=== PATIENT | female | born 1940 | race Caucasian/White ===

== ENCOUNTER 2016-10-25 18:16 | Emergency (ER) | payer MEDICARE ==
[2016-10-25 18:23] VITALS: BP 173/74
--- NOTE | 2016-10-25 18:38 | UC ---
HPI Wound/Suture Re-check - HPI Summary HPI Summary: The patient comes in today for: 1. Bleeding from the right ear: Onset: Punch biopsy done yesterday. Palliative/provocative: Nothing made it better or worse. Quality: Ache at the biopsy site. Region: Right ear Severity: 09/03 Time: Constant. Associated symptoms: Event: The patient had a punch biopsy done yesterday for a skin lesion of the right ear. She did well after the procedure. She woke up today with no problems. She took the bandaid off tonight (about 5:30 PM) and that is when it started bleeding. She tried to stop the bleeding. She had bandaids put back on the area and pressed some guaze pads to the area. This did not help stop the bleeding. * - History Of Current Complaint Chief Complaint: RAMBOkin Stated Complaint: wound check Time Seen by Provider: 10/25/16 18:21 Hx Obtained From: Patient, Family/Mixer Whipped Topping - Allergies/Home Medications Allergies/Adverse Reactions: Allergies Allergy/AdvReac Type Severity Reaction Status Date / Time Codeine Allergy Intestinal Verified 10/25/16 18:24 pain Penicillins Allergy Intestinal Verified 10/25/16 18:24 pain decongestants Allergy Cardiac Uncoded 10/25/16 18:24 arythmia most antibiotics Allergy Intestinal Uncoded 10/25/16 18:24 pain PMH/Surg Hx/FS Hx/Imm Hx Previously Healthy: No - Parkinson's disease. no bleeding problems. Endocrine History: Diabetes - She is diet-controlled pre-diabetic., Thyroid Disease, Hypothyroidism, Dyslipidemia Cardiovascular History: Hypertension GI/ History: Gastroesophageal Reflux - Surgical History Surgical History: Yes Surgery Procedure, Year, and Place: [place] 2008[place],[facility],prolapsed vagina 2009-[place],hyster 1988,cataracts both 2003,08 [facility] - Family History Known Family History: Positive: Cardiac Disease, Diabetes, Other - Stroke - Social History Occupation: Retired Lives: With Family Alcohol Use: None Substance Use Type: None Smoking Status (MU): Never Smoked Tobacco Review of Systems Constitutional: Negative Skin: Negative Eyes: Negative ENT: Negative Respiratory: Negative Cardiovascular: Negative Gastrointestinal: Negative Genitourinary: Negative All Other Systems Reviewed And Are Negative: Yes Physical Exam Triage Information Reviewed: Yes Appearance: Well-Appearing, No Pain Distress, Well-Nourished Vital Signs: Initial Vital Signs Temp 98.9 F 10/25/16 18:20 Pulse 83 10/25/16 18:20 Resp 16 10/25/16 18:20 BP 173/74 10/25/16 18:20 Pulse Ox 99 10/25/16 18:20 Vital Signs Reviewed: Yes Eyes: Positive: Conjunctiva Clear. Negative: Discharge ENT: Positive: Hearing grossly normal. Negative: Pharyngeal erythema, Nasal congestion, Nasal drainage, TM bulging, TM dull, TM red, Tonsillar swelling, Tonsillar exudate Dental: Negative: Gross Decay/Caries @, Dental Fracture @ Neck: Positive: Supple, Nontender, No Lymphadenopathy. Negative: Nuchal Rigidity Respiratory: Positive: Chest non-tender, Lungs clear, No respiratory distress, No accessory muscle use. Negative: Crackles, Wheezing Cardiovascular: Positive: RRR, No Murmur Abdomen Description: Positive: Nontender, No Organomegaly, Soft. Negative: Distended, Guarding Musculoskeletal: Positive: Strength Intact, ROM Intact, No Edema Neurological: Positive: Alert, Muscle Tone Normal Psychological: Positive: Normal Response To Family, Age Appropriate Behavior, Consolable Skin: Positive: Other - Right ear: There is one suture in the right ear. There is no redness, or swelling or bleeding from that site. However, there is a pinhole-sized in the skin below this of the pinna that oozes drops of blood.. Negative: rashes, breakdown Course/Dx - Course Course Of Treatment: The patient had her old, blood saturated dressing/bandages removed and more direct pressure applied to the bleeding area for about 20 minutes. There was no more bleeding. A more close, interrupted exam took place and there appeared to be a small skin tear at the area. Skin adhesive applied to that area. Hemostasis was applied. - Differential Dx - Laceration/Wound Provider Diagnoses: Bleeding of the right ear from wound area. Discharge - Discharge Plan Condition: Stable Disposition: HOME Patient Education Materials: Skin Adhesive Care (ED) Referrals: Jimi Ocampo MD [Primary Care Provider] - 1 Week (Please see your primary care provider or the surgeon as you have been told previously for follow up on your surgical wound. If there is any more bleeding, please be seen again. So not physically manipulate the right ear. No dressings are needed at this time. )
== END 2016-10-25 19:20 | disposition home or self-care (01) ==
LOC: UCEAST 18:16
DX: H95.42 Postprocedural hemorrhage of ear and mastoid process following other procedure (principal); I10 Essential (primary) hypertension; R73.03 Prediabetes; K21.9 Gastro-esophageal reflux disease without esophagitis; Z88.1 Allergy status to other antibiotic agents; Z88.5 Allergy status to narcotic agent; Z88.0 Allergy status to penicillin
CPT/HCPCS: 12011; 99211; G0463

== ENCOUNTER 2017-04-19 15:40 | Emergency (ER) | payer MEDICARE ==
[2017-04-19 16:03] VITALS: BP 157/63
--- NOTE | 2017-05-07 15:32 | UC ---
UC General HPI - HPI Summary HPI Summary: has hx of hypertension gets her medications [facility] mail order---her quinapril did not come in the mail today she is seeking a few doses until medication comes in - History of Current Complaint Chief Complaint: UCMedRefill Stated Complaint: MED REFILL Time Seen by Provider: 04/19/17 16:00 Hx Obtained From: Patient Onset/Duration: Sudden Onset Timing: Constant Current Severity: None Pain Intensity: 0 - Allergy/Home Medications Allergies/Adverse Reactions: Allergies Allergy/AdvReac Type Severity Reaction Status Date / Time Codeine Allergy Intestinal Verified 04/19/17 15:55 pain Penicillins Allergy Intestinal Verified 04/19/17 15:55 pain decongestants Allergy Cardiac Uncoded 10/25/16 18:24 arythmia most antibiotics Allergy Intestinal Uncoded 10/25/16 18:24 pain PMH/Surg Hx/FS Hx/Imm Hx Previously Healthy: No Endocrine History: Hypothyroidism, Dyslipidemia Cardiovascular History: Hypertension GI/ History: Gastroesophageal Reflux Neurological History: Other Other Neurological History: Parkinsons - Surgical History Surgical History: Yes Surgery Procedure, Year, and Place: [facility]b [facility],4 children,prolapsed vagina 2009-[place],hyster 1988,cataracts both 2003,08 [facility] [place] - Family History Known Family History: Positive: Cardiac Disease, Diabetes, Other - Stroke - Social History Occupation: Retired Lives: With Family Alcohol Use: None Substance Use Type: None Smoking Status (MU): Never Smoked Tobacco Review of Systems Constitutional: Negative Skin: Negative Eyes: Negative ENT: Negative Respiratory: Negative Cardiovascular: Negative Gastrointestinal: Negative Genitourinary: Negative Motor: Negative Neurovascular: Negative Musculoskeletal: Negative Neurological: Negative Psychological: Negative Is Patient Immunocompromised?: No All Other Systems Reviewed And Are Negative: Yes Physical Exam Triage Information Reviewed: Yes Appearance: Well-Appearing, No Pain Distress, Well-Nourished Vital Signs: Initial Vital Signs Temp 98.2 F 04/19/17 15:51 Pulse 84 04/19/17 15:51 Resp 16 04/19/17 15:51 BP 157/63 04/19/17 15:51 Pulse Ox 99 04/19/17 15:51 Vital Signs Reviewed: Yes Eye Exam: Normal Eyes: Positive: Conjunctiva Clear ENT Exam: Normal ENT: Positive: Normal ENT inspection, Hearing grossly normal Dental Exam: Normal Neck exam: Normal Neck: Positive: Supple, Nontender Respiratory Exam: Normal Respiratory: Positive: Chest non-tender, Lungs clear, Normal breath sounds, No respiratory distress, No accessory muscle use Cardiovascular Exam: Normal Cardiovascular: Positive: RRR, No Murmur, Pulses Normal, Brisk Capillary Refill Abdominal Exam: Normal Musculoskeletal Exam: Normal Musculoskeletal: Positive: Strength Intact, ROM Intact, No Edema Neurological Exam: Normal Neurological: Positive: Alert, Muscle Tone Normal Psychological Exam: Normal Psychological: Positive: Normal Response To Family Skin Exam: Normal Course/Dx - Course Course Of Treatment: dispense quinapril for bridge dose until RX comes in mail, follow bp with pcp - Differential Dx - Multi-Symptom Provider Diagnoses: Med refill, Hypertension in poor control Discharge - Discharge Plan Condition: Stable Disposition: HOME Prescriptions: Atorvastatin* [Lipitor 20 MG*] 20 mg PO 1700 #15 tab Quinapril HCl 40 mg PO DAILY #15 tab Patient Education Materials: Hypertension (ED) Referrals: Berkley Diaz MD [Primary Care Provider] - 2 Weeks
== END 2017-04-19 16:03 | disposition home or self-care (01) ==
LOC: UCEAST 15:40
DX: I10 Essential (primary) hypertension (principal); Z76.0 Encounter for issue of repeat prescription; E03.9 Hypothyroidism, unspecified; E78.5 Hyperlipidemia, unspecified; K21.9 Gastro-esophageal reflux disease without esophagitis; G20 Parkinson's disease; Z88.1 Allergy status to other antibiotic agents; Z88.5 Allergy status to narcotic agent; Z88.0 Allergy status to penicillin
CPT/HCPCS: 99212; G0463

== ENCOUNTER 2018-09-20 16:23 | Emergency (ER) | payer MEDICARE ==
--- OUTSIDE RECORDS SUMMARY | 2018-09-20 16:30 | XMS REPORT | Continuity of Care Document ---
:1940 External Reference #:[id number] Author Name Carin casillas Care Team Providers Name Role Phone Berkley Diaz MD Primary Care Physician Unavailable Payers Date Identification Numbers Payment Provider Subscriber Effective: 2006 Policy Number: [id number] Medicare Marisol Cleveland PayID: [id number] [address] [place] [address] Policy Number: [id number] [facility] Marisol Cleveland PayID: [id number] [address] [place] [address] Effective: 2012 Policy Number: [id number] [facility] Marisol Cleveland Life Expires: 2014 [address] [place] [address] Advance Directives Description No Information Available Problems Date Description Provider Status Onset: 09/21/2014 Memory impairment Wendi Foster M.D. Active Onset: 09/21/2014 Parkinson's disease Wendi Foster M.D. Active Onset: 08/11/2015 Restless legs Wendi Foster M.D. Active Family History Date Family Member(s) Observation Comments Father Colon Cancer Age 60 Father due to Colon Cancer () - Age 60 Father Epilepsy Mother Heart Disease CHF at age 84 Mother Diabetes Mother Stroke Siblings 3 Social History Type Date Description Comments Sex Unknown Occupation Retired Clergy at [employer] ETOH Use Denies alcohol use Tobacco Use Start: Unknown Patient has never smoked Recreational Drug Use Denies Drug Use Smoking Status Reviewed: 08/29/18 Patient has never smoked Exercise Type/Frequency Exercises regularly 2x a week class and balance class once a week Allergies, Adverse Reactions, Alerts Date Description Reaction Status Severity Comments 07/28/2013 Penicillins GI UPSET Active 05/06/2014 Sulfa Antibiotics Nausea and Vomiting Active Medications Medication Date Status Form Strength Qnty SIG Indications Ordering Provider Sertraline HCL Active Tablets 25mg 60tab take 1 by F41.9 Shannan 9 s mouth each , day x 2 M.D. weeks, then 2 by mouth each day after breakfast Carbidopa-Levod Active Tablets 25-100mg 30tab take 1 G20 Shannan opa ER 8 ER s tablet at [place], bedtime M.D. Carbidopa-Levod Active Tablets 25-100mg 150ta 1 tab by Shannan opa 8 bs mouth 4 der, x/day as M.D. directed Quinapril HCL Active Tablets 40mg 90tab 1 tab po Unknown 0 s qd Atorvastatin Active Tablets 20mg 30tab take 1 Unknown Calcium 0 s tablet at bedtime Pantoprazole Active Solution 40mg 90uni 1 tab po Unknown Sodium 0 Rec ts qd Levothyroxine Active Tablets 50mcg 90tab 1 tab po Unknown Sodium 0 s qd Vitamin C Active Chewtabs 250mg 60uni 1 tab po Unknown 0 ts daily Colace Active Capsules 100mg 40cap 3 tabs po Unknown 0 s qhs Probiotic Active Capsules 1 tab by Unknown 0 mouth every day Calcium Citrate Active Tablets 250mg 2 tabs po Unknown 0 qd Hydroxyurea Active Capsules 500mg 1 tab by Unknown 0 mouth every day Senekot Active 1 tab po Unknown Laxative 0 at 8pm Phazyme Maximum Active Capsules 250mg 1 tab po Unknown Strength 0 qhs Melatonin Active Capsules 3mg 1 by mouth Unknown 0 at bedtime Ropinirole HCL Hx Tablets 0.25mg 120ta 1-4 tabs G20 Wendi M. 6 - bs by mouth Maria Luisaman, Unknown every at M.D. bedtime as directed prn Metoprolol Hx Tablets 25mg 90tab 1 by mouth Angie Succinate ER 5 - ER 24HR s every day [place], M.DKennedy 5 Selegiline HCL Hx Capsules 5mg 180ca 1 cap by 332.0 Wendi Fields 4 - ps mouth [facility], every in M.D. 5 the morning and noon Azilect Hx Tablets 1mg 90tab 1 by mouth Wendi Fields 4 - s every day [facility], M.D. 4 Amantadine HCL Hx Capsules 100mg 180ca 1 by mouth 332.0 Wendi Fields 4 - ps twice a Stack, day M.D. 4 Azilect Hx Tablets 0.5mg 180ta 2 tabs po Wendi Fields 4 - bs qam [facility], M.D. 4 Citracal/Vitami Hx Tablets 250-200mg 2 po qam Unknown n D 0 - -Unit 8 Sinemet Hx Tablets 25-100mg 360ta 1 by mouth Wendi Fields 0 - bs 3 times a Stacksima, Unknown day as M.D. directed Carbidopa-Levod Hx Tablets 25-100mg 450ta 1 by mouth Wendi Fields opa ER 0 - ER bs 5 times a [facility], day as M.D. 8 directed. Protonix Hx Tablets 40mg 1 by mouth Unknown 0 - DR every day 8 Loratadine Hx Capsules 10mg 1 tab po Unknown 0 - qhs 9 Medications Administered in Office Medication Date Status Form Strength Qnty SIG Indications Ordering Provider Technetium TC Administered Injection Behzad Obrien 99M 015 Abdon Vazuqez M.D., FACC, Per Unit Dose FASNC Up To 40 Millicuries Technetium TC Administered Injection Angie 99M 015 Abdon Sanches M.D. Per Unit Dose Up To 40 Millicuries Immunizations Description No Information Available Vital Signs Date Vital Result Comment 08/29/2018 2:01pm Height 65 inches 5'5" Weight 118.00 lb Heart Rate 70 /min BP Systolic 118 mmHg BP Diastolic 72 mmHg BMI (Body Mass Index) 19.6 kg/m2 02/28/2018 9:05am Height 65 inches 5'5" Weight 124.38 lb Heart Rate 72 /min BP Systolic Sitting 130 mmHg BP Diastolic Sitting 68 mmHg Respiratory Rate 16 /min BMI (Body Mass Index) 20.7 kg/m2 11/14/2017 8:33am Height 65 inches 5'5" Weight 129.50 lb Heart Rate 80 /min BP Systolic 142 mmHg BP Diastolic 76 mmHg Respiratory Rate 16 /min BMI (Body Mass Index) 21.5 kg/m2 06/13/2017 11:20am Height 65 inches 5'5" Weight 134.00 lb Heart Rate 72 /min BP Systolic 140 mmHg BP Diastolic 72 mmHg Respiratory Rate 16 /min BMI (Body Mass Index) 22.3 kg/m2 03/07/2017 11:28am Height 65 inches 5'5" Weight 130.00 lb Heart Rate 76 /min BP Systolic Sitting 122 mmHg BP Diastolic Sitting 62 mmHg Respiratory Rate 16 /min BMI (Body Mass Index) 21.6 kg/m2 12/20/2016 2:35pm Height 65 inches 5'5" Weight 130.00 lb Heart Rate 80 /min BP Systolic 112 mmHg BP Diastolic 80 mmHg Respiratory Rate 16 /min Pain Level 0 BMI (Body Mass Index) 21.6 kg/m2 11/20/2016 8:41am Height 65 inches 5'5" Weight 134.00 lb Heart Rate 72 /min BP Systolic Sitting 140 mmHg BP Diastolic Sitting 80 mmHg Respiratory Rate 14 /min BMI (Body Mass Index) 22.3 kg/m2 11/01/2016 1:47pm Heart Rate 78 /min BP Systolic Sitting 138 mmHg BP Diastolic Sitting 72 mmHg Respiratory Rate 16 /min Body Temperature 97.8 F 10/24/2016 9:28am Heart Rate 74 /min BP Systolic 138 mmHg BP Diastolic 78 mmHg Respiratory Rate 16 /min 10/17/2016 9:44am Heart Rate 66 /min BP Systolic 116 mmHg BP Diastolic 78 mmHg Respiratory Rate 16 /min Body Temperature 97.4 F 01/05/2016 11:46am Height 65.5 inches 5'5.50" Weight 137.00 lb Heart Rate 81 /min BP Systolic Sitting 144 mmHg BP Diastolic Sitting 82 mmHg Respiratory Rate 18 /min O2 % BldC Oximetry 98 % BMI (Body Mass Index) 22.4 kg/m2 08/11/2015 2:16pm Height 65.5 inches 5'5.50" Weight 137.12 lb Heart Rate 80 /min BP Systolic Sitting 138 mmHg BP Diastolic Sitting 76 mmHg Respiratory Rate 17 /min BMI (Body Mass Index) 22.5 kg/m2 04/12/2015 10:12am Height 65.5 inches 5'5.50" Weight 140.00 lb With shoes Heart Rate 76 /min BP Systolic Sitting 140 mmHg BP Diastolic Sitting 78 mmHg Respiratory Rate 16 /min BMI (Body Mass Index) 22.9 kg/m2 12/07/2014 9:28am Height 65.5 inches 5'5.50" Heart Rate 64 /min BP Systolic Sitting 134 mmHg BP Diastolic Sitting 70 mmHg Respiratory Rate 16 /min 09/21/2014 11:18am Height 65.5 inches 5'5.50" Heart Rate 68 /min BP Systolic Sitting 122 mmHg BP Diastolic Sitting 64 mmHg Respiratory Rate 16 /min 05/06/2014 1:39pm Height 65.5 inches 5'5.50" Weight 144.50 lb Heart Rate 68 /min BP Systolic Sitting 130 mmHg BP Diastolic Sitting 70 mmHg Respiratory Rate 16 /min BMI (Body Mass Index) 23.7 kg/m2 12/31/2013 10:03am Height 65.5 inches 5'5.50" Weight 144.00 lb Heart Rate 66 /min BP Systolic Sitting 130 mmHg BP Diastolic Sitting 70 mmHg Respiratory Rate 16 /min BMI (Body Mass Index) 23.6 kg/m2 10/06/2013 11:35am Height 65.5 inches 5'5.50" Weight 141.00 lb Heart Rate 68 /min BP Systolic Sitting 142 mmHg BP Diastolic Sitting 80 mmHg Respiratory Rate 16 /min BMI (Body Mass Index) 23.1 kg/m2 07/28/2013 11:05am Heart Rate 76 /min BP Systolic Sitting 138 mmHg BP Diastolic Sitting 72 mmHg Respiratory Rate 16 /min Results Test Date Facility Test Result H/L Range Note Laboratory test 10/24/2016 [facility] Surgical SEE RESULT 1 , [address] [place] [address] [phone] 1 [id number] 2 SEE RESULT BELOW Name: MARISOL MCNALLY : [address]: Gay Zhao MD Acct: [id number] Unit: [id number] AGE: 76 Location: [facility] Re10/24/16 SEX: F Status: REG REF SPEC: [id number] EN: 10/24/16-[address] [facility] [address]: Gay Zhao MD REQ: [id number] RECD: 10/24/16-1156 STATUS: SOUT _ ORDERED: LEVEL 3, LEVEL 4 COMMENTS: [id number] FINAL DIAGNOSIS 1. Skin, right arm, excision: -- Epidermal inclusion cyst. 2. Skin, right ear lesion, biopsy: -- Actinic keratosis with excoriation. CLINICAL HISTORY No history given GROSS DESCRIPTION 1. The specimen is received in formalin labeled, Right Arm Cyst, and consists of a 1.5 x 0.9 cm alejandre-white wrinkled unoriented skin ellipse excised to a depth of 0.5 cm. There is a 0.5 x 0.5 x 0.4 cm cyst containing waxy alejandre-white material within the subcutaneous tissue. The specimen is inked, serially sectioned and textile machinery sales representative sections are submitted in one cassette. 2. The specimen is received in formalin labeled, Right Ear Lesion, and consists of a 0.5 by up to 0.3 x 0.2 cm mottled alejandre-pink irregular skin and soft tissue fragment, which is bisected and submitted entirely in one cassette. Signed (signature on file) Tiago Bae MD [id number] END OF REPORT * ML=Testing performed at Main Lab DEPARTMENT OF PATHOLOGY, [address] [place] [address] Tiago Bae M.D. Director [facility] # [id number] Procedures Date Code Description Status 07/15/2018 80498 ECHO Transthoracic, Real-Time 2D With Doppler And Color Completed Flow 07/15/2018 53347 ECHO Transthoracic, Real-Time 2D With Doppler And Color Completed Flow 10/24/2016 40031 Biopsy External Ear Completed 10/24/2016 49143 Excision,Benign,Face,Ears,Eyelids,Nose,Lips 0.6 To 1.0 Completed CM 07/02/2014 99568 Stress Test Completed 07/02/2014 80485 Myocardial Perfusion Imaging Tomographic (Spect) Completed Multiple Studies 07/02/2014 71577 Myocardial Perfusion Imaging Tomographic (Spect) Completed Multiple Studies 04/04/2012 [id number] Mammogram Completed Encounters Type Date Location Provider Dx Diagnosis Office Visit 02/28/2018 [facility] Maurice Parkinson's 9:00a [facility] [place] [facility] disease Office Visit 11/14/2017 [facility] Maurice Parkinson's 8:30a [facility] [place] [facility] Office Visit 06/13/2017 [facility] Johnson Parkinson' s 11:15a [facility] disease G25.81 Restless legs syndrome Office Visit 03/07/2017 11:30a [facility]ema Serra [facility] G25.81 Restless legs syndrome Office Visit 12/20/2016 2:30p Neema Serra [facility] Foster M.D. disease R42 Dizziness and giddiness Office Visit 11/20/2016 8:45a [facility] Wendi Fields G20 [facility] Foster M.D. disease G25.81 Restless legs syndrome R42 Dizziness and giddiness Office Visit 10/17/2016 9:30a [facility] Gay Griffin L72.3 Sebaceous cyst [facility] Zhao MD R23.9 Unspecified skin changes Office Visit 01/05/2016 11:45a [facility] Wendi Fields G20 [facility] Foster M.D. disease G25.81 Restless legs syndrome Office Visit 08/11/2015 2:15p [facility] Wendi Fields G20 [facility] Foster M.D. disease G25.81 Restless legs syndrome Office Visit 04/12/2015 10:15a [facility] Wendi Fields G20 [facility] Foster M.D. disease Office Visit 12/07/2014 9:30a Neema Fields 332.0 Paralysis [facility]ans [facility] Foster M.D. Office Visit 09/21/2014 11:15a Neema Fields 332.0 [facility] M.D. Office Visit 05/06/2014 1:30p Neema Fields 332.0 [facility] Foster M.D. Office Visit 12/31/2013 10:00a Neema Fields 332.0 [facility] Foster M.D. Office Visit 10/06/2013 11:00a Neema Fields 332.0 [facility] Foster M.D. Office Visit 07/28/2013 11:00a Neema Fields 332.0 [facility]alysis [facility] Foster M.D. Plan of Treatment Future Appointment(s):10/15/2018 11:30 am - Shannan Vargas M.D. at [facility] [id number]/29/2018 - Shannan Vargas M.D.G20 Parkinson's diseaseFollow up:front maker lockstitch: please ask for notes from Dr. Watson, as well as getting most recent CBC.Recommendations:continue to be as active as you can, and drink water.G25.81 Restless legs [id number] Anxiety disorder, unspecifiedNew Medication:Sertraline HCL 25 mg - take 1 by mouth each day x 2 weeks, then 2 by mouth each day after breakfastFollow up:6- 8 weeks (may add on )
[2018-09-20 16:40] VITALS: BP 135/53
--- NOTE | 2018-09-20 16:56 | UC ---
Syncope/New Syncope HPI - HPI Summary HPI Summary: This patient is a 78-year-old female with past medical history of disease presents to the urgent care with chief complaint of having a syncopal episode. She reports that she was preparing a meal for lunch and suddenly the patient became dizzy feeling that she was called to pass out and likely the patients daughter called her preventing her from falling in the floor. The patient has a positive loss of consciousness for approximately 2-5 seconds. Patient denies any chest pain shortness of breath or palpitations, she denies any nausea vomiting diarrhea constipation. She reports that approximately 2 weeks ago she started taking Zoloft and her dose was increased last week and she reports not feeling great. She stopped taking the Zoloft 3 days ago and she was started this morning. She has no other complaints. - History Of Current Complaint Chief Complaint: UCDizziness Stated Complaint: DIZZINESS Time Seen by Provider: 09/20/18 16:44 Hx Obtained From: Patient, Family/Distribution System Operator Onset/Duration: Sudden Onset Activity At Onset: Other - cooking Timing: Seconds Frequency: Episodes x___ - 1 Context: Witnessed Associated Head Trauma: No Pain Intensity: 5 Aggravating Factor(s): Nothing Alleviating Factor(s): Nothing Associated Signs And Symptoms: Positive: Negative - Allergies/Home Medications Allergies/Adverse Reactions: Allergies Allergy/AdvReac Type Severity Reaction Status Date / Time codeine Allergy Intermediate intestianl Verified 09/20/18 16:41 pain Penicillins Allergy Intermediate intestianl Verified 09/20/18 16:41 pain decongestants Allergy Cardiac Uncoded 10/25/16 18:24 arythmia most antibiotics Allergy Intestinal Uncoded 10/25/16 18:24 pain Home Medications: Home Medications Sertraline* [Zoloft*] 50 mg PO BEDTIME 09/20/18 [History Confirmed 09/20/18] Simethicone [Gas-X Extra Strength] 250 mg PO DAILY 09/20/18 [History Confirmed 09/20/18] PMH/Surg Hx/FS Hx/Imm Hx Previously Healthy: Yes Neurological History: Other - Parkinsons disease - Surgical History Surgical History: Yes Surgery Procedure, Year, and Place: gb 2008-[place],breast 1993-[place],4 children,prolapsed vagina 2009-[place],hyster 1988,cataracts both 2003, [facility] [place] - Family History Known Family History: Positive: Cardiac Disease, Diabetes, Other - Stroke - Social History Alcohol Use: None Substance Use Type: None Smoking Status (MU): Never Smoked Tobacco Review of Systems All Other Systems Reviewed And Are Negative: Yes Constitutional: Positive: Negative Skin: Positive: Negative Eyes: Positive: Negative ENT: Positive: Negative Respiratory: Positive: Negative Cardiovascular: Positive: Negative Gastrointestinal: Positive: Negative Genitourinary: Positive: Negative Motor: Positive: Negative Musculoskeletal: Positive: Negative Neurological: Positive: Other - dizziness Psychological: Positive: Negative Is Patient Immunocompromised?: No Physical Exam - Summary Physical Exam Summary: VITAL SIGNS: Reviewed. GENERAL: Patient is a thin female who is lying comfortable in the stretcher. Patient is not in any acute respiratory distress. HEAD AND FACE: No signs of trauma. No ecchymosis, hematomas or skull depressions. No sinus tenderness. EYES: PERRLA, EOMI x 2, No injected conjunctiva, no nystagmus. EARS: Hearing grossly intact. Ear canals and tympanic membranes are within normal limits. MOUTH: Oropharynx within normal limits. NECK: Supple, trachea is midline, no adenopathy, no JVD, no carotid bruit, no c- spine tenderness, neck with full ROM. CHEST: Symmetric, no tenderness at palpation LUNGS: Clear to auscultation bilaterally. No wheezing or crackles. CVS: Regular rate and rhythm, S1 and S2 present, no murmurs or gallops appreciated. ABDOMEN: Soft, non-tender. No signs of distention. No rebound no guarding, and no masses palpated. Bowel sounds are normal. EXTREMITIES: FROM in all major joints, no edema, no cyanosis or clubbing. NEURO: Alert and oriented x 3. No acute neurological deficits. Speech is normal and follows commands. SKIN: Dry and warm Triage Information Reviewed: Yes Vital Signs: Initial Vital Signs Temp 99.1 F 09/20/18 16:28 Pulse 69 09/20/18 16:28 Resp 18 09/20/18 16:28 BP 135/53 09/20/18 16:28 Pulse Ox 97 09/20/18 16:28 Syncope Course/Dx - Course Course Of Treatment: In the urgent care course we did an EKG which is sinus rhythm without any ST elevations. Because of the syncopal episode I recommended for the patient to go to the emergency room department for further workup and management. During the physical exam the patient does have any neurological focal deficits however she needs further workup and management. The patient agrees however she declined ambulance transport. The patient will be with her daughter to the emergency department. Patient is hemodynamically stable alert and oriented 3. - Differential Dx/Diagnosis Provider Diagnosis: Syncope Discharge - Sign-Out/Discharge Documenting (check all that apply): Patient Departure All imaging exams completed and their final reports reviewed: No Studies - Discharge Plan Condition: Stable Disposition: HOME-RECOMMEND TO ED Patient Education Materials: Syncope (ED) Referrals: Berkley Diaz MD [Primary Care Provider] - Additional Instructions: Patient was recommended to go to the emergency department for further workup and management. The patient declined ambulance transport. - Billing Disposition and Condition Condition: STABLE Disposition: Home-Recommend to ED
== END 2018-09-20 16:59 | disposition home health service (06) ==
LOC: UCEAST 16:23
DX: R55 Syncope and collapse (principal); G20 Parkinson's disease; Z88.1 Allergy status to other antibiotic agents; Z88.5 Allergy status to narcotic agent; Z88.0 Allergy status to penicillin; Z88.8 Allergy status to other drugs, medicaments and biological substances
CPT/HCPCS: 93005; 99212; G0463

== ENCOUNTER 2018-09-20 17:32 | Emergency (ER) | payer MEDICARE ==
[2018-09-20] MEDS ORDERED: NS 0.9% 1000 ML** 1,000 ML IV ONE (20:33)
--- NOTE | 2018-09-20 20:40 | ED ---
Syncope/Near Syncope - HPI Summary HPI Summary: Patient is a 78 y/o female who presents to the ER accompanied by and daughter with episode of syncope witnessed by daughter. She was making her lunch during onset when she felt like she was going to faint. Daughter held on to her as she experienced transient LOC for a few seconds, and her daughter lowered her to the ground. She denies head trauma. After waking up, patient felt "foggy" and not quite herself. She has been fatigued since the episode but otherwise normal. The patient usually walks by herself and is pretty active , only using a cane when feeling unsteady. She denies SOB, chest pain, and fever. She has been having abdominal pain and diarrhea 4-5 times per day for the last few days and has had decreased appetite. Patient has been having a lot of flatulence. She has not taken antibiotics recently, but started a higher Zoloft (for anxiety) dose 5 days ago. 3 days ago, while using the bathroom at night, she felt her legs "lock up", so she has since stopped taking Zoloft. Patient has a PMHx of HTN, Parkinsons, breast cancer, basal carcinoma on the head, acquired vWD, and GERD. She has FHx of DM, cardiac disease, and NV. She does not drink alcohol, use drugs, and has never smoked. - History Of Current Complaint Chief Complaint: EDSyncope Time Seen by Provider: 09/20/18 20:25 Hx Obtained From: Patient, Family/Figurine Maker Onset/Duration: Gradual Onset Timing: Seconds Context: Witnessed, Loss Of Consciousness Activity At Onset: Other - Making lunch Associated Head Trauma: No Aggravating Factor(s): Nothing Alleviating Factor(s): Nothing Associated Signs And Symptoms: Diarrhea, Other - Fatigue, Flatulence, anxiety, decreased appetite, no head trauma - Allergies/Home Medications Allergies/Adverse Reactions: Allergies Allergy/AdvReac Type Severity Reaction Status Date / Time codeine Allergy Intermediate intestianl Verified 09/20/18 17:34 pain Penicillins Allergy Intermediate intestianl Verified 09/20/18 17:34 pain decongestants Allergy Cardiac Uncoded 09/20/18 17:34 arythmia most antibiotics Allergy Intestinal Uncoded 09/20/18 17:34 pain Home Medications: Home Medications HydroxyUREA CAP* [Hydrea CAP*] 500 mg PO DAILY WITH MEAL 09/20/18 [History Confirmed 09/20/18] Sertraline* [Zoloft*] 25 mg PO DAILY 09/20/18 [History Confirmed 09/20/18] PMH/Surg Hx/FS Hx/Imm Hx Endocrine/Hematology History: Reports: Hx Thyroid Disease Denies: Hx Diabetes Cardiovascular History: Reports: Hx Hypertension Denies: Hx Pacemaker/ICD Respiratory History: Denies: Hx Asthma, Hx Chronic Obstructive Pulmonary Disease (COPD) GI History: Denies: Hx Ulcer History: Reports: Other Problems/Disorders - hyster for fibroids and bleeding Neurological History: Reports: Other Neuro Impairments/Disorders - dizziness, pains in neck and back-physical therapy Denies: Hx Seizures, Hx Transient Ischemic Attacks (TIA) Psychiatric History: Denies: Hx Panic Disorder - Cancer History Cancer Type, Location and Year: HX breast CA left side Hx Chemotherapy: Yes - 1993 (4) treatments and tamoxifen Hx Radiation Therapy: No - Surgical History Surgery Procedure, Year, and Place: gb 2008-[place],breast 1993-[place],4 children,prolapsed vagina 2009-[place],hyster 1987,cataracts both 2003,08 [facility] [place] Hx Anesthesia Reactions: No Infectious Disease History: No Infectious Disease History: Denies: Hx Hepatitis, Traveled Outside the [place] in Last 30 Days - Family History Known Family History: Positive: Cardiac Disease, Diabetes, Other - Stroke - Social History Alcohol Use: None Substance Use Type: Reports: None Smoking Status (MU): Never Smoked Tobacco Review of Systems Positive: Fatigue. Negative: Fever Negative: Chest Pain Negative: Shortness Of Breath Positive: Abdominal Pain, Diarrhea, Other - Flatulence, decreased appetite Musculoskeletal: Other - No head trauma Neurological: Other - Tired Positive: Syncope Positive: Anxious All Other Systems Reviewed And Are Negative: Yes Physical Exam - Summary Physical Exam Summary: Appearance: Well appearing, no pain distress Skin: warm, dry, reflects adequate perfusion Head/face: normal Eyes: EOMI, PARAMJIT ENT: dry mucus membranes Neck: supple, non-tender Respiratory: CTA, breath sounds present Cardiovascular: RRR, pulses symmetrical, mild bipedal edema Abdomen: non-tender, soft Musculoskeletal: normal, strength/ROM intact Neuro: mild tremor, A&Ox3 GCS: 15 Triage Information Reviewed: Yes Vital Signs On Initial Exam: Initial Vitals Temp Pulse Resp BP Pulse Ox 98.5 F 71 16 155/70 96 09/20/18 17:34 09/20/18 17:34 09/20/18 17:34 09/20/18 17:34 09/20/18 17:34 Vital Signs Reviewed: Yes Diagnostics - Vital Signs Vital Signs Temp Pulse Resp BP Pulse Ox 09/20/18 20:29 99.4 F 98 09/20/18 20:28 76 16 149/63 99 09/20/18 20:25 75 99 09/20/18 20:08 99.2 F 72 18 138/57 98 09/20/18 17:34 98.5 F 71 16 155/70 96 - Laboratory Result Diagrams: 09/20/18 20:49 09/20/18 20:41 Lab Statement: Any lab studies that have been ordered have been reviewed, and results considered in the medical decision making process. - Radiology CXR Radiology Interpretation Completed By: ED Physician Summary of Radiographic Findings: No acute processes. Pending official radiology report. - CT Head CT Interpretation Completed By: Radiologist Summary of CT Findings: 1. There is stable age-related diffuse cerebral volume loss and chronic. microvascular ischemic disease. 2. No acute intracranial pathology. Dr. Graham has reviewed these radiology results. - EKG 2056 Cardiac Rate: NL - 69 BPM EKG Rhythm: Sinus Rhythm Summary of EKG Findings: Sinus rhythm with nonspecific ST changes in inferior leads Re-Evaluation - Re-Evaluation First Eval Re-Evaluation Time: 22:44 Comment: Discussed results with patient and plan for discharge. Patient agrees with and understands plan. Course/Dx Course Of Treatment: Patient is a 78 y/o female who presents to the ER with syncope accompanied by and daughter. During ED course, patient received fluids. EKG reveals NSR at [address] changes in inferior leads. CT brain reveals there is stable age-related diffuse cerebral volume loss and chronic microvascular ischemic disease, and no acute intracranial pathology. CXR reveals no acute processes. Bloodwork and UA obtained. This patient will be discharged with diagnosis of UTI and near-syncope. Patient understands and agrees with this plan. - Diagnoses Differential Diagnosis/HQI/PQRI: Positive: Other - UTI/sepsis/near syncope Provider Diagnoses: UTI (urinary tract infection) Discharge - Sign-Out/Discharge Documenting (check all that apply): Patient Departure - Discharge Patient Received Moderate/Deep Sedation with Procedure: No - Discharge Plan Condition: Stable Disposition: HOME Prescriptions: Ciprofloxacin TAB* [Cipro 500 MG TAB*] 500 mg PO BID #10 tab Patient Education Materials: Urinary Tract Infection in Women (ED) Referrals: Berkley Diaz MD [Primary Care Provider] - 3 Days Additional Instructions: Follow up with PCP in 3 days. Return to ED if worsening or changing symptoms. - Billing Disposition and Condition Condition: STABLE Disposition: Home - Attestation Statements Document Initiated by Scribe: Yes Documenting Scribe: Peter Griffin Provider For Whom Dianeibe is Documenting (Include Credential): Garo Graham MD Scribe Attestation: Peter Reyes, scribed for Garo Graham MD on 09/21/18 at 0203. Scribe Documentation Reviewed: Yes Provider Attestation: The documentation as recorded by the scribePeter accurately reflects the service I personally performed and the decisions made by me, Garo Graham MD Status of Scribe Document: Viewed
[2018-09-20 21:06] LABS: Activated Partial Thrombo Time 29.3 seconds (26.0-36.3); INR 1.13 (0.82-1.09)
[2018-09-20 21:14] LABS: Albumin 3.9 g/dL (3.2-5.2); Albumin/Globulin Ratio 1.9 (1-3); BUN/Creatinine Ratio 31.9 (8-20); Calcium 8.9 mg/dL (8.6-10.3); EGFR African American 99.8 (>60); EGFR Non-African American 82.5 (>60); Globulin 2.1 g/dL (2-4); Magnesium 1.8 mg/dL (1.9-2.7); Potassium 3.5 mmol/L (3.5-5.0); Total Bilirubin 0.6 mg/dL (0.2-1.0)
[2018-09-20 21:17] LABS: Troponin I 0.01 ng/mL (<0.04)
[2018-09-20 21:19] LABS: Myoglobin 69.3 ng/mL (14.3-65.8)
[2018-09-20 21:58] LABS: ABS Basophils 0 10^3/ul (0-0.2); ABS Eosinophils 0 10^3/ul (0-0.6); ABS Lymphocytes 0.7 10^3/ul (1.0-4.8); ABS Monocytes 0.6 10^3/ul (0-0.8); ABS Neutrophils 3.1 10^3/ul (1.5-7.7); ABS Nucleated RBC 0 10^3/ul; Eosinophil % 0.1 %; Hematocrit 39 % (33-41); Hemoglobin 13.2 g/dL (12.0-16.0); Lymphocyte % 16.7 %; Mean Corpuscular HGB Conc 34 g/dL (31-36); Mean Corpuscular Hemoglobin 34 pg (27-31); Mean Corpuscular Volume 101 fL (80-97); Mean Platelet Volume 7.7 fL (7.4-10.4); Nucleated Red Blood Cells % 0; Platelet Count 281 10^3/uL (150-450); Red Blood Count 3.87 10^6 /uL (3.70-4.87); Red Cell Distribution Width 24 % (10.5-15); White Blood Count 4.4 10^3/uL (3.5-10.8)
[2018-09-20 22:05] LABS: Urine Appearance Clear; Urine Bacteria 1+ (Absent); Urine Bilirubin Negative (Negative); Urine Blood 1+ (Negative); Urine Color Yellow; Urine Glucose Negative (Negative); Urine Ketones Negative (Negative); Urine Nitrite Negative (Negative); Urine Protein Negative (Negative); Urine Red Blood Cell Trace(0-2/hpf) (Absent); Urine Specific Gravity 1.012 (1.010-1.030); Urine Squamous Epithelial Cell Present (Absent); Urine Urobilinogen Negative (Negative); Urine White Blood Cell 1+(6-10/hpf) (Absent)
[2018-09-20] MEDS ORDERED: Ciprofloxacin TAB* 500 MG PO ONE (22:43)
[2018-09-20] MEDS ORDERED: Magnesium Oxide TAB* 400 MG PO ONE (22:53)
[2018-09-20 23:24] VITALS: BP 158/68
== END 2018-09-20 23:22 | disposition home or self-care (01) ==
LOC: ED 17:32
DX: N39.0 Urinary tract infection, site not specified (principal); I10 Essential (primary) hypertension; G20 Parkinson's disease; K21.9 Gastro-esophageal reflux disease without esophagitis; D68.0 Von Willebrand disease; E07.9 Disorder of thyroid, unspecified; R94.31 Abnormal electrocardiogram [ECG] [EKG]; Z88.5 Allergy status to narcotic agent; Z88.0 Allergy status to penicillin; Z88.8 Allergy status to other drugs, medicaments and biological substances; Z88.3 Allergy status to other anti-infective agents; Z85.3 Personal history of malignant neoplasm of breast; Z85.828 Personal history of other malignant neoplasm of skin; Z92.21 Personal history of antineoplastic chemotherapy
CPT/HCPCS: 36415; 70450; 71045; 80053; 81003; 81015; 82550; 83605; 83735; 83874; 84484; 85025; 85610; 85730; 87077; 87086; 87186; 93005; 96360; 96361; 99285; A9270-GY

== ENCOUNTER 2018-09-21 15:24 | Emergency (ER) | payer MEDICARE ==
--- NOTE | 2018-09-21 16:06 | ED ---
Dizziness - HPI Summary HPI Summary: This patient is a 78 year old F presenting to [facility] accompanied by her son in law with a chief complaint of dizziness since a few minutes ago. She was sitting with her in the ED when her symptoms started and she checked herself in. The patient rates the pain 2/10 in severity. Patient reports fever, dizziness, diarrhea, anxiety, and feeling faint. Patient denies nausea, CP, SOB recent fall, or weakness. The patient was here yesterday and was diagnosed with a UTI. She took her antibiotic last night and once this morning. She has not been taking her medication regularly as directed, in regards to her antidepressants. PMHX Vertigo, Diabetes, HTN, GERD, thyroid problems, Parkinson s, Depression. RX Sertraline 50mg. Vitals in the room: HR 61 bpm, BP 110/47. - History Of Current Complaint Chief Complaint: EDDizziness Stated Complaint: NEAR SYNCOPE Time Seen by Provider: 09/21/18 15:59 Hx Obtained From: Patient Timing: Intermittent Episode Lasting Character: Lightheaded, Dizzy Associated Signs And Symptoms: Positive: Diarrhea, Fever - Allergies/Home Medications Allergies/Adverse Reactions: Allergies Allergy/AdvReac Type Severity Reaction Status Date / Time codeine Allergy Intermediate intestianl Verified 09/21/18 15:26 pain Penicillins Allergy Intermediate intestianl Verified 09/21/18 15:26 pain decongestants Allergy Cardiac Uncoded 09/21/18 15:26 arythmia most antibiotics Allergy Intestinal Uncoded 09/21/18 15:26 pain PMH/Surg Hx/FS Hx/Imm Hx Endocrine/Hematology History: Reports: Hx Diabetes, Hx Thyroid Disease Cardiovascular History: Reports: Hx Hypertension Denies: Hx Pacemaker/ICD Respiratory History: Denies: Hx Asthma, Hx Chronic Obstructive Pulmonary Disease (COPD) GI History: Denies: Hx Ulcer History: Reports: Other Problems/Disorders - hyster for fibroids and bleeding Neurological History: Reports: Other Neuro Impairments/Disorders - dizziness, pains in neck and back-physical therapy, parkinsons Denies: Hx Seizures, Hx Transient Ischemic Attacks (TIA) Psychiatric History: Reports: Hx Anxiety, Hx Depression Denies: Hx Panic Disorder - Cancer History Cancer Type, Location and Year: HX breast CA left side Hx Chemotherapy: Yes - 1993 (4) treatments and tamoxifen Hx Radiation Therapy: No - Surgical History Surgery Procedure, Year, and Place: gb 2008-[place],breast 1993-[place],4 children,prolapsed vagina 2010-[place],hyster 1988,cataracts both 2004,08 [facility] Hx Anesthesia Reactions: No Infectious Disease History: No Infectious Disease History: Denies: Hx Hepatitis, Traveled Outside the [place] in Last 30 Days - Family History Known Family History: Positive: Cardiac Disease, Diabetes, Other - Stroke - Social History Alcohol Use: None Substance Use Type: Reports: None Smoking Status (MU): Never Smoked Tobacco Review of Systems Positive: Fever Negative: Chest Pain Negative: Shortness Of Breath Positive: Diarrhea. Negative: Nausea Neurological: Other - dizzy Negative: Weakness Positive: Anxious All Other Systems Reviewed And Are Negative: Yes Physical Exam - Summary Physical Exam Summary: Appearance: well appearing, no pain distress Skin: warm, dry, reflects adequate perfusion Head/face: normal Eyes: EOMI, PARAMJIT ENT: mucous membranes moist Neck: supple, non-tender Respiratory: CTA, breath sounds present Cardiovascular: Systolic murmur, bradycardic but regular. Abdomen: non-tender, soft Bowel Sounds: present Musculoskeletal: 1+ LE edema Neuro: normal, sensory motor intact, A&Ox3. Resting tremor in LUE. Triage Information Reviewed: Yes Vital Signs On Initial Exam: Initial Vitals Temp Pulse Resp BP Pulse Ox 96.6 F 62 15 106/51 98 09/21/18 15:27 09/21/18 15:27 09/21/18 15:27 09/21/18 15:27 09/21/18 15:27 Vital Signs Reviewed: Yes Diagnostics - Vital Signs Vital Signs Temp Pulse Resp BP Pulse Ox 09/21/18 15:27 96.6 F 62 15 106/51 98 - Laboratory Result Diagrams: 09/21/18 16:35 09/21/18 16:35 Lab Statement: Any lab studies that have been ordered have been reviewed, and results considered in the medical decision making process. - EKG 15:47 Cardiac Rate: Bradycardia - 56 bpm EKG Rhythm: Sinus Bradycardia ST Segment: Non-Specific Summary of EKG Findings: Normal axis, low voltage Dizzy Course/Dx - Course Course Of Treatment: Nurse's notes reviewed. The patient was in the room with her who had bloodied his face after a fall. She felt lightheaded and somewhat weak. She was seen here yesterday for similar. She has Parkinson's and also a significant aortic stenosis murmur. These may be contributory. She also had recent changes in her Zoloft dosing which has made her feel poorly. She was hydrated here with improvement. Her heart rate bounced back into the mid 60s to 70s after apparent vagal episode causing this. It is suggested that she have outpatient echocardiogram with her primary care physician. - Diagnoses Differential Diagnosis/HQI/PQRI: Hyperventilation, Hypovolemia, Metabolic Abnormality, Vasovagal Reaction Provider Diagnoses: Parkinsonism, Aortic stenosis, Near syncope Discharge - Sign-Out/Discharge Documenting (check all that apply): Patient Departure - discharge Patient Received Moderate/Deep Sedation with Procedure: No - Discharge Plan Condition: Improved Disposition: HOME Patient Education Materials: Aortic Stenosis (ED), Near Syncope (ED) Referrals: Berkley Diaz MD [Primary Care Provider] - Additional Instructions: Call your doctor in the morning to schedule follow-up and outpatient echocardiogram. Stay well-hydrated. Return if worse, new symptoms or other concerns. - Billing Disposition and Condition Condition: IMPROVED Disposition: Home - Attestation Statements Document Initiated by Sveta: Yes Documenting Scribe: Brodie Hill Provider For Whom Sveta is Documenting (Include Credential): Fito Perkins MD Scribe Attestation: IBrodie, scribed for Fito Perkins MD on 09/21/18 at 1845. Scribe Documentation Reviewed: Yes Provider Attestation: The documentation as recorded by the Brodie miller accurately reflects the service I personally performed and the decisions made by me, Fito Perkins MD Status of Scribe Document: Viewed
[2018-09-21] MEDS ORDERED: NS 0.9% 1000 ML** 1,000 ML IV ONE (16:13)
[2018-09-21 16:49] LABS: ABS Basophils 0 10^3/ul (0-0.2); ABS Eosinophils 0 10^3/ul (0-0.6); ABS Lymphocytes 0.7 10^3/ul (1.0-4.8); ABS Monocytes 0.9 10^3/ul (0-0.8); ABS Nucleated RBC 0 10^3/ul; Eosinophil % 0.4 %; Hematocrit 36 % (33-41); Hemoglobin 12.4 g/dL (12.0-16.0); Lymphocyte % 14.9 %; Mean Corpuscular HGB Conc 34 g/dL (31-36); Mean Corpuscular Hemoglobin 34 pg (27-31); Mean Corpuscular Volume 100 fL (80-97); Mean Platelet Volume 7.9 fL (7.4-10.4); Nucleated Red Blood Cells % 0; Platelet Count 291 10^3/uL (150-450); Red Blood Count 3.61 10^6 /uL (3.70-4.87); Red Cell Distribution Width 25 % (10.5-15); White Blood Count 4.6 10^3/uL (3.5-10.8)
[2018-09-21 16:57] LABS: BUN/Creatinine Ratio 22.1 (8-20); Calcium 9.1 mg/dL (8.6-10.3); EGFR Non-African American 72.7 (>60); Potassium 4.2 mmol/L (3.5-5.0)
[2018-09-21 18:57] VITALS: BP 118/55
== END 2018-09-21 18:56 | disposition home or self-care (01) ==
LOC: ED 15:24
DX: G20 Parkinson's disease (principal); I35.0 Nonrheumatic aortic (valve) stenosis; R55 Syncope and collapse; R94.31 Abnormal electrocardiogram [ECG] [EKG]; I10 Essential (primary) hypertension; E11.9 Type 2 diabetes mellitus without complications; E07.9 Disorder of thyroid, unspecified; F41.9 Anxiety disorder, unspecified; F32.9 Major depressive disorder, single episode, unspecified; Z85.3 Personal history of malignant neoplasm of breast; Z88.5 Allergy status to narcotic agent; Z88.0 Allergy status to penicillin; Z88.3 Allergy status to other anti-infective agents; Z88.8 Allergy status to other drugs, medicaments and biological substances
CPT/HCPCS: 36415; 80048; 85025; 93005; 96360; 96361; 99283

== ENCOUNTER 2019-01-09 19:34 | Emergency (ER) | payer MEDICARE ==
--- OUTSIDE RECORDS SUMMARY | 2019-01-09 19:41 | XMS REPORT | Continuity of Care Document ---
:1940 External Reference #:[id number] Author Name Shannan Vargas M.D. (transmitted by agent of provider Carin Azevedo) Address [address] [place] [address], [place] [address] Care Team Providers Name Role Phone Berkley Diaz MD - Internal Care Team Information Raise Driller [phone] Medicine Problems Active Problems Provider Date Memory impairment Wendi Foster M.D. Onset: 09/21/2014 Parkinson's disease Wendi Foster M.D. Onset: 09/21/2014 Restless legs Wendi Foster M.D. Onset: 08/11/2015 Social History Type Date Description Comments Sex Unknown ETOH Use Denies alcohol use Tobacco Use Start: Unknown Patient has never smoked Recreational Drug Use Denies Drug Use Smoking Status Reviewed: 01/02/19 Patient has never smoked Exercise Type/Frequency Exercises regularly 2x a week class and balance class once a week Allergies, Adverse Reactions, Alerts Active Allergies Reaction Severity Comments Date Penicillins GI UPSET 07/28/2013 Sulfa Antibiotics Nausea and Vomiting 05/06/2014 Medications Active Medications SIG Qnty Indications Ordering Date Provider Sertraline HCL 1 by mouth every 90tabs F41.9 Shannan Vargas, 09/17/2018 50mg day M.D. Tablets Carbidopa-Levodopa ER take 1 tablet at 90tabs G20 Shannan Vargas, 2017 bedtime M.D. 25-100mg Tablets ER Carbidopa-Levodopa 1 tab by mouth 5 540tabs Shannan Vargas, 06/21/2017 x/day as M.D. 25-100mg Tablets directed Citracal Calcium+D twice a day Unknown Slow Release 872-83-713ro-mg-Unit Tablets ER 24HR Karin Biotic once daily Unknown Aspirin 81 1 by mouth every Unknown 81mg Tablets day DR Melatonin 1 by mouth at Unknown 3mg Capsules bedtime Phazyme Maximum 1 tab by mouth Unknown Strength every evening 250mg Capsules Senekot Laxative 1 tab by mouth Unknown at 8pm Hydroxyurea 1 tab by mouth Unknown 500mg every day Capsules Probiotic 1 tab by mouth Unknown Capsules every day Colace 3 tabs by mouth 40caps Unknown 100mg Capsules every evening Vitamin C 1 tab by mouth 60units Unknown 250mg Chewtabs daily Levothyroxine Sodium 1 tab by mouth 90tabs Unknown every day 50mcg Tablets Pantoprazole Sodium 1 tab po qd 90units Unknown 40mg Solution Rec Atorvastatin Calcium take 1 tablet at 30tabs Unknown 20mg bedtime Tablets Quinapril HCL 1 tab by mouth 90tabs Unknown 40mg every day Tablets History Medications Sertraline HCL take 1 by mouth 60tabs F41.9 Shannan Vargas, 08/29/2018 - 25mg each day x 2 M.D. 09/17/2018 Tablets weeks, then 2 by mouth each day after breakfast Medications Administered in Office Medication SIG Qnty Indications Ordering Provider Date Technetium TC 99M Behzad Vazquez M.D., 07/02/2014 Tetrofosmin, Per Unit Dose FACC, FASNC Up To 40 Millicuries Injection Technetium TC 99M Angie Sanches M.D. 07/02/2014 Tetrofosmin, Per Unit Dose Up To 40 Millicuries Injection Immunizations Description No Information Available Vital Signs Date Vital Result Comment 01/02/2019 3:23pm Height 65 inches 5'5" Weight 110.00 lb Heart Rate 76 /min BP Systolic 132 mmHg BP Diastolic 66 mmHg BMI (Body Mass Index) 18.3 kg/m2 10/15/2018 12:01pm Height 65 inches 5'5" Weight 109.25 lb Heart Rate 74 /min BP Systolic Sitting 134 mmHg BP Diastolic Sitting 70 mmHg O2 % BldC Oximetry 97 % BMI (Body Mass Index) 18.2 kg/m2 Results Description No Information Available Procedures Date Code Description Status 07/15/2018 08614 ECHO Transthoracic, Real-Time 2D With Doppler And Color Completed Flow 07/15/2018 63729 ECHO Transthoracic, Real-Time 2D With Doppler And Color Completed Flow 04/04/2012 [id number] Mammogram Completed Medical Devices Description No Information Available Encounters Type Date Location Provider Dx Diagnosis Office Visit 10/15/2018 [facility] Parkinson's 11:30a MKennedyDKennedy disease G25.81 Restless legs syndrome F41.9 Anxiety disorder, unspecified Office Visit 08/29/2018 2:00p [facility] Parkinson's [facility] Andrea disease G25.81 Restless legs syndrome F41.9 Anxiety disorder, unspecified Assessments Date Code Description Provider 01/02/2019 G20 Parkinson's disease Shannan Vargas M.D. 01/02/2019 G25.81 Restless legs syndrome Shannan Vargas M.D. 01/02/2019 F41.9 Anxiety disorder, unspecified Shannan Vargas M.D. 10/15/2018 G20 Parkinson's disease Shannan Vargas M.D. 10/15/2018 G25.81 Restless legs syndrome Shannan Vargas M.D. 10/15/2018 F41.9 Anxiety disorder, unspecified Shannan Vargas M.D. 08/29/2018 G20 Parkinson's disease Shannan Vargas M.D. 08/29/2018 G25.81 Restless legs syndrome Shannan Vargas M.D. 08/29/2018 F41.9 Anxiety disorder, unspecified Shannan Vargas M.D. 07/15/2018 R01.1 Cardiac murmur, unspecified Rob Wolf M.D. 07/15/2018 R01.1 Cardiac murmur, unspecified Traveling ECHO 1 Plan of Treatment Future Appointment(s):04/17/2019 10:30 am - Shannan Vargas M.D. at [facility]01/02/2019 - Shannan Vargas M.D.G20 Parkinson's diseaseFollow up:3 months (30 min)Recommendations:continue physical mdpsylbW47.81 Restless legs ahyhzxavG61.9 Anxiety disorder, unspecifiedRecommendations:for now we will continue on current dose Functional Status Description No Information Available Mental Status Description No Information Available Referrals Description No Information Available
[2019-01-09 20:22] VITALS: BP 163/62
--- NOTE | 2019-01-09 20:38 | UC ---
Hip/Pelvis Pain - HPI Summary HPI Summary: lost her balence and fell landing on left hip a few hours ago--hematoma and bruising noted-no shortening or rotation, is able to ambulate - History Of Current Complaint Chief Complaint: UCLowerExtremity Stated Complaint: FELL, HURT HIP Time Seen by Provider: 01/09/19 20:31 Hx Obtained From: Patient ?: No Mechanism Of Injury: fall from loss of balence Onset/Duration: Sudden Onset, Lasting Hours Timing: Constant Pain Intensity: 5 Pain Scale Used: 0-10 Numeric Location: Discrete At: - left hip Aggravating Factor(s): Nothing Alleviating Factor(s): Nothing Associated Signs And Symptoms: Positive: Bruising - left hip - Allergies/Home Medications Allergies/Adverse Reactions: Allergies Allergy/AdvReac Type Severity Reaction Status Date / Time codeine Allergy Intermediate intestianl Verified 01/09/19 20:35 pain Penicillins Allergy Intermediate intestianl Verified 01/09/19 20:35 pain decongestants Allergy Cardiac Uncoded 01/09/19 20:35 arythmia most antibiotics Allergy Intestinal Uncoded 01/09/19 20:35 pain Home Medications: Home Medications Aspirin 81 mg PO DAILY 01/09/19 [History Confirmed 01/09/19] Calcium Citrate/Vitamin D3 [Citracal + D3 Maximum] 1 tab PO DAILY 01/09/19 [ History Confirmed 01/09/19] Melatonin [Meladox] 3 mg PO QPM 01/09/19 [History Confirmed 01/09/19] PMH/Surg Hx/FS Hx/Imm Hx Previously Healthy: No Endocrine History: Dyslipidemia Cardiovascular History: Hypertension Psychological History: Depression, Other Other Psychological History: parkinsons - Surgical History Surgical History: Yes Surgery Procedure, Year, and Place: [facility], mastectomy left breast cancer 1993[place],4 children,prolapsed vagina 2009[place] 1988, cataracts both 2004,08 [facility] [place] - Family History Known Family History: Positive: Cardiac Disease, Diabetes, Other - Stroke - Social History Occupation: Retired Lives: With Family Alcohol Use: None Substance Use Type: None Smoking Status (MU): Never Smoked Tobacco Review of Systems All Other Systems Reviewed And Are Negative: Yes Constitutional: Positive: Negative Skin: Positive: Bruising - left hip Eyes: Positive: Negative ENT: Positive: Negative Respiratory: Positive: Negative Cardiovascular: Positive: Negative Gastrointestinal: Positive: Negative Genitourinary: Positive: Negative Motor: Positive: Negative Neurovascular: Positive: Negative Musculoskeletal: Positive: Negative Neurological: Positive: Negative Psychological: Positive: Negative Is Patient Immunocompromised?: No Physical Exam Triage Information Reviewed: Yes Appearance: Well-Appearing, Well-Nourished Vital Signs: Initial Vital Signs Temp 98.8 F 01/09/19 20:19 Pulse 73 01/09/19 20:19 Resp 18 01/09/19 20:19 BP 163/62 01/09/19 20:19 Pulse Ox 100 01/09/19 20:19 Vital Signs Reviewed: Yes Eye Exam: Normal Eyes: Positive: Conjunctiva Clear ENT Exam: Normal ENT: Positive: Normal ENT inspection, Hearing grossly normal, Pharynx normal. Negative: Nasal congestion, Muffled voice, Hoarse voice, Dental tenderness, Sinus tenderness Dental Exam: Normal Neck exam: Normal Neck: Positive: Supple, Nontender Respiratory Exam: Normal Respiratory: Positive: Chest non-tender, Lungs clear, Normal breath sounds, No respiratory distress Cardiovascular Exam: Normal Cardiovascular: Positive: RRR, Pulses Normal, Brisk Capillary Refill Abdominal Exam: Normal Abdomen Description: Positive: Nontender, No Organomegaly, Soft Bowel Sounds: Positive: Present Musculoskeletal Exam: Normal Musculoskeletal: Positive: Strength Intact, ROM Intact, Other: - hemtoma left hip Neurological Exam: Normal Neurological: Positive: Alert, Muscle Tone Normal Psychological Exam: Normal Skin Exam: Normal Diagnostics - Radiology No standard instances Radiology Interpretation Completed By: Radiologist Summary of Radiographic Findings: no fx Hip Injury Course/Dx - Course Course Of Treatment: ice, rest, Tylenol for pain follow with pcp this week - Differential Dx/Diagnosis Provider Diagnosis: Hip hematoma, left, Hypertension Discharge - Sign-Out/Discharge Documenting (check all that apply): Patient Departure All imaging exams completed and their final reports reviewed: Yes - Discharge Plan Condition: Stable Disposition: HOME Patient Education Materials: Acetaminophen (By mouth), Hypertension (ED), Hip Pain (ED), Hematoma (ED) Referrals: Berkley Diaz MD [Primary Care Provider] - 5 Days - Billing Disposition and Condition Condition: STABLE Disposition: Home
--- NOTE | 2019-01-12 15:40 | UC ---
- Progress Note Progress Note: Urine culture results reviewed. Grew out 25-50,000 cfu/ml of Klebsiella oxytoca and normal benja. Patient was evaluated for hip pain s/p fall and it is unclear from the notes as to why a urine was obtained. Nursing to call patient. If she is not having any UTI symptoms then would not recommend treatment with and antibiotic based on small bacteria count. If she is having symptoms will need to send in prescription for antibiotic and have her follow up with PCP. Course/Dx - Diagnoses Provider Diagnoses: Hip hematoma, left, Hypertension Discharge - Sign-Out/Discharge Documenting (check all that apply): Post-Discharge Follow Up All imaging exams completed and their final reports reviewed: Yes - Discharge Plan Condition: Stable Disposition: HOME Patient Education Materials: Acetaminophen (By mouth), Hypertension (ED), Hip Pain (ED), Hematoma (ED) Referrals: Berkley Diaz MD [Primary Care Provider] - 5 Days - Billing Disposition and Condition Condition: STABLE Disposition: Home
== END 2019-01-09 21:19 | disposition home or self-care (01) ==
LOC: UCEAST 19:34
DX: S70.02XA Contusion of left hip, initial encounter (principal); W18.30XA Fall on same level, unspecified, initial encounter; Y92.9 Unspecified place or not applicable; E78.5 Hyperlipidemia, unspecified; I10 Essential (primary) hypertension; F32.9 Major depressive disorder, single episode, unspecified; G20 Parkinson's disease; Z79.82 Long term (current) use of aspirin; Z88.5 Allergy status to narcotic agent; Z88.0 Allergy status to penicillin
CPT/HCPCS: 81003; 87077; 87086; 87186; 99211; G0463

== ENCOUNTER 2019-01-30 17:04 | Emergency (ER) | payer MEDICARE ==
[2019-01-30 17:18] VITALS: BP 144/63
--- NOTE | 2019-01-30 17:19 | UC ---
Head Injury HPI - HPI Summary HPI Summary: 78 yo female presents accompanied by daughter with head injury. Pt tells me that approximately 1 hour ago - her fell in the basement and pt bent down on her knees and fell forward hitting her forehead against the concrete floor. No LOC. She was able to get to her feet with the help of her . She applied ice to the area of her head that hit the floor and came directly to with her daughter. Currently pt denies any symptoms other than pain at the area of impact. Denies headache, dizziness, vision changes, SOB, chest pain, vomiting, or nausea. - History Of Current Complaint Chief Complaint: UCHeadInjury Stated Complaint: HEAD INJURY Time Seen by Provider: 01/30/19 17:19 Hx Obtained From: Patient, Family/Plant Floor Automation Manager Hx Last Menstrual Period: post menopause Onset/Duration: Sudden Onset Severity Currently: Moderate Severity Initially: Mild Pain Intensity: 2 - Allergies/Home Medications Allergies/Adverse Reactions: Allergies Allergy/AdvReac Type Severity Reaction Status Date / Time codeine Allergy Intermediate intestianl Verified 01/09/19 20:35 pain Penicillins Allergy Intermediate intestianl Verified 01/09/19 20:35 pain Sulfa (Sulfonamide Allergy See Comment Verified 01/30/19 17:20 Antibiotics) decongestants Allergy Cardiac Uncoded 01/09/19 20:35 arythmia most antibiotics Allergy Intestinal Uncoded 01/09/19 20:35 pain PMH/Surg Hx/FS Hx/Imm Hx - Additional Past Medical History Additional PMH: BRCA Endocrine History: Hypothyroidism Cardiovascular History: Cardiac Disease GI/ History: Gastroesophageal Reflux Neurological History: Dementia Psychological History: Anxiety, Depression - Surgical History Surgical History: Yes Surgery Procedure, Year, and Place: [place] [facility] [facility] children,prolapsed vagina 2009-[place] 1988, catar[place] both 2003,08 [facility] [place] - Family History Known Family History: Positive: Cardiac Disease, Diabetes, Other - Stroke - Social History Occupation: Retired Lives: With Family Alcohol Use: None Substance Use Type: None Smoking Status (MU): Never Smoked Tobacco Review of Systems All Other Systems Reviewed And Are Negative: No Constitutional: Positive: Negative Skin: Positive: Other - Hematoma forehead Eyes: Positive: Negative ENT: Positive: Negative Respiratory: Positive: Negative Cardiovascular: Positive: Negative Gastrointestinal: Positive: Negative Genitourinary: Positive: Negative Motor: Positive: Negative Neurovascular: Positive: Negative Musculoskeletal: Positive: Negative Neurological: Positive: Negative Psychological: Positive: Negative Physical Exam - Summary Physical Exam Summary: GENERAL: NAD. Thin appearing SKIN: Very superficial abrasion to right forehead with mild hematoma. HEENT: Head: See skin Eyes: PERRLA. EOM intact. Ears: Hearing grossly normal. No hemotympanum NECK: Supple. Nontender. FROM CHEST: CTAB. No r/r/w. No accessory muscle use. Breathing comfortably and in no distress. CV: Pulses intact. Brisk cap refill. ABDOMEN: Soft. NTTP. Bowel sounds present MSK: FROM in B/L UEs and LEs with symmetric strength. NEURO: A&Ox3. 3 word recall, remote, recent memory, ability to follow 2-step directions, and attention intact. CN: II: Peripheral land intact. Vision normal. III, IV, : EOMI. MODERATE HORIZONTAL nystagmus. PERRLA. V: Sensations intact and symmetric. Opens mouth and clenches teeth. VII: No facial asymmetry. Forehead wrinkles. Grins, shuts eyes, frowns, puffs cheeks. VIII: Hearing intact to finger rub. IX, X: Swallows and coughs. Uvula midline. XI: Shrugs shoulders. Turns head against resistance. XII: No tongue deviation Iadvck-hd-fciv are intact. Gait with normal base. Romberg: maintains balance, no pronator drift. Normal speech. No facial drooping. PSYCH: Age appropriate behavior. Triage Information Reviewed: Yes Vital Signs: Initial Vital Signs Temp 99.9 F 01/30/19 17:09 Pulse 80 01/30/19 17:09 Resp 16 01/30/19 17:09 BP 144/63 01/30/19 17:09 Pulse Ox 98 01/30/19 17:09 Vital Signs Reviewed: Yes Head Injury Course/Dx - Course Course Of Treatment: Pt's mentation seems quite intact. She does have an obvious horizontal nystagmus , but this could be medication related or her baseline. Given her age, comorbidities, and ASA usage - I believe she requires a head CT for intracranial process, thus have recommended pt be further evaluated in the ED. Pt and daughter were agreeable to this. They declined ambulance transfer. - Differential Dx/Diagnosis Provider Diagnosis: Head injury Discharge ED - Sign-Out/Discharge Documenting (check all that apply): Patient Departure All imaging exams completed and their final reports reviewed: No Studies - Discharge Plan Condition: Stable Disposition: HOME-RECOMMEND TO ED Referrals: Berkley Diaz MD [Primary Care Provider] - Additional Instructions: Please go to the ER for further evaluation of your head injury. If your symptoms worsen on the drive - please machine assembler for puller over and call 911 immediately - Billing Disposition and Condition Condition: STABLE Disposition: Home-Recommend to ED
== END 2019-01-30 18:04 | disposition home health service (06) ==
LOC: UCEAST 17:04
DX: S09.90XA Unspecified injury of head, initial encounter (principal); W18.30XA Fall on same level, unspecified, initial encounter; Y92.018 Other place in single-family (private) house as the place of occurrence of the external cause; E03.9 Hypothyroidism, unspecified; K21.9 Gastro-esophageal reflux disease without esophagitis; F41.9 Anxiety disorder, unspecified; F32.9 Major depressive disorder, single episode, unspecified
CPT/HCPCS: 99212; G0463

== ENCOUNTER 2019-01-30 18:13 | Emergency (ER) | payer MEDICARE ==
--- NOTE | 2019-01-30 18:28 | ED ---
Head Injury - HPI Summary HPI Summary: This patient is a 78 year old female accompanied by her daughter presenting to [facility] from [facility] with a chief complaint of head injury. She was going to help her in the basement as he was a hard time getting up from the floor. She was bending over to help him take off his knee pads and went forward and fell onto cement at 2 hours ago, hitting her head. Her 's treatment was completed at [facility]. She denies LOC and reports light-headedness. She also reports some back and bilateral hand pain and bruising. Pt takes 81 mg ASA. Denies LOC. Medications reviewed. Allergies reported. Her daughter states convenient care wanted a brain CT because she had some vibrations in her right eye. She states she also experienced a fall 4 weeks ago where she states she experienced right-sided chest wall pain and left-sided pelvic pain. - History Of Current Complaint Chief Complaint: EDFall Stated Complaint: FELL AND HIT HEAD PER PT Time Seen by Provider: 01/30/19 18:22 Hx Obtained From: Patient Hx Last Menstrual Period: post menopause Mechanism Of Injury: Fall From A Standing Position Onset/Duration: Started Hours Ago Pain Intensity: 0 Pain Scale Used: 0-10 Numeric - Allergies/Home Medications Allergies/Adverse Reactions: Allergies Allergy/AdvReac Type Severity Reaction Status Date / Time codeine Allergy Intermediate intestianl Verified 01/30/19 18:20 pain Penicillins Allergy Intermediate intestianl Verified 01/30/19 18:20 pain Sulfa (Sulfonamide Allergy See Comment Verified 01/30/19 18:20 Antibiotics) decongestants Allergy Cardiac Uncoded 01/09/19 20:35 arythmia most antibiotics Allergy Intestinal Uncoded 01/09/19 20:35 pain Home Medications: Home Medications Ascorbic Acid TAB* [Vitamin C TAB*] 250 mg PO DAILY 01/30/19 [History Confirmed 01/30/19] Aspirin EC TAB* [Ecotrin EC Low Dose 81 MG*] 81 mg PO DAILY 01/30/19 [History Confirmed 01/30/19] Lactobacillus Acidophilus [Probiotic] 1 cap PO DAILY 01/30/19 [History Confirmed 01/30/19] Quinapril (NF) [Accupril (NF)] 40 mg PO DAILY 01/30/19 [History Confirmed ] Sennosides/Docusate Sodium [Stool Softener/Laxative 50-8.6 mg] 1 tab PO DAILY [History Confirmed 01/30/19] PMH/Surg Hx/FS Hx/Imm Hx Endocrine/Hematology History: Reports: Hx Diabetes - states diet controlled, Hx Thyroid Disease - hypothyroid Cardiovascular History: Reports: Hx Hypertension Denies: Hx Pacemaker/ICD Respiratory History: Denies: Hx Asthma, Hx Chronic Obstructive Pulmonary Disease (COPD) GI History: Denies: Hx Ulcer History: Reports: Other Problems/Disorders - hyster for fibroids and bleeding Denies: Hx Dialysis, Hx Renal Disease Neurological History: Reports: Other Neuro Impairments/Disorders - dizziness, pains in neck and back-physical therapy, parkinsons Denies: Hx Seizures, Hx Transient Ischemic Attacks (TIA) Psychiatric History: Reports: Hx Anxiety, Hx Depression Denies: Hx Panic Disorder - Cancer History Cancer Type, Location and Year: HX breast CA left side,basal cell Hx Chemotherapy: Yes - 1993 (4) treatments and tamoxifen Hx Radiation Therapy: No - Surgical History Surgery Procedure, Year, and Place: gb 2008-[place], mastectomy left breast cancer 1993-[place],4 children,prolapsed vagina 2009-[place],hyster 1988, cataracts both 2004,08 [facility] Hx Anesthesia Reactions: No Infectious Disease History: No Infectious Disease History: Denies: Hx Hepatitis, Traveled Outside the [place] in Last 30 Days - Family History Known Family History: Positive: Cardiac Disease, Diabetes, Other - Stroke - Social History Alcohol Use: None Substance Use Type: Reports: None Smoking Status (MU): Never Smoked Tobacco Review of Systems Positive: Other - Back pain, bilateral hand pain Neurological: Other - Light-headedness Positive: Headache. Negative: Syncope All Other Systems Reviewed And Are Negative: Yes Physical Exam - Summary Physical Exam Summary: Constitutional: Well-developed, Well-nourished, Alert, Cooperative Skin: Warm, Dry. Abrasions to the left middle finger, right dorsal hand, right forehead. No bony tenderness in any of these areas. HENT: Normocephalic; No Racoons eyes; No frederick's sign; No abrasion; No contusion; No hemotympanum; No maxilla facial tenderness or instability; Dentition are smooth; No dental trauma; No trismus Eyes: EOM normal, PERRL Neck: Trachea is midline. No stridor; No JVD; No step off; No posterior cervical spine tenderness Cardio: Rhythm regular, rate normal Heart sounds normal; Intact distal pulses; The pedal pulses are 2+ and symmetric. Radial pulses are 2+ and symmetric. Pulmonary/Chest wall: Effort normal; Breath sounds normal; Equal chest rise; No flail segment; No rib tenderness; No sternal tenderness Abd: Soft, Appearance normal. No distension; No tenderness; No palpable pulsatile mass; No Cullens sign; No Gomez-Turners sign Musculoskeletal: Full ROM and no tenderness at hips, ankles, shoulders, elbows and knees; No joint swelling; No vertebral body tenderness; No paraspinal tenderness; No step off or deformity of the spine; Pelvis is stable to lateral compression and rock Neuro: Alert, Oriented x3, Strength 5/5 all extremities. : No blood at urethral meatus Psych: Mood and affect Normal GCS: 15 Triage Information Reviewed: Yes Vital Signs On Initial Exam: Initial Vitals Temp Pulse Resp BP Pulse Ox 98.3 F 80 16 179/75 98 01/30/19 18:15 01/30/19 18:15 01/30/19 18:15 01/30/19 18:15 01/30/19 18:15 Vital Signs Reviewed: Yes Diagnostics - Vital Signs Vital Signs Temp Pulse Resp BP Pulse Ox 01/30/19 18:15 98.3 F 80 16 179/75 98 - Laboratory Lab Statement: Any lab studies that have been ordered have been reviewed, and results considered in the medical decision making process. - Radiology CXR Radiology Interpretation Completed By: ED Physician Summary of Radiographic Findings: Pneumothorax on the right with no mediastinal shift. Pending official radiologist report. - CT Brain CT Interpretation Completed By: Radiologist Summary of CT Findings: 1. No intracranial bleed, suspicious mass, or mass effect. Ventricles appear unremarkbale. 2. There is low attenuation change in the white mattter most consistent with chronic age related small vessel ischemic change. No acute territorial infarction seen. These can be intially occult on head CT. 3. Soft tissue swelling anterior scalp on the right. No skull fracture. ED Provider has reviewed this report. Cervical Spine CT CT Interpretation Completed By: Radiologist Summary of CT Findings: 1. No cervical fracture or subluxation. 2. There is a right apical pneumothorax. ED Provider has reviewed this report. Re-Evaluation - Re-Evaluation First Eval Re-Evaluation Time: 20:23 Comment: Spoke to Dr. Dhillon who stated will get a repeated chest XR at midnight then she will be discharged. Head Injury Course/Dx Course Of Treatment: Patient is here after a low mechanism mechanical fall where she hit her head. Patient had a CT scan of her head and cervical spine which showed no acute fracture or intracranial amounted. Patient did have a apical thorax on the right chest. On her CT scan. Patient subsequent chest x- ray showed a moderate sized right pneumothorax with no evidence of tension. Patient has no chest pain, no shortness of breath, and is satting 98% on room air. Patient does state she has some right-sided chest pain following her fall roughly 3 weeks ago. His heart until this is a new pneumothorax or one is present for a couple weeks. Surgery was consultative and they recommended repeat x-ray in 4 hours which would occur at midnight. If there is no change in the pneumothorax, patient will be discharged home. Patient was signed out to Dr. Hagan prior to final disposition. - Diagnoses Provider Diagnoses: Pneumothorax, right Discharge ED - Sign-Out/Discharge Documenting (check all that apply): Sign-Out Patient Signing out patient TO: Brad Suarez - At shift change 2200 pending CXR at 0000. If unchanged from first CXR patient will be discharged. - Discharge Plan Condition: Stable Referrals: Berkley Diaz MD [Primary Care Provider] - - Billing Disposition and Condition Condition: STABLE - Attestation Statements Document Initiated by Sveta: Yes Documenting Scribe: Mark Arita Provider For Whom Sveta is Documenting (Include Credential): Adriel Jay MD Scribe Attestation: Mark Reyes, scribed for Adriel Jay MD on 01/30/19 at 2109. Scribe Documentation Reviewed: Yes Provider Attestation: The documentation as recorded by the Mark miller accurately reflects the service I personally performed and the decisions made by me, Adriel Jay MD Status of Scribe Document: Viewed
[2019-01-30] MEDS ORDERED: Tetan/Diph/Pertus SYR(Tdap)* 0.5 ML SYR(BOOSTRIX) use SYR IM ONE (18:33)
[2019-01-30 20:00] LABS: Urine Appearance Clear; Urine Bacteria Absent (Absent); Urine Bilirubin Negative (Negative); Urine Blood Negative (Negative); Urine Color Yellow; Urine Glucose Negative (Negative); Urine Ketones Trace (Negative); Urine Nitrite Negative (Negative); Urine Protein Negative (Negative); Urine Red Blood Cell Absent (Absent); Urine Specific Gravity 1.011 (1.010-1.030); Urine Squamous Epithelial Cell Present (Absent); Urine Urobilinogen Negative (Negative); Urine White Blood Cell Trace(0-5/hpf) (Absent)
--- NOTE | 2019-01-30 22:19 | ED ---
Progress - Progress Note Progress Note: The pt is a sign out from Dr. Jay at the 219901/30/2019 shift change pending CXR @ 0000 and disposition. epeat CXR reveals: unchanged PNX on the right apex. Final Dx are Pneumothorax and head injury. Pt will be discharged home with PCP follow up. Pt is agreeable with this plan. Re-Evaluation - Re-Evaluation First Eval Re-Evaluation Time: 20:23 Comment: Spoke to Dr. Dhillon who stated will get a repeated chest XR at midnight then she will be discharged. Course/Dx - Course Course Of Treatment: Patient is here after a low mechanism mechanical fall where she hit her head. Patient had a CT scan of her head and cervical spine which showed no acute fracture or intracranial amounted. Patient did have a apical thorax on the right chest. On her CT scan. Patient subsequent chest x- ray showed a moderate sized right pneumothorax with no evidence of tension. Patient has no chest pain, no shortness of breath, and is satting 98% on room air. Patient does state she has some right-sided chest pain following her fall roughly 3 weeks ago. His heart until this is a new pneumothorax or one is present for a couple weeks. Surgery was consultative and they recommended repeat x-ray in 4 hours which would occur at midnight. If there is no change in the pneumothorax, patient will be discharged home. Patient was signed out to Dr. Suarez prior to final disposition. The pt is a sign out from Dr. Jay at the 219901/30/2019 shift change pending CXR @ 0000 and disposition. Repeat CXR reveals: unchanged PNX on the right apex. Final Dx are Pneumothorax and head injury. Pt will be discharged home with PCP follow up. Pt is agreeable with this plan. - Diagnoses Provider Diagnoses: Pneumothorax, right, Head injury Discharge ED - Sign-Out/Discharge Documenting (check all that apply): Patient Departure - discharge, Receiving Sign-Out - The pt is a sign out from Dr. Jay at the 219901/30/2019 shift change pending CXR @ 0000 and disposition. Receiving patient FROM: Adriel Jay Patient Received Moderate/Deep Sedation with Procedure: No - Discharge Plan Condition: Stable Disposition: HOME Patient Education Materials: Traumatic Pneumothorax (ED), Fall Prevention for Older Adults (ED), Head Injury (ED) Referrals: Kal Dhillon MD [Medical Doctor] - Additional Instructions: Contact the surgeon's office on Saturday to setup an appointment to go over your lung injury and see if any definitive treatment will be required. The rest of your xrays were ok. - Billing Disposition and Condition Condition: STABLE Disposition: Home - Attestation Statements Document Initiated by Sveta: Yes Documenting Scribe: Vincent Smith Provider For Whom Dianeibradha is Documenting (Include Credential): Brad Suarez MD Scribe Attestation: IVincent, scribed for Brad Suarez MD on 01/31/19 at 0534. Scribe Documentation Reviewed: Yes Provider Attestation: The documentation as recorded by the Vincent miller accurately reflects the service I personally performed and the decisions made by me, Brad Suarez MD Status of Scribe Document: Viewed
[2019-01-31 01:19] VITALS: BP 166/68
== END 2019-01-31 01:33 | disposition home or self-care (01) ==
LOC: ED 18:13
DX: S09.90XA Unspecified injury of head, initial encounter (principal); J93.9 Pneumothorax, unspecified; S22.41XA Multiple fractures of ribs, right side, initial encounter for closed fracture; Z23 Encounter for immunization; W18.39XA Other fall on same level, initial encounter; Y92.008 Other place in unspecified non-institutional (private) residence as the place of occurrence of the external cause; J90 Pleural effusion, not elsewhere classified; E11.9 Type 2 diabetes mellitus without complications; E03.9 Hypothyroidism, unspecified; I10 Essential (primary) hypertension; F41.9 Anxiety disorder, unspecified; F32.9 Major depressive disorder, single episode, unspecified; Z79.82 Long term (current) use of aspirin; Z79.899 Other long term (current) drug therapy; Z88.1 Allergy status to other antibiotic agents; Z88.5 Allergy status to narcotic agent; Z88.0 Allergy status to penicillin; Z88.2 Allergy status to sulfonamides; Z88.8 Allergy status to other drugs, medicaments and biological substances; K21.9 Gastro-esophageal reflux disease without esophagitis
CPT/HCPCS: 70450; 71045; 71046; 72125; 81003; 81015; 87086; 90471; 90715; 99212; 99283; G0463

== ENCOUNTER 2019-07-27 07:17 | Inpatient (IN) | payer MEDICARE ==
--- NOTE | 2019-07-27 07:52 | ED ---
Altered Mental Status - HPI Summary HPI Summary: Patient is a 79 y/o F presenting to the ED via EMS for a chief complaint of altered mental status. Patient is present with her and daughter. Patient 's daughter states that the patient appeared to be confused, as the patient told her daughter she did not know where she was going after patient was walking to the bathroom. Patient reports being aware that she was confused. Her daughter denies the patient had any changes in speech, including slurred speech. At that time, patient also notes having dizziness. For the last weekend , patient states having constipation, decreased fluid intake, and RLQ abdominal pain. Last bowel movement was 2 days ago. Currently, patient still has abdominal pain. She denies fever or urinary burning. Per her daughter, patient has had a cough and postnasal drip, which is not new. After being given fluids by EMS, patient improved. PMHx is significant for Willebrand's disease, HTN, DM , anxiety, depression, and pneumothorax after a fall in December 2018. She takes medication for her Parkinson's, which she last took at 06:00 and is due for another dose at 09:00. PSHx is significant for hysterectomy, cholecystectomy, and mastectomy for a history of breast cancer in 1994. Patient denies any other cancer history. She denies having a port placed during treatment for breast cancer. Her daughter is unsure if the patient also had an appendectomy at the time of her hysterectomy. Patient uses a cane during the day and a walker at night. Allergies reviewed. Patients medication reviewed this visit. - History Of Current Complaint Chief Complaint: EDAltMentalStatus Stated Complaint: SYNCOPE PER EMS Time Seen by Provider: 07/27/19 07:38 Hx Obtained From: Patient, Family/[employer] - Daughter Hx Last Menstrual Period: post menopause Onset/Duration: Suddenly Timing: Constant Severity Initially: Moderate Severity Currently: Moderate Character: Confusion Associated Signs And Symptoms: Positive: Dizziness. Negative: Fever - Allergies/Home Medications Allergies/Adverse Reactions: Allergies Allergy/AdvReac Type Severity Reaction Status Date / Time codeine Allergy Intermediate intestianl Verified 07/27/19 07:31 pain Penicillins Allergy Intermediate intestianl Verified 07/27/19 07:31 pain Sulfa (Sulfonamide Allergy See Comment Verified 07/27/19 07:31 Antibiotics) decongestants Allergy Cardiac Uncoded 01/09/19 20:35 arythmia most antibiotics Allergy Intestinal Uncoded 01/09/19 20:35 pain Home Medications: Home Medications Atorvastatin* [Lipitor*] 20 mg PO DAILY 01/06/16 [History Confirmed 07/27/19] Carbidopa/Levodop 25/100 MG(*) [Sinemet 25/100 TAB(*)] 1 tab PO 0600,0900,1200 01/06/16 [History Confirmed 07/29/19] Levothyroxine TAB* [Synthroid TAB*] 50 mcg PO DAILY 01/06/16 [History Confirmed 07/27/19] Pantoprazole TAB * [Protonix TAB (NF)] 40 mg PO DAILY 01/06/16 [History Confirmed 07/27/19] HydroxyUREA CAP* [Hydrea CAP*] 500 mg PO DAILY WITH MEAL 09/20/18 [History Confirmed 07/27/19] Sertraline* [Zoloft*] 50 mg PO DAILY 09/20/18 [History Confirmed 07/27/19] Simethicone [Gas-X Extra Strength] 250 mg PO DAILY 09/20/18 [History Confirmed 07/27/19] Calcium Citrate/Vitamin D3 [Citracal + D3 Maximum] 1 tab PO DAILY 01/09/19 [ History Confirmed 07/27/19] Melatonin [Meladox] 3 mg PO QPM 01/09/19 [History Confirmed 07/27/19] Ascorbic Acid TAB* [Vitamin C TAB*] 250 mg PO DAILY 01/30/19 [History Confirmed 07/27/19] Aspirin EC TAB* [Ecotrin EC Low Dose 81 MG*] 81 mg PO DAILY 01/30/19 [History Confirmed 07/27/19] Lactobacillus Acidophilus [Probiotic] 1 cap PO DAILY 01/30/19 [History Confirmed 07/27/19] Quinapril (NF) [Accupril (NF)] 40 mg PO DAILY 01/30/19 [History Confirmed ] Sennosides/Docusate Sodium [Stool Softener/Laxative 50-8.6 mg] 1 tab PO DAILY [History Confirmed 07/27/19] Carbidopa/Levodop ER 25/100 MG [Carbidopa-Levo ER 25-100 Tab] 1 tab PO BEDTIME 07/29/19 [History Confirmed 07/29/19] Carbidopa/Levodopa [Carbidopa-Levodopa 25-100 Tab] 1 tab PO 1500,1800 07/29/19 [ History Confirmed 07/29/19] PMH/Surg Hx/FS Hx/Imm Hx Previously Healthy: Yes Endocrine/Hematology History: Reports: Hx Diabetes - states diet controlled, Hx Thyroid Disease - hypothyroid, Other Endocrine/Hematological Disorders - Willebrand's disease Cardiovascular History: Reports: Hx Hypertension Denies: Hx Pacemaker/ICD Respiratory History: Reports: Other Respiratory Problems/Disorders - hx right pnuemothorax Denies: Hx Asthma, Hx Chronic Obstructive Pulmonary Disease (COPD) GI History: Denies: Hx Ulcer History: Reports: Other Problems/Disorders - hyster for fibroids and bleeding Denies: Hx Dialysis, Hx Renal Disease Sensory History: Reports: Hx Contacts or Glasses Opthamlomology History: Reports: Hx Contacts or Glasses Neurological History: Reports: Other Neuro Impairments/Disorders - dizziness, pains in neck and back-physical therapy, parkinsons Denies: Hx Seizures, Hx Transient Ischemic Attacks (TIA) Psychiatric History: Reports: Hx Anxiety, Hx Depression Denies: Hx Panic Disorder - Cancer History Cancer Type, Location and Year: HX breast CA left side,basal cell Hx Chemotherapy: Yes - 1993 (4) treatments and tamoxifen Hx Radiation Therapy: No - Surgical History Surgery Procedure, Year, and Place: gb 2008-[place], mastectomy left breast cancer 1993-[place],4 children,prolapsed vagina 2009-[place],hyster 1988, cataracts both 2004,08 [facility] Hx Anesthesia Reactions: No Infectious Disease History: No Infectious Disease History: Denies: Hx Hepatitis, Traveled Outside the [place] in Last 30 Days - Family History Known Family History: Positive: Cardiac Disease, Diabetes, Other - Stroke - Social History Occupation: Retired Lives: With Family Alcohol Use: None Hx Substance Use: No Substance Use Type: Reports: None Hx Tobacco Use: No Smoking Status (MU): Never Smoked Tobacco Review of Systems Positive: Other - Positive decreased fluid intake. Negative: Fever Positive: Other - Positive postnasal drip Positive: Cough Positive: Abdominal Pain - RLQ, Other - Positive constipation Negative: burning - Urinary Neurological/Mental Status: Other - Positive confusion and dizziness Negative: Slurred Speech All Other Systems Reviewed And Are Negative: Yes Physical Exam - Summary Physical Exam Summary: Vital Signs Reviewed: Yes A+Ox2, pt aware was "confused this morning" Eyes: Conjunctiva Clear, PARAMJIT. EOM intact and full ENT: Hearing grossly normal TM x 2 clear, mmpasty, lips dry, uvula midline, no exudate, no erythema Neck: Positive: Supple Respiratory: Positive: increased RR, no respiratory distress, No accessory muscle use + CTA throughout no w/r Cardiovascular: RRR nl s1, s2 no m/r CBT <2 sec abd soft + BS + TTP lower quad R>L, mild distension, soft no guarding Musculoskeletal Exam: MCDANIELS x 4 without difficulty Strength Intact, ROM Intact Neurological: Positive: Alert, + sensation throughout Psychological: Positive: Normal Response To pound keeper Skin: Positive: no rash, no ecchymosis Triage Information Reviewed: Yes Vital Signs On Initial Exam: Initial Vitals Temp Pulse Resp BP Pulse Ox 98.1 F 78 30 102/55 94 07/27/19 07:26 07/27/19 07:26 07/27/19 07:26 07/27/19 07:26 07/27/19 07:26 Vital Signs Reviewed: Yes Procedures - Sedation Patient Received Moderate/Deep Sedation with Procedure: No Diagnostics - Vital Signs Vital Signs Temp Pulse Resp BP Pulse Ox 07/27/19 07:39 96 07/27/19 07:26 98.1 F 81 30 102/55 88 - Laboratory Result Diagrams: 08/05/19 05:19 08/05/19 05:19 Lab Statement: Any lab studies that have been ordered have been reviewed, and results considered in the medical decision making process. - Radiology Chest X-ray Radiology Interpretation Completed By: Radiologist Summary of Radiographic Findings: Chest X-ray IMPRESSION: No radiographic evidence for acute cardiopulmonary abnormality on this portable chest x-ray. Reviewed by Dr. Ferraro. - CT Abdomen/Pelvis CT CT Interpretation Completed By: Radiologist Summary of CT Findings: Abdomen/Pelvis CT IMPRESSION: #. Distal small bowel obstruction versus ileus. No specific lesion is visualized. Consider potential adhesion related obstruction. #. The appendix is not definitively visualized. There is no focal inflammatory change in the region of the RIGHT lower quadrant. #. Mild colonic diverticulosis at the sigmoid. #. Moderate bilateral renal atrophy new compared with the December 19, 2018 exam. Negative for obstructive uropathy. Reviewed by Dr. Ferraro. - EKG 07:42 Cardiac Rate: NL - 78 BPM EKG Rhythm: Sinus Rhythm ST Segment: Normal Ectopy: None Summary of EKG Findings: EKG at 07:42 shows normal sinus rhythm with 78 BPM, T wave flattening in V5 and V6, short [place], no STEMI. Reviewed and interpreted by Dr. Ferraro. Re-Evaluation - Re-Evaluation First Eval Re-Evaluation Time: 07:55 Change: Unchanged Comment: At 07:55, patient already received a liter of fluid so will give 100/ hour. no fever, no concern for sepsis at this time -awaiting labs Second Eval Re-Evaluation Time: 08:42 Change: Unchanged Comment: At 08:42, I will give the patient her home Parkinsons medication. Nurse is aware. Patient will also be given pain medication. Third Eval Re-Evaluation Time: 09:03 Comment: RN reported elevated lactic acid. no urine resulted. low suspicion for infection - no fever, diarrhea, resp complaints, vomitig. Pt is dehydrated. will give additional fluid now. RN asked for straight cath. Will give broad spectrum abx - start sepsis protocol. RN aware. updated family regarding labs, trop. Pt states abx cause abd "upset" Unsure of PCN specifically - no abx cause facial swelling, difficulty swallowing, rash - will start cepefime, flagyl. pt with increased RR - denies SOB, RA sats 96, HR 88 - daughter states she gets "anxious" and increase - will monitor - RN aware. No IV contrast second to labs. Pt unable to drink much more contrast - CT aware Fifth Eval Comment: reviewed CT with family - will admit. will discuss with surgery and hospitalist. Spoke with Dr. Chao - request d/w hospitalist. d/w Dr. Delacruz - surgery - will see pt in consult Altered Mental Statu Course/Dx - Course Course Of Treatment: Pt present by EMS after being confused at home this am and per report hypotensive. pt improved with IVF. Pt reports abd pain, feeling constipated decreased appetitis. vitals reviewed. pt with some confusion, increased RR and lower abd pain. will check labs, urine, cxr, abd cT. analgesia. IVF. close reassessement - Diagnoses Provider Diagnoses: Acute renal failure, Abdominal pain, SBO (small bowel obstruction) - Provider Notifications Discussed Care Of Patient With: Anselmo Gonzalez - At 10:58, Dr. Gonzalez reviewed the patients case and agrees to admit the patient to [facility]. Time Discussed With Above Provider: 10:58 Instructed by Provider To: Admit As Inpatient - Critical Care Time Critical Care Time: 30-74 min - 30 minutes CCT Discharge ED - Sign-Out/Discharge Documenting (check all that apply): Patient Departure - Admit - Discharge Plan Condition: Stable Disposition: ADMITTED TO [facility] - Billing Disposition and Condition Condition: STABLE Disposition: Admitted to [facility] - Attestation Statements Document Initiated by Scribe: Yes Documenting Scribe: Shannan Malone Provider For Whom Scribe is Documenting (Include Credential): Loree Ferraro MD Scribe Attestation: Shannan Reyes, scribed for Loree Ferraro MD on 08/05/19 at 2008. Scribe Documentation Reviewed: Yes Provider Attestation: The documentation as recorded by the Shannan miller accurately reflects the service I personally performed and the decisions made by me, Loree Ferraro MD Status of Scribe Document: Viewed
[2019-07-27] MEDS ORDERED: Ondansetron INJ* 2 MG/ML VIAL IV ONE (07:56)
[2019-07-27] MEDS ORDERED: NS 0.9% 1000 ML** 1,000 ML IV SCH (08:00)
[2019-07-27 08:32] LABS: ABS Lymphocytes 0.5 10^3/ul (1.0-4.8); ABS Monocytes 1.2 10^3/ul (0-0.8); ABS Neutrophils 8.3 10^3/ul (1.5-7.7); Hematocrit 47 % (35-47); Mean Corpuscular HGB Conc 34 g/dL (31-36); Mean Corpuscular Hemoglobin 42 pg (27-31); Mean Corpuscular Volume 123 fL (80-97); Platelet Count 587 10^3/uL (150-450); Red Blood Count 3.83 10^6 /uL (3.70-4.87); Red Cell Distribution Width 14 % (10-15)
[2019-07-27 08:37] LABS: Activated Partial Thrombo Time 31.2 seconds (26.0-38.0); INR 1.01 (0.82-1.09)
[2019-07-27] MEDS ORDERED: Morphine 4 MG/ML VIAL (1 ml) 4 MG/ML VIAL IV ONE (08:42)
[2019-07-27 08:52] LABS: ALT 4 U/L (7-52); AST 25 U/L (13-39); Albumin 4.2 g/dL (3.2-5.2); Albumin/Globulin Ratio 1.9 (1-3); Alkaline Phosphatase 42 U/L (34-104); Anion Gap 13 mmol/L (2-11); BUN/Creatinine Ratio 25.4 (8-20); Blood Urea Nitrogen 50 mg/dL (6-24); CO2 Carbon Dioxide 25 mmol/L (22-32); Calcium 10.2 mg/dL (8.6-10.3); Chloride 102 mmol/L (101-111); EGFR African American 29.7 (>60); EGFR Non-African American 24.5 (>60); Globulin 2.2 g/dL (2-4); Glucose 146 mg/dL (70-100); Potassium 4.4 mmol/L (3.5-5.0); Sodium 140 mmol/L (135-145); Total Protein 6.4 g/dL (6.4-8.9)
[2019-07-27 08:55] LABS: Troponin I 0.13 ng/mL (<0.03)
[2019-07-27] MEDS ORDERED: NS 0.9% 1000 ML** 1,000 ML IV ONE (09:08)
[2019-07-27] MEDS ORDERED: metroNIDAZOLE IV 500 MG/100ML* 500 MG/100 ML BAG IVPB ONE (09:14)
[2019-07-27] MEDS ORDERED: Cefepime(*) 2 GM in NS 0.9% 50 ML* 50 ML IVPB ONE (09:14)
[2019-07-27] MEDS ORDERED: NS 0.9% 50 ML* 0 ML ONE (09:46)
[2019-07-27 09:54] LABS: Urine Appearance Cloudy; Urine Bilirubin Negative (Negative); Urine Blood 2+ (Negative); Urine Color Amber; Urine Glucose Negative (Negative); Urine Ketones Trace (Negative); Urine Nitrite Negative (Negative); Urine Protein 1+(30 mg/dL) (Negative); Urine Specific Gravity 1.019 (1.010-1.030); Urine Urobilinogen Negative (Negative)
[2019-07-27 10:00] LABS: Urine Bacteria 2+ (Absent); Urine Red Blood Cell 3+(>10/hpf) (Absent); Urine Renal Epithelial Cells Present (Absent); Urine Squamous Epithelial Cell Present (Absent); Urine White Blood Cell 3+(>20/hpf) (Absent)
[2019-07-27] MEDS ORDERED: Cefepime 2 GM in Dextrose(*) 2 GM/50 ML BAG IV ONE (10:00)
[2019-07-27] MEDS ORDERED: Morphine INJ* 4 MG/ML 1 ML SYRINGE (NEW SYRINGE VERSION) IV PRN (11:22)
[2019-07-27] MEDS ORDERED: Ondansetron INJ* 2 MG/ML VIAL IV PRN (11:23)
[2019-07-27] MEDS ORDERED: Lactated Ringers 1000 ML Bag* 1,000 ML IV ONE (11:24)
[2019-07-27 12:15] LABS: Troponin I 0.09 ng/mL (<0.03)
[2019-07-27] MEDS: Heparin VIAL(*) 5000 UNITS/ML VIAL (FIVE THOUSAND) SUBCUT SCH ×2 (15:12→21:53)
--- NOTE | 2019-07-27 16:18 | PN ---
Progress Note - Progress Note Date of Service: 07/27/19 Note: Please see full consult note by SHONDA Willis. Marisol Mcnally is a 79 year-old woman with a history of hypertension, diabetes, and Parkinson's disease who was brought to the ED by EMS for altered mental status. She reportedly had abdominal pain, constipation, nausea over the weekend. She became confused this morning, which prompted calling EMS. Her mental status improved after receiving IV fluids. She has received morphine 2 mg in the ED, and the pain is now relatively controlled. The patient's surgical history is significant for hysterectomy and cholecystectomy. CT scan in the ED showed possible small bowel obstruction versus ileus. A transition point is thought to be in the right lower quadrant. On admission, the patient is also found to have VIVIANA, lactic acidosis, possible UTI, and mildly elevated troponin. WBC was normal. She was admitted to the ICU due to mild hypotension. On exam, vital signs are within normal limits: Heart rate 74, respiratory rate 34, blood pressure 109/35, O2 saturation 95% on room air. The patient is in no acute distress. She is drowsy, which her daughter thinks is due to the morphine. The patient is able to answer questions appropriately. Her abdomen is distended and tympanitic. There is generalized tenderness to palpation, worse in the right upper quadrant. No guarding. I reviewed the CT abdomen/pelvis. There is no IV contrast due to elevated creatinine. The proximal small bowel is dilated, and there is free fluid. No free air. Impression: 79-year-old with likely small bowel obstruction from adhesions. I discussed with the patient, her , and her daughter that conservative management is appropriate for now. It is reasonable to focus on optimizing her medical condition and addressing the kidney injury and dehydration first. I explained that bowel obstructions often resolve on their own when the patient is NPO. I think an NG tube is not necessary at this time, and the CT scan did not show a distended stomach. If she becomes more nauseous or vomits, NG tube may be beneficial. There is a chance that she decompensates and requires emergent surgery. There is also the possibility that the obstruction does not improve, and she requires surgery on a more elective basis. Will follow.
[2019-07-27 16:19] LABS: Troponin I 0.11 ng/mL (<0.03)
--- NOTE | 2019-07-27 18:18 | CONS ---
CC: Dr. Diaz; Dr. Yaritza Antony; Dr. Bauman, [facility] * SURGICAL CONSULT NOTE: DATE OF CONSULT: 07/27/19 LOCATION: The patient was seen initially in the ED. ATTENDING SURGEON: Dr. Elizabeth Delacruz. CHIEF COMPLAINT: Abdominal pain. HISTORY OF PRESENT ILLNESS: This is a 79-year-old female with Parkinson's disease, status post prior abdominal surgeries, and chronic constipation, who presented this morning to the ED. She began having discomfort across the upper abdomen on Saturday evening. This was worsening over the subsequent 24 to 48 hours and associated with fever and chills, vomiting x4 yesterday and increased confusion this morning prompting visit to the ED. Her daughter states that she had 2 small stools yesterday, 1 jelly-like in consistency, the other small formed, but no blood in either case. She had not had any hematemesis. She actually states that she is relatively pain-free at the moment after only1 dose of morphine 2 mg IV. She still has some nausea, but has not vomited this morning. She has not had any prior similar symptoms. Previous abdominal surgeries include what sounds like laparoscopic cholecystectomy, subtotal hysterectomy for benign disease (fibroids), and a surgery for vaginal prolapse done in [place] in 2009. PAST MEDICAL HISTORY: Parkinson's disease, hypertension, hyperlipidemia, hypothyroidism, von Willebrand's disease with significant thrombocytopenia for which she is currently on hydroxyurea, anxiety, and depression. PAST SURGICAL HISTORY: Previous surgeries include as noted above, probably laparoscopic cholecystectomy, hysterectomy, and repair of vaginal prolapse. She is also status post bilateral cataract extraction and status post left mastectomy in 1994 for breast cancer, treated with postoperative chemotherapy, without evidence of recurrent disease. CURRENT MEDICATIONS: Include: 1. Pantoprazole 40 mg once daily. 2. Levothyroxine 50 mcg once daily. 3. Atorvastatin 20 mg once daily. 4. Carbidopa/levodopa 25/100 one tablet every 3 hours for a total of 5 doses per day plus a long-acting dose not specified at bedtime. 5. Simethicone 250 mg p.r.n. 6. Sertraline 50 mg once daily. 7. Hydroxyurea 500 mg once daily. 8. Aspirin 81 mg once daily. 9. Quinapril 40 mg once daily. She also takes the following supplements: 1. Stool softener. 2. Calcium with vitamin D. 3. Melatonin p.r.n. 4. Senna. 5. Probiotic. 6. Vitamin C. DRUG ALLERGIES: Include CODEINE, PENICILLIN, SULFA, and other antibiotics not specified (all cause GI side effects). FAMILY HISTORY: Without known history of anesthesia problems, bleeding or clotting disorders. Her von Willebrand's disease is apparently a noninherited type. SOCIAL HISTORY: She lives at home with her . Her daughter lives nearby and also in attendance in the ED. She denies use of tobacco or alcohol. REVIEW OF SYSTEMS: General: As per the HPI. No other recent acute illnesses. She did have a fall in December 2018 for which I believe she was admitted, but without any fractures. She did have a hematoma of the left hip and also a pneumothorax, which was treated conservatively and did not require chest tube. HEENT: No additions. Cardiovascular: No history of MO, chest pain, or palpitations. Respiratory: No acute problems reported. Deep breathing does exacerbate her belly pain somewhat. GI: As above per HPI. She states that she has undergone multiple colonoscopies in the past and was told at the time of her most recent study that she did not need repeat (that appears to be 2016 from her record). She also had an EGD at that time, which was unremarkable other than biopsy of the distal duodenum and polypectomy. Neuro: She had been followed by Dr. Vargas through Neurology, but will be switching to Dr. Bauman. Endocrine: No diabetes. She is on thyroid replacement. PHYSICAL EXAM: Height 5 feet 4 inches, weight 108 pounds, temperature 99.7, most recent blood pressure 126/60, pulse 80, respirations 33 to 37, O2 sat 96% on room air. General: Thin, but otherwise well-appearing female, in no acute distress. She appears comfortable. She responds appropriately to questions. Skin: Warm and dry. No suspicious rashes or lesions. HEENT: Pupils are small presumably secondary to cataract surgery. EOMs intact. No conjunctival pallor or scleral icterus. Oropharynx: Teeth in fair repair. Some missing teeth. No intraoral lesions of concern. Mucous membranes slightly dry. Neck: No lymphadenopathy, thyromegaly, or masses. Heart: Regular rate and rhythm. No murmur appreciated. Lungs: Clear to auscultation. No rales or wheezes. Breasts: Not examined. She is status post left mastectomy. Abdomen: Multiple surgical scars. She appears mildly distended and is tympanitic. Bowel sounds are absent. She has some slight firmness with diffuse nonlocalized tenderness throughout the abdomen. No guarding or rigidity. No masses. No palpable hernias including the groins. Genitalia and Rectal: Not done. Extremities: She has trace edema of both lower extremities, which is consistent with her baseline (she usually uses compression stockings). Neurological: Grossly intact. DIAGNOSTIC STUDIES/LAB DATA: Of note, white blood cell count 10,000; hemoglobin 16; hematocrit 47; MCV 123, which is consistent with recent past, though actually rising; platelet count 587, also consistent with recent past. Chemistries notable for BUN of 50, creatinine of 1.97 presumably related in part to her dehydration. Lactic acid is elevated at 4.3 but on repeat is down to 0.5 and then 2.0. Troponin was mildly elevated at 0.13 with repeat of 0.09. Liver function tests are normal as is lipase. CT of the abdomen and pelvis without contrast was reviewed personally with Dr. Delacruz. Notable is moderate amount of free fluid and dilated small bowel loops with apparent transition point in the right lower quadrant, though no specific obstructing lesion. No focal inflammatory change. There was mild diverticulosis of the sigmoid colon, but without inflammatory change. There is moderate non- loculated ascites. The appendix was not specifically visualized. There is some moderate bilateral renal atrophy new compared with November 2018. The IVC was decompressed consistent with low vascular volume state. IMPRESSION: Small bowel obstruction. PLAN: The patient was also seen and examined with Dr. Delacruz. She will be admitted to ICU for fluid and electrolyte management. As the stomach was not significantly distended and she is not actively vomiting, we will hold on NG tube placement. The patient and family understand that this may resolve on its own without surgical intervention, but that remains a possibility. We will continue to follow her closely. Dr. Delacruz was my attending who had seen the patient this morning and Dr. Penny will be covering on-call tonight. SHONDA BLACKBURN [id number]/[facility] #: [id number] [facility] HOSPITALErnie
[2019-07-27] MEDS ORDERED: NS 0.9% 500 ML* 500 ML IV ONE (18:51)
--- NOTE | 2019-07-27 18:59 | PN ---
Progress Note - Progress Note Date of Service: 07/27/19 Note: Patient with increasing nausea and firmer abdomen this evening. Also had dry heaves with mouth swab as well as decreased urine output. NG tube ordered ( opted for cor-mychal for comfort, patient also pulling on tube), 500cc bolus and castellon catheter for accurate I&O. Approximately 350cc brown liquid from stomach contents noted after cor-mychal insertion. CXR pending for confirmation.
--- NOTE | 2019-07-27 19:15 | HP ---
CRITICAL CARE ADMISSION NOTE: DATE OF ADMISSION: 07/27/19 HISTORY OF PRESENT ILLNESS: The patient is a 79-year-old female presenting to the emergency department with chief complaint of altered mental status. She was noted to be dehydrated, was started on some fluid, and her mental status improved. She apparently has had some abdominal pain in the right lower quadrant. Last bowel movement having been 2 days prior to her presentation. She underwent scanning, which did reveal question of a small bowel obstruction. There was no clear transition point, unclear from the imaging whether this is mechanical or ileus. ICU consultation is requested for her further workup and management in the setting of small bowel obstruction and lactic acidosis. The patient denies any chest pain or shortness of breath. Denies nausea or vomiting. Reports she does not have medical history of small bowel obstruction. She has had abdominal surgery before. She is actively being evaluated by General Surgery at the time we saw her in the ED. PAST MEDICAL HISTORY: Significant for Von Willebrand disorder, hypertension, diabetes, anxiety, depression, and Parkinson disease. PAST SURGICAL HISTORY: She apparently has a surgical history which includes a pneumothorax after a fall in 2019. Also a surgical history of hysterectomy, cholecystectomy, and mastectomy in 1994 for breast cancer. She denies any other malignancy history. MEDICATIONS: Her home medications include: 1. Lipitor 20 mg daily. 2. Carbidopa/levodopa 25/100, one p.o. daily. 3. Levothyroxine 50 mcg p.o. daily. 4. Protonix 40 mg daily. 5. Hydrea cap 500 mg daily. 6. Zoloft 50 mg daily. 7. Simethicone 250 mg p.o. daily. 8. Calcium citrate/vitamin D3 one tab daily. 9. Melatonin 3 mg p.o. q.p.m. 10. Ascorbic acid 250 mg p.o. daily. 11. Enteric-coated aspirin 81 mg daily. 12. Lactobacillus 1 cap p.o. daily. 13. Quinapril 40 mg p.o. daily. 14. Senna/docusate 50/8.6 mg one tab p.o. daily. ALLERGIES: She is allergic to PENICILLIN, causing intestinal pain. She has allergies to CODEINE, causing intestinal pain. FAMILY HISTORY: Positive for coronary artery disease, diabetes, and stroke. SOCIAL HISTORY: She is . Lives with her . She has a daughter who is involved and supportive. She is retired. She is a nondrinker. She is a never smoker. REVIEW OF SYSTEMS: As detailed in the HPI. Additionally, denies focal motor weakness, visual change, headache or neck stiffness. Denies hemoptysis or hematemesis. Reports compliance with medical regimen. Denies history of TIA. Additional surgical history is provided including prolapsed vagina in 2009, treated in [place]. Hysterectomy in 1987, both cataracts in 2003 and 2007 at [facility] [place]. Denies recent travel outside the [place]. PHYSICAL EXAMINATION GENERAL: She is a well-developed, very slight build white female, in no acute distress. VITAL SIGNS: She presents with temperature of 98.1 degrees, heart rate of 78, respiratory rate at 30, blood pressure 102/55, saturation of 94% on room air. HEENT: Normocephalic, atraumatic. Pupils equal and reactive to light. NECK: Supple, nontender without JVD. LUNGS: Clear bilaterally. HEART: S1, S2. Regular. ABDOMEN: Soft, vaguely tender in the right lower quadrant. No peritoneal signs. Positive bowel sounds. EXTREMITIES: Lower extremities without edema. NEUROLOGIC: She is alert and oriented and grossly nonfocal. DIAGNOSTIC STUDIES/LAB DATA: Laboratory evaluations revealing a white blood cell count of 10, hemoglobin of 16, platelet count of 587. Serum sodium 140, potassium 4.4, chloride 102, bicarb 25, BUN and creatinine 50/1.97 with an initial lactic acid at 4.3. Troponin at 0.09. Chest x-ray with some basilar atelectasis. EKG: Sinus rhythm, normal axis, and a rate of 78, grossly nonischemic. ASSESSMENT AND PLAN: A 79-year-old female who presents with small bowel obstruction, functional versus mechanical, being actively evaluated by Surgery. She is admitted to the ICU with this process coupled with lactic acidosis. She certainly is dehydrated both by exam and the labs. We are providing crystalloid resuscitation. I am hopeful that simply reversing her dehydration may go a long way towards improving her functional ileus and she may avoid the OR altogether but time will tell. We will continue to provide empiric antibiotics, which have been instituted in the emergency department. We will provide subcutaneous heparin for DVT prophylaxis as well as the balance of her medications as appropriate, specifically she needs to continue her carbidopa/ levodopa as well as her Synthroid. General Surgery has requested strict n.p.o. which we will maintain. We will follow her troponin. She is entitled to a little bit of demand ischemia. I suspect it is the same process that is giving her the lactic acidosis and I am hopeful that with a little hydration that will resolve as well. She has some acute kidney injury, and I expect also to see that improve with fluid. These have all been discussed in detail with the patient as well as with her family, who voiced understanding and appreciation of her care. TIME SPENT: The aggregate time providing critical care at the bedside in the ED as well as here in the ICU as well as personally interpreting multiple laboratory evaluations, imaging studies, reviewing the medical records, and discussing the case with other providers including the ED attending as well with the patient's family and General Surgery has thus far exceeded 40 minutes. [id number]/[facility] #: [id number] SUHAS
[2019-07-27] MEDS ORDERED: Morphine INJ* 2 MG/ML 1 ML SYRINGE (TWO MG - NEW SYRINGE VERSION) IV PRN (21:59)
[2019-07-28] MEDS ORDERED: NS 0.9% 250 ML* 250 ML IV ONE (00:17)
[2019-07-28] MEDS: NS 0.9% 1000 ML** 1,000 ML IV SCH ×4 (01:19→18:07)
[2019-07-28] MEDS: Heparin VIAL(*) 5000 UNITS/ML VIAL (FIVE THOUSAND) SUBCUT SCH ×3 (05:54→22:30)
[2019-07-28 06:06] LABS: Hematocrit 38 % (35-47); Mean Corpuscular HGB Conc 34 g/dL (31-36); Mean Corpuscular Hemoglobin 42 pg (27-31); Mean Corpuscular Volume 123 fL (80-97); Mean Platelet Volume 8.4 fL (7.4-10.4); Platelet Count 354 10^3/uL (150-450); Red Blood Count 3.07 10^6 /uL (3.70-4.87); Red Cell Distribution Width 14 % (10-15); White Blood Count 10.5 10^3/uL (3.5-10.8)
[2019-07-28 06:20] LABS: Albumin 3.4 g/dL (3.2-5.2); Albumin/Globulin Ratio 1.8 (1-3); BUN/Creatinine Ratio 26.4 (8-20); Calcium 8.7 mg/dL (8.6-10.3); EGFR African American 20.4 (>60); EGFR Non-African American 16.8 (>60); Globulin 1.9 g/dL (2-4); Potassium 4.8 mmol/L (3.5-5.0); Total Bilirubin 0.6 mg/dL (0.2-1.0); Total Protein 5.3 g/dL (6.4-8.9)
[2019-07-28 06:55] LABS: ABS Lymphocytes 0.4 10^3/ul (1.0-4.8); ABS Monocytes 1.4 10^3/ul (0-0.8); ABS Neutrophils 8.7 10^3/ul (1.5-7.7); Lymphocyte % 4.3 %
[2019-07-28 09:26] LABS: Troponin I 0.09 ng/mL (<0.03)
[2019-07-28] MEDS ORDERED: cefTRIAXone(*) 1 GM in NS 0.9% 50 ML* 50 ML IVPB SCH (10:00)
--- NOTE | 2019-07-28 10:00 | PN ---
Progress Note - Progress Note Date of Service: 07/28/19 Note: Patient not answering questions and has been lethargic this morning. Her daughter reports that she does become somnolent when she misses a dose of carbidopa/levodopa. The patient denied nausea, but did not answer any other questions. She has been afebrile. Cor-pack placed yesterday Vital Signs - 12 hr Temp Pulse Resp BP Pulse Ox 07/28/19 07:32 99.1 F 99 18 118/53 95 07/28/19 04:05 98.5 F 91 17 109/49 96 07/28/19 00:08 128/55 07/27/19 23:39 20 07/27/19 22:55 99.6 F 88 20 91/43 97 07/27/19 22:24 34 07/27/19 22:00 95 34 172/74 97 Intake & Output 07/27/19 07/28/19 07/28/19 22:59 06:59 14:59 Intake Total 1510 250 858 Output Total 300 100 Balance 1210 150 858 Weight 111 lb 9.6 oz Intake: IV Fluids 1510 250 858 LR 1000 NS (0.9%) 510 250 858 Oral 0 0 Output: NG Tube Drainage Amount 300 50 Urine 0 Vieira 50 General: NAD Abdomen: Distended and firm but unchanged from yesterday. Tympanitic. Unable to assess tenderness, she does not grimace with palpation and she does not endorse pain when asked. Extremities: Warm, mild pedal edema distal BLE Neuro: Lethargic, briefly opens eyes to voice. Laboratory Results - last 24 hr 07/27/19 07/27/19 07/27/19 09:36 11:05 11:20 WBC RBC Hgb Hct MCV MCH MCHC RDW Plt Count MPV Neut % (Auto) Lymph % (Auto) Evans % (Auto) Eos % (Auto) Baso % (Auto) Absolute Neuts (auto) Absolute Lymphs (auto) Absolute Monos (auto) Absolute Eos (auto) Absolute Basos (auto) Absolute Nucleated RBC Nucleated RBC % Sodium Potassium Chloride Carbon Dioxide Anion Gap BUN Creatinine Est GFR ( Amer) Est GFR (Non-Af Amer) BUN/Creatinine Ratio Glucose Lactic Acid 0.5 2.0 Calcium Total Bilirubin AST ALT Alkaline Phosphatase Troponin I Total Protein Albumin Globulin Albumin/Globulin Ratio Urine Color Sarina Urine Appearance Cloudy Urine pH 5.0 Ur Specific [place] 1.019 Urine Protein 1+(30 mg/dl) A Urine Ketones Trace A Urine Blood 2+ A Urine Nitrate Negative Urine Bilirubin Negative Urine Urobilinogen Negative Ur Leukocyte Esterase 1+ A Urine WBC (Auto) 3+(>20/hpf) A Urine RBC (Auto) 3+(>10/hpf) A Ur Squamous Epith Cells Present A Ur Renal Epithelial Cell Present A Urine Bacteria 2+ A Hyaline Casts Present A Urine Glucose Negative Urine Ascorbic Acid * A 07/27/19 07/27/19 07/28/19 11:20 15:25 05:52 WBC 10.5 RBC 3.07 L Hgb 13.0 Hct 38 MCV 123 H MCH 42 H MCHC 34 RDW 14 Plt Count 354 MPV 8.4 Neut % (Auto) 82.5 Lymph % (Auto) 4.3 Evans % (Auto) 13.1 Eos % (Auto) 0.0 Baso % (Auto) 0.1 Absolute Neuts (auto) 8.7 H Absolute Lymphs (auto) 0.4 L Absolute Monos (auto) 1.4 H Absolute Eos (auto) 0.0 Absolute Basos (auto) 0.0 Absolute Nucleated RBC 0.0 Nucleated RBC % 0.0 Sodium Potassium Chloride Carbon Dioxide Anion Gap BUN Creatinine Est GFR ( Amer) Est GFR (Non-Af Amer) BUN/Creatinine Ratio Glucose Lactic Acid Calcium Total Bilirubin AST ALT Alkaline Phosphatase Troponin I 0.09 H* 0.11 H* Total Protein Albumin Globulin Albumin/Globulin Ratio Urine Color Urine Appearance Urine pH Ur Specific [place] Urine Protein Urine Ketones Urine Blood Urine Nitrate Urine Bilirubin Urine Urobilinogen Ur Leukocyte Esterase Urine WBC (Auto) Urine RBC (Auto) Ur Squamous Epith Cells Ur Renal Epithelial Cell Urine Bacteria Hyaline Casts Urine Glucose Urine Ascorbic Acid 07/28/19 05:52 WBC RBC Hgb Hct MCV MCH MCHC RDW Plt Count MPV Neut % (Auto) Lymph % (Auto) Evans % (Auto) Eos % (Auto) Baso % (Auto) Absolute Neuts (auto) Absolute Lymphs (auto) Absolute Monos (auto) Absolute Eos (auto) Absolute Basos (auto) Absolute Nucleated RBC Nucleated RBC % Sodium 139 Potassium 4.8 Chloride 108 Carbon Dioxide 20 L Anion Gap 11 BUN 72 H Creatinine 2.73 H Est GFR ( Amer) 20.4 Est GFR (Non-Af Amer) 16.8 BUN/Creatinine Ratio 26.4 H Glucose 97 Lactic Acid Calcium 8.7 Total Bilirubin 0.60 AST 39 ALT 5 L Alkaline Phosphatase 27 L Troponin I 0.09 H* Total Protein 5.3 L Albumin 3.4 Globulin 1.9 L Albumin/Globulin Ratio 1.8 Urine Color Urine Appearance Urine pH Ur Specific [place] Urine Protein Urine Ketones Urine Blood Urine Nitrate Urine Bilirubin Urine Urobilinogen Ur Leukocyte Esterase Urine WBC (Auto) Urine RBC (Auto) Ur Squamous Epith Cells Ur Renal Epithelial Cell Urine Bacteria Hyaline Casts Urine Glucose Urine Ascorbic Acid A&P 78F with SBO. Exam seems relatively stable, although difficult to assess due to mental status. Will hold off on surgery for now but I discussed with her and daughter that there is still a chance that she needs to go to the OR. VIVIANA appears worse with oliguria. -Cor-pack tube is not ideal for decompressing stomach. Will switch to NG tube and remove cor-pack. NG to low continuous suction. -NPO. Can try po meds but absorption is questionable. Consider converting necessary medications to IV or sublingual -Will follow.
[2019-07-28] MEDS ORDERED: metroNIDAZOLE IV 500 MG/100ML* 500 MG/100 ML BAG IVPB SCH (11:00)
[2019-07-28 14:27] LABS: C Reactive Protein 277.99 mg/L (<8.01)
--- NOTE | 2019-07-28 14:55 | ECHO ---
*[facility]* [place] [address] Fax #: [phone] Transthoracic Echocardiogram Patient: Marisol Mcnally : 1940 Study Date: 07/28/2019 Age: 79 Gender: F HR: 104 bpm Height: 64 in /162.6 cm BSA: 1.52 m^2 Weight: 110.8 lb /50.3 kg BMI: 19.1 kg/m^2 *Dinkey Press Operator: * Shannan Nation [facility] *Referring Physician: * She Mcdaniel *Reading Physician: * Roberto Baron MD Indications: Bacteremia. History: Risk factors: Hypertension. Diabetes mellitus. Dyslipidemia. Conclusions Summary: - Left ventricle: Systolic function is normal. The estimated ejection fraction is 60-65%. Wall motion is normal; there are no regional wall motion abnormalities. - Right ventricle: Systolic function is normal. - Mitral valve: The Mitral valve annulus appears calcified. The leaflets are mildly calcified. Focal calcification, with involvement of the head of the anterolateral and head of the posteromedial papillary muscle. There is trace regurgitation. - Aortic valve: There is no evidence of stenosis. - Tricuspid valve: There is trace to mild regurgitation. - Pulmonary arteries: Systolic pressure is mildly increased. - Study data: No prior study is available for comparison. Study data: Transthoracic echocardiogram. Procedure: Transthoracic echocardiography was performed. Image quality was adequate. The study was technically limited due to restricted patient mobility and body habitus. Complete 2D, spectral Doppler, and color flow Doppler. Location: Bedside. Patient status: Inpatient. Patient room number: 349. No prior study is available for comparison. Rhythm: Tachycardia. Findings Left ventricle: The cavity size is mildly reduced. Wall thickness is mildly to moderately increased. Systolic function is normal. The estimated ejection fraction is 60-65%. Wall motion is normal; there are no regional wall motion abnormalities. Doppler parameters are consistent with abnormal left ventricular relaxation (grade 1 diastolic dysfunction). Right ventricle: The cavity size is normal. Systolic function is normal. Left atrium: The atrium is normal in size. Right atrium: The atrium is normal in size. Mitral valve: The Mitral valve annulus appears calcified. The leaflets are mildly calcified. Focal calcification, with involvement of the head of the anterolateral and head of the posteromedial papillary muscle. There is no evidence of stenosis. There is trace regurgitation. Aortic valve: The annulus is mildly calcified. The leaflets are mildly thickened. There is no evidence of stenosis. There is mild regurgitation. Tricuspid valve: The leaflets are mildly thickened. There is no evidence of stenosis. There is trace to mild regurgitation. Pulmonic valve: Not well visualized. There is no significant regurgitation. Pericardium: A trace pericardial effusion is identified. There is a left pleural effusion. Pulmonary arteries: Systolic pressure is mildly increased. Systemic veins: Inferior vena cava: Not well visualized. Measurements Left ventricle Value Ref Aortic valve Value Ref JOE, LAX (L) 3.6 cm 3.8 - 5.2 Amanuel diam, ED 1.9 cm ------- ESD, LAX (L) 1.9 cm 2.2 - 3.5 Peak v, S 1.53 m/sec ------- FS, LAX (H) 47 % 27 - 45 VTI, S 23.6 cm ------- PW, ED, LAX (H) 1.3 cm 0.6 - 0.9 Mean grad, S 5.0 mm Hg ------- E', lat amanuel, TDI (L) 8.8 cm/sec >=10.0 Peak grad, S 9.0 mm Hg ------- E/e', lat amanuel, 8 TDI Mitral valve Value Ref E', med amanuel, TDI (L) 5.4 cm/sec >=7.0 Peak E 0.69 m/sec ------- E/e', med amanuel, 13 Peak A 0.88 m/sec --- ---- TDI Decel time 111 ms ------- E', avg, TDI 7.1 cm/sec Peak E/A ratio 0.8 --- ---- E/e', avg, TDI 10 <=14 Tricuspid valve Value Ref LVOT Value Ref TR peak v (H) 3 m/sec <=2.8 Peak javid, S 1.52 m/sec Peak RV-RA grad, S 36 mm Hg ------- Peak grad, S 9 mm Hg Mean grad, S 5 mm Hg Aortic root Value Ref Root diam 2.8 cm <3.8 Ventricular septum Value Ref Root max diam/bsa, 1.8 cm/m^2 1.4 - IVS, ED (H) 1.1 cm 0.6 - 0.9 ED 2.2 Right ventricle Value Ref Aortic arch Value Ref JOE, LAX 2.2 cm Arch diam 2.5 cm ------- JOE minor ax, A4C 3.0 cm 1.9 - 3.5 Arch diam/bsa 1.6 cm/m^2 ------- mid Pressure, S 39 mm Hg Decending aorta Value Ref Eduard peak javid 0.58 m/sec ------- Left atrium Value Ref AP dim, ES (L) 2.50 cm 2.70 - Pulmonary artery Value Ref 3.80 Pressure, S 39.0 mm Hg ------- ML dim, A4C 3.4 cm SI dim, A4C 4.6 cm Vol/bsa, ES, A/L 22 ml/m^2 16 - 34 Right atrium Value Ref SI dim, ES 4.1 cm 3.4 - 5.3 ML dim, ES, A4C 2.8 cm 2.6 - 4.4 Estimated RAP 3 mm Hg Legend: (L) and (H) vik values outside specified reference range. Prepared and electronically signed by Roberto Baron MD 07/28/2019 14:55
[2019-07-28] MEDS ORDERED: Vancomycin(*) 1,000 MG in NS 0.9% 250 ML* 250 ML IVPB ONE (15:04)
[2019-07-28] MEDS ORDERED: NS 0.9% 1000 ML** 1,000 ML IV ONE (15:07)
[2019-07-28] MEDS: Meropenem 500MG PREMIX(*) 500 MG/50 ML BAG IV SCH (15:54)
[2019-07-28] MEDS ORDERED: Vancomycin per Pharmacy* NOTE FOLLOW UP SCH (16:00)
--- NOTE | 2019-07-28 16:28 | PN ---
Subjective Date of Service: 07/28/19 Interval History: Patient was drowsy this morning, eyes closed, no spontaneous movement. Talked to patient's and daughter at bedside at length, explained to them she is very sick, with sepsis, kidney injury, bowel obstruction. Molst form was filled up by her , DNR, no intubation, no feeding tube, limited medical management. Objective Active Medications: Carbidopa/Levodopa (Sinemet 25/100 Tab(*)) 1 tab PO DAILY [facility] Heparin Sodium (Porcine) (Heparin Vial(*)) 5,000 units SUBCUT Q8HR [facility] Last Admin: 07/28/19 15:22 Dose: 5,000 units Sodium Chloride (Ns 0.9% 1000 Ml) 1,000 mls @ 150 mls/hr IV PER RATE [facility] Last Admin: 07/28/19 11:54 Dose: 150 mls/hr Meropenem (Merrem 500mg Premix(*)) 500 mg in 50 mls @ 100 mls/hr IV Q12H [facility]; Protocol Last Admin: 07/28/19 15:54 Dose: 100 mls/hr Vancomycin HCl 1,000 mg/ (Sodium Chloride) 250 mls @ 166.667 mls/hr IVPB ONCE ONE; Protocol Stop: 07/28/19 16:33 Sodium Chloride (Ns 0.9% 1000 Ml) 1,000 mls @ 500 mls/hr IV ONCE ONE Stop: 07/28/19 17:06 Last Admin: 07/28/19 15:22 Dose: 500 mls/hr Morphine Sulfate (Morphine Inj (Syringe))*) 2 mg IV Q4H PRN PRN Reason: PAIN Last Admin: 07/27/19 22:24 Dose: 2 mg Ondansetron HCl (Zofran Inj*) 4 mg IV Q4H PRN PRN Reason: NAUSEA/VOMITING Last Admin: 07/27/19 17:55 Dose: 4 mg Pharmacy Consult (Vancomycin Per Pharmacy*) 1 note FOLLOW UP .VANC PER PHARMACY [facility]; Protocol Pharmacy Consult (Vancomycin Random Level*) 1 note FOLLOW UP 0600 ONE Stop: 07/29/19 06:01 Vital Signs - 8 hr 07/28/19 07/28/19 07/28/19 11:15 14:50 15:34 Temperature 99.2 F 99.3 F 99.3 F Pulse Rate 102 101 94 Respiratory 19 16 18 Rate Blood Pressure 95/51 99/41 121/43 (mmHg) O2 Sat by Pulse 93 101 100 Oximetry Oxygen Devices in Use Now: None Exam: Gen: elderly female, E3V1M1, NG tube, castellon in situ, 10ml concentrated urine in urine bag. HEENT: normacephalic and atraumatic Lungs: clear on auscultation anteriorly Heart: S1/S2 heard with no murmur Abdomen: Soft, distended, hard feeling, non tender Extremities: No cyanosis, distal pulses 2+, warm extremities Neuro: E3V1M1, no spontaneous movement. Result Diagrams: 07/29/19 05:54 07/29/19 05:54 Assess/Plan/Problems-Billing Assessment: Marisol Mcnally is a 79 y/o female with history of diabetes, hypertension, Von Willenbrand disorder, parkinson disease, presented with altered mental status, right lower quadrant pain, found to have fever, lactic acidosis and VIVIANA. - Patient Problems (1) Altered mental status Current Visit: Yes Status: Acute Code(s): R41.82 - ALTERED MENTAL STATUS, UNSPECIFIED SNOMED Code(s): 473678393 Comment: - likely due to septic encephalopathy - improving overnight, able to open eyes spontanously this afternoon - will monitor closely. (2) Sepsis associated hypotension Current Visit: Yes Status: Acute Code(s): A41.9 - SEPSIS, UNSPECIFIED ORGANISM; I95.9 - HYPOTENSION, UNSPECIFIED SNOMED Code(s): 23016867 Comment: - came in with hypotension, lactic acidosis, fever, meets SIRS criteria - likely source of infection is urine, a/w urine cs - started on iv cefepime and flagyl overnight, will escalate to meropenem and vancomycin in view of severe sepsis - responded to fluid rescuitatiton overnight, however bp dips again this afternoon, will rechallenge with crystalloid rescucitation (3) Small bowel obstruction Current Visit: Yes Status: Acute Code(s): K56.609 - UNSP INTESTNL OBST, UNSP TO PARTIAL VERSUS COMPLETE OBST SNOMED Code(s): 749585716 Comment: - SBO vs ileus - NGT in situ with suctioning - appreciate GS input, may need operative management in the future if she gets better (4) Acute kidney injury Current Visit: Yes Status: Acute Code(s): N17.9 - ACUTE KIDNEY FAILURE, UNSPECIFIED SNOMED Code(s): 13123081 Comment: - VIVIANA with possible some CKD component (atropic kidneys in scan) - likely causes: prerenal, ATN caused by sepsis, AIN caused by ppi use - no post renal obstruction seen so far - continue ivf - strict i/o, if continues to be oliguiric, need nephrology consult (5) Parkinson disease Current Visit: Yes Status: Acute Code(s): G20 - PARKINSON'S DISEASE SNOMED Code(s): 40481783 Comment: - continue levodopa/carbidopa sublingual (6) Urinary tract infection Current Visit: Yes Status: Acute Comment: - initial result back klebsiella pneumoniae, awaiting sensitivity - CTAP didn't show any retention or complicated UTI (7) DNR (do not resuscitate) Current Visit: Yes Status: Acute Comment: MOLST form filled out Status and Disposition: inpatient Medicine Attestation Documenting Resident: She Mcdaniel Supervising Physician: Ankur Patterson Attending/Supervising Physician Comment: Patient w/ severe sepsis, transferred from ICU overnight. Urine growing klebsiella, possible ESBL. Antibiotics escalated to meropenem, vanco. Fluid resuscitation increased. Attestation: This service has been performed in part by a resident under the direction of a teaching physician.I, Ankur Patterson, performed the service, or was physically present during the critical, or estrella portions of the service, furnished by the resident. I participated in the management of the patient.
[2019-07-28] MEDS: Pantoprazole IV* 40 MG IV SCH (18:07)
[2019-07-29] MEDS: NS 0.9% 1000 ML** 1,000 ML IV SCH ×2 (00:50→08:32)
[2019-07-29] MEDS: Meropenem 500MG PREMIX(*) 500 MG/50 ML BAG IV SCH ×2 (04:04→16:15)
[2019-07-29] MEDS ORDERED: Vancomycin Random Level* NOTE FOLLOW UP ONE (06:00)
[2019-07-29] MEDS ORDERED: Levothyroxine TAB* 50 MCG TAB PO SCH (06:00)
[2019-07-29 06:36] LABS: Hematocrit 33 % (35-47); Hemoglobin 11.3 g/dL (12.0-16.0); Mean Corpuscular HGB Conc 34 g/dL (31-36); Mean Corpuscular Hemoglobin 42 pg (27-31); Mean Corpuscular Volume 124 fL (80-97); Mean Platelet Volume 8.3 fL (7.4-10.4); Platelet Count 357 10^3/uL (150-450); Red Blood Count 2.68 10^6 /uL (3.70-4.87); Red Cell Distribution Width 14 % (10-15); White Blood Count 9.9 10^3/uL (3.5-10.8)
[2019-07-29 06:43] LABS: Vancomycin Random 8.5 mcg/mL
[2019-07-29 06:44] LABS: Albumin 2.9 g/dL (3.2-5.2); Albumin/Globulin Ratio 1.3 (1-3); BUN/Creatinine Ratio 35.9 (8-20); Calcium 8.6 mg/dL (8.6-10.3); EGFR Non-African American 19.8 (>60); Globulin 2.2 g/dL (2-4); Potassium 4.3 mmol/L (3.5-5.0); Total Bilirubin 0.4 mg/dL (0.2-1.0); Total Protein 5.1 g/dL (6.4-8.9)
[2019-07-29 07:35] LABS: ABS Lymphocytes 0.3 10^3/ul (1.0-4.8); ABS Monocytes 1.2 10^3/ul (0-0.8); ABS Neutrophils 8.4 10^3/ul (1.5-7.7); Lymphocyte % 2.7 %
[2019-07-29] MEDS: Heparin VIAL(*) 5000 UNITS/ML VIAL (FIVE THOUSAND) SUBCUT SCH ×3 (07:39→22:55)
[2019-07-29] MEDS ORDERED: Levothyroxine INJ* 100 MCG/5 ML VIAL IV SCH (08:00)
[2019-07-29] MEDS: Levothyroxine INJ* 100 MCG/5 ML VIAL IV SCH (08:46)
[2019-07-29] MEDS: CMCS: Carbidopa/Levodopa ODT (NF) 25/100 ODT PO SCH ×2 (08:47→12:54)
--- NOTE | 2019-07-29 08:47 | PN ---
Progress Note - Progress Note Date of Service: 07/29/19 Note: Unable to perform ROS due to patient's mental status. Patient did not receive carbidopa/levodopa yesterday. Increase in urine output overnight but still low. No other acute events overnight. Afebrile. Normotensive and HR 80s-90s. NG tube 1100cc since placement. Vital Signs - 12 hr Temp Pulse Resp BP Pulse Ox 07/29/19 03:25 98.6 F 97 20 109/43 93 07/28/19 23:57 99.4 F 88 28 119/43 93 Intake & Output 07/28/19 07/29/19 07/29/19 22:59 06:59 14:59 Intake Total 2119 995 1045 Output Total 200 755 Balance 0730 453 0770 Weight 117 lb 8 oz Intake: IV Fluids 1719 995 990 NS (0.9%) 1719 995 990 IVPB 400 55 ABX - FLAGYL 100 ABX - VANCOMYCIN 250 Meropenem 50 55 Oral 0 Output: NG Tube Drainage Amount 600 Vieira 200 155 General: Lying in bed comfortably, no acute distress. HEENT: Pupils equal. No scleral icterus. NG tube in L nare draining bilious fluid. CV: Mild tachycardia, regular rhythm. Resp: Clear to anterior auscultation. No accessory muscle use. Abdomen: Distended and firm but slightly improved since yesterday. Generalized tenderness (patient grimaces with palpation). Absent bowel sounds. Extremities: Edema at ankles b/l. Warm. Neuro: Opens eyes to voice but is nonverbal and does not answer questions. Laboratory Results - last 24 hr 07/28/19 07/29/19 07/29/19 05:52 05:54 05:54 WBC 9.9 RBC 2.68 L Hgb 11.3 L Hct 33 L MCV 124 H MCH 42 H MCHC 34 RDW 14 Plt Count 357 MPV 8.3 Neut % (Auto) 85.0 Lymph % (Auto) 2.7 [place] % (Auto) 12.3 Eos % (Auto) 0.0 Baso % (Auto) 0.0 Absolute Neuts (auto) 8.4 H Absolute Lymphs (auto) 0.3 L Absolute Monos (auto) 1.2 H Absolute Eos (auto) 0.0 Absolute Basos (auto) 0.0 Absolute Nucleated RBC 0.0 Nucleated RBC % 0.0 Sodium 139 143 Potassium 4.8 4.3 Chloride 108 114 H Carbon Dioxide 20 L 18 L Anion Gap 11 11 BUN 72 H 85 H Creatinine 2.73 H 2.37 H Est GFR ( Amer) 20.4 24.0 Est GFR (Non-Af Amer) 16.8 19.8 BUN/Creatinine Ratio 26.4 H 35.9 H Glucose 97 83 Calcium 8.7 8.6 Total Bilirubin 0.60 0.40 AST 39 42 H ALT 5 L 16 Alkaline Phosphatase 27 L 28 L Troponin I 0.09 H* C-Reactive Protein 277.99 H Total Protein 5.3 L 5.1 L Albumin 3.4 2.9 L Globulin 1.9 L 2.2 Albumin/Globulin Ratio 1.8 1.3 Random Vancomycin 8.5 A&P 79F with SBO in setting of VIVIANA and UTI. Continue conservative management of SBO. -Continue NPO, NG to LWS. -Mental status still altered, unclear etiology: metabolic encephalopathy (UTI), vs medication (morphine) vs uremia vs Parkinson's disease -Will follow.
[2019-07-29] MEDS ORDERED: Vancomycin(*) 1,000 MG in NS 0.9% 250 ML* 250 ML IV ONE (09:00)
[2019-07-29] MEDS ORDERED: Carbidopa/Levodop 25/100 MG TAB(*) PO SCH (09:00)
--- NOTE | 2019-07-29 11:40 | PN ---
Subjective Date of Service: 07/29/19 Interval History: Patient was more alert today, able to open eyes spontaneously and said "goodbye " "Okie" to me. She had a medium void according to nurse record. Urine output yesterday 1.55L. Overnight another episode of hypotension with T up to 99.5 Objective Active Medications: Carbidopa/Levodopa (Carbidopa/Levodopa 25/100 Odt (Nf)) 1 tab PO 0600,0900, 1200 [facility] Last Admin: 07/29/19 08:47 Dose: 1 tab Carbidopa/Levodopa (Carbidopa/Levodopa 25/100 Odt (Nf)) 1 tab PO 1500,1800, 2100 [facility] Heparin Sodium (Porcine) (Heparin Vial(*)) 5,000 units SUBCUT Q8HR [facility] Last Admin: 07/29/19 07:39 Dose: 5,000 units Sodium Chloride (Ns 0.9% 1000 Ml) 1,000 mls @ 150 mls/hr IV PER RATE [facility] Last Admin: 07/29/19 08:32 Dose: 150 mls/hr Meropenem (Merrem 500mg Premix(*)) 500 mg in 50 mls @ 100 mls/hr IV Q12H [facility]; Protocol Last Admin: 07/29/19 04:04 Dose: 100 mls/hr Levothyroxine Sodium (Synthroid Inj*) 25 mcg IV 0600 [facility] Last Admin: 07/29/19 08:46 Dose: 25 mcg Morphine Sulfate (Morphine Inj (Syringe))*) 2 mg IV Q4H PRN PRN Reason: PAIN Last Admin: 07/27/19 22:24 Dose: 2 mg Ondansetron HCl (Zofran Inj*) 4 mg IV Q4H PRN PRN Reason: NAUSEA/VOMITING Last Admin: 07/27/19 17:55 Dose: 4 mg Pantoprazole Sodium (Protonix Iv*) 40 mg IV Q24H [facility] Last Admin: 07/28/19 18:07 Dose: 40 mg Pharmacy Consult (Vancomycin Per Pharmacy*) 1 note FOLLOW UP .VANC PER PHARMACY [facility]; Protocol Pharmacy Consult (Vancomycin Random Level*) 1 note FOLLOW UP 0600 ONE Stop: 07/30/19 06:01 Vital Signs - 8 hr 07/29/19 10:36 Temperature 99 F Pulse Rate 91 Respiratory 26 Rate Blood Pressure 143/46 (mmHg) O2 Sat by Pulse 98 Oximetry Oxygen Devices in Use Now: None Exam: Gen: elderly female, opens eyes widely, able to follow conversation but no verbal output. NG tube with dark brownish content suctioned out, castellon in situ. HEENT: normacephalic and atraumatic Lungs: clear on auscultation anteriorly Heart: S1/S2 heard with no murmur Abdomen: Soft, distended, hard feeling, non tender Extremities: No cyanosis, distal pulses 2+, warm extremities Neuro: E4V1M4 Result Diagrams: 07/29/19 05:54 07/29/19 05:54 Assess/Plan/Problems-Billing Assessment: Marisol Mcnally is a 79 y/o female with history of diabetes, hypertension, Von Willenbrand disorder, parkinson disease, presented with altered mental status, right lower quadrant pain, found to have sepsis , VIVIANA and possible SBO. - Patient Problems (1) Altered mental status Current Visit: Yes Status: Acute Code(s): R41.82 - ALTERED MENTAL STATUS, UNSPECIFIED SNOMED Code(s): 567507548 Comment: - likely due to septic encephalopathy - improving, continue to monitor (2) Sepsis associated hypotension Current Visit: Yes Status: Acute Code(s): A41.9 - SEPSIS, UNSPECIFIED ORGANISM; I95.9 - HYPOTENSION, UNSPECIFIED SNOMED Code(s): 19664121 Comment: - came in with hypotension, lactic acidosis, fever, meets SIRS criteria - likely source of infection is urine, urine cs klebsiella - responded to fluid rescuitatiton - started on iv cefepime and flagyl, escalated to meropenem and vancomycin yesterday (07/27-) - trace urine culture sensitivity (3) Small bowel obstruction Current Visit: Yes Status: Acute Code(s): K56.609 - UNSP INTESTNL OBST, UNSP TO PARTIAL VERSUS COMPLETE OBST SNOMED Code(s): 373284266 Comment: - SBO vs ileus, likely ileus - NGT in situ with suctioning - appreciate GS input,will continue medical management for now (4) Acute kidney injury Current Visit: Yes Status: Acute Code(s): N17.9 - ACUTE KIDNEY FAILURE, UNSPECIFIED SNOMED Code(s): 75165908 Comment: - VIVIANA with possible some CKD component (atropic kidneys in scan) - likely causes: prerenal, ATN caused by sepsis, AIN - no post renal obstruction seen so far - continue ivf, improving so far (5) Parkinson disease Current Visit: Yes Status: Acute Code(s): G20 - PARKINSON'S DISEASE SNOMED Code(s): 01887362 Comment: - continue levodopa/carbidopa sublingual (6) Urinary tract infection Current Visit: Yes Status: Acute Comment: - initial result back klebsiella pneumoniae, awaiting sensitivity - CTAP didn't show any retention or complicated UTI (7) DNR (do not resuscitate) Current Visit: Yes Status: Acute Comment: MOLST form filled out Status and Disposition: inpatient Medicine. will arlin need MAYTE on dishcrge. Attestation Documenting Resident: She Mcdaniel Supervising Physician: Ankur Patterson Attending/Supervising Physician Comment: Patient w/ klebsiella UTI and sepsis, had shock yesterday, oliguria today. Doing better today, creatinine improving. Sensitivities show ceftriaxone should be adequate, can switch back from Meropenem/vanco. Attestation: This service has been performed in part by a resident under the direction of a teaching physician.I, Ankur Patterson, performed the service, or was physically present during the critical, or estrella portions of the service, furnished by the resident. I participated in the management of the patient.
[2019-07-29] MEDS ORDERED: HYDROmorphone INJ* 0.5 MG/0.5 ML SYRINGE IV PRN (13:21)
[2019-07-29] MEDS ORDERED: HYDROmorphone INJ* 0.5 MG/0.5 ML SYRINGE IV SCH (14:00)
[2019-07-29] MEDS ORDERED: CMCS: Carbidopa/Levodopa ODT (NF) 25/100 ODT PO SCH (15:00)
[2019-07-29] MEDS: Pantoprazole IV* 40 MG IV SCH (17:16)
[2019-07-29] MEDS: cefTRIAXone(*) 1 GM in NS 0.9% 50 ML* 50 ML IVPB SCH (17:16)
[2019-07-29] MEDS ORDERED: D5NS 0.9% 1000 ML BAG* 1,000 ML IV SCH (23:00)
[2019-07-30] MEDS ORDERED: Levothyroxine INJ* 100 MCG/5 ML VIAL IV SCH (06:00)
[2019-07-30] MEDS ORDERED: Vancomycin Random Level* NOTE FOLLOW UP ONE (06:00)
[2019-07-30] MEDS: Levothyroxine INJ* 100 MCG/5 ML VIAL IV SCH (06:15)
[2019-07-30] MEDS: Heparin VIAL(*) 5000 UNITS/ML VIAL (FIVE THOUSAND) SUBCUT SCH ×3 (06:17→22:05)
[2019-07-30 06:30] LABS: Hematocrit 32 % (35-47); Hemoglobin 10.9 g/dL (12.0-16.0); Mean Corpuscular HGB Conc 34 g/dL (31-36); Mean Corpuscular Hemoglobin 42 pg (27-31); Mean Corpuscular Volume 122 fL (80-97); Platelet Count 335 10^3/uL (150-450); Red Blood Count 2.59 10^6 /uL (3.70-4.87); Red Cell Distribution Width 14 % (10-15); White Blood Count 10.8 10^3/uL (3.5-10.8)
[2019-07-30 06:47] LABS: Albumin 2.7 g/dL (3.2-5.2); Albumin/Globulin Ratio 1.2 (1-3); Calcium 8.9 mg/dL (8.6-10.3); EGFR African American 43.3 (>60); EGFR Non-African American 35.8 (>60); Globulin 2.3 g/dL (2-4); Potassium 4.1 mmol/L (3.5-5.0); Total Bilirubin 0.4 mg/dL (0.2-1.0)
[2019-07-30 07:02] LABS: Vancomycin Random 10.8 mcg/mL
[2019-07-30] MEDS ORDERED: D5W 500 ML BAG* 500 ML IV SCH (08:00)
[2019-07-30 08:23] LABS: ABS Lymphocytes 0.2 10^3/ul (1.0-4.8); ABS Monocytes 1.3 10^3/ul (0-0.8); ABS Neutrophils 9.3 10^3/ul (1.5-7.7); Lymphocyte % 1.9 %
[2019-07-30 10:15] LABS: C Reactive Protein 376.32 mg/L (<8.01)
--- NOTE | 2019-07-30 10:37 | PN ---
Subjective Date of Service: 07/30/19 Interval History: Patient was more alert today, when asked whether she would like to sit in chair , she said "that will be great"., She had a low grade fever T 100 overnight, an CXR was done therefore showing possible retracardiac infiltrate. Patient was saturating well otherwise, blood pressure also more stable overnight. Objective Active Medications: Carbidopa/Levodopa (Sinemet 25/100 Tab(*)) 1 tab .SEE ORDER 1500,1800,2100 [facility] Carbidopa/Levodopa (Sinemet 25/100 Tab(*)) 1 tab .SEE ORDER 0600,0900,1200 [facility] Heparin Sodium (Porcine) (Heparin Vial(*)) 5,000 units SUBCUT Q8HR [facility] Last Admin: 07/30/19 06:17 Dose: 5,000 units Hydromorphone HCl (Dilaudid Inj*) 0.5 mg IV Q4H PRN PRN Reason: PAIN - SEVERE Ceftriaxone Sodium 1 gm/ (Sodium Chloride) 50 mls @ 100 mls/hr IVPB Q24H [facility] Last Admin: 07/29/19 17:16 Dose: 100 mls/hr Dextrose (D5w 500 Ml Bag*) 500 mls @ 125 mls/hr IV PER RATE [facility] Stop: 07/30/19 11:59 Levothyroxine Sodium (Synthroid Inj*) 25 mcg IV 0600 [facility] Last Admin: 07/30/19 06:15 Dose: 25 mcg Ondansetron HCl (Zofran Inj*) 4 mg IV Q4H PRN PRN Reason: NAUSEA/VOMITING Last Admin: 07/27/19 17:55 Dose: 4 mg Pantoprazole Sodium (Protonix Iv*) 40 mg IV Q24H [facility] Last Admin: 07/29/19 17:16 Dose: 40 mg Vital Signs - 8 hr 07/30/19 07/30/19 03:58 08:45 Temperature 98 F 99.0 F Pulse Rate 102 96 Respiratory 21 26 Rate Blood Pressure 137/61 129/54 (mmHg) O2 Sat by Pulse 98 96 Oximetry Oxygen Devices in Use Now: None Exam: Gen: elderly female, opens eyes widely, NG tube with dark brownish content suctioned out, castellon in situ. HEENT: normacephalic and atraumatic Lungs: clear on auscultation anteriorly Heart: S1/S2 heard with no murmur Abdomen: Soft, distended, hard feeling, non tender Extremities: No cyanosis, distal pulses 2+, warm extremities Neuro: able to obey command and answer questions in short phrases. Cranial nerve intact. Strength full in all 4 limbs,. Result Diagrams: 07/30/19 06:11 07/30/19 15:50 Assess/Plan/Problems-Billing Assessment: Marisol Mcnally is a 79 y/o female with history of diabetes, hypertension, Von Willenbrand disorder, Parkinson disease, presented with altered mental status, right lower quadrant pain, found to have sepsis , VIVIANA and SBO. - Patient Problems (1) Altered mental status Current Visit: Yes Status: Acute Code(s): R41.82 - ALTERED MENTAL STATUS, UNSPECIFIED SNOMED Code(s): 568303845 Comment: - likely due to septic encephalopathy - improving, continue to monitor - Hypercholeremic non-AG acidosis with hyperNa today, will give D5 500ml and restart 1/2NS later on (2) Sepsis associated hypotension Current Visit: Yes Status: Acute Code(s): A41.9 - SEPSIS, UNSPECIFIED ORGANISM; I95.9 - HYPOTENSION, UNSPECIFIED SNOMED Code(s): 84307275 Comment: - came in with hypotension, lactic acidosis, fever, meets SIRS criteria - likely source of infection is urine, urine cs klebsiella pansensitive - responded to fluid rescuitatiton - iv abx starting 07/27, ceftriaxone currently, improving clinically in terms of infection (3) Small bowel obstruction Current Visit: Yes Status: Acute Code(s): K56.609 - UNSP INTESTNL OBST, UNSP TO PARTIAL VERSUS COMPLETE OBST SNOMED Code(s): 895140871 Comment: - SBO vs ileus, likely ileus - NGT in situ with suctioning - appreciate GS input,CTAP with oral contrast today, will continue medical management for now (4) Acute kidney injury Current Visit: Yes Status: Acute Code(s): N17.9 - ACUTE KIDNEY FAILURE, UNSPECIFIED SNOMED Code(s): 80719613 Comment: - VIVIANA with possible some CKD component (atropic kidneys in scan) - likely causes: prerenal, ATN caused by sepsis, AIN - no post renal obstruction seen so far - creatinine improving - off castellon catheter, continue strict I/O, watch polyuria post VIVIANA (5) Parkinson disease Current Visit: Yes Status: Acute Code(s): G20 - PARKINSON'S DISEASE SNOMED Code(s): 35461451 Comment: - continue levodopa/carbidopa sublingual (6) Urinary tract infection Current Visit: Yes Status: Acute Comment: - klebsiella pneumoniae pansensitive - CTAP didn't show any retention or complicated UTI (7) DNR (do not resuscitate) Current Visit: Yes Status: Acute Comment: MOLST form filled out palliative consult today Status and Disposition: inpatient Medicine. will need MAYTE on dishcarge. Encourage patient to sit out bed and participate PT today Attestation Documenting Resident: She Mcdaniel Supervising Physician: Ankur Patterson Attending/Supervising Physician Comment: Sepsis, due to UTI improving. Continue ceftriaxone. SBO persists, surgery discussing intervention. Will need MAYTE or hospice. Attestation: This service has been performed in part by a resident under the direction of a teaching physician.I, Ankur Patterson, performed the service, or was physically present during the critical, or estrella portions of the service, furnished by the resident. I participated in the management of the patient.
--- NOTE | 2019-07-30 10:39 | PN ---
Progress Note - Progress Note Date of Service: 07/30/19 Note: Denies abdominal pain. Patient is still somnolent, but daughter at bedside feels she is more awake today and interactive. Afebrile. Vital Signs - 12 hr Temp Pulse Resp BP Pulse Ox 07/30/19 08:45 99.0 F 96 26 129/54 96 07/30/19 03:58 98 F 102 21 137/61 98 07/29/19 23:31 98.2 F 108 21 149/61 97 Intake & Output 07/29/19 07/30/19 07/30/19 22:59 06:59 14:59 Intake Total 55 0 845 Output Total 250 550 Balance -195 -550 845 Intake: IVPB 55 845 D5NS 845 Meropenem 55 Oral 0 Output: NG Tube Drainage Amount 0 200 V[place] 250 350 Other: # Bowel Movements 0 General: NAD. CV: Mild tachycardia. Regular rate. Chest: Clear to auscultation b/l. No accessory muscle use. Abdomen: Soft, distended but unchanged. Generalized tenderness to palpation. No guarding. Extremities: Warm, pedal edema b/l Neuro: Answers yes/no questions. Opens eyes briefly to voice. Laboratory Results - last 24 hr 07/30/19 07/30/19 06:11 06:11 WBC 10.8 RBC 2.59 L Hgb 10.9 L Hct 32 L MCV 122 H MCH 42 H MCHC 34 RDW 14 Plt Count 335 MPV 8.0 Neut % (Auto) 86.1 Lymph % (Auto) 1.9 [place] % (Auto) 11.8 Eos % (Auto) 0.0 Baso % (Auto) 0.2 Absolute Neuts (auto) 9.3 H Absolute Lymphs (auto) 0.2 L Absolute Monos (auto) 1.3 H Absolute Eos (auto) 0.0 Absolute Basos (auto) 0.0 Absolute Nucleated RBC 0.0 Nucleated RBC % 0.0 Sodium 149 H Potassium 4.1 Chloride 120 H Carbon Dioxide 20 L Anion Gap 9 BUN 81 H Creatinine 1.42 H Est GFR ( Amer) 43.3 Est GFR (Non-Af Amer) 35.8 BUN/Creatinine Ratio 57.0 H Glucose 169 H Calcium 8.9 Total Bilirubin 0.40 AST 28 ALT 18 Alkaline Phosphatase 39 C-Reactive Protein 376.32 H Total Protein 5.0 L Albumin 2.7 L Globulin 2.3 Albumin/Globulin Ratio 1.2 Random Vancomycin 10.8 A&P 79F with SBO. -CT abd/pelv today with oral contrast only. -NPO. NG tube to low continuous suction
[2019-07-30] MEDS ORDERED: D5W 1000 ML BAG* 500 ML IV SCH (11:00)
[2019-07-30] MEDS ORDERED: D5W 500 ML BAG* 500 ML IV ONE (11:00)
[2019-07-30] MEDS: CMC:Carbidopa/Levodopa ODT (NF) 25/100 ODT PO SCH ×4 (11:17→22:04)
--- NOTE | 2019-07-30 12:36 | CONSULT ---
Palliative / Hospice Consult Ordering Provider: Ankur Patterson - PCP-Joe Referal Reason: Goals of care/no bowel meds/hydromorphne - Subjective Code Status: DNR Advance Directives Location: With Family [facility] Part A Completed: Yes - on chart [facility] Part E Completed:: Yes - on chart - History or Present Illness History or Present Illness: 79yo female with Parkinson who presented to ER with abdominal pain and AMS. PMH is significant for Parkinson's disease, chronic constipation, HTN, hyperlipidemia, hypothyroid, Von Willebrand disease and anxiety/depression. 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 Studies CXR neg, EKG-NSR, abd/pel CT-distal small bowel obs vs ileus, diverticulosis, ECHO-EF 60-65%, CXR #2 Cor-mychal tube in place, CXR 3# LLL consolidation, H/H 11.3/33, BUN/Cr 85/2.37, egfr 19.8, alb 2.9, INR 1.01 and UC K.Pneumoniae. Pt was admitted to ICU initially for small bowel obstruction, dehydration and VIVIANA. Pt was then transferred to floor and also found to have sepsis. Pt has had 5 ER visits for near syncope in August, December and Jan. All history is from family and medical record, pt was too tired to participate. Lab Values: Abnormal Lab Results 07/30/19 07/30/19 06:11 06:11 WBC 10.8 RBC 2.59 L Hgb 10.9 L Hct 32 L MCV 122 H MCH 42 H MCHC 34 RDW 14 Plt Count 335 MPV 8.0 Neut % (Auto) 86.1 Lymph % (Auto) 1.9 [place] % (Auto) 11.8 Eos % (Auto) 0.0 Baso % (Auto) 0.2 Absolute Neuts (auto) 9.3 H Absolute Lymphs (auto) 0.2 L Absolute Monos (auto) 1.3 H Absolute Eos (auto) 0.0 Absolute Basos (auto) 0.0 Absolute Nucleated RBC 0.0 Nucleated RBC % 0.0 Sodium 149 H Potassium 4.1 Chloride 120 H Carbon Dioxide 20 L Anion Gap 9 BUN 81 H Creatinine 1.42 H Est GFR ( Amer) 43.3 Est GFR (Non-Af Amer) 35.8 BUN/Creatinine Ratio 57.0 H Glucose 169 H Calcium 8.9 Total Bilirubin 0.40 AST 28 ALT 18 Alkaline Phosphatase 39 C-Reactive Protein 376.32 H Total Protein 5.0 L Albumin 2.7 L Globulin 2.3 Albumin/Globulin Ratio 1.2 Random Vancomycin 10.8 Laboratory Last Values WBC 10.8 10^3/uL (3.5-10.8) 07/30/19 06:11 RBC 2.59 10^6 /uL (3.70-4.87) L 07/30/19 06:11 Hgb 10.9 g/dL (12.0-16.0) L 07/30/19 06:11 Hct 32 % (35-47) L 07/30/19 06:11 MCV 122 fL (80-97) H 07/30/19 06:11 MCH 42 pg (27-31) H 07/30/19 06:11 MCHC 34 g/dL (31-36) 07/30/19 06:11 RDW 14 % (10-15) 07/30/19 06:11 Plt Count 335 10^3/uL (150-450) 07/30/19 06:11 MPV 8.0 fL (7.4-10.4) 07/30/19 06:11 Neut % (Auto) 86.1 % 07/30/19 06:11 Lymph % (Auto) 1.9 % 07/30/19 06:11 [place] % (Auto) 11.8 % 07/30/19 06:11 Eos % (Auto) 0.0 % 07/30/19 06:11 Baso % (Auto) 0.2 % 07/30/19 06:11 Absolute Neuts (auto) 9.3 10^3/ul (1.5-7.7) H 07/30/19 06:11 Absolute Lymphs (auto) 0.2 10^3/ul (1.0-4.8) L 07/30/19 06:11 Absolute Monos (auto) 1.3 10^3/ul (0-0.8) H 07/30/19 06:11 Absolute Eos (auto) 0.0 10^3/ul (0-0.6) 07/30/19 06:11 Absolute Basos (auto) 0.0 10^3/ul (0-0.2) 07/30/19 06:11 Absolute Nucleated RBC 0.0 10^3/ul 07/30/19 06:11 Nucleated RBC % 0.0 07/30/19 06:11 INR (Anticoag Therapy) 1.01 (0.82-1.09) 07/27/19 08:08 APTT 31.2 seconds (26.0-38.0) 07/27/19 08:08 Sodium 149 mmol/L (135-145) H 07/30/19 06:11 Potassium 4.1 mmol/L (3.5-5.0) 07/30/19 06:11 Chloride 120 mmol/L (101-111) H 07/30/19 06:11 Carbon Dioxide 20 mmol/L (22-32) L 07/30/19 06:11 Anion Gap 9 mmol/L (2-11) 07/30/19 06:11 BUN 81 mg/dL (6-24) H 07/30/19 06:11 Creatinine 1.42 mg/dL (0.51-0.95) H 07/30/19 06:11 Est GFR ( Amer) 43.3 (>60) 07/30/19 06:11 Est GFR (Non-Af Amer) 35.8 (>60) 07/30/19 06:11 BUN/Creatinine Ratio 57.0 (8-20) H 07/30/19 06:11 Glucose 169 mg/dL (70-100) H 07/30/19 06:11 Lactic Acid 2.0 mmol/L (0.5-2.0) 07/27/19 11:20 Calcium 8.9 mg/dL (8.6-10.3) 07/30/19 06:11 Total Bilirubin 0.40 mg/dL (0.2-1.0) 07/30/19 06:11 AST 28 U/L (13-39) 07/30/19 06:11 ALT 18 U/L (7-52) 07/30/19 06:11 Alkaline Phosphatase 39 U/L (34-104) 07/30/19 06:11 Troponin I 0.09 ng/mL (<0.03) H* 07/28/19 05:52 C-Reactive Protein 376.32 mg/L (<8.01) H 07/30/19 06:11 Total Protein 5.0 g/dL (6.4-8.9) L 07/30/19 06:11 Albumin 2.7 g/dL (3.2-5.2) L 07/30/19 06:11 Globulin 2.3 g/dL (2-4) 07/30/19 06:11 Albumin/Globulin Ratio 1.2 (1-3) 07/30/19 06:11 Lipase < 10 U/L (11.0-82.0) L 07/27/19 08:08 Urine Color Sarina 07/27/19 09:36 Urine Appearance Cloudy 07/27/19 09:36 Urine pH 5.0 (5-9) 07/27/19 09:36 Ur Specific Organ 1.019 (1.010-1.030) 07/27/19 09:36 Urine Protein 1+(30 mg/dl) (Negative) A 07/27/19 09:36 Urine Ketones Trace (Negative) A 07/27/19 09:36 Urine Blood 2+ (Negative) A 07/27/19 09:36 Urine Nitrate Negative (Negative) 07/27/19 09:36 Urine Bilirubin Negative (Negative) 07/27/19 09:36 Urine Urobilinogen Negative (Negative) 07/27/19 09:36 Ur Leukocyte Esterase 1+ (Negative) A 07/27/19 09:36 Urine WBC (Auto) 3+(>20/hpf) (Absent) A 07/27/19 09:36 Urine RBC (Auto) 3+(>10/hpf) (Absent) A 07/27/19 09:36 Ur Squamous Epith Cells Present (Absent) A 07/27/19 09:36 Ur Renal Epithelial Cell Present (Absent) A 07/27/19 09:36 Urine Bacteria 2+ (Absent) A 07/27/19 09:36 Hyaline Casts Present (Absent) A 07/27/19 09:36 Urine Glucose Negative (Negative) 07/27/19 09:36 Urine Ascorbic Acid * (Negative) A 07/27/19 09:36 Random Vancomycin 10.8 mcg/mL 07/30/19 06:11 - Objective Active Medications: Carbidopa/Levodopa (Carbidopa/Levodopa 25/100 Odt (Nf)) 1 tab PO 1500,1800, 2100 [facility] Carbidopa/Levodopa (Carbidopa/Levodopa 25/100 Odt (Nf)) 1 tab PO 0600,0900, 1200 [facility] Last Admin: 07/30/19 11:17 Dose: 1 tab Heparin Sodium (Porcine) (Heparin Vial(*)) 5,000 units SUBCUT Q8HR [facility] Last Admin: 07/30/19 06:17 Dose: 5,000 units Hydromorphone HCl (Dilaudid Inj*) 0.5 mg IV Q4H PRN PRN Reason: PAIN - SEVERE Ceftriaxone Sodium 1 gm/ (Sodium Chloride) 50 mls @ 100 mls/hr IVPB Q24H [facility] Last Admin: 07/29/19 17:16 Dose: 100 mls/hr Dextrose (D5w 1000 Ml Bag*) 500 mls @ 125 mls/hr IV 1100 [facility] Last Admin: 07/30/19 11:12 Dose: 125 mls/hr Levothyroxine Sodium (Synthroid Inj*) 25 mcg IV 0600 [facility] Last Admin: 07/30/19 06:15 Dose: 25 mcg Ondansetron HCl (Zofran Inj*) 4 mg IV Q4H PRN PRN Reason: NAUSEA/VOMITING Last Admin: 07/27/19 17:55 Dose: 4 mg Pantoprazole Sodium (Protonix Iv*) 40 mg IV Q24H [facility] Last Admin: 07/29/19 17:16 Dose: 40 mg Vital Signs: Vital Signs: Temp Pulse Resp BP Pulse Ox 97.9 F 92 25 145/59 100 07/30/19 11:40 07/30/19 11:40 07/30/19 11:40 07/30/19 11:40 07/30/19 11:40 Patient Weight: Weight 53.297 kg Intake and Output: Intake & Output 07/28/19 07/29/19 07/30/19 07/31/19 06:59 06:59 06:59 06:59 Intake Total 3360 4027 1770 845 Output Total 400 1555 1400 Balance 2960 2472 370 845 Weight 50.621 kg 53.297 kg Intake: IV Fluids 3253 3572 1660 LR 1000 NS (0.9%) 760 3572 1660 IVPB 107 455 110 845 ABX - CEFTRIAXONE 55 ABX - FLAGYL 107 100 ABX - VANCOMYCIN 250 D5NS 845 Meropenem 50 110 Oral 0 0 0 Output: NG Tube Drainage Amount 350 1150 400 Urine 0 V[place] 50 405 1000 Other: Estimated Void Medium # Bowel Movements 0 ADLs: Meal Record Start: 07/27/19 11: 41 Freq: 09,13,18 Status: Complete Protocol: Created 07/27/19 11:41 System (Rec: 07/27/19 11:41 System ICU-C12) Document 07/27/19 13:00 [id number] (Rec: 07/27/19 14:28 [id number] ICU-C10) Document 07/27/19 18:00 [id number] (Rec: 07/27/19 19:55 [id number] ICU-C10) ADLs: Meal Record Start: 07/27/19 23: 34 Freq: Status: Active Protocol: Created 07/27/19 23:34 [id number] (Rec: 07/27/19 23:34 [id number] SSU-M13) Intake and Output Start: 07/27/19 07: 34 Freq: Status: Active Protocol: Created 07/27/19 07:34 System (Rec: 07/27/19 07:34 System [id number]) Intake and Output Start: 07/27/19 11: 41 Freq: Q1HR Status: Complete Protocol: Created 07/27/19 11:41 System (Rec: 07/27/19 11:41 System ICU-C12) Document 07/27/19 13:00 [id number] (Rec: 07/27/19 13:41 [id number] ICU-C10) Document 07/27/19 14:00 [id number] (Rec: 07/27/19 14:29 [id number] ICU-C10) Document 07/27/19 15:00 [id number] (Rec: 07/27/19 15:19 [id number] ICU-C10) Document 07/27/19 17:00 [id number] (Rec: 07/27/19 17:45 [id number] ICU-C10) Document 07/27/19 18:00 [id number] (Rec: 07/27/19 18:59 [id number] ICU-C10) Document 07/27/19 22:00 [id number] (Rec: 07/27/19 22:07 [id number] ICU-C16) Intake and Output Start: 07/27/19 23: 34 Freq: DAILY@0600,1400,2200 Status: Active Protocol: Created 07/27/19 23:34 [id number] (Rec: 07/27/19 23:34 [id number] SSU-M13) Document 07/28/19 05:30 [id number] (Rec: 07/28/19 05:30 [id number] TELE-M14) Document 07/28/19 14:00 [id number] (Rec: 07/28/19 14:42 [id number] SSU-C01) Document 07/28/19 22:32 [id number] (Rec: 07/28/19 22:32 [id number] SSU-M22) Document 07/29/19 05:40 [id number] (Rec: 07/29/19 05:40 [id number] SSU-M18) Document 07/29/19 14:24 [id number] (Rec: 07/29/19 14:25 [id number] SSU-M17) Document 07/29/19 18:03 [id number] (Rec: 07/29/19 18:04 [id number] SSU-C03) Document 07/29/19 21:54 [id number] (Rec: 07/29/19 21:55 [id number] TELE-M14) Document 07/30/19 06:44 [id number] (Rec: 07/30/19 06:44 [id number] SSU-C09) Head: Normal Ears/Nose/Mouth/Throat: NL Teeth, Lips, Gums Neck: NL Appearance and Movements; NL JVP Cardiovascular: NL Sounds; No Murmurs; No JVD Respiratory: Symmetrical Chest Expansion and Respiratory Effort Neurological: Alert and Oriented x 3 - Assessment Assessment: 79yo female with SBO, sepsis and VIVIANA - Plan Consult Plan (MU): Palliative Plan: Long discussion with pt's , 4 daughters and son in law about goals of care. We discussed different scenarios based on how pt progresses. Pt will need [facility]TE which family agrees, list of [facility] facilities given including info about [facility]. As of now waiting to see how pt does with SBO. If surgery is indicated family will discuss with pt but most likely will proceed unless risks outweigh benefits. If they elect not to do surgery and pt is unable to eat/drink and no parenteral nutrition pt may in 3-10days. Also discussed terminal makeup operator placement in SNF vs home with aides and information about hospice was also given. Family asked appropriate questions and were appreciative of opportunity to discuss options. Family feels pt is improving slowly. Support given and available if more issues arise. Pt is not hospice eligible unless she needs surgery and declines it. KPS 70%, PPS 70% - Time On Unit Date of Evaluation: 07/30/19 Hospice Consult Time in: 11:40 Hospice Consult Time Out: 12:40 Hospice Consult Time Total: 60 > 50% of Time Spend In Counseling or Coordinating Care: Yes
[2019-07-30 16:17] LABS: BUN/Creatinine Ratio 64.8 (8-20); EGFR African American 59.4 (>60); EGFR Non-African American 49.1 (>60)
[2019-07-30] MEDS: cefTRIAXone(*) 1 GM in NS 0.9% 50 ML* 50 ML IVPB SCH (17:20)
[2019-07-30] MEDS: Pantoprazole IV* 40 MG IV SCH (17:20)
[2019-07-30] MEDS ORDERED: Furosemide IV* 10 MG/ML VIAL (40 MG) IV ONE (17:48)
[2019-07-31] MEDS: Heparin VIAL(*) 5000 UNITS/ML VIAL (FIVE THOUSAND) SUBCUT SCH ×3 (06:19→22:20)
[2019-07-31] MEDS: CMC:Carbidopa/Levodopa ODT (NF) 25/100 ODT PO SCH ×6 (06:21→23:03)
[2019-07-31] MEDS: Levothyroxine INJ* 100 MCG/5 ML VIAL IV SCH (06:35)
[2019-07-31 07:09] LABS: ABS Lymphocytes 0.3 10^3/ul (1.0-4.8); ABS Monocytes 1.4 10^3/ul (0-0.8); ABS Neutrophils 12.7 10^3/ul (1.5-7.7); Hematocrit 34 % (35-47); Hemoglobin 11.4 g/dL (12.0-16.0); Lymphocyte % 2.2 %; Mean Corpuscular HGB Conc 34 g/dL (31-36); Mean Corpuscular Hemoglobin 41 pg (27-31); Mean Corpuscular Volume 122 fL (80-97); Mean Platelet Volume 8.1 fL (7.4-10.4); Platelet Count 303 10^3/uL (150-450); Red Blood Count 2.79 10^6 /uL (3.70-4.87); Red Cell Distribution Width 14 % (10-15); White Blood Count 14.4 10^3/uL (3.5-10.8)
[2019-07-31 07:18] LABS: Albumin 2.7 g/dL (3.2-5.2); Albumin/Globulin Ratio 1.2 (1-3); BUN/Creatinine Ratio 72.8 (8-20); EGFR African American 62.7 (>60); EGFR Non-African American 51.8 (>60); Globulin 2.3 g/dL (2-4); Potassium 4.1 mmol/L (3.5-5.0); Total Bilirubin 0.5 mg/dL (0.2-1.0)
[2019-07-31] MEDS ORDERED: Piperacillin/Tazobac ADVAN(*) 3.375 GM in NS 0.9% 100 ML* 100 ML IVPB ONE (08:42)
[2019-07-31] MEDS ORDERED: D5W 1000 ML BAG* 1,000 ML IV SCH ×2 (09:00→14:59)
[2019-07-31] MEDS ORDERED: Vancomycin per Pharmacy* NOTE FOLLOW UP SCH (09:00)
[2019-07-31] MEDS ORDERED: Zosyn per Pharmacy* NOTE FOLLOW UP SCH (09:00)
[2019-07-31] MEDS ORDERED: Vancomycin(*) 1,000 MG in NS 0.9% 250 ML* 250 ML IVPB ONE (09:30)
[2019-07-31] MEDS: Meropenem 1 GM PREMIX(*) 1 GM/50 ML BAG IV SCH (13:25)
[2019-07-31 14:49] LABS: Albumin 2.7 g/dL (3.2-5.2); Albumin/Globulin Ratio 1.1 (1-3); BUN/Creatinine Ratio 78.7 (8-20); Calcium 8.9 mg/dL (8.6-10.3); EGFR African American 69.7 (>60); EGFR Non-African American 57.6 (>60); Globulin 2.4 g/dL (2-4); Magnesium 2.2 mg/dL (1.9-2.7); Potassium 4.1 mmol/L (3.5-5.0); Total Bilirubin 0.5 mg/dL (0.2-1.0); Total Protein 5.1 g/dL (6.4-8.9)
[2019-07-31 14:50] LABS: BUN/Creatinine Ratio 77.9 (8-20); Calcium 9.3 mg/dL (8.6-10.3); EGFR African American 68.8 (>60); EGFR Non-African American 56.9 (>60); Potassium 4.1 mmol/L (3.5-5.0)
--- NOTE | 2019-07-31 15:00 | PN ---
Progress Note - Progress Note Date of Service: 07/31/19 Note: Patient denies abdominal pain when she isn't moving or pushing on her abdomen. She denies nausea. Has been getting out of bed. Vital Signs - 12 hr Temp Pulse Resp BP Pulse Ox 07/31/19 12:10 98.6 F 90 28 139/52 99 07/31/19 08:32 99.9 F 96 32 134/45 100 07/31/19 07:20 16 07/31/19 03:56 98.6 F 86 17 137/56 99 Intake & Output 07/30/19 07/31/19 07/31/19 22:59 06:59 14:59 Intake Total 1300 0 271 Output Total 2450 855 350 Balance -1150 -855 -79 Intake: IV Fluids 500 D5 500 IVPB 271 ABX - VANCOMYCIN 271 Oral 0 0 NG Tube Irrigate Amount 800 Output: NG Tube Drainage Amount 1700 555 [place] 750 300 350 General: NAD, sitting in chair. NG tube draining bile. Abdomen: Firm. Distended, unchanged from yesterday. Generalized tenderness to palpation. No guarding. Neuro: Awake and alert. Answers questions appropriately. Laboratory Results - last 24 hr 07/30/19 07/31/19 07/31/19 15:50 06:52 06:52 WBC 14.4 H RBC 2.79 L Hgb 11.4 L Hct 34 L MCV 122 H MCH 41 H MCHC 34 RDW 14 Plt Count 303 MPV 8.1 Neut % (Auto) 88.0 Lymph % (Auto) 2.2 [place] % (Auto) 9.6 Eos % (Auto) 0.0 Baso % (Auto) 0.2 Absolute Neuts (auto) 12.7 H Absolute Lymphs (auto) 0.3 L Absolute Monos (auto) 1.4 H Absolute Eos (auto) 0.0 Absolute Basos (auto) 0.0 Absolute Nucleated RBC 0.0 Nucleated RBC % 0.0 Sodium 148 H 151 H Potassium 4.0 4.1 Chloride 120 H 120 H Carbon Dioxide 23 26 Anion Gap 5 5 BUN 70 H 75 H Creatinine 1.08 H 1.03 H Est GFR ( Amer) 59.4 62.7 Est GFR (Non-Af Amer) 49.1 51.8 BUN/Creatinine Ratio 64.8 H 72.8 H Glucose 193 H 126 H Calcium 9.0 9.0 Phosphorus Magnesium Total Bilirubin 0.50 AST 19 ALT 8 Alkaline Phosphatase 50 Total Protein 5.0 L Albumin 2.7 L Globulin 2.3 Albumin/Globulin Ratio 1.2 Triglycerides Cholesterol 07/31/19 07/31/19 14:19 14:20 WBC RBC Hgb Hct MCV MCH MCHC RDW Plt Count MPV Neut % (Auto) Lymph % (Auto) [place] % (Auto) Eos % (Auto) Baso % (Auto) Absolute Neuts (auto) Absolute Lymphs (auto) Absolute Monos (auto) Absolute Eos (auto) Absolute Basos (auto) Absolute Nucleated RBC Nucleated RBC % Sodium Potassium 4.1 4.1 Chloride Carbon Dioxide 26 25 Anion Gap BUN 74 H 74 H Creatinine 0.94 0.95 Est GFR ( Amer) 69.7 68.8 Est GFR (Non-Af Amer) 57.6 56.9 BUN/Creatinine Ratio 78.7 H 77.9 H Glucose 141 H 143 H Calcium 8.9 9.3 Phosphorus 3.0 Magnesium 2.2 Total Bilirubin 0.50 AST 19 ALT 6 L Alkaline Phosphatase 55 Total Protein 5.1 L Albumin 2.7 L Globulin 2.4 Albumin/Globulin Ratio 1.1 Triglycerides 113 Cholesterol 80 A&P [address]F with SBO. CT scan yesterday shows persistent obstruction, more or less unchanged from previous CT. Patient would be high risk for complications after surgery given co-morbidities and deconditioning. I discussed surgery vs continuing conservative management with family (children and ). I explained to the family that if she were to undergo surgery, she may recover uneventfully but she could also require continued intubation and ICU care and ultimately not recover. The family and patient would like to hold off on surgery but they understand that surgery may be unavoidable. We will continue with conservative management through the weekend. If on Saturday there is no change in her clinical picture, she likely will need to go to the OR. -NPO. NG to low continuous suction. -Start PPN (or TPN if access available). -Advance activity as tolerated.
--- NOTE | 2019-07-31 17:22 | PN ---
Subjective Date of Service: 07/31/19 Interval History: Patient was more alert today, able to answer simple questions, though not much limb movements. She had low grade fever 100 this morning, and significant tachypnea requiring O2 2L Still hasn't passed gas yet I/O 2.1/3.7L overnight Objective Active Medications: Carbidopa/Levodopa (Carbidopa/Levodopa 25/100 Odt (Nf)) 1 tab PO 1500,1800, 2100 [facility] Last Admin: 07/31/19 14:51 Dose: 1 tab Carbidopa/Levodopa (Carbidopa/Levodopa 25/100 Odt (Nf)) 1 tab PO 0600,0900, 1200 [facility] Last Admin: 07/31/19 12:48 Dose: 1 tab Carbidopa/Levodopa (Carbidopa-Levo Er 25-100 Tab) 1 tab PO BEDTIME [facility] Heparin Sodium (Porcine) (Heparin Vial(*)) 5,000 units SUBCUT Q8HR [facility] Last Admin: 07/31/19 14:51 Dose: 5,000 units Hydromorphone HCl (Dilaudid Inj*) 0.5 mg IV Q4H PRN PRN Reason: PAIN - SEVERE Vancomycin HCl 1,000 mg/ (Sodium Chloride) 250 mls @ 166.667 mls/hr IV Q24H [facility] Meropenem (Merrem 1 Gm Premix(*)) 1 gm in 50 mls @ 100 mls/hr IV Q12H [facility]; Protocol Last Admin: 07/31/19 13:25 Dose: 100 mls/hr Dextrose (D5w 1000 Ml Bag*) 1,000 mls @ 200 mls/hr IV PER RATE [facility] Stop: 07/31/19 18:57 Last Admin: 07/31/19 15:12 Dose: 200 mls/hr Levothyroxine Sodium (Synthroid Inj*) 25 mcg IV 0600 [facility] Last Admin: 07/31/19 06:35 Dose: 25 mcg Ondansetron HCl (Zofran Inj*) 4 mg IV Q4H PRN PRN Reason: NAUSEA/VOMITING Last Admin: 07/27/19 17:55 Dose: 4 mg Pantoprazole Sodium (Protonix Iv*) 40 mg IV Q24H [facility] Last Admin: 07/30/19 17:20 Dose: 40 mg Pharmacy Consult (Vancomycin Per Pharmacy*) 1 note FOLLOW UP .VANC PER PHARMACY CHRISTY; Protocol Pharmacy Profile Note (Vancomycin Trough Check) 1 note FOLLOW UP 929 ONE Stop: 08/03/19 09:31 Vital Signs - 8 hr 07/31/19 07/31/19 12:10 16:20 Temperature 98.6 F 97.7 F Pulse Rate 90 88 Respiratory 28 18 Rate Blood Pressure 139/52 142/61 (mmHg) O2 Sat by Pulse 99 97 Oximetry Oxygen Devices in Use Now: Nasal Cannula Exam: Gen: elderly female, opens eyes widely, NG tube with dark brownish content suctioned out, shallow breathing HEENT: normacephalic and atraumatic Lungs: unable to hear lung sound well due to shallow breathing Heart: S1/S2 heard with no murmur Abdomen: Soft, distended, hard feeling, non tender, BS not appreciable Extremities: No cyanosis, distal pulses 2+, warm extremities, mild pedal edema bilaterally Neuro: able to obey command and answer questions in short phrases. Cranial nerve intact. Strength 4 over all 4 limbs. Resting tremor noted. Result Diagrams: 08/01/19 06:21 08/01/19 06:21 Assess/Plan/Problems-Billing Assessment: Marisol Mcnally is a 79 y/o female with history of diabetes, hypertension, Von Willenbrand disorder, Parkinson disease, presented with altered mental status, right lower quadrant pain, found to have sepsis likely due to Kelebsiella UTI, VIVIANA and complete SBO. Now low grade fever, hypoxia, tachypnea, likely acquiring new pneumonia. - Patient Problems (1) Altered mental status Current Visit: Yes Status: Acute Code(s): R41.82 - ALTERED MENTAL STATUS, UNSPECIFIED SNOMED Code(s): 800433649 Comment: - likely due to septic encephalopathy - improved in general - HyperNa, hypercholoremia,due to excessive IVF use for sepsis, and free water deficit due to dehydration and fasting state, increase D5 rate to 200ml/h for 5 hours, then normal rates - will recheck electrolytes tonight. if na downtredning, can decresase rate. (2) Sepsis associated hypotension Current Visit: Yes Status: Acute Code(s): A41.9 - SEPSIS, UNSPECIFIED ORGANISM; I95.9 - HYPOTENSION, UNSPECIFIED SNOMED Code(s): 89170247 Comment: - came in with hypotension, lactic acidosis, fever, meets SIRS criteria - likely source of infection is urine, urine cs klebsiella pansensitive - responded to fluid rescuitatiton, bp stablized now - iv abx starting 07/27, fever recurs, TW uptrend after downgrade abx to ceftriaxone - escalate to harjit and vanco again for now, awaiting second cs results. (3) Small bowel obstruction Current Visit: Yes Status: Acute Code(s): K56.609 - UNSP INTESTNL OBST, UNSP TO PARTIAL VERSUS COMPLETE OBST SNOMED Code(s): 232829571 Comment: - complete SBO based on CTAP - NGT in situ with suctioning - may need surgery, will continue medical management for now - appreciate GS recs (4) Acute kidney injury Current Visit: Yes Status: Acute Code(s): N17.9 - ACUTE KIDNEY FAILURE, UNSPECIFIED SNOMED Code(s): 88457409 Comment: - VIVIANA with possible some CKD component (atropic kidneys in scan), oligouria initially - likely causes: prerenal, ATN caused by sepsis - creatinine improving siginificant, normal urine now - continue strict I/O, watch polyuria post VIVIANA (5) Parkinson disease Current Visit: Yes Status: Acute Code(s): G20 - PARKINSON'S DISEASE SNOMED Code(s): 55411902 Comment: - continue levodopa/carbidopa sublingual and ER tablet. (6) Urinary tract infection Current Visit: Yes Status: Acute Comment: - klebsiella pneumoniae pansensitive - CTAP didn't show any retention or complicated UTI (7) Malnutrition Current Visit: Yes Status: Acute Code(s): E46 - UNSPECIFIED PROTEIN-CALORIE MALNUTRITION SNOMED Code(s): 49767045 Comment: - will insert midline for PPN next saturday (8) DNR (do not resuscitate) Current Visit: Yes Status: Acute Comment: M[facility] form filled out if patient continues to fail current abx or recurrent infection, need to consider palliative. Talked to family about it today, they are open to it. Status and Disposition: inpatient Medicine. will need MAYTE on dishcarge. Encourage patient to sit out bed and participate PT today Attestation Documenting Resident: She Mcdaniel Supervising Physician: Ankur Patterson Attending/Supervising Physician Comment: Patient w/ sepsis due to UTI and SBO. Sepsis improving, but SBO limiting options. Will start PPN, and move to TPN. Family not pushing for surgery. Hypernatremic, free water deficit 1900 ml, on 200 ml/hr D5. Attestation: This service has been performed in part by a resident under the direction of a teaching physician.I, Ankur Patterson, performed the service, or was physically present during the critical, or estrella portions of the service, furnished by the resident. I participated in the management of the patient.
[2019-07-31] MEDS: Pantoprazole IV* 40 MG IV SCH (18:39)
[2019-07-31] MEDS ORDERED: PTO: Carbidopa/Levodopa ER 25/100 TABLET.ER PO SCH (21:00)
[2019-07-31 21:37] LABS: EGFR African American 78.3 (>60); EGFR Non-African American 64.7 (>60); Potassium 3.8 mmol/L (3.5-5.0)
[2019-07-31] MEDS: D5W 1/4 NS 1000 ML BAG* 1,000 ML IV SCH (22:25)
[2019-08-01] MEDS: Meropenem 1 GM PREMIX(*) 1 GM/50 ML BAG IV SCH ×2 (01:29→13:33)
[2019-08-01] MEDS: Levothyroxine INJ* 100 MCG/5 ML VIAL IV SCH (05:54)
[2019-08-01] MEDS: CMC:Carbidopa/Levodopa ODT (NF) 25/100 ODT PO SCH ×5 (05:55→18:01)
[2019-08-01] MEDS: Heparin VIAL(*) 5000 UNITS/ML VIAL (FIVE THOUSAND) SUBCUT SCH ×3 (05:55→22:30)
[2019-08-01 06:37] LABS: Hematocrit 34 % (35-47); Hemoglobin 11.6 g/dL (12.0-16.0); Mean Corpuscular HGB Conc 34 g/dL (31-36); Mean Corpuscular Hemoglobin 41 pg (27-31); Mean Corpuscular Volume 122 fL (80-97); Mean Platelet Volume 8.4 fL (7.4-10.4); Platelet Count 272 10^3/uL (150-450); Red Cell Distribution Width 14 % (10-15); White Blood Count 14.3 10^3/uL (3.5-10.8)
[2019-08-01 07:10] LABS: ABS Lymphocytes 0.3 10^3/ul (1.0-4.8); ABS Monocytes 1.1 10^3/ul (0-0.8); ABS Neutrophils 12.9 10^3/ul (1.5-7.7); Eosinophil % 0.2 %; Lymphocyte % 2.2 %
[2019-08-01 07:25] LABS: Albumin 2.5 g/dL (3.2-5.2); Calcium 8.5 mg/dL (8.6-10.3); Magnesium 2.1 mg/dL (1.9-2.7); Potassium 3.8 mmol/L (3.5-5.0); Total Bilirubin 0.5 mg/dL (0.2-1.0)
[2019-08-01 07:31] LABS: Albumin/Globulin Ratio 1.2 (1-3); BUN/Creatinine Ratio 81.6 (8-20); EGFR African American 89.1 (>60); EGFR Non-African American 73.6 (>60); Globulin 2.1 g/dL (2-4); Total Protein 4.6 g/dL (6.4-8.9)
[2019-08-01] MEDS ORDERED: Levothyroxine TAB* 50 MCG TAB PO SCH (09:00)
--- NOTE | 2019-08-01 09:05 | PN ---
Progress Note - Progress Note Date of Service: 08/01/19 SOAP: Subjective: Reports tenderness in abdomen. Comfortable if not touched. Objective: Vital Signs Temp 98.9 F 08/01/19 08:04 Pulse 88 08/01/19 08:04 Resp 28 08/01/19 08:04 BP 146/51 08/01/19 08:04 Pulse Ox 97 08/01/19 08:04 Gen: sleeping; arousable; responds appropriately to questions Abd: distended; soft; mild diffuse tenderness; scant BS. Intake & Output 07/31/19 08/01/19 08/01/19 18:59 06:59 18:59 Intake Total 271 1181 Output Total 840 1225 Balance -569 -44 Intake: IV Fluids 1127 D5 1127 IVPB 271 54 ABX - VANCOMYCIN 271 Meropenem 54 Oral 0 Output: NG Tube Drainage Amount 490 525 Urine 0 700 Vieira 350 Laboratory Results - last 24 hr 07/31/19 07/31/19 07/31/19 14:19 14:20 21:05 WBC RBC Hgb Hct MCV MCH MCHC RDW Plt Count MPV Neut % (Auto) Lymph % (Auto) Jasper % (Auto) Eos % (Auto) Baso % (Auto) Absolute Neuts (auto) Absolute Lymphs (auto) Absolute Monos (auto) Absolute Eos (auto) Absolute Basos (auto) Absolute Nucleated RBC Nucleated RBC % Sodium 151 H 152 H 148 H Potassium 4.1 4.1 3.8 Chloride 120 H 121 H 117 H Carbon Dioxide 26 25 25 Anion Gap 5 6 6 BUN 74 H 74 H 68 H Creatinine 0.94 0.95 0.85 Est GFR ( Amer) 69.7 68.8 78.3 Est GFR (Non-Af Amer) 57.6 56.9 64.7 BUN/Creatinine Ratio 78.7 H 77.9 H 80.0 H Glucose 141 H 143 H 156 H Calcium 8.9 9.3 9.0 Phosphorus 3.0 Magnesium 2.2 Total Bilirubin 0.50 AST 19 ALT 6 L Alkaline Phosphatase 55 Total Creatine Kinase Total Protein 5.1 L Albumin 2.7 L Globulin 2.4 Albumin/Globulin Ratio 1.1 Prealbumin 7 L Triglycerides 113 Cholesterol 80 08/01/19 08/01/19 06:21 06:21 WBC 14.3 H RBC 2.80 L Hgb 11.6 L Hct 34 L MCV 122 H MCH 41 H MCHC 34 RDW 14 Plt Count 272 MPV 8.4 Neut % (Auto) 90.1 Lymph % (Auto) 2.2 Jasper % (Auto) 7.4 Eos % (Auto) 0.2 Baso % (Auto) 0.1 Absolute Neuts (auto) 12.9 H Absolute Lymphs (auto) 0.3 L Absolute Monos (auto) 1.1 H Absolute Eos (auto) 0.0 Absolute Basos (auto) 0.0 Absolute Nucleated RBC 0.0 Nucleated RBC % 0.0 Sodium 149 H Potassium 3.8 Chloride 118 H Carbon Dioxide 25 Anion Gap 6 BUN 62 H Creatinine 0.76 Est GFR ( Amer) 89.1 Est GFR (Non-Af Amer) 73.6 BUN/Creatinine Ratio 81.6 H Glucose 171 H Calcium 8.5 L Phosphorus Magnesium 2.1 Total Bilirubin 0.50 AST 16 ALT 7 Alkaline Phosphatase 54 Total Creatine Kinase 85 Total Protein 4.6 L Albumin 2.5 L Globulin 2.1 Albumin/Globulin Ratio 1.2 Prealbumin Triglycerides Cholesterol Assessment: 79F with SBO. Plan: -NPO. NG to low continuous suction. -Start PPN (or TPN if access available). -Advance activity as tolerated. - OR saturday if not improved.
[2019-08-01 09:46] LABS: Phosphorus 2.3 mg/dL (2.5-5.0)
[2019-08-01] MEDS: D5W 1/4 NS 1000 ML BAG* 1,000 ML IV SCH (09:55)
[2019-08-01] MEDS: Vancomycin(*) 1,000 MG in NS 0.9% 250 ML* 250 ML IV SCH (09:55)
--- NOTE | 2019-08-01 13:18 | PN ---
Subjective Date of Service: 08/01/19 Interval History: Patient stated "she felt better today". She was able to keep focus during the conversation (about 20 minutes) and ask questions appropriately. She was able to sit in recliner but still too weak to move herself around. No more fever last night. Objective Active Medications: Carbidopa/Levodopa (Carbidopa/Levodopa 25/100 Odt (Nf)) 1 tab PO 0600,0900, 1200 [facility] Last Admin: 08/01/19 12:55 Dose: 1 tab Carbidopa/Levodopa (Carbidopa/Levodopa 25/100 Odt (Nf)) 1 tab PO 1500,1800 [facility] Carbidopa/Levodopa (Sinemet Cr 50/200(*)) 0.5 tab.cr PO BEDTIME [facility] Heparin Sodium (Porcine) (Heparin Vial(*)) 5,000 units SUBCUT Q8HR [facility] Last Admin: 08/01/19 05:55 Dose: 5,000 units Hydromorphone HCl (Dilaudid Inj*) 0.5 mg IV Q4H PRN PRN Reason: PAIN - SEVERE Vancomycin HCl 1,000 mg/ (Sodium Chloride) 250 mls @ 166.667 mls/hr IV Q24H [facility] Last Admin: 08/01/19 09:55 Dose: 166.667 mls/hr Meropenem (Merrem 1 Gm Premix(*)) 1 gm in 50 mls @ 100 mls/hr IV Q12H [facility]; Protocol Last Admin: 08/01/19 01:29 Dose: 100 mls/hr Dextrose 1,000 ml/ Amino Acids 850 ml/ Sterile Water 150 ml/Fat Emulsion Intravenous 500 ml/ Sodium Chloride 100 meq/Potassium Chloride 50 meq/Potassium Phosphate 15 mmole/Calcium Gluconate 15 meq/Magnesium Sulfate 10 meq/ Multivitamins 10 ml/ Trace Metals 1 ml/ Nutrition ( Parenteral) 2,600.721 mls @ 108.422 mls/hr IV 1700 [facility] Dextrose/Sodium Chloride (D5w 1/4 Ns 1000 Ml Bag*) 1,000 mls @ 100 mls/hr IV PER RATE [facility] Last Admin: 08/01/19 09:55 Dose: 100 mls/hr Levothyroxine Sodium (Synthroid Tab*) 50 mcg PO 0600 [facility] Last Admin: 08/01/19 08:42 Dose: 50 mcg Ondansetron HCl (Zofran Inj*) 4 mg IV Q4H PRN PRN Reason: NAUSEA/VOMITING Last Admin: 07/27/19 17:55 Dose: 4 mg Pantoprazole Sodium (Protonix Iv*) 40 mg IV Q24H [facility] Last Admin: 07/31/19 18:39 Dose: 40 mg Pharmacy Consult (Vancomycin Per Pharmacy*) 1 note FOLLOW UP .VANC PER PHARMACY [facility]; Protocol Pharmacy Profile Note (Vancomycin Trough Check) 1 note FOLLOW UP 929 ONE Stop: 08/03/19 09:31 Vital Signs - 8 hr 08/01/19 08/01/19 08/01/19 08:04 08:45 11:28 Temperature 98.9 F 99.4 F Pulse Rate 88 93 Respiratory 28 24 24 Rate Blood Pressure 146/51 129/59 (mmHg) O2 Sat by Pulse 97 97 Oximetry Oxygen Devices in Use Now: Nasal Cannula Exam: Gen: elderly female, opens eyes widely, NG tube with dark brownish content suctioned out, shallow breathing HEENT: normacephalic and atraumatic Lungs: unable to hear lung sound well due to shallow breathing Heart: S1/S2 heard with no murmur Abdomen: Soft, distended, hard feeling, non tender, BS not appreciable Extremities: No cyanosis, distal pulses 2+, warm extremities, mild pedal edema bilaterally Neuro: alert, oriented to time, place and person Cranial nerve intact. Strength 4 over all 4 limbs. Resting tremor noted. Result Diagrams: 08/01/19 06:21 08/01/19 06:21 Assess/Plan/Problems-Billing Assessment: Marisol Mcnally is a 79 y/o female with history of diabetes, hypertension, Von Willenbrand disorder, Parkinson disease, presented with altered mental status, right lower quadrant pain initially, found to have septic shock due to Kelebsiella UTI, VIVIANA and complete SBO. Sepsis and VIVIANA improved but developed pneumonia, while SBO not improving with medical management. - Patient Problems (1) Altered mental status Current Visit: Yes Status: Acute Code(s): R41.82 - ALTERED MENTAL STATUS, UNSPECIFIED SNOMED Code(s): 606990890 Comment: - resolving, likely due to septic encephalopathy - HyperNa, hypercholoremia,due to excessive IVF use for sepsis, and free water deficit due to dehydration and fasting state - Na downtrending, I will continue D5NS during the day, PPN will start 5pm (Na 40 meq/L) - will recheck electrolytes this afternoon (2) Sepsis associated hypotension Current Visit: Yes Status: Acute Code(s): A41.9 - SEPSIS, UNSPECIFIED ORGANISM; I95.9 - HYPOTENSION, UNSPECIFIED SNOMED Code(s): 23803264 Comment: - came in with hypotension, lactic acidosis, fever, meets SIRS criteria - likely source of infection is urine, urine cs klebsiella pansensitive - responded to fluid rescuitatiton and iv abx - However, developed fever, TW uptrending, hypoxia on 07/31/19, likely developing pneumonia, escalated abx to harjit and vanco - BP improved now, continue iv harjit and vanco for now, trace second blood cs (3) Small bowel obstruction Current Visit: Yes Status: Acute Code(s): K56.609 - UNSP INTESTNL OBST, UNSP TO PARTIAL VERSUS COMPLETE OBST SNOMED Code(s): 339292511 Comment: - complete SBO based on CTAP - NGT in situ with suctioning - may need surgery Saturday, will continue medical management for now - appreciate GS recs, will start ppn today (4) Acute kidney injury Current Visit: Yes Status: Acute Code(s): N17.9 - ACUTE KIDNEY FAILURE, UNSPECIFIED SNOMED Code(s): 45784515 Comment: - VIVIANA with possible some CKD component (atropic kidneys in scan), oligouria initially - likely causes: prerenal, ATN caused by sepsis - creatinine improving siginificantly with iv hydration and abx - continue to monitor (5) Parkinson disease Current Visit: Yes Status: Acute Code(s): G20 - PARKINSON'S DISEASE SNOMED Code(s): 42029385 Comment: - continue levodopa/carbidopa sublingual and ER tablet. (6) Urinary tract infection Current Visit: Yes Status: Acute Comment: - klebsiella pneumoniae pansensitive - CTAP didn't show any retention or complicated UTI (7) Malnutrition Current Visit: Yes Status: Acute Code(s): E46 - UNSPECIFIED PROTEIN-CALORIE MALNUTRITION SNOMED Code(s): 60700216 Comment: - start ppn tonight with peripheral line - will insert PICC for TPN on Saturday (8) Diabetes Current Visit: Yes Status: Acute Code(s): E11.9 - TYPE 2 DIABETES MELLITUS WITHOUT COMPLICATIONS SNOMED Code(s): 23057494 Comment: - no meds - will monitor glucose Q4h when on ppn (9) DVT prophylaxis Current Visit: Yes Status: Acute Code(s): Z29.9 - ENCOUNTER FOR PROPHYLACTIC MEASURES, UNSPECIFIED SNOMED Code(s): 429012924 Comment: sc heparin, and SCD (10) DNR (do not resuscitate) Current Visit: Yes Status: Acute Comment: MOLST form filled out if patient continues to fail current abx or recurrent infection, need to consider palliative. Status and Disposition: inpatient Medicine. will need MAYTE on dishcarge. Encourage patient to sit on chair and participate PT today Attestation Documenting Resident: She Mcdaniel Supervising Physician: Gerri Mahajan Attending/Supervising Physician Comment: Agree with resident findings, note, exam, assessment and plan HD6 79F PMH HTN, VWD, Parkinson's with motor impairment and MCI at baseline presented with septic shock 2/2 to Klebsiella UTI, VIVIANA, resolved but then late hospital course by sig deconditioning from decompensation from parkinsons along with PNA, hyPERNa and complete SBO not responsive to conservative mgmt. Ongoing family discussions regarding how aggressive patient would like to be. Appreciate GS following who would recommend OR on Wednesday 08/02 if pt were to spontaneously not improve. Family is weighing options about pros and cons of her functional status after surgery and continue in thoughtful appropriate discussions. She would be full hospice if she were to decline surgery. No definitive decisions were made by family or patient today and they want to employ a watch and wait which is fine for now, by Saturday we will need to decide about the OR and they are aware. Until then- #PNA and associated sepsis: On harjit, vanco, escalated on 07/31 after persistent signs of infection (new infection as UTI resolved and has been fully tx), total Day 6 of abx on 07/31 #SBO: Complete -NGT to LIWS, still with sig production of bile -Starting PPN for temporary nutrition -Appreciate general surg #HyperNA: Free water deficit. Improved with D5W, now on PPN, may need to run D5W in with PPN to meet goals, check BMP BID -Ice chips OK #Deconditioning: Assume motor issues from missing carbidopa/levodopa, though at baseline frail parkinsons can decompensate -PT OT if appropriate #Parkinsons: Continue home meds which she can take as SL? Is this the ODT form, will check with pharmacy #HTN: No issues #Hypothyroid: Please change Levothryoxine to IV #VWD: No active issues,not on antiplatelets #Depression: holding sertraline 2/2 to NPO #DVT SQ Code-DNR, appreciate ongoing larger GOC discussions with myself, Dr. Mcdaniel, and general surgery on their overall prognosis. PT OT-Pending clinical improvement Dispo: Was living at home with prior, was going to be moving to [place] Attestation: This service has been performed in part by a resident under the direction of a teaching physician.I, Gerri Mahajan, performed the service, or was physically present during the critical, or estrella portions of the service, furnished by the resident. I participated in the management of the patient.
[2019-08-01 16:08] LABS: BUN/Creatinine Ratio 84.1 (8-20); Calcium 8.6 mg/dL (8.6-10.3); EGFR African American 99.6 (>60); EGFR Non-African American 82.3 (>60)
[2019-08-01] MEDS: TPN* 24 HR with D10W 1000 ML BAG* 1,000 ML, Amino Acid Infusion 10%* 850 ML, Sterile Wa... IV SCH ×12 (17:00)
[2019-08-01] MEDS: Pantoprazole IV* 40 MG IV SCH (18:02)
[2019-08-01] MEDS ORDERED: Acetaminophen ADULT LIQ* 650 MG/20.3 ML UDC PO PRN (20:26)
[2019-08-01] MEDS: Carbidopa/Levodop CR 50/200(*) TAB.CR PO SCH (22:29)
[2019-08-02] MEDS ORDERED: Rocuronium* 10 MG/ML VIAL IV SCH ×2
[2019-08-02] MEDS ORDERED: Sugammadex * 200 MG/2 ML VIAL IV PUSH SCH
[2019-08-02] MEDS ORDERED: Phenylephrine 40 MCG/ML SYRINGE IV SCH
[2019-08-02] MEDS ORDERED: Lidocaine 2% PF * 5 ML VIAL IV SCH
[2019-08-02] MEDS ORDERED: Phenylephrine 10 MG/ML VIAL* 1 ML VIAL IV SCH
[2019-08-02] MEDS ORDERED: Midazolam* 1 MG/ML 2 ML VIAL (2 MG) IV SLOW PU SCH ×3
[2019-08-02] MEDS ORDERED: fentaNYL* 50 MCG/ML 2 ML VIAL (100 MCG VIAL) IV SCH ×2
[2019-08-02] MEDS ORDERED: EPHEDrine (Pressors)* 50 MG/ML VIAL IV PUSH SCH
[2019-08-02] MEDS: Meropenem 1 GM PREMIX(*) 1 GM/50 ML BAG IV SCH ×2 (01:35→15:57)
[2019-08-02] MEDS: Levothyroxine INJ* 100 MCG/5 ML VIAL IV SCH (06:32)
[2019-08-02] MEDS: Heparin VIAL(*) 5000 UNITS/ML VIAL (FIVE THOUSAND) SUBCUT SCH (06:32)
[2019-08-02] MEDS: CMC:Carbidopa/Levodopa ODT (NF) 25/100 ODT PO SCH ×5 (06:33→17:23)
[2019-08-02 07:26] LABS: Albumin 2.5 g/dL (3.2-5.2); Albumin/Globulin Ratio 1.2 (1-3); BUN/Creatinine Ratio 91.9 (8-20); Calcium 8.9 mg/dL (8.6-10.3); EGFR African American 112.6 (>60); EGFR Non-African American 93.1 (>60); Globulin 2.1 g/dL (2-4); Magnesium 2.1 mg/dL (1.9-2.7); Phosphorus 2.5 mg/dL (2.5-5.0); Potassium 4.4 mmol/L (3.5-5.0); Total Bilirubin 0.6 mg/dL (0.2-1.0); Total Protein 4.6 g/dL (6.4-8.9)
--- NOTE | 2019-08-02 08:43 | PN ---
Subjective Date of Service: 08/02/19 Interval History: HD 7 on 08/01 79F PMH HTN, VWD, Parkinson's with motor impairment and MCI at baseline presented with septic shock 2/2 to Klebsiella UTI, VIVIANA, resolved but then late hospital course by sig deconditioning from decompensation from Parkinson along with PNA, hyPERNa and complete SBO not responsive to conservative mgmt. Overnight, low grade fever and tachycardia, appropriately covered broadly, concern for microperf? Does have daisy in urine but quite unlikely to be fungemic fever early in course and only on 1 day of PPN This morning, weak and frail, with distended firm abdomen, no rebound, mild gaurding. Minimally verbal but interactive, no c/o CP, SOB or MSK issues. Objective Active Medications: Acetaminophen (Tylenol Adult Liq*) 650 mg PO Q6H PRN PRN Reason: MILD PAIN or TEMP > 100.4 Carbidopa/Levodopa (Carbidopa/Levodopa 25/100 Odt (Nf)) 1 tab PO 0600,0900, 1200 [facility] Last Admin: 08/02/19 06:33 Dose: 1 tab Carbidopa/Levodopa (Carbidopa/Levodopa 25/100 Odt (Nf)) 1 tab PO 1500,1800 [facility] Last Admin: 08/01/19 18:01 Dose: 1 tab Carbidopa/Levodopa (Sinemet Cr 50/200(*)) 0.5 tab.cr PO BEDTIME [facility] Last Admin: 08/01/19 22:29 Dose: 0.5 tab.cr Heparin Sodium (Porcine) (Heparin Vial(*)) 5,000 units SUBCUT Q8HR [facility] Last Admin: 08/02/19 06:32 Dose: 5,000 units Hydromorphone HCl (Dilaudid Inj*) 0.5 mg IV Q4H PRN PRN Reason: PAIN - SEVERE Vancomycin HCl 1,000 mg/ (Sodium Chloride) 250 mls @ 166.667 mls/hr IV Q24H [facility] Last Admin: 08/01/19 09:55 Dose: 166.667 mls/hr Meropenem (Merrem 1 Gm Premix(*)) 1 gm in 50 mls @ 100 mls/hr IV Q12H [facility]; Protocol Last Admin: 08/02/19 01:35 Dose: 100 mls/hr Dextrose 1,000 ml/ Amino Acids 850 ml/ Sterile Water 150 ml/Fat Emulsion Intravenous 500 ml/ Sodium Chloride 100 meq/Potassium Chloride 50 meq/Potassium Phosphate 15 mmole/Calcium Gluconate 15 meq/Magnesium Sulfate 10 meq/ Multivitamins 10 ml/ Trace Metals 1 ml/ Nutrition ( Parenteral) 2,600.721 mls @ 108.422 mls/hr IV 1700 [facility] Last Admin: 08/01/19 17:00 Dose: 108.422 mls/hr Levothyroxine Sodium (Synthroid Inj*) 25 mcg IV 0600 [facility] Last Admin: 08/02/19 06:32 Dose: 25 mcg Ondansetron HCl (Zofran Inj*) 4 mg IV Q4H PRN PRN Reason: NAUSEA/VOMITING Last Admin: 07/27/19 17:55 Dose: 4 mg Pantoprazole Sodium (Protonix Iv*) 40 mg IV Q24H [facility] Last Admin: 08/01/19 18:02 Dose: 40 mg Pharmacy Consult (Vancomycin Per Pharmacy*) 1 note FOLLOW UP .VANC PER PHARMACY [facility]; Protocol Pharmacy Profile Note (Vancomycin Trough Check) 1 note FOLLOW UP 929 ONE Stop: 08/03/19 09:31 Vital Signs - 8 hr 08/01/19 08/02/19 08/02/19 23:39 03:18 07:18 Temperature 100.1 F 100 F 100.2 F Pulse Rate 100 105 108 Respiratory 24 20 28 Rate Blood Pressure 139/58 140/55 149/75 (mmHg) O2 Sat by Pulse 96 95 96 Oximetry Oxygen Devices in Use Now: Nasal Cannula Appearance: Frail woman, NGT in place, minimally verbal but answers questions appropriately. Eyes: No Scleral Icterus, PERRLA Ears/Nose/Mouth/Throat: - - NGT in place draining bile Respiratory: Symmetrical Chest Expansion and Respiratory Effort, Clear to Auscultation Cardiovascular: RRR Abdominal: - - Firm distended no BS no rebound mild gaurding Lymphatic: No Cervical Adenopathy Extremities: No Edema Skin: No Rash or Ulcers Neurological: - - 3/5 on L, 4/5 on R blt UE and LE Result Diagrams: 08/02/19 06:59 08/02/19 07:02 Microbiology and Other Data: Microbiology 07/31/19 09:00 Urine Culture - Final Urine Daisy Albicans 07/31/19 09:27 Aerobic Blood Culture - Preliminary Blood Venous No Growth Day 1 Anaerobic Blood Culture - Preliminary No Growth Day 1 07/27/19 08:23 Aerobic Blood Culture - Final Blood Venous Not Reportable Anaerobic Blood Culture - Final Not Reportable Blood Culture - Final No Growth Day 5 07/27/19 08:08 Aerobic Blood Culture - Final Blood Venous No Growth Day 5 Anaerobic Blood Culture - Final No Growth Day 5 07/27/19 09:36 Urine Culture - Final Urine Klebsiella Pneumoniae 07/27/19 11:45 Nasal Screen MRSA (PCR) - Final Nasal Mrsa Not Detected Assess/Plan/Problems-Billing Assessment: 79F PMH HTN, VWD, Parkinson's with motor impairment and MCI at baseline presented with septic shock 2/2 to Klebsiella UTI, VIVIANA, resolved but then late hospital course by sig deconditioning from decompensation from parkinsons along with PNA, hyPERNa and complete SBO not responsive to conservative mgmt. Today 08/01, worsening clinical status, sepsis likely from intrabdominal source, appreciate general surgery rec to proceed to OR. - Patient Problems (1) Small bowel obstruction Current Visit: Yes Status: Acute Code(s): K56.609 - UNSP INTESTNL OBST, UNSP TO PARTIAL VERSUS COMPLETE OBST SNOMED Code(s): 599723640 Comment: - complete SBO based on CTAP - NGT in situ with suctioning - on PPN - Concern for intrabdominal complications with low grade fever, proceed to OR (2) High risk surgery, pre-operative cardiovascular examination Current Visit: Yes Status: Acute Code(s): Z01.810 - ENCOUNTER FOR PREPROCEDURAL CARDIOVASCULAR EXAMINATION SNOMED Code(s): 11868220 Comment: - Can not complete 4 METS at baseline, high risk surgery - No active CP, CHF, renal failure, or IDDM, CVA equivelent - Score 2/5, connotating 10% risk - Risks and benefits discussed with family and they elect to proceed, there are no further optimizations from a medical standpoint - Given VWD, would order cryo x 1 U and DDAVP x1 dose 30 mins prior to procedure (3) Sepsis Current Visit: Yes Status: Acute Comment: - Ongoing meeting criteria with low grade fever, WBC and tachycardia - Initial source UTI (Klebsiella), considered covered with 7 days of abx, possibly PNA on CXR and other micro (blood) not revealing aside from daisy from urine (common contaminant), concern for intrabdominal source, to OR, will need ICU after - Concern for fever on PPN always fungal but given only initiated for 1 day unlikely, consider BD Glucan as marker if lab has - Continue broad spectrum (4) Parkinson disease Current Visit: Yes Status: Acute Code(s): G20 - PARKINSON'S DISEASE SNOMED Code(s): 30533223 Comment: - continue levodopa/carbidopa sublingual and ER tablet. (5) Malnutrition Current Visit: Yes Status: Acute Code(s): E46 - UNSPECIFIED PROTEIN-CALORIE MALNUTRITION SNOMED Code(s): 08385806 Comment: - on PPN - will insert PICC for TPN on Saturday if central access not needed prior (6) Diabetes Current Visit: Yes Status: Acute Code(s): E11.9 - TYPE 2 DIABETES MELLITUS WITHOUT COMPLICATIONS SNOMED Code(s): 64357298 Comment: - no meds - will monitor glucose Q4h when on ppn (7) Hypernatremia Current Visit: Yes Status: Acute Code(s): E87.0 - HYPEROSMOLALITY AND HYPERNATREMIA SNOMED Code(s): 447804830 Comment: - Improving with D10 (8) DVT prophylaxis Current Visit: Yes Status: Acute Code(s): Z29.9 - ENCOUNTER FOR PROPHYLACTIC MEASURES, UNSPECIFIED SNOMED Code(s): 224951324 Comment: - sc heparin, and SCD - On hold for surgey (9) DNR (do not resuscitate) Current Visit: Yes Status: Acute Comment: MOLST form filled out Family and pt on board with surgery. Status and Disposition: inpatient Medicine. NPO To OR, will need ICU after PT OT when she is out of ICU will need MAYTE on dishcarge.
[2019-08-02 09:36] LABS: Hematocrit 36 % (35-47); Hemoglobin 11.8 g/dL (12.0-16.0); Mean Corpuscular HGB Conc 33 g/dL (31-36); Mean Corpuscular Hemoglobin 40 pg (27-31); Mean Corpuscular Volume 123 fL (80-97); Mean Platelet Volume 9.7 fL (7.4-10.4); Platelet Count 289 10^3/uL (150-450); Red Blood Count 2.91 10^6 /uL (3.70-4.87); Red Cell Distribution Width 14 % (10-15); White Blood Count 19.4 10^3/uL (3.5-10.8)
[2019-08-02 10:05] LABS: ABS Basophils 0.1 10^3/ul (0-0.2); ABS Lymphocytes 0.5 10^3/ul (1.0-4.8); ABS Monocytes 1.1 10^3/ul (0-0.8); ABS Neutrophils 17.8 10^3/ul (1.5-7.7); Eosinophil % 0.1 %; Lymphocyte % 2.4 %
[2019-08-02] MEDS: Vancomycin(*) 1,000 MG in NS 0.9% 250 ML* 250 ML IV SCH (10:14)
--- NOTE | 2019-08-02 10:51 | PN ---
Progress Note - Progress Note Date of Service: 08/02/19 SOAP: Subjective: Continues to report tenderness. Objective: Vital Signs Temp 100.2 F 08/02/19 07:18 Pulse 108 08/02/19 07:18 Resp 28 08/02/19 08:00 BP 149/75 08/02/19 07:18 Pulse Ox 96 08/02/19 07:18 Gen: lying in bed; eyes closed; responds appropriately. Abd: diffusely tender, distended. -BS. Assessment: SBO in pt with vWF dz, Parkinson's, VIVIANA due to recent sepsis, now with worsening leukocytosis, fever, tachycardia. Concern is for bowel compromise and she warrants exploratory laparotomy. Plan: D/W pt., , daughters. Explained concern and rationale for surgery. I discussed the nature of the procedure, risks, benefits, alternatives and option of no treatment. Risks explained including, not limited to: bleeding, infection , pain, scars, blood clots, pneumonia, prolonged ICU stay/ventilation/recovery, worsening of Parkinson's, risk of anesthesia, even . All questions answered. The patient and family state understanding and agree to proceed. D/w Dr. Mahajan and pt to receive dDAVP and CPP (ordered). Postop will go to ICU.
[2019-08-02] MEDS ORDERED: Desmopressin Acetate* 4 MCG/ML 10 ML VIAL IVPB ONE (10:55)
[2019-08-02] MEDS ORDERED: Sodium Citrate/Citric Acid* 15 ML UDC NG TUBE ONE (11:34)
[2019-08-02] MEDS ORDERED: NS 0.9% IVPB ONE (12:00)
[2019-08-02] MEDS ORDERED: DESMOPRESSIN ACETATE IVPB ONE (12:00)
[2019-08-02] MEDS ORDERED: Bupivacaine 0.25% SDV* 30 ML ONE (12:13)
[2019-08-02] MEDS ORDERED: Sodium Citrate/Citric Acid* 15 ML UDC ONE (12:16)
[2019-08-02] MEDS ORDERED: EPINEPHRINE 1 MG/ML 1 ML VIAL ONE (14:17)
[2019-08-02] MEDS ORDERED: Norepinephrine VIAL* 1 MG/ML 4 ML VIAL ONE (14:19)
--- NOTE | 2019-08-02 15:38 | BRIEFOPN ---
Brief Operative/Procedure Note - Operation Details Pre-Op Diagnosis: SBO; SEPSIS Post-Op Diagnosis: SAME; SMALL BOWEL ISCHEMIA Procedures: EXPL LAPAROTOMY; KEVIN; SB RESECTION; CECAL RESECTION Surgeon(s)/Proceduralists: MELONIE. ASSIST: HEIDI Anesthesia: GET; EFRAIN Estimated Blood Loss: <50ML Findings: CLOSED LOOP SBO WITH ISCHEMIA/NECROSIS OF SM TO IC VALVE, SPARING PROXIMAL 120 CM; NORMAL COLON. PROCEDURE ABREVIATED DUE TO HEMODYNAMIC INSTABILITY Specimen(s)/Culture(s) Description: PORTION OF SB; CECUM Complications: NONE
[2019-08-02] MEDS ORDERED: Lactated Ringers 1000 ML Bag* 1,000 ML IV ONE (15:56)
[2019-08-02] MEDS: fentaNYL* 50 MCG/ML 2 ML VIAL (100 MCG VIAL) IV SLOW PU PRN ×3 (16:20→19:59)
[2019-08-02] MEDS: TPN* 24 HR with D10W 1000 ML BAG* 1,000 ML, Amino Acid Infusion 10%* 850 ML, Sterile Wa... IV SCH ×12 (16:43)
--- NOTE | 2019-08-02 16:54 | PN ---
<Mandy Silva - Last Filed: 08/02/19 18:31> Progress Note - Progress Note Date of Service: 08/02/19 Note: Consultation Note -- Critical Care Requesting Physician: Dr Dhillon Reason for consult: Critical care management Limitations in history/physical: All information is obtained from nursing, anesthesia and chart since patient is unresponsive and family is not currently present Date of consult: 08/02/2019 HPI: [id number] with known medical history of Von Willebrands disease, HTN, DM, Parkinson's disease, SBO, breast cancer, anxiety/depression, presents initially on 07/27/2019 with AMS, dehydration, and abdominal pain. Imaging showed SBO as well as Klebsiella UTI. Decision was made to medically manage this. However, overnight 08/02/19 she started spiking low grade temps, increasing WBC and tachycardia. Decision made to take patient to OR. ROS: ROS unable to be obtained secondary to intubated/unresponsive PMHx: Von Willbrand's disease, Parkinson's disease, HTN, DM, SBO, breast cancer , anxiety/depression PSHx: Pneumothorax after fall in 2018, hysterectomy, cholecystecomy, mastectomy 1995 for breast cancer Family History: Unknown, unclear from previous documentation Social History: Lives at home with her , no alcohol, tobacco or drug abuse Allergies: codeine, PCN, sulfa, decongestants Home Medications: Atorvastatin* [Lipitor*] 20 mg PO DAILY 01/06/16 [History Confirmed 07/27/19] Carbidopa/Levodop 25/100 MG(*) [Sinemet 25/100 TAB(*)] 1 tab PO 0600,0900,1200 01/06/16 [History Confirmed 07/29/19] Levothyroxine TAB* [Synthroid TAB*] 50 mcg PO DAILY 01/06/16 [History Confirmed 07/27/19] Pantoprazole TAB * [Protonix TAB (NF)] 40 mg PO DAILY 01/06/16 [History Confirmed 07/27/19] HydroxyUREA CAP* [Hydrea CAP*] 500 mg PO DAILY WITH MEAL 09/20/18 [History Confirmed 07/27/19] Sertraline* [Zoloft*] 50 mg PO DAILY 09/20/18 [History Confirmed 07/27/19] Simethicone [Gas-X Extra Strength] 250 mg PO DAILY 09/20/18 [History Confirmed 07/27/19] Calcium Citrate/Vitamin D3 [Citracal + D3 Maximum] 1 tab PO DAILY 01/09/19 [ History Confirmed 07/27/19] Melatonin [Meladox] 3 mg PO QPM 01/09/19 [History Confirmed 07/27/19] Ascorbic Acid TAB* [Vitamin C TAB*] 250 mg PO DAILY 01/30/19 [History Confirmed 07/27/19] Aspirin EC TAB* [Ecotrin EC Low Dose 81 MG*] 81 mg PO DAILY 01/30/19 [History Confirmed 07/27/19] Lactobacillus Acidophilus [Probiotic] 1 cap PO DAILY 01/30/19 [History Confirmed 07/27/19] Quinapril (NF) [Accupril (NF)] 40 mg PO DAILY 01/30/19 [History Confirmed ] Sennosides/Docusate Sodium [Stool Softener/Laxative 50-8.6 mg] 1 tab PO DAILY [History Confirmed 07/27/19] Carbidopa/Levodop ER 25/100 MG [Carbidopa-Levo ER 25-100 Tab] 1 tab PO BEDTIME 07/29/19 [History Confirmed 07/29/19] Carbidopa/Levodopa [Carbidopa-Levodopa 25-100 Tab] 1 tab PO 1500,1800 07/29/19 [ History Confirmed 07/29/19] Tele: sinus tachycardia Vitals: Vital Signs 08/01/19 08/01/19 08/01/19 19:58 20:00 23:39 Temperature 97.3 F 100.1 F Pulse Rate 105 100 Respiratory 24 24 24 Rate Blood Pressure 146/65 139/58 (mmHg) O2 Sat by Pulse 95 96 Oximetry 08/02/19 08/02/19 08/02/19 03:18 07:18 08:00 Temperature 100 F 100.2 F Pulse Rate 105 108 Respiratory 20 28 28 Rate Blood Pressure 140/55 149/75 (mmHg) O2 Sat by Pulse 95 96 Oximetry 08/02/19 08/02/19 15:39 16:20 Temperature 97 F Pulse Rate 97 Respiratory 20 18 Rate Blood Pressure 108/51 (mmHg) O2 Sat by Pulse 100 Oximetry Intake and Output Last 24 Hours 07/31/19 08/01/19 08/02/19 08/03/19 05:59 05:59 06:59 06:59 Intake Total Output Total 28 Balance -28 Weight Intake: IV Fluids D5 D5W 1/4 NS IVPB ABX - VANCOMYCIN D5NS D5W 1/4 NS Meropenem Oral NG Tube Irrigate Amount Output: NG Tube Drainage Amount Urine 0 Castellon 28 Other: Estimated Void # Bowel Movements Estimated Stool Amount # Voids Vent: vented Infusions: LR@ 100, levo @ 4 Current Medications: Acetaminophen (Tylenol 650 Mg Supp) 650 mg FL Q6H PRN PRN Reason: MILD PAIN or TEMP > 100.4 Carbidopa/Levodopa (Carbidopa/Levodopa 25/100 Odt (Nf)) 1 tab PO 0600,0900, 1200 [facility] Last Admin: 08/02/19 15:56 Dose: Not Given Carbidopa/Levodopa (Carbidopa/Levodopa 25/100 Odt (Nf)) 1 tab PO 1500,1800 [facility] Last Admin: 08/02/19 17:23 Dose: 1 tab Carbidopa/Levodopa (Sinemet Cr 50/200(*)) 0.5 tab.cr PO BEDTIME [facility] Last Admin: 08/01/19 22:29 Dose: 0.5 tab.cr Fentanyl Citrate (Fentanyl*) 25 mcg IV SLOW PU Q1H PRN PRN Reason: PAIN - SEVERE Last Admin: 08/02/19 17:53 Dose: 25 mcg Vancomycin HCl 1,000 mg/ (Sodium Chloride) 250 mls @ 166.667 mls/hr IV Q24H [facility] Last Admin: 08/02/19 10:14 Dose: 166.667 mls/hr Meropenem (Merrem 1 Gm Premix(*)) 1 gm in 50 mls @ 100 mls/hr IV Q12H [facility]; Protocol Last Admin: 08/02/19 15:57 Dose: 100 mls/hr Dextrose 1,000 ml/ Amino Acids 850 ml/ Sterile Water 150 ml/Fat Emulsion Intravenous 500 ml/ Sodium Chloride 100 meq/Potassium Chloride 50 meq/Potassium Phosphate 15 mmole/Calcium Gluconate 15 meq/Magnesium Sulfate 10 meq/ Multivitamins 10 ml/ Trace Metals 1 ml/ Nutrition ( Parenteral) 2,600.721 mls @ 108.422 mls/hr IV 1700 [facility] Last Admin: 08/02/19 16:43 Dose: 108.422 mls/hr Lactated Ringer's (Lactated Ringers 1000 Ml Bag*) 1,000 mls @ 100 mls/hr IV ONCE ONE Stop: 08/03/19 01:55 Last Admin: 08/02/19 16:25 Dose: 100 mls/hr Norepinephrine Bitartrate (Levophed 16 Mcg/Ml Premix*) 4,000 mcg in 250 mls @ 18.75 mls/hr IV .PER PROTOCOL CHRISTY; Protocol Levothyroxine Sodium (Synthroid Inj*) 25 mcg IV 0600 [facility] Last Admin: 08/02/19 06:32 Dose: 25 mcg Ondansetron HCl (Zofran Inj*) 4 mg IV Q4H PRN PRN Reason: NAUSEA/VOMITING Last Admin: 07/27/19 17:55 Dose: 4 mg Pantoprazole Sodium (Protonix Iv*) 40 mg IV Q24H [facility] Last Admin: 08/02/19 17:23 Dose: 40 mg Pharmacy Consult (Vancomycin Per Pharmacy*) 1 note FOLLOW UP .VANC PER PHARMACY CHRISTY; Protocol Pharmacy Profile Note (Vancomycin Trough Check) 1 note FOLLOW UP 0930 ONE Stop: 08/03/19 09:31 Physical Exam: Constitutional: immediately postop, unresponsive, no distress, no diaphoresis, frail and pale appearing Head: normocephalic, atraumatic Eyes: no pallor, no icterus ENT: dry mucous membranes Neck: soft, supple CVS: normal rate, regular, no murmur Chest/Resp: bilateral air entry, diminished throughout, no rhales, no wheeze, no rhonchi Abdomen/GI: soft, nontender, nondistended, BS+ Ext/Msk: warm, pulses+, no edema Skin: intact, warm Neuro: immediately postop, unresponsive. Does not open eyes, does not follow commands. No movement any extremity, brain stem reflexes intact. Per anesthesia , just recently received versed Labs: Laboratory Results - last 24 hr 08/01/19 08/01/19 08/02/19 06:21 22:21 01:08 WBC RBC Hgb Hct MCV MCH MCHC RDW Plt Count MPV Neut % (Auto) Lymph % (Auto) [place] % (Auto) Eos % (Auto) Baso % (Auto) Absolute Neuts (auto) Absolute Lymphs (auto) Absolute Monos (auto) Absolute Eos (auto) Absolute Basos (auto) Absolute Nucleated RBC Nucleated RBC % Sodium Potassium Chloride Carbon Dioxide Anion Gap BUN Creatinine Est GFR ( Amer) Est GFR (Non-Af Amer) BUN/Creatinine Ratio Glucose POC Glucose (mg/dL) 185 H 191 H Calcium Phosphorus Magnesium Total Bilirubin AST ALT Alkaline Phosphatase Total Protein Albumin Globulin Albumin/Globulin Ratio Triglycerides Blood Type O Positive Antibody Screen 08/02/19 08/02/19 08/02/19 06:59 06:59 07:02 WBC 19.4 H RBC 2.91 L Hgb 11.8 L Hct 36 MCV 123 H MCH 40 H MCHC 33 RDW 14 Plt Count 289 MPV 9.7 Neut % (Auto) 91.5 Lymph % (Auto) 2.4 [place] % (Auto) 5.7 Eos % (Auto) 0.1 Baso % (Auto) 0.3 Absolute Neuts (auto) 17.8 H Absolute Lymphs (auto) 0.5 L Absolute Monos (auto) 1.1 H Absolute Eos (auto) 0.0 Absolute Basos (auto) 0.1 Absolute Nucleated RBC 0.0 Nucleated RBC % 0.0 Sodium 146 H Potassium 4.4 Chloride 117 H Carbon Dioxide 27 Anion Gap 2 BUN 57 H Creatinine 0.62 Est GFR ( Amer) 112.6 Est GFR (Non-Af Amer) 93.1 BUN/Creatinine Ratio 91.9 H Glucose 162 H POC Glucose (mg/dL) Calcium 8.9 Phosphorus 2.5 Magnesium 2.1 Total Bilirubin 0.60 AST 18 ALT 6 L Alkaline Phosphatase 60 Total Protein 4.6 L Albumin 2.5 L Globulin 2.1 Albumin/Globulin Ratio 1.2 Triglycerides 91 Blood Type O Positive Antibody Screen Negative 08/02/19 07:35 WBC RBC Hgb Hct MCV MCH MCHC RDW Plt Count MPV Neut % (Auto) Lymph % (Auto) [place] % (Auto) Eos % (Auto) Baso % (Auto) Absolute Neuts (auto) Absolute Lymphs (auto) Absolute Monos (auto) Absolute Eos (auto) Absolute Basos (auto) Absolute Nucleated RBC Nucleated RBC % Sodium Potassium Chloride Carbon Dioxide Anion Gap BUN Creatinine Est GFR ( Amer) Est GFR (Non-Af Amer) BUN/Creatinine Ratio Glucose POC Glucose (mg/dL) 114 H Calcium Phosphorus Magnesium Total Bilirubin AST ALT Alkaline Phosphatase Total Protein Albumin Globulin Albumin/Globulin Ratio Triglycerides Blood Type Antibody Screen Imaging: see EMR Assessment: 79F who initially presented with AMS, dehydration, found to have Klebsiella UTI and SBO. Attempted to treat medically. However, overnight on , spiking low grade fevers, increased WBCs, and tachycardia so decision was made to bring to OR. Surgery was aborted early d/t hemodynamic instability. Admitted to ICU intubated. Plan: Neuro- - Unresponsive: likely residual from anesthesia medications - Parkinson's: chronic. continue home medications -Delirium prec; avoid BDZ CVS- - Hypotension: likely sepsis d/t bowel. -Titrate Pressors to Maintain MAP>65 Resp- - Intubated for OR and kept intubated postop. Keep intubated until decision is made regarding return to OR -Wean Fio2 to keep sat>92% -Bronchodilators PRN, Aspiration prec, Pulmonary Toilet -VAP bundle ID- - Klebsiella UTI: actively being treated - Sepsis likely d/t bowel: continue meropenum and vancomycin. Continue hemodynamic support - Goal temp<101 GI- -Nutrition: NPO, continue PPN -GI prophylaxis PPI - NG to LIWS Renal- -strict I/O, replete to keep K>4, Mg>2 -castellon as indicated Heme- - No active issues - Has Von Willebrand's disease. Was given DDAVP and cryo prior to OR Endo- Maintain BG<200, insulin protocol as needed Musculsk- pressure ulcer prophylaxis and treatment. Bedrest. Wounds- has multiple pressure ulcers on her backside being treated Nutrition- NPO, PPI DVT prophylaxis: contraindicated GI prophylaxis:PPI Central Line: LIJ Arterial Line: right radial Castellon Catheter: continue Disposition: Admit to ICU; Expected LOS>2 midnights; Patient requires Critical Care/ICU for sepsis, hypotension, ventilator support Patient Clinical Status: critical Code Status: Had a discussion with patient's daughter Shannan, who is also a HCP. She understands that patient was made full code for the procedure, but would like her to remain full code until a decision is made regarding whether or not the patient will be taken back to the OR. New MOLST was filled out with Shannan's understanding of the situation Total Critical Care time is 60 minutes <Sherri Murguia - Last Filed: 08/05/19 14:58> Progress Note - Progress Note Note: Attending physician statement. Pt seen and examined at bedside with Yanely Silva OTHER WOOD PROCESSING MACHINE OPERATOR. Agree with above assessment and plan. 79 y o f with SBO with sepsis, was taken to OR, found to have gangrenous colon, sx was not completed due to hypotension and was brought to ICU for management of sepsis. Pt on broad spectrum abx, vasopressors at 4mcg. Pt remians intubated, all ordered updated, labs reviewed. Will continue to mnitor in ICU.
[2019-08-02] MEDS: Pantoprazole IV* 40 MG IV SCH (17:23)
[2019-08-02 18:43] LABS: Hematocrit 36 % (35-47); Hemoglobin 11.7 g/dL (12.0-16.0); Mean Corpuscular HGB Conc 33 g/dL (31-36); Mean Corpuscular Hemoglobin 40 pg (27-31); Mean Corpuscular Volume 123 fL (80-97); Mean Platelet Volume 9.7 fL (7.4-10.4); Platelet Count 288 10^3/uL (150-450); Red Cell Distribution Width 14 % (10-15); White Blood Count 23.8 10^3/uL (3.5-10.8)
[2019-08-02 18:52] LABS: Calcium 7.7 mg/dL (8.6-10.3); EGFR African American 119.3 (>60); EGFR Non-African American 98.6 (>60); Potassium 4.7 mmol/L (3.5-5.0)
--- NOTE | 2019-08-02 21:15 | OP ---
CC: Berkley Diaz MD* DATE OF OPERATION: 08/02/19 - ROOM #ICU-08 DATE OF : 42 SURGEON: Kal Dhillon MD OUTSIDE MACHINIST HELPER: Dr. Penny. ANESTHESIOLOGIST: Dr. Cespedes. ANESTHESIA: General endotracheal. PRE-OP DIAGNOSIS: Small bowel obstruction with sepsis. POST-OP DIAGNOSIS: Small bowel obstruction secondary to adhesions with necrosis of small bowel. OPERATIVE PROCEDURE: Exploratory laparotomy, lysis of adhesions, small bowel resection, cecal resection and closure of abdomen with plan for second look laparotomy. ESTIMATED BLOOD LOSS: Less than 50 mL. IV FLUID: Crystalloid and cryoprecipitate. SPECIMEN: Small bowel and cecum. DRAINS: None. COMPLICATIONS: None. COUNTS: Instrument, needle, and sponge counts correct. DESCRIPTION OF PROCEDURE: The patient was brought to the operating room and placed on the table supine. Sequential compression devices were placed on both lower extremities. General anesthesia was administered. Vieira catheter was placed. The patient was prepped and draped in the usual sterile fashion. Time- out was performed. The patient had a lower midline laparotomy created. Upon entering the peritoneal cavity, there was bloody ascites noted as well as ischemic appearing small bowel and the incision was extended cephalad above the umbilicus. The inspection revealed multiple loops of dilated small bowel with necrotic appearing small bowel distally. Alex retractor was placed. The adhesiolysis was performed on the right side of the abdomen to allow placement of the retractor. Then, the small bowel was gently eviscerated. There appeared to be adhesions, at least 2 dense of adhesions from the small bowel into the pelvis, which were lysed to allow the bowel to be run. Proximally, the bowel appeared pink and dilated and was run from the ligament of Treitz distally at about 120 cm distal to the ligament of Treitz. The bowel appeared ischemic from that point all the way distally to the ileocecal valve. The adhesive bands appeared to have compressed the small bowel of these two points resulting in a closed loop type obstruction. The mesentery at these 2 points was incised and then ELI stapler was used to divide the bowel and the LigaSure was used to divide the intervening mesentery. The specimen was handed off. There was hard formed stool within the right colon and transverse colon. It was decided that cecal resection was performed and the plan was to perform an ileal colic anastomosis. A window was created in the right colon mesentery. The bowel divided again with ELI stapler and the intervening mesentery divided with LigaSure and again the specimen handed off. The patient, however, became unstable, requiring increasing doses of vasopressors and therefore, it was decided to abbreviate the operation, simply closing the abdomen with plan for second look laparotomy in 24 to 48 hours. After lavaging the abdomen until clear the midline, wound was closed with #PDS running for the fascia and the skin was closed with vicenta. Dressings were applied. Anesthesia proceeded with placing of invasive monitoring, central venous line, and the patient will be transferred directively to the intensive care unit. [id number]/CPS #: [id number] MTDD
[2019-08-02] MEDS: CHLORHEXADINE (PERIDEX) VENT ORAL CARE TOPICAL SCH (22:42)
[2019-08-02 23:07] LABS: Urine Appearance Cloudy; Urine Bilirubin Negative (Negative); Urine Blood 2+ (Negative); Urine Color Amber; Urine Glucose 1+(50 mg/dL) (Negative); Urine Ketones Negative (Negative); Urine Nitrite Negative (Negative); Urine Protein 1+(30 mg/dL) (Negative); Urine Specific Gravity 1.019 (1.010-1.030); Urine Urobilinogen Negative (Negative)
[2019-08-02 23:13] LABS: Urine Bacteria Absent (Absent); Urine Red Blood Cell 3+(>10/hpf) (Absent); Urine Squamous Epithelial Cell Present (Absent); Urine White Blood Cell 3+(>20/hpf) (Absent)
[2019-08-03] MEDS: Carbidopa/Levodop CR 50/200(*) TAB.CR PO SCH (00:59)
[2019-08-03] MEDS: CHLORHEXADINE (PERIDEX) VENT ORAL CARE TOPICAL SCH ×6 (01:17→22:53)
[2019-08-03] MEDS: Meropenem 1 GM PREMIX(*) 1 GM/50 ML BAG IV SCH ×2 (01:17→14:09)
[2019-08-03] MEDS ORDERED: Lactated Ringers 1000 ML Bag* 1,000 ML IV SCH ×2 (03:00→08:00)
[2019-08-03] MEDS: CMC:Carbidopa/Levodopa ODT (NF) 25/100 ODT PO SCH ×5 (04:13→17:59)
[2019-08-03] MEDS: Norepinephrine 16MCG/ML IVPRE* 4,000 MCG/250 ML BAG IV SCH (04:32)
[2019-08-03 04:45] LABS: Hematocrit 34 % (35-47); Hemoglobin 11.7 g/dL (12.0-16.0); Mean Corpuscular HGB Conc 34 g/dL (31-36); Mean Corpuscular Hemoglobin 42 pg (27-31); Mean Corpuscular Volume 123 fL (80-97); Mean Platelet Volume 10.7 fL (7.4-10.4); Platelet Count 294 10^3/uL (150-450); Red Blood Count 2.77 10^6 /uL (3.70-4.87); Red Cell Distribution Width 14 % (10-15); White Blood Count 30.9 10^3/uL (3.5-10.8)
[2019-08-03 04:58] LABS: BUN/Creatinine Ratio 95.9 (8-20); Calcium 7.6 mg/dL (8.6-10.3); EGFR African American 91.8 (>60); EGFR Non-African American 75.9 (>60); Magnesium 1.9 mg/dL (1.9-2.7); Phosphorus 3.4 mg/dL (2.5-5.0); Potassium 5.3 mmol/L (3.5-5.0)
[2019-08-03] MEDS ORDERED: NS 0.45% 1000 ML BAG* 1,000 ML IV SCH (05:25)
[2019-08-03] MEDS: Levothyroxine INJ* 100 MCG/5 ML VIAL IV SCH (05:41)
[2019-08-03] MEDS ORDERED: Vancomycin Trough Check NOTE FOLLOW UP ONE (09:30)
--- NOTE | 2019-08-03 10:42 | PN ---
Progress Note - Progress Note Date of Service: 08/03/19 SOAP: Subjective: Intubated. Per RN off pressors since 4-5 am. Minimal sedation. Opens eyes. Objective: Vital Signs Temp 99.0 F 08/03/19 08:00 Pulse 105 08/03/19 10:00 Resp 25 08/03/19 10:00 BP 132/40 08/03/19 10:00 Pulse Ox 99 08/03/19 10:00 Abd: dressings intact. Intake & Output 08/02/19 08/03/19 08/03/19 18:59 06:59 18:59 Intake Total 2316 Output Total 28 685 85 Balance -28 1631 -85 Weight 125 lb 0.034 oz Intake: IV Fluids 1000 LR 850 NS (0.45%) 150 TPN/PPN 1316 Oral 0 Output: NG Tube Drainage Amount 400 Urine 0 Vieira 28 285 85 Other: # Bowel Movements 1 Estimated Stool Amount Large Assessment: POD#1 s/p expl lap/ileocolic rsxn without anastomosis. Plan: Cont vent/abx. Return to OR 08/03 for 2nd look laparotomy.
[2019-08-03] MEDS ORDERED: Dextrose 50% Syringe 50 ML* 25 GM/50 ML SYRINGE IV PUSH PRN (10:55)
[2019-08-03] MEDS: Vancomycin(*) 1,000 MG in NS 0.9% 250 ML* 250 ML IV SCH (10:57)
[2019-08-03] MEDS: Insulin LISPRO* 1 UNITS UNIT SUBCUT SCH ×3 (11:43→21:12)
--- NOTE | 2019-08-03 13:59 | PN ---
<Mandy Silva - Last Filed: 08/03/19 14:07> Progress Note - Progress Note Date of Service: 08/03/19 Note: Progress Note -- Critical Care 24 hour events/significant events: - Pressors weaned off as of 0500 - Mental status has remained stable all night - WBC continues to trend up, tmax 99 ROS: ROS unable to be obtained secondary to intubated/unresponsive Tele: sinus tach Vitals: Vital Signs 08/02/19 08/02/19 08/02/19 14:31 15:29 15:39 Temperature 97 F Pulse Rate 80 81 97 Respiratory 15 21 20 Rate Blood Pressure 101/51 108/51 (mmHg) O2 Sat by Pulse 100 100 100 Oximetry 08/02/19 08/02/19 08/02/19 15:45 16:00 16:20 Temperature Pulse Rate 80 86 Respiratory 18 Rate Blood Pressure 107/49 108/51 (mmHg) O2 Sat by Pulse 100 100 Oximetry 08/02/19 08/02/19 08/02/19 16:25 17:00 17:53 Temperature Pulse Rate 94 97 Respiratory 22 Rate Blood Pressure 92/51 119/45 (mmHg) O2 Sat by Pulse 100 99 Oximetry 08/02/19 08/02/19 08/02/19 18:00 19:00 19:42 Temperature Pulse Rate 94 102 Respiratory 22 21 Rate Blood Pressure 103/57 102/52 (mmHg) O2 Sat by Pulse 100 100 Oximetry 08/02/19 08/02/19 08/02/19 19:59 20:00 20:12 Temperature 99.0 F Pulse Rate 107 Respiratory 22 Rate Blood Pressure 113/45 (mmHg) O2 Sat by Pulse 100 Oximetry 08/02/19 08/02/19 08/02/19 21:00 22:00 22:01 Temperature Pulse Rate 108 128 127 Respiratory 21 22 Rate Blood Pressure 113/59 153/58 (mmHg) O2 Sat by Pulse 100 100 100 Oximetry 08/02/19 08/02/19 08/02/19 22:23 22:27 23:00 Temperature Pulse Rate 111 110 124 Respiratory 22 Rate Blood Pressure 140/103 118/59 (mmHg) O2 Sat by Pulse 100 100 100 Oximetry 08/02/19 08/03/19 08/03/19 23:08 00:00 00:10 Temperature 98.7 F Pulse Rate 125 121 124 Respiratory 24 Rate Blood Pressure 156/65 124/68 (mmHg) O2 Sat by Pulse 99 99 98 Oximetry 08/03/19 08/03/19 08/03/19 00:15 00:20 00:25 Temperature Pulse Rate 125 118 127 Respiratory Rate Blood Pressure (mmHg) O2 Sat by Pulse 99 97 99 Oximetry 08/03/19 08/03/19 08/03/19 00:30 00:35 00:40 Temperature Pulse Rate 121 124 127 Respiratory Rate Blood Pressure (mmHg) O2 Sat by Pulse 99 98 99 Oximetry 08/03/19 08/03/19 08/03/19 00:45 00:50 00:55 Temperature Pulse Rate 128 123 120 Respiratory Rate Blood Pressure (mmHg) O2 Sat by Pulse 100 99 98 Oximetry 08/03/19 08/03/19 08/03/19 01:00 01:05 01:10 Temperature Pulse Rate 126 125 117 Respiratory 25 Rate Blood Pressure 86/74 (mmHg) O2 Sat by Pulse 99 99 98 Oximetry 08/03/19 08/03/19 08/03/19 01:15 01:20 01:25 Temperature Pulse Rate 129 122 115 Respiratory Rate Blood Pressure (mmHg) O2 Sat by Pulse 99 100 100 Oximetry 08/03/19 08/03/19 08/03/19 01:27 01:30 01:35 Temperature Pulse Rate 115 110 110 Respiratory Rate Blood Pressure 97/68 (mmHg) O2 Sat by Pulse 99 97 99 Oximetry 08/03/19 08/03/19 08/03/19 01:39 01:41 01:45 Temperature Pulse Rate 105 107 108 Respiratory Rate Blood Pressure 106/51 (mmHg) O2 Sat by Pulse 99 99 99 Oximetry 08/03/19 08/03/19 08/03/19 01:50 01:55 02:00 Temperature Pulse Rate 108 107 112 Respiratory 24 Rate Blood Pressure (mmHg) O2 Sat by Pulse 100 100 100 Oximetry 08/03/19 08/03/19 08/03/19 02:01 02:05 02:10 Temperature Pulse Rate 110 112 114 Respiratory Rate Blood Pressure 118/39 (mmHg) O2 Sat by Pulse 100 99 100 Oximetry 08/03/19 08/03/19 08/03/19 02:15 02:20 02:25 Temperature Pulse Rate 120 118 111 Respiratory Rate Blood Pressure (mmHg) O2 Sat by Pulse 100 100 100 Oximetry 03/02/1308/03/19 08/03/19 02:30 02:35 02:40 Temperature Pulse Rate 117 116 116 Respiratory Rate Blood Pressure (mmHg) O2 Sat by Pulse 100 99 100 Oximetry 08/03/19 08/03/19 08/03/19 02:45 02:50 02:55 Temperature Pulse Rate 111 116 118 Respiratory Rate Blood Pressure (mmHg) O2 Sat by Pulse 100 100 99 Oximetry 08/03/19 08/03/19 08/03/19 03:00 03:05 03:10 Temperature Pulse Rate 110 115 116 Respiratory 24 Rate Blood Pressure 138/56 (mmHg) O2 Sat by Pulse 100 99 99 Oximetry 08/03/19 08/03/19 08/03/19 03:15 03:20 03:25 Temperature Pulse Rate 121 115 118 Respiratory Rate Blood Pressure (mmHg) O2 Sat by Pulse 100 99 99 Oximetry 08/03/19 08/03/19 08/03/19 03:30 03:35 03:40 Temperature Pulse Rate 114 115 119 Respiratory Rate Blood Pressure (mmHg) O2 Sat by Pulse 98 99 99 Oximetry 08/03/19 08/03/19 08/03/19 03:45 03:50 03:55 Temperature Pulse Rate 112 119 110 Respiratory Rate Blood Pressure (mmHg) O2 Sat by Pulse 98 99 98 Oximetry 08/03/19 08/03/19 08/03/19 04:00 04:01 04:04 Temperature 98.8 F Pulse Rate 109 108 111 Respiratory 25 Rate Blood Pressure 111/54 94/52 (mmHg) O2 Sat by Pulse 97 98 99 Oximetry 08/03/19 08/03/19 08/03/19 04:05 04:06 04:10 Temperature Pulse Rate 106 104 104 Respiratory Rate Blood Pressure 98/48 (mmHg) O2 Sat by Pulse 98 97 99 Oximetry 08/03/19 08/03/19 08/03/19 04:15 04:20 04:25 Temperature Pulse Rate 105 115 117 Respiratory Rate Blood Pressure (mmHg) O2 Sat by Pulse 99 96 99 Oximetry 08/03/19 08/03/19 08/03/19 04:27 04:30 04:35 Temperature Pulse Rate 117 117 117 Respiratory Rate Blood Pressure 141/51 (mmHg) O2 Sat by Pulse 99 99 99 Oximetry 08/03/19 08/03/19 08/03/19 04:40 04:44 04:45 Temperature Pulse Rate 115 112 113 Respiratory Rate Blood Pressure 118/49 129/48 (mmHg) O2 Sat by Pulse 98 98 99 Oximetry 08/03/19 08/03/19 08/03/19 04:50 04:55 05:00 Temperature Pulse Rate 112 118 114 Respiratory 24 Rate Blood Pressure (mmHg) O2 Sat by Pulse 99 98 99 Oximetry 08/03/19 08/03/19 08/03/19 05:01 05:05 05:10 Temperature Pulse Rate 117 111 109 Respiratory Rate Blood Pressure 129/59 (mmHg) O2 Sat by Pulse 99 99 99 Oximetry 08/03/19 08/03/19 08/03/19 05:15 05:16 05:20 Temperature Pulse Rate 113 116 116 Respiratory Rate Blood Pressure 144/54 (mmHg) O2 Sat by Pulse 99 99 99 Oximetry 08/03/19 08/03/19 08/03/19 05:22 05:25 05:30 Temperature Pulse Rate 111 107 105 Respiratory Rate Blood Pressure 109/53 113/48 (mmHg) O2 Sat by Pulse 97 97 98 Oximetry 08/03/19 08/03/19 08/03/19 05:35 05:40 05:45 Temperature Pulse Rate 106 108 105 Respiratory Rate Blood Pressure (mmHg) O2 Sat by Pulse 99 99 99 Oximetry 08/03/19 08/03/19 08/03/19 05:50 05:55 06:00 Temperature Pulse Rate 119 116 107 Respiratory 24 Rate Blood Pressure 105/49 (mmHg) O2 Sat by Pulse 98 98 97 Oximetry 08/03/19 08/03/19 08/03/19 06:05 06:10 06:15 Temperature Pulse Rate 108 110 105 Respiratory Rate Blood Pressure 114/49 (mmHg) O2 Sat by Pulse 97 98 98 Oximetry 08/03/19 08/03/19 08/03/19 06:20 06:22 06:25 Temperature Pulse Rate 104 105 109 Respiratory Rate Blood Pressure 108/54 (mmHg) O2 Sat by Pulse 98 97 99 Oximetry 08/03/19 08/03/19 08/03/19 06:30 06:35 06:40 Temperature Pulse Rate 106 108 110 Respiratory Rate Blood Pressure 118/52 (mmHg) O2 Sat by Pulse 98 99 98 Oximetry 08/03/19 08/03/19 08/03/19 06:45 06:50 06:55 Temperature Pulse Rate 117 112 108 Respiratory Rate Blood Pressure 128/71 (mmHg) O2 Sat by Pulse 99 98 97 Oximetry 08/03/19 08/03/19 08/03/19 07:00 07:05 07:10 Temperature Pulse Rate 117 117 119 Respiratory 25 Rate Blood Pressure 127/50 (mmHg) O2 Sat by Pulse 98 99 98 Oximetry 08/03/19 08/03/19 08/03/19 07:15 07:20 07:25 Temperature Pulse Rate 111 116 115 Respiratory Rate Blood Pressure 95/38 (mmHg) O2 Sat by Pulse 98 98 99 Oximetry 08/03/19 08/03/19 08/03/19 07:30 07:35 07:45 Temperature Pulse Rate 111 116 115 Respiratory Rate Blood Pressure 107/45 84/69 (mmHg) O2 Sat by Pulse 99 100 100 Oximetry 08/03/19 08/03/19 08/03/19 08:00 08:15 08:30 Temperature 99.0 F Pulse Rate 114 113 110 Respiratory 28 Rate Blood Pressure 120/56 147/73 (mmHg) O2 Sat by Pulse 98 99 99 Oximetry 08/03/19 08/03/19 08/03/19 08:31 08:45 09:00 Temperature Pulse Rate 108 106 105 Respiratory 28 Rate Blood Pressure 100/39 92/50 114/52 (mmHg) O2 Sat by Pulse 99 99 98 Oximetry 08/03/19 08/03/19 08/03/19 09:15 09:30 09:45 Temperature Pulse Rate 104 109 111 Respiratory Rate Blood Pressure 112/43 109/72 (mmHg) O2 Sat by Pulse 99 99 99 Oximetry 08/03/19 08/03/19 08/03/19 09:46 10:00 10:15 Temperature Pulse Rate 111 105 105 Respiratory 25 Rate Blood Pressure 122/47 132/40 93/45 (mmHg) O2 Sat by Pulse 100 99 98 Oximetry 08/03/19 08/03/19 08/03/19 10:30 10:45 10:48 Temperature Pulse Rate 103 102 109 Respiratory Rate Blood Pressure 98/45 125/50 (mmHg) O2 Sat by Pulse 99 99 99 Oximetry 08/03/19 08/03/19 08/03/19 11:00 11:15 11:30 Temperature Pulse Rate 105 107 109 Respiratory 25 Rate Blood Pressure 82/49 108/43 (mmHg) O2 Sat by Pulse 99 99 100 Oximetry 08/03/19 08/03/1908/02/20 11:31 11:45 12:00 Temperature Pulse Rate 110 109 106 Respiratory 26 Rate Blood Pressure 105/65 105/52 (mmHg) O2 Sat by Pulse 99 100 99 Oximetry 08/03/19 08/03/19 08/03/19 12:15 12:30 12:45 Temperature Pulse Rate 103 101 102 Respiratory Rate Blood Pressure 106/35 (mmHg) O2 Sat by Pulse 100 99 99 Oximetry 08/03/19 08/03/19 08/03/19 13:00 13:01 13:15 Temperature Pulse Rate 105 107 108 Respiratory 25 Rate Blood Pressure 103/38 (mmHg) O2 Sat by Pulse 99 100 99 Oximetry 08/03/19 13:30 Temperature Pulse Rate 110 Respiratory Rate Blood Pressure (mmHg) O2 Sat by Pulse 99 Oximetry Intake and Output Last 24 Hours 08/01/19 08/02/19 08/03/19 08/04/19 05:59 06:59 06:59 06:59 Intake Total 2316 Output Total 713 197 Balance 1603 -197 Weight 125 lb 0.034 oz Intake: IV Fluids 1000 D5 D5W 1/4 NS LR 850 NS (0.45%) 150 IVPB ABX - VANCOMYCIN D5W 1/4 NS Meropenem TPN/PPN 1316 Oral 0 Output: NG Tube Drainage Amount 400 Urine 0 [place] 313 197 Other: Estimated Void # Bowel Movements 1 Estimated Stool Amount Large # Voids Vent: CMV 14/380/25%/+5 Infusions: PPN @ 108cc/hr Medications: Acetaminophen (Tylenol 650 Mg Supp) 650 mg MT Q6H PRN PRN Reason: MILD PAIN or TEMP > 100.4 Carbidopa/Levodopa (Carbidopa/Levodopa 25/100 Odt (Nf)) 1 tab PO 0600,0900, 1200 [facility] Last Admin: 08/03/19 11:45 Dose: 1 tab Carbidopa/Levodopa (Carbidopa/Levodopa 25/100 Odt (Nf)) 1 tab PO 1500,1800 [facility] Last Admin: 08/02/19 17:23 Dose: 1 tab Chlorhexidine Gluconate (Peridex Mouth Wash 0.12%*) 15 ml TOPICAL Q4H [facility] Last Admin: 08/03/19 10:57 Dose: 15 ml Dextrose (D50w Syringe 50 Ml*) 12.5 gm IV PUSH .FOR FS < 60 - SS PRN PRN Reason: FS < 60 Fentanyl Citrate (Fentanyl*) 25 mcg IV SLOW PU Q1H PRN PRN Reason: PAIN - SEVERE Last Admin: 08/02/19 19:59 Dose: 25 mcg Heparin Sodium (Porcine) (Heparin Vial(*)) 5,000 units SUBCUT Q8HR [facility] Meropenem (Merrem 1 Gm Premix(*)) 1 gm in 50 mls @ 100 mls/hr IV Q12H [facility]; Protocol Last Admin: 08/03/19 01:17 Dose: 100 mls/hr Dextrose 1,000 ml/ Amino Acids 850 ml/ Sterile Water 150 ml/Fat Emulsion Intravenous 500 ml/ Sodium Chloride 100 meq/Potassium Chloride 50 meq/Potassium Phosphate 15 mmole/Calcium Gluconate 15 meq/Magnesium Sulfate 10 meq/ Multivitamins 10 ml/ Trace Metals 1 ml/ Nutrition ( Parenteral) 2,600.721 mls @ 108.422 mls/hr IV 1700 [facility] Stop: 08/03/19 16:59 Last Admin: 08/02/19 16:43 Dose: 108.422 mls/hr Norepinephrine Bitartrate (Levophed 16 Mcg/Ml Premix*) 4,000 mcg in 250 mls @ 18.75 mls/hr IV .PER PROTOCOL [facility]; Protocol Last Admin: 08/03/19 04:32 Dose: 15 mls/hr Vancomycin HCl 500 mg/ Sodium (Chloride) 250 mls @ 166.667 mls/hr IVPB Q12H [facility] Dextrose 500 ml/ Amino Acids 850 ml/ Sterile Water 150 ml/Fat Emulsion Intravenous 250 ml/ Sodium Chloride 50 meq/Potassium Chloride 40 meq/Potassium Phosphate 15 mmole/Calcium Gluconate 15 meq/Magnesium Sulfate 10 meq/ Multivitamins 10 ml/ Trace Metals 1 ml/ Sodium Acetate 50 meq/ Nutrition ( Parenteral) 1,858.221 mls @ 77.426 mls/hr CENTR 1700 [facility]; Protocol Insulin Human Lispro (Humalog*) 0 units SUBCUT FS Q4 ICU [facility]; Protocol Last Admin: 08/03/19 11:43 Dose: 2 units Levothyroxine Sodium (Synthroid Inj*) 25 mcg IV 0600 [facility] Last Admin: 08/03/19 05:41 Dose: 25 mcg Ondansetron HCl (Zofran Inj*) 4 mg IV Q4H PRN PRN Reason: NAUSEA/VOMITING Last Admin: 07/27/19 17:55 Dose: 4 mg Pantoprazole Sodium (Protonix Iv*) 40 mg IV Q24H [facility] Last Admin: 08/02/19 17:23 Dose: 40 mg Pharmacy Consult (Vancomycin Per Pharmacy*) 1 note FOLLOW UP .VANC PER PHARMACY [facility]; Protocol Pharmacy Profile Note (Vancomycin Trough Check) 1 note FOLLOW UP 1030 ONE Stop: 08/05/19 10:31 Physical Exam: Constitutional: obtunded but does open eyes to voice. Intubated. No distress, no diaphoresis Head: normocephalic, atraumatic Eyes: no pallor, no icterus ENT: moist mucous membranes Neck: soft, supple CVS: tachy, regular, no murmur Chest/Resp: bilateral air entry, diminished throughout, no rhales, no wheeze, no rhonchi, no acc muscle use Abdomen/GI: soft, nontender, nondistended, BS absent Ext/Msk: warm, pulses+, BLE edema 3+ Skin: intact, cool Neuro: obtunded but does open eyes to voice. She falls back to sleep quickly. She intermittently answers yes/no questions. She also intermittently follows some commands. Moving all extremities minimally Labs: Laboratory Results - last 24 hr 08/02/19 08/02/19 08/02/19 06:59 18:25 18:25 WBC 23.8 H RBC 2.90 L Hgb 11.7 L Hct 36 MCV 123 H MCH 40 H MCHC 33 RDW 14 Plt Count 288 MPV 9.7 Sodium 142 Potassium 4.7 Chloride 117 H Carbon Dioxide 24 Anion Gap 1 L BUN 59 H Creatinine 0.59 Est GFR ( Amer) 119.3 Est GFR (Non-Af Amer) 98.6 BUN/Creatinine Ratio 100.0 H Glucose 170 H POC Glucose (mg/dL) Lactic Acid Calcium 7.7 L Phosphorus Magnesium Urine Color Urine Appearance Urine pH Ur Specific [place] Urine Protein Urine Ketones Urine Blood Urine Nitrate Urine Bilirubin Urine Urobilinogen Ur Leukocyte Esterase Urine WBC (Auto) Urine RBC (Auto) Ur Squamous Epith Cells Urine Bacteria Hyaline Casts Urine Yeast Urine Glucose Vancomycin Trough Blood Type O Positive Antibody Screen Negative 08/02/19 08/02/19 08/02/19 18:25 22:49 23:29 WBC RBC Hgb Hct MCV MCH MCHC RDW Plt Count MPV Sodium Potassium Chloride Carbon Dioxide Anion Gap BUN Creatinine Est GFR ( Amer) Est GFR (Non-Af Amer) BUN/Creatinine Ratio Glucose POC Glucose (mg/dL) 195 H Lactic Acid 0.9 Calcium Phosphorus Magnesium Urine Color [place] Urine Appearance Cloudy Urine pH 6.0 Ur Specific [place] 1.019 Urine Protein 1+(30 mg/dl) A Urine Ketones Negative Urine Blood 2+ A Urine Nitrate Negative Urine Bilirubin Negative Urine Urobilinogen Negative Ur Leukocyte Esterase Trace A Urine WBC (Auto) 3+(>20/hpf) A Urine RBC (Auto) 3+(>10/hpf) A Ur Squamous Epith Cells Present A Urine Bacteria Absent Hyaline Casts Present A Urine Yeast Present A Urine Glucose 1+(50 mg/dl) A Vancomycin Trough Blood Type Antibody Screen 08/03/19 08/03/19 08/03/19 04:26 04:26 08:02 WBC 30.9 H RBC 2.77 L Hgb 11.7 L Hct 34 L MCV 123 H MCH 42 H MCHC 34 RDW 14 Plt Count 294 MPV 10.7 H Sodium 140 Potassium 5.3 H Chloride 115 H Carbon Dioxide 20 L Anion Gap 5 BUN 71 H Creatinine 0.74 Est GFR ( Amer) 91.8 Est GFR (Non-Af Amer) 75.9 BUN/Creatinine Ratio 95.9 H Glucose 192 H POC Glucose (mg/dL) 234 H Lactic Acid Calcium 7.6 L Phosphorus 3.4 Magnesium 1.9 Urine Color Urine Appearance Urine pH Ur Specific [place] Urine Protein Urine Ketones Urine Blood Urine Nitrate Urine Bilirubin Urine Urobilinogen Ur Leukocyte Esterase Urine WBC (Auto) Urine RBC (Auto) Ur Squamous Epith Cells Urine Bacteria Hyaline Casts Urine Yeast Urine Glucose Vancomycin Trough Blood Type Antibody Screen 08/03/19 08/03/19 09:43 11:30 WBC RBC Hgb Hct MCV MCH MCHC RDW Plt Count MPV Sodium Potassium Chloride Carbon Dioxide Anion Gap BUN Creatinine Est GFR ( Amer) Est GFR (Non-Af Amer) BUN/Creatinine Ratio Glucose POC Glucose (mg/dL) 239 H Lactic Acid Calcium Phosphorus Magnesium Urine Color Urine Appearance Urine pH Ur Specific [place] Urine Protein Urine Ketones Urine Blood Urine Nitrate Urine Bilirubin Urine Urobilinogen Ur Leukocyte Esterase Urine WBC (Auto) Urine RBC (Auto) Ur Squamous Epith Cells Urine Bacteria Hyaline Casts Urine Yeast Urine Glucose Vancomycin Trough 8.6 Blood Type Antibody Screen Imaging: see emr Assessment: 79F who initially presented with AMS, dehydration, found to have Klebsiella UTI and SBO. Attempted to treat medically. However, overnight on , spiking low grade fevers, increased WBCs, and tachycardia so decision was made to bring to OR. Surgery was aborted early d/t hemodynamic instability. Admitted to ICU intubated. Plan: Neuro- - Obtunded: likely d/t sepsis. Does open eyes and track, follows some commands. - Parkinson's: chronic. continue home medications -Delirium prec; avoid BDZ CVS- - Hypotension: Improving. Pressors are off - Maintain MAP>65 Resp- - Intubated for OR and kept intubated postop. Keep intubated until tomorrow, since she will be going back to the OR on Saturday -Wean Fio2 to keep sat>92% -Bronchodilators PRN, Aspiration prec, Pulmonary Toilet -VAP bundle ID- - Klebsiella UTI: actively being treated - Sepsis likely d/t bowel ischemia: continue meropenum and vancomycin. Continue hemodynamic support - Goal temp<101 - Lactate negative GI- -Nutrition: NPO, continue TPN now that there is a central line -GI prophylaxis PPI - NG to LIWS Renal- - Has minimal UOP, responsive to 500cc bolus. However, likely adequate for her weight and do not want to fluid overload her. Continue to monitor UOP. -strict I/O, replete to keep K>4, Mg>2 - Continue castellon Heme- - No active issues - Has Von Willebrand's disease. Was given DDAVP and cryo prior to OR - Will start subq heparin and discontinue before surgery Endo- Maintain BG<200, insulin protocol Musculsk- pressure ulcer prophylaxis and treatment. Bedrest. Wounds- has multiple pressure ulcers on her backside being treated Nutrition- NPO, PPI DVT prophylaxis: subq heparin GI prophylaxis:PPI Central Line: LIJ Arterial Line: removed Castellon Catheter: continue Disposition: Patient requires Critical Care/ICU for sepsis, ventilator support Patient Clinical Status: stable Code Status: full Total Critical Care time is 30 minutes <Toño Villarreal - Last Filed: 08/03/19 17:45> Progress Note - Progress Note Note: 79y F w/pmhx of vonWillebrand disease, Parkinsons disease, Hypothyroidism; admitted 07/26 for septic shock, suspected to be from klebsiella UTI. She was also noted to have a SBO. On the medical floors on 07/29 still with low grade temp and possible small left lower lobe pneumonia. A CT abd/pelvis 07/29 demonstrated a small bowel obstruction, new mild right hydronephrosis. The patient had ongoing abdominal tenderness/pain and so a surgical consult was obtained and decision to take patient to OR 08/01 for an ex-lap with findings of necrotic small bowel near IC valve , resection done but closed ends, abdomen closed due to hemodynamic instability, brought to ICU intubated, on pressors. Made Full code status. -Severe Sepsis with Shock -Small bowel obstruction -Ischemic Bowel s/p resection (ex-lap 08/01, SB resection with closed ends) -Possible Left lower lobe pneumonia -Intubated post op -VIVIANA -Right Hydronephrosis -E.coli UTI Parkinsons disease vonWillebrand disease Patient intubated. off pressors this morning. low grade temps thi smorning but afebrile now. she is slow to wake, opens eyes but doesnt respond to commands, not on sedation this morning. making urine 30+cc/hr. on PPN infusion, will place order for TPN for now. plan is for OR tomorrow for second look and for possible end-end anastamosis or even ileostomy. cont current management. agree with plan of [facility].
[2019-08-03] MEDS: Heparin VIAL(*) 5000 UNITS/ML VIAL (FIVE THOUSAND) SUBCUT SCH ×2 (14:09→22:52)
[2019-08-03] MEDS: TPN CENTRAL STANDARD BASE A CENTR SCH ×13 (16:39)
[2019-08-03 17:04] LABS: BUN/Creatinine Ratio 104.1 (8-20); EGFR African American 91.8 (>60); EGFR Non-African American 75.9 (>60)
[2019-08-03 17:06] LABS: Potassium 5.3 mmol/L (3.5-5.0)
[2019-08-03] MEDS: Pantoprazole IV* 40 MG IV SCH (18:00)
[2019-08-03] MEDS: Vancomycin(*) 500 MG in NS 0.9% 250 ML* 250 ML IVPB SCH (22:52)
[2019-08-04] MEDS: Insulin LISPRO* 1 UNITS UNIT SUBCUT SCH ×6 (00:06→21:18)
[2019-08-04] MEDS: fentaNYL* 50 MCG/ML 2 ML VIAL (100 MCG VIAL) IV SLOW PU PRN ×2 (00:12→22:52)
[2019-08-04] MEDS: Meropenem 1 GM PREMIX(*) 1 GM/50 ML BAG IV SCH ×2 (01:54→12:34)
[2019-08-04] MEDS: CHLORHEXADINE (PERIDEX) VENT ORAL CARE TOPICAL SCH ×6 (01:55→21:18)
[2019-08-04] MEDS: Levothyroxine INJ* 100 MCG/5 ML VIAL IV SCH (05:41)
[2019-08-04] MEDS: CMC:Carbidopa/Levodopa ODT (NF) 25/100 ODT PO SCH ×5 (05:45→18:15)
[2019-08-04 06:25] LABS: Hematocrit 26 % (35-47); Hemoglobin 8.5 g/dL (12.0-16.0); Mean Corpuscular HGB Conc 33 g/dL (31-36); Mean Corpuscular Hemoglobin 41 pg (27-31); Mean Corpuscular Volume 122 fL (80-97); Mean Platelet Volume 10.5 fL (7.4-10.4); Platelet Count 238 10^3/uL (150-450); Red Blood Count 2.09 10^6 /uL (3.70-4.87); Red Cell Distribution Width 14 % (10-15); White Blood Count 19.5 10^3/uL (3.5-10.8)
[2019-08-04] MEDS: Heparin VIAL(*) 5000 UNITS/ML VIAL (FIVE THOUSAND) SUBCUT SCH (06:29)
[2019-08-04 06:31] LABS: BUN/Creatinine Ratio 121.5 (8-20); Calcium 7.8 mg/dL (8.6-10.3); EGFR African American 106.7 (>60); EGFR Non-African American 88.2 (>60); Potassium 4.8 mmol/L (3.5-5.0)
--- NOTE | 2019-08-04 10:13 | PN ---
Progress Note - Progress Note Date of Service: 08/04/19 Note: Hemodynamically stable overnight off pressors. Afebrile. Intubated. Temp Pulse Resp BP Pulse Ox 97.8 F 88 26 135/51 99 08/04/19 07:54 08/04/19 10:00 08/04/19 09:57 08/04/19 10:00 08/04/19 10:00 Intake & Output 08/03/19 08/04/19 08/04/19 22:59 06:59 14:59 Intake Total 331 693 0 Output Total 1145 1115 275 Balance -814 -422 -275 Weight 127 lb 13.89 oz Intake: IV Fluids 100 Meropenem 100 TPN/PPN 231 693 Oral 0 0 0 NG Tube Irrigate Amount 0 Output: NG Tube Drainage Amount 800 300 [place] 345 615 275 Emesis 200 0 Other: # Bowel Movements 1 Estimated Stool Amount Large General: NAD. Intubated. CV: RRR Resp: coarse breath sounds. FiO2 25% Abd: soft, distended. Dressing with small amount of serosanguinous fluid. Neuro: Opens eyes to command Laboratory Results - last 24 hr 08/03/19 08/03/19 08/03/19 08:02 09:43 11:30 WBC RBC Hgb Hct MCV MCH MCHC RDW Plt Count MPV Sodium Potassium Chloride Carbon Dioxide Anion Gap BUN Creatinine Est GFR ( Amer) Est GFR (Non-Af Amer) BUN/Creatinine Ratio Glucose POC Glucose (mg/dL) 234 H 239 H Calcium Vancomycin Trough 8.6 08/03/19 08/03/19 08/03/19 16:15 16:25 21:07 WBC RBC Hgb Hct MCV MCH MCHC RDW Plt Count MPV Sodium 139 Potassium 5.3 H Chloride 115 H Carbon Dioxide 22 Anion Gap 2 BUN 77 H Creatinine 0.74 Est GFR ( Amer) 91.8 Est GFR (Non-Af Amer) 75.9 BUN/Creatinine Ratio 104.1 H Glucose 183 H POC Glucose (mg/dL) 222 H 280 H Calcium 8.0 L Vancomycin Trough 08/03/19 08/04/19 08/04/19 23:54 03:05 05:50 WBC RBC Hgb Hct MCV MCH MCHC RDW Plt Count MPV Sodium 142 Potassium 4.8 Chloride 116 H Carbon Dioxide 23 Anion Gap 3 BUN 79 H Creatinine 0.65 Est GFR ( Amer) 106.7 Est GFR (Non-Af Amer) 88.2 BUN/Creatinine Ratio 121.5 H Glucose 172 H POC Glucose (mg/dL) 256 H 220 H Calcium 7.8 L Vancomycin Trough 08/04/19 08/04/19 05:50 08:33 WBC 19.5 H RBC 2.09 L Hgb 8.5 L Hct 26 L MCV 122 H MCH 41 H MCHC 33 RDW 14 Plt Count 238 MPV 10.5 H Sodium Potassium Chloride Carbon Dioxide Anion Gap BUN Creatinine Est GFR ( Amer) Est GFR (Non-Af Amer) BUN/Creatinine Ratio Glucose POC Glucose (mg/dL) 233 H Calcium Vancomycin Trough 79F with SBO and ischemic bowel s/p ex lap and small bowel resection POD2, left in discontinuity due to hemodynamical instability. -OR today for washout, creation of anastomosis, possible bowel resection, possible ostomy. Will obtain consent from (was not at bedside yet this morning) -Continue TPN -Continue meropenem
[2019-08-04] MEDS: Vancomycin(*) 500 MG in NS 0.9% 250 ML* 250 ML IVPB SCH ×2 (10:51→23:35)
[2019-08-04] MEDS ORDERED: Rocuronium* 10 MG/ML VIAL ONE (13:12)
[2019-08-04] MEDS ORDERED: KETAMINE HCL* 50 MG/ML 10 ML VIAL ONE (13:13)
[2019-08-04] MEDS ORDERED: fentaNYL* 50 MCG/ML 5 ML VIAL (250 MCG VIAL) ONE (13:13)
[2019-08-04] MEDS ORDERED: Midazolam* 1 MG/ML 10 ML VIAL (10 MG) ONE (13:13)
[2019-08-04] MEDS ORDERED: DESMOPRESSIN ACETATE IVPB ONE (14:00)
[2019-08-04] MEDS ORDERED: NS 0.9% IVPB ONE (14:00)
--- NOTE | 2019-08-04 15:51 | BRIEFOPN ---
Brief Operative/Procedure Note - Operation Details Pre-Op Diagnosis: Ischemic bowel due to SBO Post-Op Diagnosis: Same Procedures: Opening of recent laparotomy, abdominal washout, ileocolonic anastomosis Surgeon(s)/Proceduralists: Elizabeth Delacruz MD. Treating Machine Operator: Shiarz Penny MD Anesthesia: General. Dr Payne Estimated Blood Loss: Minimal Findings: Necrotic patches at ileum end. Flimsy adhesions between loops of bowel. Patent anastomosis between ileum and colon. Specimen(s)/Culture(s) Description: Ileum Complications: None. 200 ml NS, 800 ml LR, 1 cryo, 15 mcg DDAVP. No drains. Remained intubated on norepinephrine, brought to ICU
--- NOTE | 2019-08-04 15:52 | PN ---
<Mandy Silva - Last Filed: 08/04/19 15:41> Progress Note - Progress Note Date of Service: 08/04/19 Note: Progress Note -- Critical Care 24 hour events/significant events: - BP remains stable - No changes overnight ROS: ROS unable to be obtained secondary to intubated/obtunded Tele: nsr Vitals: Vital Signs 08/03/19 08/03/19 08/03/19 15:43 15:45 16:00 Temperature 98.0 F Pulse Rate 105 107 Respiratory 26 Rate Blood Pressure 112/60 (mmHg) O2 Sat by Pulse 100 100 Oximetry 08/03/19 08/03/19 08/03/19 16:15 16:30 16:31 Temperature Pulse Rate 108 108 111 Respiratory Rate Blood Pressure 149/64 (mmHg) O2 Sat by Pulse 100 100 100 Oximetry 08/03/19 08/03/19 08/03/19 16:45 17:00 17:15 Temperature Pulse Rate 111 109 106 Respiratory 26 Rate Blood Pressure 122/51 (mmHg) O2 Sat by Pulse 99 100 100 Oximetry 08/03/19 08/03/19 08/03/19 17:30 17:45 18:00 Temperature Pulse Rate 100 104 103 Respiratory 29 Rate Blood Pressure 119/51 142/41 (mmHg) O2 Sat by Pulse 99 99 99 Oximetry 08/03/19 08/03/19 08/03/19 18:15 18:30 18:45 Temperature Pulse Rate 107 104 106 Respiratory Rate Blood Pressure (mmHg) O2 Sat by Pulse 100 100 99 Oximetry 08/03/19 08/03/19 08/03/19 19:00 19:15 19:30 Temperature Pulse Rate 102 104 102 Respiratory 27 Rate Blood Pressure 128/53 (mmHg) O2 Sat by Pulse 100 100 100 Oximetry 08/03/19 08/03/19 08/03/19 19:36 19:45 20:00 Temperature 98.1 F Pulse Rate 107 102 Respiratory 28 Rate Blood Pressure 128/62 (mmHg) O2 Sat by Pulse 100 100 Oximetry 08/03/19 08/03/19 08/03/19 20:15 20:30 20:45 Temperature Pulse Rate 102 105 104 Respiratory Rate Blood Pressure (mmHg) O2 Sat by Pulse 100 99 100 Oximetry 08/03/19 08/03/19 08/03/19 21:00 21:15 21:30 Temperature Pulse Rate 104 101 103 Respiratory 26 Rate Blood Pressure 139/64 (mmHg) O2 Sat by Pulse 100 100 100 Oximetry 08/03/19 08/03/19 08/03/19 21:45 22:00 22:15 Temperature Pulse Rate 101 100 105 Respiratory 25 Rate Blood Pressure 119/53 (mmHg) O2 Sat by Pulse 100 100 100 Oximetry 08/03/19 08/03/19 08/03/19 22:30 22:45 23:00 Temperature Pulse Rate 104 110 114 Respiratory 25 Rate Blood Pressure (mmHg) O2 Sat by Pulse 100 100 100 Oximetry 08/03/19 08/03/19 08/03/19 23:01 23:15 23:30 Temperature Pulse Rate 113 108 106 Respiratory Rate Blood Pressure 148/65 (mmHg) O2 Sat by Pulse 99 100 100 Oximetry 08/03/19 08/03/19 08/03/19 23:45 23:48 23:56 Temperature 98.4 F Pulse Rate 108 Respiratory 22 Rate Blood Pressure (mmHg) O2 Sat by Pulse 100 Oximetry 08/04/19 08/04/19 08/04/19 00:00 00:02 00:12 Temperature Pulse Rate 108 107 Respiratory 26 Rate Blood Pressure 134/79 (mmHg) O2 Sat by Pulse 100 100 Oximetry 08/04/19 08/04/19 08/04/19 00:15 00:30 00:45 Temperature Pulse Rate 102 96 94 Respiratory Rate Blood Pressure (mmHg) O2 Sat by Pulse 100 100 99 Oximetry 08/04/19 08/04/19 08/04/19 01:00 01:15 01:30 Temperature Pulse Rate 94 93 96 Respiratory 24 Rate Blood Pressure 115/50 (mmHg) O2 Sat by Pulse 100 99 100 Oximetry 08/04/19 08/04/19 08/04/19 01:45 01:55 02:00 Temperature Pulse Rate 98 95 Respiratory 24 Rate Blood Pressure 124/50 (mmHg) O2 Sat by Pulse 100 100 Oximetry 08/04/19 08/04/19 08/04/19 02:15 02:30 02:45 Temperature Pulse Rate 97 96 96 Respiratory Rate Blood Pressure (mmHg) O2 Sat by Pulse 100 100 99 Oximetry 08/04/19 08/04/19 08/04/19 03:00 03:15 03:30 Temperature Pulse Rate 99 97 98 Respiratory 24 Rate Blood Pressure 105/54 (mmHg) O2 Sat by Pulse 99 100 100 Oximetry 08/04/19 08/04/19 08/04/19 03:45 04:00 04:15 Temperature 98.4 F Pulse Rate 98 96 95 Respiratory 26 Rate Blood Pressure 119/50 (mmHg) O2 Sat by Pulse 100 100 100 Oximetry 08/04/19 08/04/19 08/04/19 04:30 04:45 05:00 Temperature Pulse Rate 98 97 92 Respiratory 24 Rate Blood Pressure 119/53 (mmHg) O2 Sat by Pulse 99 99 100 Oximetry 08/04/19 08/04/19 08/04/19 05:15 05:30 05:45 Temperature Pulse Rate 91 90 90 Respiratory Rate Blood Pressure (mmHg) O2 Sat by Pulse 100 100 100 Oximetry 08/04/19 08/04/19 08/04/19 05:54 06:00 06:15 Temperature Pulse Rate 95 89 Respiratory 19 Rate Blood Pressure 135/51 (mmHg) O2 Sat by Pulse 99 100 Oximetry 08/04/19 08/04/19 08/04/19 06:30 06:45 07:00 Temperature Pulse Rate 87 87 87 Respiratory 21 Rate Blood Pressure 120/48 (mmHg) O2 Sat by Pulse 100 99 99 Oximetry 08/04/19 08/04/19 08/04/19 07:15 07:30 07:45 Temperature Pulse Rate 92 92 95 Respiratory Rate Blood Pressure (mmHg) O2 Sat by Pulse 99 100 100 Oximetry 08/04/19 08/04/19 08/04/19 07:48 07:54 08:00 Temperature 97.8 F Pulse Rate 94 Respiratory 20 Rate Blood Pressure 112/48 (mmHg) O2 Sat by Pulse 100 Oximetry 08/04/19 08/04/19 08/04/19 08:15 08:30 08:45 Temperature Pulse Rate 88 89 90 Respiratory Rate Blood Pressure (mmHg) O2 Sat by Pulse 99 100 99 Oximetry 08/04/19 08/04/19 08/04/19 09:00 09:15 09:30 Temperature Pulse Rate 87 88 90 Respiratory 26 Rate Blood Pressure 116/48 (mmHg) O2 Sat by Pulse 99 99 100 Oximetry 08/04/19 08/04/19 08/04/19 09:45 09:57 10:00 Temperature Pulse Rate 87 88 Respiratory 26 Rate Blood Pressure 135/51 (mmHg) O2 Sat by Pulse 100 99 Oximetry 08/04/19 08/04/19 08/04/19 10:15 10:30 10:45 Temperature Pulse Rate 88 89 86 Respiratory Rate Blood Pressure (mmHg) O2 Sat by Pulse 99 100 100 Oximetry 08/04/19 08/04/19 08/04/19 11:00 11:01 11:15 Temperature Pulse Rate 92 92 85 Respiratory Rate Blood Pressure 154/59 (mmHg) O2 Sat by Pulse 100 100 100 Oximetry 08/04/19 08/04/19 08/04/19 11:30 11:39 11:45 Temperature 99.5 F Pulse Rate 88 92 Respiratory Rate Blood Pressure (mmHg) O2 Sat by Pulse 100 100 Oximetry 08/04/19 08/04/19 08/04/19 11:57 12:00 12:15 Temperature Pulse Rate 88 88 Respiratory 26 Rate Blood Pressure (mmHg) O2 Sat by Pulse 100 100 Oximetry 08/04/19 08/04/19 08/04/19 12:30 12:45 13:00 Temperature Pulse Rate 91 93 88 Respiratory 26 Rate Blood Pressure 133/47 (mmHg) O2 Sat by Pulse 100 99 99 Oximetry 08/04/19 08/04/19 08/04/19 13:15 13:30 13:45 Temperature Pulse Rate 96 97 93 Respiratory Rate Blood Pressure (mmHg) O2 Sat by Pulse 100 100 100 Oximetry 08/04/19 14:00 Temperature Pulse Rate Respiratory 26 Rate Blood Pressure (mmHg) O2 Sat by Pulse Oximetry Intake and Output Last 24 Hours 08/02/19 08/03/19 08/04/19 08/05/19 06:59 06:59 06:59 06:59 Intake Total 2316 3188.5 966 Output Total 713 2501 640 Balance 1603 687.5 326 Weight 125 lb 0.034 oz 127 lb 13.89 oz Intake: IV Fluids 1000 931 350 ABX - VANCOMYCIN 250 D5W 1/4 NS LR 850 831 Meropenem 100 100 NS (0.45%) 150 IVPB 271 ABX - VANCOMYCIN 271 D5W 1/4 NS Medicated IV 31.5 CC - Norepinephrine/ 31.5 Levophed TPN/PPN 1316 1955 616 Oral 0 0 0 NG Tube Irrigate Amount 0 Output: NG Tube Drainage Amount 400 1100 Urine 0 Castell[place] 313 1201 640 Emesis 200 0 Other: Estimated Void # Bowel Movements 1 1 Estimated Stool Amount Large Large # Voids Vent: CMV 14/380/25%/+5 Infusions: TPN @ 77cc/hr Medications: Acetaminophen (Tylenol 650 Mg Supp) 650 mg AL Q6H PRN PRN Reason: MILD PAIN or TEMP > 100.4 Carbidopa/Levodopa (Carbidopa/Levodopa 25/100 Odt (Nf)) 1 tab PO 0600,0900, 1200 [facility] Last Admin: 08/04/19 11:40 Dose: 1 tab Carbidopa/Levodopa (Carbidopa/Levodopa 25/100 Odt (Nf)) 1 tab PO 1500,1800 [facility] Last Admin: 08/04/19 15:08 Dose: Not Given Chlorhexidine Gluconate (Peridex Mouth Wash 0.12%*) 15 ml TOPICAL Q4H [facility] Last Admin: 08/04/19 15:08 Dose: Not Given Dextrose (D50w Syringe 50 Ml*) 12.5 gm IV PUSH .FOR FS < 60 - SS PRN PRN Reason: FS < 60 Fentanyl Citrate (Fentanyl*) 25 mcg IV SLOW PU Q1H PRN PRN Reason: PAIN - SEVERE Last Admin: 08/04/19 00:12 Dose: 25 mcg Meropenem (Merrem 1 Gm Premix(*)) 1 gm in 50 mls @ 100 mls/hr IV Q12H [facility]; Protocol Last Admin: 08/04/19 12:34 Dose: 100 mls/hr Norepinephrine Bitartrate (Levophed 16 Mcg/Ml Premix*) 4,000 mcg in 250 mls @ 18.75 mls/hr IV .PER PROTOCOL CHRISTY; Protocol Last Admin: 08/03/19 04:32 Dose: 15 mls/hr Vancomycin HCl 500 mg/ Sodium (Chloride) 250 mls @ 166.667 mls/hr IVPB Q12H [facility] Last Admin: 08/04/19 10:51 Dose: 166.667 mls/hr Dextrose 500 ml/ Amino Acids 850 ml/ Sterile Water 150 ml/Fat Emulsion Intravenous 250 ml/ Sodium Chloride 50 meq/Potassium Chloride 40 meq/Potassium Phosphate 15 mmole/Calcium Gluconate 15 meq/Magnesium Sulfate 10 meq/ Multivitamins 10 ml/ Trace Metals 1 ml/ Sodium Acetate 50 meq/ Nutrition ( Parenteral) 1,858.221 mls @ 77.426 mls/hr CENTR 1700 [facility]; Protocol Last Admin: 08/03/19 16:39 Dose: 77.426 mls/hr Insulin Human Lispro (Humalog*) 0 units SUBCUT FS Q4 ICU [facility]; Protocol Last Admin: 08/04/19 11:48 Dose: 2 units Levothyroxine Sodium (Synthroid Inj*) 25 mcg IV 0600 [facility] Last Admin: 08/04/19 05:41 Dose: 25 mcg Ondansetron HCl (Zofran Inj*) 4 mg IV Q4H PRN PRN Reason: NAUSEA/VOMITING Last Admin: 07/27/19 17:55 Dose: 4 mg Pantoprazole Sodium (Protonix Iv*) 40 mg IV Q24H [facility] Last Admin: 08/03/19 18:00 Dose: 40 mg Pharmacy Consult (Vancomycin Per Pharmacy*) 1 note FOLLOW UP .VANC PER PHARMACY [facility]; Protocol Pharmacy Profile Note (Vancomycin Trough Check) 1 note FOLLOW UP 1030 ONE Stop: 08/05/19 10:31 Physical Exam: Constitutional: obtunded but does open eyes to voice. Intubated. No distress, no diaphoresis, frail appearing Head: normocephalic, atraumatic Eyes: no pallor, no icterus ENT: moist mucous membranes Neck: soft, supple CVS: regular, regular, no murmur Chest/Resp: bilateral air entry, diminished throughout, no rhales, no wheeze, no rhonchi, no acc muscle use Abdomen/GI: soft, nontender, nondistended, BS absent Ext/Msk: warm, pulses+, BUE 2+ edema, BLE 3+ edema Skin: intact, cool Neuro: obtunded but does open eyes to voice. She falls back to sleep quickly. She intermittently answers yes/no questions. She also intermittently follows some commands. Moving all extremities minimally Labs: Laboratory Results - last 24 hr 08/02/19 08/03/19 08/03/19 06:59 16:15 16:25 WBC RBC Hgb Hct MCV MCH MCHC RDW Plt Count MPV Sodium 139 Potassium 5.3 H Chloride 115 H Carbon Dioxide 22 Anion Gap 2 BUN 77 H Creatinine 0.74 Est GFR ( Amer) 91.8 Est GFR (Non-Af Amer) 75.9 BUN/Creatinine Ratio 104.1 H Glucose 183 H POC Glucose (mg/dL) 222 H Calcium 8.0 L Blood Type O Positive Antibody Screen Negative 08/03/19 08/03/19 08/04/19 21:07 23:54 03:05 WBC RBC Hgb Hct MCV MCH MCHC RDW Plt Count MPV Sodium Potassium Chloride Carbon Dioxide Anion Gap BUN Creatinine Est GFR ( Amer) Est GFR (Non-Af Amer) BUN/Creatinine Ratio Glucose POC Glucose (mg/dL) 280 H 256 H 220 H Calcium Blood Type Antibody Screen 08/04/19 08/04/19 08/04/19 05:50 05:50 08:33 WBC 19.5 H RBC 2.09 L Hgb 8.5 L Hct 26 L MCV 122 H MCH 41 H MCHC 33 RDW 14 Plt Count 238 MPV 10.5 H Sodium 142 Potassium 4.8 Chloride 116 H Carbon Dioxide 23 Anion Gap 3 BUN 79 H Creatinine 0.65 Est GFR ( Amer) 106.7 Est GFR (Non-Af Amer) 88.2 BUN/Creatinine Ratio 121.5 H Glucose 172 H POC Glucose (mg/dL) 233 H Calcium 7.8 L Blood Type Antibody Screen 08/04/19 11:39 WBC RBC Hgb Hct MCV MCH MCHC RDW Plt Count MPV Sodium Potassium Chloride Carbon Dioxide Anion Gap BUN Creatinine Est GFR ( Amer) Est GFR (Non-Af Amer) BUN/Creatinine Ratio Glucose POC Glucose (mg/dL) 223 H Calcium Blood Type Antibody Screen Imaging: Chest xray 08/01: Lines in place, trace pneumoperitoneum, small left pleural effusion Assessment: 79F who initially presented with AMS, dehydration, found to have Klebsiella UTI and SBO. Attempted to treat medically. However, overnight on , spiking low grade fevers, increased WBCs, and tachycardia so decision was made to bring to OR. Surgery was aborted early d/t hemodynamic instability. Admitted to ICU intubated. - Sepsis - UTI - SBO - Hypotension - Von willebrands - Ischemic bowel Plan: Neuro- - Obtunded: likely d/t sepsis. Does open eyes and track, follows some commands. - Parkinson's: chronic. continue home medications -Delirium prec; avoid BDZ CVS- - Hypotension: Resolved - Maintain MAP>65 Resp- - Intubated for OR and kept intubated postop. Keep intubated until tomorrow. -Wean Fio2 to keep sat>92% -Bronchodilators PRN, Aspiration prec, Pulmonary Toilet -VAP bundle ID- - Klebsiella UTI: actively being treated - Sepsis likely d/t bowel ischemia: continue meropenum and vancomycin. Went to OR today - Goal temp<101 - Lactate negative GI- -Nutrition: NPO, continue TPN now that there is a central line -GI prophylaxis PPI - NG to LIWS - SBO s/p bowel resection: taken back to OR on 08/03. Please see op note. Renal- - Has minimal UOP but adequate. -strict I/O, replete to keep K>4, Mg>2 - Continue castellon Heme- - No active issues - Has Von Willebrand's disease. Was given DDAVP and cryo prior to OR - Will restart subq heparin tomorrow Endo- Maintain BG<200, insulin protocol Musculsk- pressure ulcer prophylaxis and treatment. Bedrest. Wounds- has multiple pressure ulcers on her backside being treated Nutrition- NPO, PPI DVT prophylaxis: subq heparin on hold GI prophylaxis:PPI Central Line: LIJ Castellon Catheter: continue Disposition: Patient requires Critical Care/ICU for sepsis, ventilator support Patient Clinical Status: stable Code Status: full Total Critical Care time is 30 minutes <Toño Villarreal - Last Filed: 08/04/19 16:35> Progress Note - Progress Note Note: 79y F w/pmhx of vonWillebrand disease, Parkinsons disease, Hypothyroidism; admitted 07/26 for septic shock, suspected to be from klebsiella UTI. She was also noted to have a SBO. On the medical floors on 07/29 still with low grade temp and possible small left lower lobe pneumonia. A CT abd/pelvis 07/29 demonstrated a small bowel obstruction, new mild right hydronephrosis. The patient had ongoing abdominal tenderness/pain and so a surgical consult was obtained and decision to take patient to OR 08/01 for an ex-lap with findings of necrotic small bowel near IC valve , resection done but closed ends, abdomen closed due to hemodynamic instability, brought to ICU intubated, on pressors. Made Full code status. Assessment -Severe Sepsis with Shock -Small bowel obstruction -Ischemic Bowel s/p resection (ex-lap 08/01, SB resection with closed ends; 08/03 ex-lap with reanastamosis) -Possible Left lower lobe pneumonia -Intubated post op -VIVIANA -Right Hydronephrosis -E.coli UTI Parkinsons disease vonWillebrand disease Plan - TOday intubated, no distress. no overnight events noted. BP stable, HR stable. afebrile. plan for OR for ex-lap and reanastaomosis given ddavp adn cryo before going to OR for vonwillebrand patient returned from OR, had adb washout, some necrotic patches in ileum, reanastamosis completed. patient stable in ICU. cont Merrem for sepsis, abdominal source. (day#2) wbc downtrending, making urine; K okay, Cr normal. some positive balance noted. Remain intubated today. plan for CPAP tomorrow. cont TPN for nutrition till GI track more function. agree with plan from [facility].
[2019-08-04] MEDS: Norepinephrine 16MCG/ML IVPRE* 4,000 MCG/250 ML BAG IV SCH (15:58)
[2019-08-04] MEDS: TPN CENTRAL STANDARD BASE A CENTR SCH ×13 (15:58)
[2019-08-04] MEDS: Pantoprazole IV* 40 MG IV SCH (18:13)
[2019-08-05] MEDS: Insulin LISPRO* 1 UNITS UNIT SUBCUT SCH ×6 (00:50→20:33)
[2019-08-05] MEDS: Meropenem 1 GM PREMIX(*) 1 GM/50 ML BAG IV SCH ×2 (01:29→13:03)
[2019-08-05] MEDS: CHLORHEXADINE (PERIDEX) VENT ORAL CARE TOPICAL SCH ×5 (02:24→18:30)
[2019-08-05] MEDS: Levothyroxine INJ* 100 MCG/5 ML VIAL IV SCH (05:09)
[2019-08-05] MEDS: CMC:Carbidopa/Levodopa ODT (NF) 25/100 ODT PO SCH ×5 (05:09→20:33)
[2019-08-05 05:39] LABS: Hematocrit 27 % (35-47); Hemoglobin 8.9 g/dL (12.0-16.0); Mean Corpuscular HGB Conc 33 g/dL (31-36); Mean Corpuscular Hemoglobin 40 pg (27-31); Mean Corpuscular Volume 122 fL (80-97); Mean Platelet Volume 10.3 fL (7.4-10.4); Platelet Count 309 10^3/uL (150-450); Red Blood Count 2.22 10^6 /uL (3.70-4.87); Red Cell Distribution Width 14 % (10-15); White Blood Count 23.3 10^3/uL (3.5-10.8)
[2019-08-05 05:53] LABS: BUN/Creatinine Ratio 120.4 (8-20); EGFR African American 132.1 (>60); EGFR Non-African American 109.2 (>60)
--- NOTE | 2019-08-05 10:29 | PN ---
Progress Note - Progress Note Date of Service: 08/05/19 Note: No acute events overnight. Weaned off levophed last night. Patient is intubated , on spontaneous breathing trial this morning. Possible extubation today. Afebrile. Temp Pulse Resp BP Pulse Ox 98.8 F 87 25 140/45 99 08/05/19 07:47 08/05/19 07:30 08/05/19 05:53 08/04/19 16:08 08/05/19 07:30 Intake & Output 08/04/19 08/05/19 08/05/19 22:59 06:59 14:59 Intake Total 268.5 966 Output Total 540 960 110 Balance -271.5 6 -110 Weight 124 lb 12.506 oz Intake: IVPB 350 ABX - VANCOMYCIN 250 Meropenem 100 Medicated IV 37.5 CC - Norepinephrine/ 37.5 Levophed TPN/PPN 231 616 Oral 0 0 Output: NG Tube Drainage Amount 300 [place] 540 660 110 General: NAD. Intubated. NG tube with bile draining. Abdomen: Mildly distended, soft. Dressing clean and dry. Laboratory Results - last 24 hr 08/02/19 08/04/19 08/04/19 06:59 11:39 16:18 WBC RBC Hgb Hct MCV MCH MCHC RDW Plt Count MPV Sodium Potassium Chloride Carbon Dioxide Anion Gap BUN Creatinine Est GFR ( Amer) Est GFR (Non-Af Amer) BUN/Creatinine Ratio Glucose POC Glucose (mg/dL) 223 H 139 H Calcium Blood Type O Positive Antibody Screen Negative 08/04/19 08/05/19 08/05/19 21:13 00:27 05:19 WBC RBC Hgb Hct MCV MCH MCHC RDW Plt Count MPV Sodium 143 Potassium 5.0 Chloride 118 H Carbon Dioxide 23 Anion Gap 2 BUN 65 H Creatinine 0.54 Est GFR ( Amer) 132.1 Est GFR (Non-Af Amer) 109.2 BUN/Creatinine Ratio 120.4 H Glucose 194 H POC Glucose (mg/dL) 243 H 107 H Calcium 8.0 L Blood Type Antibody Screen 08/05/19 08/05/19 05:19 07:54 WBC 23.3 H RBC 2.22 L Hgb 8.9 L Hct 27 L MCV 122 H MCH 40 H MCHC 33 RDW 14 Plt Count 309 MPV 10.3 Sodium Potassium Chloride Carbon Dioxide Anion Gap BUN Creatinine Est GFR ( Amer) Est GFR (Non-Af Amer) BUN/Creatinine Ratio Glucose POC Glucose (mg/dL) 256 H Calcium Blood Type Antibody Screen A&P 79F with ischemic bowel due to closed loop obstruction, s/p ex lap, KEVIN, SB and cecum resection POD 3, s/p washout, ileocolonic anastomosis POD 1. -Continue antibiotics -NPO. NG to low continuous suction. Will monitor output. When output decreases and fluid is less bilious, will try clamping. -Continue TPN -Dry dressing over incision. Change as needed when soiled/saturated. -Appreciate ICU team input and vent management.
[2019-08-05] MEDS ORDERED: Vancomycin Trough Check NOTE FOLLOW UP ONE (10:30)
[2019-08-05] MEDS ORDERED: Insulin GLARGINE(*) 1 UNITS UNIT SUBCUT SCH (12:00)
[2019-08-05] MEDS: Vancomycin(*) 500 MG in NS 0.9% 250 ML* 250 ML IVPB SCH ×2 (13:03→22:01)
[2019-08-05] MEDS: Heparin VIAL(*) 5000 UNITS/ML VIAL (FIVE THOUSAND) SUBCUT SCH ×2 (13:04→21:47)
--- NOTE | 2019-08-05 14:19 | PN ---
<She Mcdaniel - Last Filed: 08/05/19 14:13> Date of Service: 08/05/19 Critical Care Services: Patient went off levophed 930pm last night. BP has been stable since. She was opening her eyes but drowsy this morning, she was unable to hold her head up well, probably due to deconditioning as well as parkinson. She was on CPAP overnight while intubated, tolerating well. Extubated around 12pm, ABG 7.39/30/157, saturating well on InO2 2L Vital Signs: Temp Pulse Resp BP SpO2 FiO2 98.4 F 85 22 140/45 100 25 08/05/19 12:00 08/05/19 13:30 08/05/19 13:30 08/04/19 16:08 08/05/19 13:30 08/04 07:46 Physical Exam: Constitutional: obtunded but does open eyes to voice. No distress, no diaphoresis, frail appearing Head: normocephalic, atraumatic Eyes: no pallor, no icterus ENT: moist mucous membranes Neck: soft, supple CVS: regular, regular, no murmur Chest/Resp: bilateral air entry, diminished throughout, no rhales, no wheeze, no rhonchi, no acc muscle use Abdomen/GI: soft, nontender, nondistended, BS absent Ext/Msk: warm, pulses+, BUE 2+ edema, BLE 3+ edema Skin: intact, cool Neuro: obtunded but does open eyes to voice. She falls back to sleep quickly. No verbal output today Line: right IJ central line, castellon in situ. Fluid Balance (Past 24 Hours): I= O= Net Intake & Output 08/03/19 08/04/19 08/05/19 08/06/19 06:59 06:59 06:59 06:59 Intake Total 2316 3188.5 2200.5 Output Total 713 2501 2140 460 Balance 1603 687.5 60.5 -460 Weight 56.7 kg 58 kg 56.6 kg Intake: IV Fluids 1000 931 350 ABX - VANCOMYCIN 250 LR 850 831 Meropenem 100 100 NS (0.45%) 150 IVPB 271 350 ABX - VANCOMYCIN 271 250 Meropenem 100 Medicated IV 31.5 37.5 CC - Norepinephrine/ 31.5 37.5 Levophed TPN/PPN 1316 1955 1463 Oral 0 0 0 NG Tube Irrigate Amount 0 Output: NG Tube Drainage Amount 400 1100 300 Urine 0 Castellon 313 1201 1840 460 Emesis 200 0 Other: # Bowel Movements 1 1 Estimated Stool Amount Large Large Labs: Laboratory Results - last 24 hr 08/02/19 08/04/19 08/04/19 06:59 16:18 21:13 WBC RBC Hgb Hct MCV MCH MCHC RDW Plt Count MPV Patient Temperature ABG pH ABG pH (Temp Correct) ABG pCO2 ABG pCO2 (Temp Corrct ABG pO2 ABG pO2 (Temp Correct ABG HCO3 ABG O2 Saturation ABG Base Excess Respiration Rate Ventilator Type Vent Mode FiO2 Inspiratory Time PEEP Pressure Support Pressure Control EPAP IPAP BiPAP Sodium Potassium Chloride Carbon Dioxide Anion Gap BUN Creatinine Est GFR ( Amer) Est GFR (Non-Af Amer) BUN/Creatinine Ratio Glucose POC Glucose (mg/dL) 139 H 243 H Calcium Vancomycin Trough Blood Type O Positive Antibody Screen Negative 08/05/19 08/05/19 08/05/19 00:27 05:19 05:19 WBC 23.3 H RBC 2.22 L Hgb 8.9 L Hct 27 L MCV 122 H MCH 40 H MCHC 33 RDW 14 Plt Count 309 MPV 10.3 Patient Temperature ABG pH ABG pH (Temp Correct) ABG pCO2 ABG pCO2 (Temp Corrct ABG pO2 ABG pO2 (Temp Correct ABG HCO3 ABG O2 Saturation ABG Base Excess Respiration Rate Ventilator Type Vent Mode FiO2 Inspiratory Time PEEP Pressure Support Pressure Control EPAP IPAP BiPAP Sodium 143 Potassium 5.0 Chloride 118 H Carbon Dioxide 23 Anion Gap 2 BUN 65 H Creatinine 0.54 Est GFR ( Amer) 132.1 Est GFR (Non-Af Amer) 109.2 BUN/Creatinine Ratio 120.4 H Glucose 194 H POC Glucose (mg/dL) 107 H Calcium 8.0 L Vancomycin Trough Blood Type Antibody Screen 08/05/19 08/05/19 08/05/19 07:54 11:16 11:16 WBC RBC Hgb Hct MCV MCH MCHC RDW Plt Count MPV Patient Temperature Not Reportable ABG pH 7.39 ABG pH (Temp Correct) Not Reportable ABG pCO2 30 L ABG pCO2 (Temp Corrct Not Reportable ABG pO2 157 H ABG pO2 (Temp Correct Not Reportable ABG HCO3 20.6 ABG O2 Saturation 100.0 H ABG Base Excess -5.6 L Respiration Rate Not Reportable Ventilator Type Not Reportable Vent Mode Not Reportable FiO2 25 Inspiratory Time Not Reportable PEEP Not Reportable Pressure Support Not Reportable Pressure Control Not Reportable EPAP Not Reportable IPAP Not Reportable BiPAP Not Reportable Sodium Potassium Chloride Carbon Dioxide Anion Gap BUN Creatinine Est GFR ( Amer) Est GFR (Non-Af Amer) BUN/Creatinine Ratio Glucose POC Glucose (mg/dL) 256 H Calcium Vancomycin Trough 12.5 Blood Type Antibody Screen 08/05/19 12:51 WBC RBC Hgb Hct MCV MCH MCHC RDW Plt Count MPV Patient Temperature ABG pH ABG pH (Temp Correct) ABG pCO2 ABG pCO2 (Temp Corrct ABG pO2 ABG pO2 (Temp Correct ABG HCO3 ABG O2 Saturation ABG Base Excess Respiration Rate Ventilator Type Vent Mode FiO2 Inspiratory Time PEEP Pressure Support Pressure Control EPAP IPAP BiPAP Sodium Potassium Chloride Carbon Dioxide Anion Gap BUN Creatinine Est GFR ( Amer) Est GFR (Non-Af Amer) BUN/Creatinine Ratio Glucose POC Glucose (mg/dL) 261 H Calcium Vancomycin Trough Blood Type Antibody Screen Studies: CXR: left basilar atelectasis vs consolidation, similar as previous CXR Nutrition: TPN Impression: 79F history of diabetes, hypertension, Von Willenbrand disorder, Parkinson disease, who initially presented with AMS, sepsis, found to have Klebsiella UTI and SBO. Attempted to treat medically. However, on 08/02/19, worsening sepsis despite abx, had ex lap, found ischemic bowel with closed loop obstruction, s/p cecum resection 08/01 and ileocolonic anastomosis 08/03, now POD 1. 1. Sepsis cx septic shock due to ischemic bowel s/p operation (resolving, off levophed) 2. Left LL PNA 3. Klebsiella UTI (adequately treated) 4. Ischemic bowel with closed loop obstruction s/p cecum resection and ileocolonic anastomosis 5. AMS due to septic encephalopalopathy- improving 6. Deconditioning due to acute illness as well as parkinson disease 7. Parkinson disease 8. Diabetes 9. Von willebrands Plan: Neuro- - Obtunded: likely d/t sepsis. Does open eyes and track, follows some commands. - Parkinson's: chronic. continue home medication - Delirium prec; avoid BDZ CVS- - Hypotension: Resolved - Maintain MAP>65 Resp-Successfully extubated today, currently InO2 2L -Wean Fio2 to keep sat>92% - Incentive spirometry ID- - Klebsiella UTI: adequately treated - Sepsis d/t bowel ischemia: continue meropenum and vancomycin (07/30-) for now, source controlled with operation - left LL PNA: due to bed bound status, should be covered by harjit and vanco - urine cs growing daisy, likely colonization, off castellon early when possible GI- - Nutrition: NPO, continue TPN now that there is a central line - GI prophylaxis PPI - NG to LIWS Renal- -Balance I/O, kidney function normalized -strict I/O, replete to keep K>4, Mg>2 -Continue castellon for now, try to off castellon early Heme- - No active issues - Hb 8.9 but stable - restart subq Lovenox Endo- Maintain BG<200, insulin protocol, start lantus 5U daily Musculsk- pressure ulcer prophylaxis and treatment. Bedrest. Wounds- has multiple grade 1 pressure ulcers on her backside, given barrier cream Nutrition- NPO, PPI DVT prophylaxis: subq heparin GI prophylaxis:PPI Central Line: LIJ Castellon Catheter: continue Disposition: Patient requires Critical Care/ICU for monitoring after extubation Patient Clinical Status: stable Code Status: full (temporarily as patient has completed surgery) Total Critical Care time is 30 minutes <Toño Villarreal - Last Filed: 08/05/19 16:08> Vital Signs: Temp Pulse Resp BP SpO2 FiO2 98.4 F 85 22 140/45 100 25 08/05/19 12:00 08/05/19 13:30 08/05/19 13:30 08/04/19 16:08 08/05/19 13:30 08/04 07:46 Physical Exam: Gen: HEENT: Lungs: Cardiac: Abdomen: Extremities: Neuro: Fluid Balance (Past 24 Hours): I= O= Net Intake & Output 08/03/19 08/04/19 08/05/19 08/06/19 06:59 06:59 06:59 06:59 Intake Total 2316 3188.5 2200.5 Output Total 713 2501 2140 460 Balance 1603 687.5 60.5 -460 Weight 56.7 kg 58 kg 56.6 kg Intake: IV Fluids 1000 931 350 ABX - VANCOMYCIN 250 LR 850 831 Meropenem 100 100 NS (0.45%) 150 IVPB 271 350 ABX - VANCOMYCIN 271 250 Meropenem 100 Medicated IV 31.5 37.5 CC - Norepinephrine/ 31.5 37.5 Levophed TPN/PPN 1316 1955 1463 Oral 0 0 0 NG Tube Irrigate Amount 0 Output: NG Tube Drainage Amount 400 1100 300 Urine 0 Castellon 313 1201 1840 460 Emesis 200 0 Other: # Bowel Movements 1 1 Estimated Stool Amount Large Large Labs: Laboratory Results - last 24 hr 08/04/19 08/04/19 08/05/19 16:18 21:13 00:27 WBC RBC Hgb Hct MCV MCH MCHC RDW Plt Count MPV Patient Temperature ABG pH ABG pH (Temp Correct) ABG pCO2 ABG pCO2 (Temp Corrct ABG pO2 ABG pO2 (Temp Correct ABG HCO3 ABG O2 Saturation ABG Base Excess Respiration Rate Ventilator Type Vent Mode FiO2 Inspiratory Time PEEP Pressure Support Pressure Control EPAP IPAP BiPAP Sodium Potassium Chloride Carbon Dioxide Anion Gap BUN Creatinine Est GFR ( Amer) Est GFR (Non-Af Amer) BUN/Creatinine Ratio Glucose POC Glucose (mg/dL) 139 H 243 H 107 H Calcium Vancomycin Trough 08/05/19 08/05/19 08/05/19 05:19 05:19 07:54 WBC 23.3 H RBC 2.22 L Hgb 8.9 L Hct 27 L MCV 122 H MCH 40 H MCHC 33 RDW 14 Plt Count 309 MPV 10.3 Patient Temperature ABG pH ABG pH (Temp Correct) ABG pCO2 ABG pCO2 (Temp Corrct ABG pO2 ABG pO2 (Temp Correct ABG HCO3 ABG O2 Saturation ABG Base Excess Respiration Rate Ventilator Type Vent Mode FiO2 Inspiratory Time PEEP Pressure Support Pressure Control EPAP IPAP BiPAP Sodium 143 Potassium 5.0 Chloride 118 H Carbon Dioxide 23 Anion Gap 2 BUN 65 H Creatinine 0.54 Est GFR ( Amer) 132.1 Est GFR (Non-Af Amer) 109.2 BUN/Creatinine Ratio 120.4 H Glucose 194 H POC Glucose (mg/dL) 256 H Calcium 8.0 L Vancomycin Trough 08/05/19 08/05/19 08/05/19 11:16 11:16 12:51 WBC RBC Hgb Hct MCV MCH MCHC RDW Plt Count MPV Patient Temperature Not Reportable ABG pH 7.39 ABG pH (Temp Correct) Not Reportable ABG pCO2 30 L ABG pCO2 (Temp Corrct Not Reportable ABG pO2 157 H ABG pO2 (Temp Correct Not Reportable ABG HCO3 20.6 ABG O2 Saturation 100.0 H ABG Base Excess -5.6 L Respiration Rate Not Reportable Ventilator Type Not Reportable Vent Mode Not Reportable FiO2 25 Inspiratory Time Not Reportable PEEP Not Reportable Pressure Support Not Reportable Pressure Control Not Reportable EPAP Not Reportable IPAP Not Reportable BiPAP Not Reportable Sodium Potassium Chloride Carbon Dioxide Anion Gap BUN Creatinine Est GFR ( Amer) Est GFR (Non-Af Amer) BUN/Creatinine Ratio Glucose POC Glucose (mg/dL) 261 H Calcium Vancomycin Trough 12.5 Plan: 79y F w/pmhx of vonWillebrand disease, Parkinsons disease, Hypothyroidism; admitted 07/26 for septic shock, suspected to be from klebsiella UTI. She was also noted to have a SBO. On the medical floors on 07/29 still with low grade temp and possible small left lower lobe pneumonia. A CT abd/pelvis 07/29 demonstrated a small bowel obstruction, new mild right hydronephrosis. The patient had ongoing abdominal tenderness/pain and so a surgical consult was obtained and decision to take patient to OR 08/01 for an ex-lap with findings of necrotic small bowel near IC valve , resection done but closed ends, abdomen closed due to hemodynamic instability, brought to ICU intubated, on pressors. Made Full code status. Assessment -Severe Sepsis with Shock, improved -Small bowel obstruction -Ischemic Bowel s/p resection (ex-lap 08/01, SB resection with closed ends; 08/03 ex-lap with reanastamosis) -Possible Left lower lobe pneumonia -Intubated post op; extubated 08/04 -VIVIANA, resolved -Right Hydronephrosis -klebsiella UTI Parkinsons disease vonWillebrand disease Today awake, alert on vent; sedation help. weak but was following commands CPAP was started, did well, NIF -30s extubated to aerosol mask. afebrile, wbc did increase from yesterday but she is post op again. clinically nontoxic. making urine TPN ongoing plan - extubation this morning aspiration prec cont merrem; noted cultures neg so far; completed kleb tx; will keep for 5days for abd coverage BP stable cont TPN for nutrition till able to start PO diet labs demonstrate improved Na and decreasing BUN; change fluid to Na acetate to lower chloride; will need more hypotonic fluid slowly but hemdoynamics and renal function stable. discussed plan with family at bedside Teaching Attestation This service has been performed in part by a resident under the direction of a teaching physician.I, Dr Toño Villarreal, performed the service, or was physically present during the critical, or estrella portions of the service, furnished by the resident. I participated in the management of the patient. Total CC time 35 min, excluding procedures
[2019-08-05] MEDS ORDERED: TPN CENTRAL STANDARD BASE A CENTR SCH ×12 (17:00)
--- NOTE | 2019-08-05 17:09 | OP ---
DATE OF OPERATION: 08/04/19 - ROOM #ICU-08 DATE OF : 42 SURGEON: Elizabeth Delacruz MD [employer] ACCOUNT EXECUTIVE: Shiraz Penny MD ANESTHESIOLOGIST: Dr. Payne. ANESTHESIA: General. PRE-OP DIAGNOSIS: Ischemic bowel due to closed loop obstruction. POST-OP DIAGNOSIS: Ischemic bowel due to closed loop obstruction. OPERATIVE PROCEDURE: Opening of recent laparotomy, abdominal washout, ileocolic anastomosis. FLUIDS: Normal saline 200 mL, LR 800 mL, 1 unit of cryoprecipitate, 15 mcg of DDAVP. ESTIMATED BLOOD LOSS: Minimal. DRAINS: None. FINDINGS: Multiple flimsy adhesions between the loops of small bowel. Small patches of necrosis at the end of the ileum near the staple line. INDICATIONS: Marisol Mcnally is a 79-year-old woman with a history of Parkinson's disease and von Willebrand's disease who was admitted with a small bowel obstruction in addition to VIVIANA and sepsis due to UTI. She was initially managed conservatively for the bowel obstruction. On 08/02/19, she became febrile and tachycardic with worsening leukocytosis. She was brought emergently to the operating room by Dr. Dhillon and underwent exploratory laparotomy, lysis of adhesions, small bowel resection, and cecal resection. She was left in discontinuity due to hemodynamic instability. She remained intubated and was brought to the ICU. The patient returns to the OR today for anastomosis and washout. Consent was obtained from the patient's . Risks were discussed including, but not limited to bleeding, infection, anastomotic leak, or bowel injury. DESCRIPTION OF PROCEDURE: The patient was brought to the OR and placed in the supine position on the OR table. She was given DDAVP and 1 unit of cryoprecipitate due to her history of von Willebrand's disease. SCDs were placed. The patient was warmed. She received scheduled antibiotics in the ICU prior to going to the OR. General anesthesia was administered. The abdomen was prepped and draped in the usual sterile fashion. A time-out was called confirming the patient's name, date of , and procedure. The midline vicenta were removed. The PDS suture reapproximating the fascia was removed. There was serosanguineous fluid in the peritoneum. There were multiple flimsy attachments between the loops of small bowel and to the abdominal wall. The adhesions were taken down easily with blunt dissection. The abdomen was irrigated with warm saline. The small bowel was run from the ligament of Treitz to the stapled end of the ileum. At the end of the ileum, there were small patches of necrosis. The proximal colon was examined and appeared healthy. The staple line on the colon was intact. There was hard stool in the colon. The distal ileum was resected with ELI blue stapler due to the necrotic patches. Approximately 10 cm of ileum was removed. The ileum and colon came together easily without tension. A [id number] stapled anastomosis was created between the ileum and colon. The enterotomies were closed with a TA green load stapler. The resected ileum was sent to Pathology. The surgical team changed gloves after the specimen was handed off. 3-0 silk sutures were placed at the crotch of the anastomosis to reinforce the staple line. The mesentery defect was closed with a running 3-0 Vicryl suture. The fascia was closed with running 1 PDS. The skin was closed with vicenta. A sterile dressing was placed over the incision. The patient remained intubated. She required norepinephrine during the case and postoperatively. She was brought to the ICU in stable but critical condition. [id number]/[facility] #: [id number] SUHAS
[2019-08-05] MEDS: Pantoprazole IV* 40 MG IV SCH (17:25)
[2019-08-05] MEDS ORDERED: Atropine SYRINGE* 0.1 MG/ML 10 ML SYRINGE (1 MG) ONE (23:19)
[2019-08-06] MEDS: Insulin LISPRO* 1 UNITS UNIT SUBCUT SCH ×6 (00:27→20:29)
[2019-08-06] MEDS: Meropenem 1 GM PREMIX(*) 1 GM/50 ML BAG IV SCH ×2 (00:37→14:30)
[2019-08-06 04:11] LABS: Hematocrit 24 % (35-47); Hemoglobin 7.5 g/dL (12.0-16.0); Mean Corpuscular HGB Conc 32 g/dL (31-36); Mean Corpuscular Hemoglobin 40 pg (27-31); Mean Corpuscular Volume 124 fL (80-97); Mean Platelet Volume 10.1 fL (7.4-10.4); Platelet Count 327 10^3/uL (150-450); Red Blood Count 1.89 10^6 /uL (3.70-4.87); Red Cell Distribution Width 14 % (10-15); White Blood Count 16.1 10^3/uL (3.5-10.8)
[2019-08-06 04:26] LABS: BUN/Creatinine Ratio 122.9 (8-20); Calcium 8.1 mg/dL (8.6-10.3); EGFR African American 151.4 (>60); EGFR Non-African American 125.1 (>60); Phosphorus 3.4 mg/dL (2.5-5.0); Potassium 4.7 mmol/L (3.5-5.0)
[2019-08-06] MEDS: CMC:Carbidopa/Levodopa ODT (NF) 25/100 ODT PO SCH (05:08)
[2019-08-06] MEDS: Heparin VIAL(*) 5000 UNITS/ML VIAL (FIVE THOUSAND) SUBCUT SCH ×3 (05:08→21:52)
[2019-08-06] MEDS: Levothyroxine INJ* 100 MCG/5 ML VIAL IV SCH (05:08)
--- NOTE | 2019-08-06 08:41 | PN ---
Progress Note - Progress Note Date of Service: 08/06/19 Note: Extubated yesterday. Hemodynamically stable. Patient denies SOB, abdominal pain , or nausea. Temp Pulse Resp BP Pulse Ox 97.9 F 76 16 114/37 100 08/06/19 03:50 08/06/19 06:01 08/06/19 06:00 08/06/19 06:01 08/06/19 06:01 Intake & Output 08/05/19 08/06/19 08/06/19 22:59 06:59 14:59 Intake Total 1860 634 Output Total 796 747 Balance 1064 -113 Weight 127 lb 7.205 oz Intake: IV Fluids 17 52 NS (0.9%) 17 52 IVPB 555 63 ABX - VANCOMYCIN 419 Meropenem 59 63 NS (0.9%) 77 TPN/PPN 1288 519 Output: NG Tube Drainage Amount 250 250 V[place]ira 546 497 General: NAD, NG tube with bilious fluid CV: RRR Resp: Clear to auscultation, no accessory muscle use Abd: soft, minimally distended, mild tenderness to palpation. Incision c/d/i with vicenta Extremities: edema in all 4 extremities Neuro: Awake and alert Psych: Flat affect Laboratory Results - last 24 hr 08/05/19 08/05/19 08/05/19 11:16 11:16 12:51 WBC RBC Hgb Hct MCV MCH MCHC RDW Plt Count MPV Patient Temperature Not Reportable ABG pH 7.39 ABG pH (Temp Correct) Not Reportable ABG pCO2 30 L ABG pCO2 (Temp Corrct Not Reportable ABG pO2 157 H ABG pO2 (Temp Correct Not Reportable ABG HCO3 20.6 ABG O2 Saturation 100.0 H ABG Base Excess -5.6 L Respiration Rate Not Reportable Ventilator Type Not Reportable Vent Mode Not Reportable FiO2 25 Inspiratory Time Not Reportable PEEP Not Reportable Pressure Support Not Reportable Pressure Control Not Reportable EPAP Not Reportable IPAP Not Reportable BiPAP Not Reportable Sodium Potassium Chloride Carbon Dioxide Anion Gap BUN Creatinine Est GFR ( Amer) Est GFR (Non-Af Amer) BUN/Creatinine Ratio Glucose POC Glucose (mg/dL) 261 H Calcium Phosphorus Magnesium Vancomycin Trough 12.5 08/05/19 08/05/19 08/05/19 16:56 17:00 20:20 WBC RBC Hgb Hct MCV MCH MCHC RDW Plt Count MPV Patient Temperature ABG pH 7.41 ABG pH (Temp Correct) ABG pCO2 30 L ABG pCO2 (Temp Corrct ABG pO2 181 H ABG pO2 (Temp Correct ABG HCO3 21.5 ABG O2 Saturation 99.6 H ABG Base Excess -4.5 L Respiration Rate Ventilator Type Vent Mode FiO2 Inspiratory Time PEEP Pressure Support Pressure Control EPAP IPAP BiPAP Sodium Potassium Chloride Carbon Dioxide Anion Gap BUN Creatinine Est GFR ( Amer) Est GFR (Non-Af Amer) BUN/Creatinine Ratio Glucose POC Glucose (mg/dL) 206 H 205 H Calcium Phosphorus Magnesium Vancomycin Trough 08/06/19 08/06/19 04:00 04:00 WBC 16.1 H RBC 1.89 L Hgb 7.5 L Hct 24 L MCV 124 H MCH 40 H MCHC 32 RDW 14 Plt Count 327 MPV 10.1 Patient Temperature ABG pH ABG pH (Temp Correct) ABG pCO2 ABG pCO2 (Temp Corrct ABG pO2 ABG pO2 (Temp Correct ABG HCO3 ABG O2 Saturation ABG Base Excess Respiration Rate Ventilator Type Vent Mode FiO2 Inspiratory Time PEEP Pressure Support Pressure Control EPAP IPAP BiPAP Sodium 147 H Potassium 4.7 Chloride 120 H Carbon Dioxide 26 Anion Gap 1 L BUN 59 H Creatinine 0.48 L Est GFR ( Amer) 151.4 Est GFR (Non-Af Amer) 125.1 BUN/Creatinine Ratio 122.9 H Glucose 161 H POC Glucose (mg/dL) Calcium 8.1 L Phosphorus 3.4 Magnesium 2.0 Vancomycin Trough A&P 79F with ischemic bowel due to closed loop obstruction, s/p ex lap, KEVIN, SB and cecum resection POD 4, s/p washout and ileocolonic anastomosis POD 2. -Continue NPO and TPN. -NG to intermittent suction -Consider switching carbidopa/levodopa to oral via NG since ODT form not dissolving. -No antibiotics necessary for abdomen. -PT, OOB
[2019-08-06] MEDS: Insulin GLARGINE(*) 1 UNITS UNIT SUBCUT SCH (10:15)
[2019-08-06] MEDS: CMCS: Carbidopa/Levodopa ODT (NF) 25/100 ODT PO SCH ×4 (10:16→17:50)
[2019-08-06] MEDS ORDERED: Furosemide IV* 10 MG/ML 2 ML VIAL (20 MG) IV ONE (10:56)
--- NOTE | 2019-08-06 14:50 | PN ---
<She Mcdaniel - Last Filed: 08/06/19 14:45> Date of Service: 08/06/19 Critical Care Services: Patient remained afebrile, BP stable, O2 sat stable with nasal canula 2L overnight. She was able to open her eyes and respond nonverbally today, but she was very weak, unable to lift up limbs well. Vital Signs: Temp Pulse Resp BP SpO2 FiO2 99.9 F 76 16 114/37 100 25 08/06/19 12:00 08/06/19 06:01 08/06/19 06:00 08/06/19 06:01 08/06/19 06:01 08/04 16:00 Physical Exam: Constitutional: obtunded but does open eyes to voice. No distress, no diaphoresis, frail appearing Head: normocephalic, atraumatic Eyes: no pallor, no icterus ENT: moist mucous membranes Neck: soft, supple CVS: regular, regular, no murmur Chest/Resp: bilateral air entry, diminished throughout, no rhales, no wheeze, no rhonchi, no acc muscle use Abdomen/GI: soft, nontender, nondistended, BS absent Ext/Msk: warm, pulses+, BUE 2+ edema, BLE 3+ edema Skin: intact, cool Neuro: obtunded but does open eyes to voice. No verbal output today Line: right IJ central line, castellon in situ. Fluid Balance (Past 24 Hours): I= O= Net Intake & Output 08/04/19 08/05/19 08/06/19 08/07/19 06:59 06:59 06:59 06:59 Intake Total 3188.5 2200.5 2494 Output Total 2501 2140 2078 550 Balance 687.5 60.5 416 -550 Weight 58 kg 56.6 kg 57.81 kg Intake: IV Fluids 931 350 69 ABX - VANCOMYCIN 250 LR 831 Meropenem 100 100 NS (0.9%) 69 IVPB 271 350 618 ABX - VANCOMYCIN 271 250 419 Meropenem 100 122 NS (0.9%) 77 Medicated IV 31.5 37.5 CC - Norepinephrine/ 31.5 37.5 Levophed TPN/PPN 1955 1463 1807 Oral 0 0 NG Tube Irrigate Amount 0 Output: NG Tube Drainage Amount 1100 300 500 Castellon 1201 1840 1578 550 Emesis 200 0 Other: # Bowel Movements 1 Estimated Stool Amount Large Labs: Laboratory Results - last 24 hr 08/05/19 08/05/19 08/05/19 16:56 17:00 20:20 WBC RBC Hgb Hct MCV MCH MCHC RDW Plt Count MPV ABG pH 7.41 ABG pCO2 30 L ABG pO2 181 H ABG HCO3 21.5 ABG O2 Saturation 99.6 H ABG Base Excess -4.5 L Sodium Potassium Chloride Carbon Dioxide Anion Gap BUN Creatinine Est GFR ( Amer) Est GFR (Non-Af Amer) BUN/Creatinine Ratio Glucose POC Glucose (mg/dL) 206 H 205 H Calcium Phosphorus Magnesium 08/06/19 08/06/19 04:00 04:00 WBC 16.1 H RBC 1.89 L Hgb 7.5 L Hct 24 L MCV 124 H MCH 40 H MCHC 32 RDW 14 Plt Count 327 MPV 10.1 ABG pH ABG pCO2 ABG pO2 ABG HCO3 ABG O2 Saturation ABG Base Excess Sodium 147 H Potassium 4.7 Chloride 120 H Carbon Dioxide 26 Anion Gap 1 L BUN 59 H Creatinine 0.48 L Est GFR ( Amer) 151.4 Est GFR (Non-Af Amer) 125.1 BUN/Creatinine Ratio 122.9 H Glucose 161 H POC Glucose (mg/dL) Calcium 8.1 L Phosphorus 3.4 Magnesium 2.0 Nutrition: NPO except meds, using NGT for medication. Impression: Constitutional: obtunded but does open eyes to voice. No distress, no diaphoresis, frail appearing Head: normocephalic, atraumatic, pupils reactive Eyes: no pallor, no icterus ENT: moist mucous membranes Neck: soft, supple CVS: regular, regular, no murmur Chest/Resp: bilateral air entry, diminished throughout, no rhales, no wheeze, no rhonchi, no acc muscle use Abdomen/GI: soft, nontender, nondistended, BS absent Ext/Msk: warm, pulses+ Skin: intact, cool Neuro: obtunded but does open eyes to voice. She falls back to sleep quickly. No verbal output today. Line: right IJ central line, castellon in situ. Plan: Neuro- - Obtunded: likely d/t sepsis. Does open eyes and track, follows some commands. - Parkinson's: chronic. continue home medication - Delirium prec; avoid BDZ CVS- - Hypotension: Resolved - Maintain MAP>65 Resp-Successfully extubated today, currently InO2 2L -Wean Fio2 to keep sat>92% - Incentive spirometry ID- - Klebsiella UTI: adequately treated - Sepsis d/t bowel ischemia: continue meropenum and vancomycin (07/30-) for now, stop after 4-6 days - left LL PNA: due to bed bound status, should be covered by harjit and vanco - urine cs growing daisy, likely colonization, off castellon early when possible GI- - continue TPN, tracey sodium, high lactic acid this mornng. - respat TPN component, off potassium chloride, decrease sodium acetate - GI prophylaxis PPI - NG to LIWS, drainge less. - MOuth toileting Renal- -Balance I/O, kidney function normalized -strict I/O, replete to keep K>4, Mg>2 -Continue castellon for now, try to off castellon early Heme- - Hb dropping to 7+, no overt bleeding - continue to watch Hb Endo- Maintain BG<200, insulin protocol, start lantus 5U daily Musculsk- pressure ulcer prophylaxis and treatment. Bedrest. Wounds- has multiple grade 1 pressure ulcers on her backside, given barrier cream Nutrition- NPO, PPI DVT prophylaxis: subq heparin GI prophylaxis:PPI Central Line: LIJ Castellon Catheter: continue Disposition: Patient requires Critical Care/ICU for monitoring after extubation Patient Clinical Status: stable Code Status: full (temporarily as patient has completed surgery) Total Critical Care time is 30 minutes <Toño Villarreal - Last Filed: 08/06/19 15:43> Vital Signs: Temp Pulse Resp BP SpO2 FiO2 99.9 F 105 24 139/58 100 25 08/06/19 12:00 08/06/19 14:30 08/06/19 14:56 08/06/19 14:30 08/06/19 14:30 08/04 16:00 Physical Exam: Gen: HEENT: Lungs: Cardiac: Abdomen: Extremities: Neuro: Fluid Balance (Past 24 Hours): I= O= Net Intake & Output 08/04/19 08/05/19 08/06/19 08/07/19 06:59 06:59 06:59 06:59 Intake Total 3188.5 2200.5 2494 Output Total 2501 2140 2078 980 Balance 687.5 60.5 416 -980 Weight 58 kg 56.6 kg 57.81 kg Intake: IV Fluids 931 350 69 ABX - VANCOMYCIN 250 LR 831 Meropenem 100 100 NS (0.9%) 69 IVPB 271 350 618 ABX - VANCOMYCIN 271 250 419 Meropenem 100 122 NS (0.9%) 77 Medicated IV 31.5 37.5 CC - Norepinephrine/ 31.5 37.5 Levophed TPN/PPN 1955 1463 1807 Oral 0 0 NG Tube Irrigate Amount 0 Output: NG Tube Drainage Amount 1100 300 500 [place] 1201 1840 1578 980 Emesis 200 0 Other: # Bowel Movements 1 Estimated Stool Amount Large Labs: Laboratory Results - last 24 hr 08/05/19 08/05/19 08/05/19 16:56 17:00 20:20 WBC RBC Hgb Hct MCV MCH MCHC RDW Plt Count MPV ABG pH 7.41 ABG pCO2 30 L ABG pO2 181 H ABG HCO3 21.5 ABG O2 Saturation 99.6 H ABG Base Excess -4.5 L Sodium Potassium Chloride Carbon Dioxide Anion Gap BUN Creatinine Est GFR ( Amer) Est GFR (Non-Af Amer) BUN/Creatinine Ratio Glucose POC Glucose (mg/dL) 206 H 205 H Calcium Phosphorus Magnesium 08/06/19 08/06/19 04:00 04:00 WBC 16.1 H RBC 1.89 L Hgb 7.5 L Hct 24 L MCV 124 H MCH 40 H MCHC 32 RDW 14 Plt Count 327 MPV 10.1 ABG pH ABG pCO2 ABG pO2 ABG HCO3 ABG O2 Saturation ABG Base Excess Sodium 147 H Potassium 4.7 Chloride 120 H Carbon Dioxide 26 Anion Gap 1 L BUN 59 H Creatinine 0.48 L Est GFR ( Amer) 151.4 Est GFR (Non-Af Amer) 125.1 BUN/Creatinine Ratio 122.9 H Glucose 161 H POC Glucose (mg/dL) Calcium 8.1 L Phosphorus 3.4 Magnesium 2.0 Plan: 79y F w/pmhx of vonWillebrand disease, Parkinsons disease, Hypothyroidism; admitted 3/ for septic shock, suspected to be from klebsiella UTI. She was also noted to have a SBO. On the medical floors on 07/29 still with low grade temp and possible small left lower lobe pneumonia. A CT abd/pelvis 07/29 demonstrated a small bowel obstruction, new mild right hydronephrosis. The patient had ongoing abdominal tenderness/pain and so a surgical consult was obtained and decision to take patient to OR 08/01 for an ex-lap with findings of necrotic small bowel near IC valve , resection done but closed ends, abdomen closed due to hemodynamic instability, brought to ICU intubated, on pressors. Made Full code status. Assessment -Severe Sepsis with Shock, improved -Small bowel obstruction -Ischemic Bowel s/p resection (ex-lap 08/01, SB resection with closed ends; 08/03 ex-lap with reanastamosis) -Possible Left lower lobe pneumonia -Intubated post op; extubated 08/04 -VIVIANA, resolved -Right Hydronephrosis -klebsiella UTI Parkinsons disease vonWillebrand disease extubated yesterday, did well overnight, awake, alert. weak though, cough+ but no sputum. told to use incentive spirometry but overall just weak, moving all ext, responding back to commands. on NC. abd surgical site intact; no pain, no passage of flatus, no BS yet. cont NGT. NGT is putting out gastric contents. maintain NPO. cont TPN reviewed surgery notes. dec sodium acetate in TPN, d/c kcl cont TPN. cont merrem for 24-48 hours more. nontoxic appearing. wbc decreasing. afebrile. noted drop in h/h to 7.5, no bleeding noted though. check h/h later today. oob to chair, pt/ot. incentive spirometry. making urine. has positive balance. K 4.7, lasix 20mg iv x1 dose today. Bp stable, no pressors needed. maintain ICU status today Teaching Attestation This service has been performed in part by a resident under the direction of a teaching physician.I, Dr Toño Villarreal, performed the service, or was physically present during the critical, or estrella portions of the service, furnished by the resident. I participated in the management of the patient. Total CC time 40min, not including procedures/teaching
[2019-08-06] MEDS ORDERED: TPN* 24 HR with Dextrose 50% Water* 500 ML, Amino Acid Infusion 10%* 850 ML, Sterile Wa... CENTR SCH ×11 (17:00)
[2019-08-06] MEDS: Pantoprazole IV* 40 MG IV SCH (17:50)
[2019-08-06 18:41] LABS: Hematocrit 23 % (35-47); Hemoglobin 7.9 g/dL (12.0-16.0); Mean Corpuscular HGB Conc 34 g/dL (31-36); Mean Corpuscular Hemoglobin 41 pg (27-31); Mean Corpuscular Volume 123 fL (80-97); Mean Platelet Volume 9.6 fL (7.4-10.4); Platelet Count 365 10^3/uL (150-450); Red Blood Count 1.91 10^6 /uL (3.70-4.87); Red Cell Distribution Width 14 % (10-15); White Blood Count 17.1 10^3/uL (3.5-10.8)
[2019-08-06 19:26] LABS: ABS Basophils 0.1 10^3/ul (0-0.2); ABS Eosinophils 0.1 10^3/ul (0-0.6); ABS Lymphocytes 0.5 10^3/ul (1.0-4.8); ABS Monocytes 1.6 10^3/ul (0-0.8); ABS Neutrophils 14.8 10^3/ul (1.5-7.7); Eosinophil % 0.6 %; Lymphocyte % 3.1 %
[2019-08-06] MEDS: fentaNYL* 50 MCG/ML 2 ML VIAL (100 MCG VIAL) IV SLOW PU PRN (20:29)
[2019-08-07] MEDS: Insulin LISPRO* 1 UNITS UNIT SUBCUT SCH ×6 (00:46→20:52)
[2019-08-07] MEDS: Meropenem 1 GM PREMIX(*) 1 GM/50 ML BAG IV SCH ×2 (01:01→13:57)
[2019-08-07] MEDS: CMCS: Carbidopa/Levodopa ODT (NF) 25/100 ODT PO SCH ×5 (05:40→18:12)
[2019-08-07] MEDS: Levothyroxine INJ* 100 MCG/5 ML VIAL IV SCH (05:49)
[2019-08-07] MEDS: Heparin VIAL(*) 5000 UNITS/ML VIAL (FIVE THOUSAND) SUBCUT SCH ×3 (06:07→22:05)
[2019-08-07 06:20] LABS: BUN/Creatinine Ratio 111.4 (8-20); Calcium 8.4 mg/dL (8.6-10.3); EGFR African American 167.3 (>60); EGFR Non-African American 138.3 (>60); Magnesium 1.9 mg/dL (1.9-2.7); Phosphorus 3.5 mg/dL (2.5-5.0); Potassium 4.1 mmol/L (3.5-5.0)
[2019-08-07 06:24] LABS: ABS Eosinophils 0.1 10^3/ul (0-0.6); ABS Lymphocytes 0.5 10^3/ul (1.0-4.8); ABS Monocytes 1.1 10^3/ul (0-0.8); ABS Neutrophils 12.4 10^3/ul (1.5-7.7); Eosinophil % 0.4 %; Hematocrit 22 % (35-47); Hemoglobin 7.1 g/dL (12.0-16.0); Lymphocyte % 3.3 %; Mean Corpuscular HGB Conc 33 g/dL (31-36); Mean Corpuscular Hemoglobin 41 pg (27-31); Mean Corpuscular Volume 124 fL (80-97); Mean Platelet Volume 9.8 fL (7.4-10.4); Nucleated Red Blood Cells % 0.1; Platelet Count 359 10^3/uL (150-450); Red Blood Count 1.74 10^6 /uL (3.70-4.87); Red Cell Distribution Width 14 % (10-15); White Blood Count 14.1 10^3/uL (3.5-10.8)
[2019-08-07] MEDS: Insulin GLARGINE(*) 1 UNITS UNIT SUBCUT SCH (08:25)
--- NOTE | 2019-08-07 08:42 | PN ---
Progress Note - Progress Note Date of Service: 08/07/19 Note: No acute events overnight. Afebrile. No bowel movements. Was up in the chair yesterday. Temp Pulse Resp BP Pulse Ox 99 F 84 20 114/41 100 08/07/19 08:00 08/07/19 06:00 08/07/19 06:00 08/07/19 06:00 08/07/19 06:00 Intake & Output 08/06/19 08/07/19 08/07/19 22:59 06:59 14:59 Intake Total 90 56 Output Total 1220 675 175 Balance -1130 -619 -175 Weight 126 lb 1.671 oz Intake: IV Fluids 56 NS (0.9%) 56 Oral 0 0 Tube Feeding Flush Amount 90 Output: [place] 1220 675 175 General: Sleeping. NAD Abdomen: Soft, minimal distension. Incision c/d/i with vicenta. Extremities: Edema in all extremities. Warm. Laboratory Results - last 24 hr 08/07/19 08/07/19 08/07/19 04:04 05:56 05:56 WBC 14.1 H RBC 1.74 L Hgb 7.1 L Hct 22 L MCV 124 H MCH 41 H MCHC 33 RDW 14 Plt Count 359 MPV 9.8 Neut % (Auto) 88.4 Lymph % (Auto) 3.3 [place] % (Auto) 7.6 Eos % (Auto) 0.4 Baso % (Auto) 0.3 Absolute Neuts (auto) 12.4 H Absolute Lymphs (auto) 0.5 L Absolute Monos (auto) 1.1 H Absolute Eos (auto) 0.1 Absolute Basos (auto) 0.0 Absolute Nucleated RBC 0.0 Nucleated RBC % 0.1 Hypochromasia Macrocytosis Sodium 149 H Potassium 4.1 Chloride 119 H Carbon Dioxide 29 Anion Gap 1 L BUN 49 H Creatinine 0.44 L Est GFR ( Amer) 167.3 Est GFR (Non-Af Amer) 138.3 BUN/Creatinine Ratio 111.4 H Glucose 165 H POC Glucose (mg/dL) 201 H Calcium 8.4 L Phosphorus 3.5 Magnesium 1.9 A&P 79F with ischemic bowel due to closed loop obstruction s/p ex lap, KEVIN, SB and cecal resection POD 5, s/p washout, ileocolonic anastomosis POD 3. Now extubated and hemodynamically stable -Await return of bowel function. Continue TPN. Continue NPO. -NG to intermittent low suction -Encourage OOB, PT. -From surgical standpoint, patient could transfer out of ICU.
--- NOTE | 2019-08-07 10:10 | PN ---
<She Mcdaniel - Last Filed: 08/07/19 11:10> Date of Service: 08/07/19 Critical Care Services: Patient was sitting out of bed yesterday, able to work on incentive spirometry though weak in general. She is sleeping this morning. Still no BM so far. Vital Signs: Temp Pulse Resp BP SpO2 FiO2 99 F 84 20 114/41 100 25 08/07/19 08:00 08/07/19 06:00 08/07/19 06:00 08/07/19 06:00 08/07/19 06:00 08/05 16:00 Physical Exam: Constitutional: sleeping. No distress, no diaphoresis, frail appearing Head: normocephalic, atraumatic Eyes: no pallor, no icterus ENT: moist mucous membranes Neck: soft, supple CVS: regular, regular, no murmur Chest/Resp: bilateral air entry, no rales, no wheeze, no rhonchi, no acc muscle use Abdomen/GI: soft, nontender, nondistended, BS absent Ext/Msk: warm, pulses+, BUE 2+ edema, LL 1+ edema Skin: stage 1 bedsore on the back. Neuro: sleeping. Line: right IJ central line, castellon in situ. Fluid Balance (Past 24 Hours): F=3911 R=1004 Net=-1673 Intake & Output 08/05/19 08/06/19 08/07/19 08/08/19 06:59 06:59 06:59 06:59 Intake Total 2200.5 2494 1022 Output Total 2140 2078 2695 175 Balance 60.5 416 -1673 -175 Weight 56.6 kg 57.81 kg 57.2 kg Intake: IV Fluids 350 69 56 ABX - VANCOMYCIN 250 Meropenem 100 NS (0.9%) 69 56 IVPB 350 618 ABX - VANCOMYCIN 250 419 Meropenem 100 122 NS (0.9%) 77 Medicated IV 37.5 CC - Norepinephrine/ 37.5 Levophed TPN/PPN 1463 1807 786 Oral 0 0 Tube Feeding Flush Amount 180 NG Tube Irrigate Amount 0 Output: NG Tube Drainage Amount 300 500 [place] 1840 1469 2695 175 Emesis 0 Other: # Bowel Movements 1 Estimated Stool Amount Large Labs: Laboratory Results - last 24 hr 08/05/19 08/06/19 08/06/19 03:12 00:26 03:53 WBC RBC Hgb Hct MCV MCH MCHC RDW Plt Count MPV Neut % (Auto) Lymph % (Auto) [place] % (Auto) Eos % (Auto) Baso % (Auto) Absolute Neuts (auto) Absolute Lymphs (auto) Absolute Monos (auto) Absolute Eos (auto) Absolute Basos (auto) Absolute Nucleated RBC Nucleated RBC % Hypochromasia Macrocytosis Sodium Potassium Chloride Carbon Dioxide Anion Gap BUN Creatinine Est GFR ( Amer) Est GFR (Non- Amer) BUN/Creatinine Ratio Glucose POC Glucose (mg/dL) 240 H 193 H 198 H Calcium Phosphorus Magnesium 08/06/19 08/06/19 08/06/19 08:29 11:55 15:54 WBC RBC Hgb Hct MCV MCH MCHC RDW Plt Count MPV Neut % (Auto) Lymph % (Auto) [place] % (Auto) Eos % (Auto) Baso % (Auto) Absolute Neuts (auto) Absolute Lymphs (auto) Absolute Monos (auto) Absolute Eos (auto) Absolute Basos (auto) Absolute Nucleated RBC Nucleated RBC % Hypochromasia Macrocytosis Sodium Potassium Chloride Carbon Dioxide Anion Gap BUN Creatinine Est GFR ([facility] Amer) Est GFR (Non- Amer) BUN/Creatinine Ratio Glucose POC Glucose (mg/dL) 214 H 204 H 182 H Calcium Phosphorus Magnesium 08/06/19 08/06/19 08/07/19 18:30 20:15 00:34 WBC 17.1 H RBC 1.91 L Hgb 7.9 L Hct 23 L MCV 123 H MCH 41 H MCHC 34 RDW 14 Plt Count 365 MPV 9.6 Neut % (Auto) 86.3 Lymph % (Auto) 3.1 [place] % (Auto) 9.6 Eos % (Auto) 0.6 Baso % (Auto) 0.4 Absolute Neuts (auto) 14.8 H Absolute Lymphs (auto) 0.5 L Absolute Monos (auto) 1.6 H Absolute Eos (auto) 0.1 Absolute Basos (auto) 0.1 Absolute Nucleated RBC 0.0 Nucleated RBC % 0.0 Hypochromasia 2+ Macrocytosis 2+ Sodium Potassium Chloride Carbon Dioxide Anion Gap BUN Creatinine Est GFR ( Amer) Est GFR (Non- Amer) BUN/Creatinine Ratio Glucose POC Glucose (mg/dL) 186 H 182 H Calcium Phosphorus Magnesium 08/07/19 08/07/19 08/07/19 04:04 05:56 05:56 WBC 14.1 H RBC 1.74 L Hgb 7.1 L Hct 22 L MCV 124 H MCH 41 H MCHC 33 RDW 14 Plt Count 359 MPV 9.8 Neut % (Auto) 88.4 Lymph % (Auto) 3.3 [place] % (Auto) 7.6 Eos % (Auto) 0.4 Baso % (Auto) 0.3 Absolute Neuts (auto) 12.4 H Absolute Lymphs (auto) 0.5 L Absolute Monos (auto) 1.1 H Absolute Eos (auto) 0.1 Absolute Basos (auto) 0.0 Absolute Nucleated RBC 0.0 Nucleated RBC % 0.1 Hypochromasia Macrocytosis Sodium 149 H Potassium 4.1 Chloride 119 H Carbon Dioxide 29 Anion Gap 1 L BUN 49 H Creatinine 0.44 L Est GFR ( Amer) 167.3 Est GFR (Non-Af Amer) 138.3 BUN/Creatinine Ratio 111.4 H Glucose 165 H POC Glucose (mg/dL) 201 H Calcium 8.4 L Phosphorus 3.5 Magnesium 1.9 Nutrition: NPO except med via NGT TPN Impression: 79F history of diabetes, hypertension, Von Willenbrand disorder, Parkinson disease, who initially presented with AMS, sepsis, found to have Klebsiella UTI and SBO. Attempted to treat medically. However, on 08/02/19, worsening sepsis despite abx, had ex lap, found ischemic bowel with closed loop obstruction, s/p cecum resection 08/01 and ileocolonic anastomosis 08/03, extubated 08/04, now POD 3. 1. Sepsis cx septic shock due to ischemic bowel s/p operation (resolved) 2. Left LL PNA 3. Klebsiella UTI (adequately treated) 4. Ischemic bowel with closed loop obstruction s/p cecum resection and ileocolonic anastomosis 5. AMS due to septic encephalopalopathy- improved 6. Deconditioning due to acute illness as well as parkinson disease 7. Parkinson disease 8. Diabetes 9. Von willebrands Plan: Neuro- patient was alert and able to obey command in the afternoon, sleepy in the morning - Parkinson's: chronic. unable to give ER due to npo status, will add on 3am carbidopa/levodopa to help her turned on earlier in the morning - Delirium prec; avoid BDZ CVS-BP stable Resp-Successfully extubated 08/04, currently InO2 2L, wean O2, keep spO2> 92% - Incentive spirometry - off end-tide CO2 monitoring ID- - Klebsiella UTI: adequately treated - Sepsis d/t bowel ischemia: meropenem (07/30-08/07) and vancomycin (07/30-08/06/19) , will stop harjit tomorrow if remains afebrile - left LL PNA: been covered by harjit and vanco - urine cs growing daisy, likely colonization, off castellon early when possible GI-awaiting bowel recovery - NG to LIWS - Nutrition: NPO, continue TPN -> adjust TPN component (off sodium acetate in view of high sodium) - watch BM - GI prophylaxis PPI Renal- -Balance I/O, kidney function normalized -strict I/O -Continue castellon for now, try to off castellon early Heme- - No active issues -Hb dropped but stable Endo- Maintain BG<200, on lantus 10U and sliding scale Musculsk- pressure ulcer prophylaxis and treatment. Sit out of bed twice per day. - Physical therapy Wounds- has multiple grade 1 pressure ulcers on her backside, given barrier cream Nutrition-TPN DVT prophylaxis: subq heparin GI prophylaxis:PPI Central Line: RIJ Cast[place] Catheter: continue for now Disposition: Patient can be transferred to medical floor today when she wakes up alert Patient Clinical Status: stable Code Status: full (temporarily changed to full code for surgery, was signed as DNR, however family would like to keep full code now, need to review code status on the floor) Total Critical Care time is 30 minutes <Toño Villarreal - Last Filed: 08/07/19 11:36> Vital Signs: Temp Pulse Resp BP SpO2 FiO2 99 F 84 20 114/41 100 25 08/07/19 08:00 08/07/19 06:00 08/07/19 06:00 08/07/19 06:00 08/07/19 06:00 08/05 16:00 Physical Exam: Gen: HEENT: Lungs: Cardiac: Abdomen: Extremities: Neuro: Fluid Balance (Past 24 Hours): I= O= Net Intake & Output 0308/06/19 08/07/19 08/08/19 06:59 06:59 06:59 06:59 Intake Total 2200.5 2494 1022 Output Total 2140 2078 2695 310 Balance 60.5 685 -6687 -310 Weight 56.6 kg 57.81 kg 57.2 kg Intake: IV Fluids 350 69 56 ABX - VANCOMYCIN 250 Meropenem 100 NS (0.9%) 69 56 IVPB 350 618 ABX - VANCOMYCIN 250 419 Meropenem 100 122 NS (0.9%) 77 Medicated IV 37.5 CC - Norepinephrine/ 37.5 Levophed TPN/PPN 1463 1807 786 Oral 0 0 Tube Feeding Flush Amount 180 NG Tube Irrigate Amount 0 Output: NG Tube Drainage Amount 300 500 [place] 1840 1578 2695 310 Emesis 0 Other: # Bowel Movements 1 Estimated Stool Amount Large Labs: Laboratory Results - last 24 hr 08/05/19 08/06/19 08/06/19 03:12 00:26 03:53 WBC RBC Hgb Hct MCV MCH MCHC RDW Plt Count MPV Neut % (Auto) Lymph % (Auto) [place] % (Auto) Eos % (Auto) Baso % (Auto) Absolute Neuts (auto) Absolute Lymphs (auto) Absolute Monos (auto) Absolute Eos (auto) Absolute Basos (auto) Absolute Nucleated RBC Nucleated RBC % Hypochromasia Macrocytosis Sodium Potassium Chloride Carbon Dioxide Anion Gap BUN Creatinine Est GFR ( Amer) Est GFR (Non-Af Amer) BUN/Creatinine Ratio Glucose POC Glucose (mg/dL) 240 H 193 H 198 H Calcium Phosphorus Magnesium 08/06/19 08/06/19 08/06/19 08:29 11:55 15:54 WBC RBC Hgb Hct MCV MCH MCHC RDW Plt Count MPV Neut % (Auto) Lymph % (Auto) [place] % (Auto) Eos % (Auto) Baso % (Auto) Absolute Neuts (auto) Absolute Lymphs (auto) Absolute Monos (auto) Absolute Eos (auto) Absolute Basos (auto) Absolute Nucleated RBC Nucleated RBC % Hypochromasia Macrocytosis Sodium Potassium Chloride Carbon Dioxide Anion Gap BUN Creatinine Est GFR ( Amer) Est GFR (Non-Af Amer) BUN/Creatinine Ratio Glucose POC Glucose (mg/dL) 214 H 204 H 182 H Calcium Phosphorus Magnesium 08/06/19 08/06/19 08/07/19 18:30 20:15 00:34 WBC 17.1 H RBC 1.91 L Hgb 7.9 L Hct 23 L MCV 123 H MCH 41 H MCHC 34 RDW 14 Plt Count 365 MPV 9.6 Neut % (Auto) 86.3 Lymph % (Auto) 3.1 [place] % (Auto) 9.6 Eos % (Auto) 0.6 Baso % (Auto) 0.4 Absolute Neuts (auto) 14.8 H Absolute Lymphs (auto) 0.5 L Absolute Monos (auto) 1.6 H Absolute Eos (auto) 0.1 Absolute Basos (auto) 0.1 Absolute Nucleated RBC 0.0 Nucleated RBC % 0.0 Hypochromasia 2+ Macrocytosis 2+ Sodium Potassium Chloride Carbon Dioxide Anion Gap BUN Creatinine Est GFR ( Amer) Est GFR (Non-Af Amer) BUN/Creatinine Ratio Glucose POC Glucose (mg/dL) 186 H 182 H Calcium Phosphorus Magnesium 08/07/19 08/07/19 08/07/19 04:04 05:56 05:56 WBC 14.1 H RBC 1.74 L Hgb 7.1 L Hct 22 L MCV 124 H MCH 41 H MCHC 33 RDW 14 Plt Count 359 MPV 9.8 Neut % (Auto) 88.4 Lymph % (Auto) 3.3 [place] % (Auto) 7.6 Eos % (Auto) 0.4 Baso % (Auto) 0.3 Absolute Neuts (auto) 12.4 H Absolute Lymphs (auto) 0.5 L Absolute Monos (auto) 1.1 H Absolute Eos (auto) 0.1 Absolute Basos (auto) 0.0 Absolute Nucleated RBC 0.0 Nucleated RBC % 0.1 Hypochromasia Macrocytosis Sodium 149 H Potassium 4.1 Chloride 119 H Carbon Dioxide 29 Anion Gap 1 L BUN 49 H Creatinine 0.44 L Est GFR ( Amer) 167.3 Est GFR (Non-Af Amer) 138.3 BUN/Creatinine Ratio 111.4 H Glucose 165 H POC Glucose (mg/dL) 201 H Calcium 8.4 L Phosphorus 3.5 Magnesium 1.9 Plan: 79y F w/pmhx of vonWillebrand disease, Parkinsons disease, Hypothyroidism; admitted 3/2 for septic shock, suspected to be from klebsiella UTI. She was also noted to have a SBO. On the medical floors on 07/29 still with low grade temp and possible small left lower lobe pneumonia. A CT abd/pelvis 07/29 demonstrated a small bowel obstruction, new mild right hydronephrosis. The patient had ongoing abdominal tenderness/pain and so a surgical consult was obtained and decision to take patient to OR 08/01 for an ex-lap with findings of necrotic small bowel near IC valve , resection done but closed ends, abdomen closed due to hemodynamic instability, brought to ICU intubated, on pressors. Made Full code status. Assessment -Severe Sepsis with Shock, improved -Small bowel obstruction -Ischemic Bowel s/p resection (ex-lap 08/01, SB resection with closed ends; 08/03 ex-lap with reanastamosis) -Possible Left lower lobe pneumonia -Intubated post op; extubated 08/04 -VIVIANA, resolved -Right Hydronephrosis -klebsiella UTI Parkinsons disease vonWillebrand disease awake, weak, alert on NC, no distress Bp stable, no pressors needed. abd surgical site intact, open to air now, dressing removed by surgery; no pain , no passage of flatus, no BS yet. cont NGT. NGT is putting out gastric contents. maintain NPO. cont TPN reviewed surgery notes. noted hypernatremia; did give diuretics yesterday for gross edema. d/c sodium acetate from IVF. hold diuretics today she will need diuretics after sodium corrected and low dose as she mobilized fluids cont TPN. cont merrem for 24 hours more, d/c 08/07. nontoxic appearing. wbc decreasing. afebrile. hg 7.1, has been fluctuating in 7s; no bleeding though; follow closely on heparin sq for proph and PPI IV daily oob to chair, pt/ot. incentive spirometry. making urine. has positive balance. K 4.1, hypernatremmia 139 hold lasix changed TPN to more hypotonix fluid once Na decreased then can start lasix again to mobilize edema on carbidopa/levodopa SL but hasnt been absorbing b/c she is dry. changed to PO tabs q3h. Blood glucose better now, 180s, on lantus 10u qhs and sliding scale. will uptitrate lantus as tolerated. pain control prn if in chair, alert, comfortable, will transfer to same day surgery later today Teaching Attestation This service has been performed in part by a resident under the direction of a teaching physician. I, Dr Toño Villarreal, performed the service, or was physically present during the critical, or estrella portions of the service, furnished by the resident. I participated in the management of the patient.
[2019-08-07] MEDS ORDERED: Magnesium Sulfate 2 GM IV* 2 GM/50 ML BAG IVPB ONE (11:32)
[2019-08-07] MEDS: TPN* 24 HR with Dextrose 50% Water* 500 ML, Amino Acid Infusion 10%* 850 ML, Sterile Wa... CENTR SCH ×11 (18:13)
[2019-08-07] MEDS: Pantoprazole IV* 40 MG IV SCH (18:15)
[2019-08-07] MEDS ORDERED: Alteplase (CATHFLO)* 2 MG VIAL IV ONE (18:43)
[2019-08-07] MEDS: fentaNYL* 50 MCG/ML 2 ML VIAL (100 MCG VIAL) IV SLOW PU PRN (19:57)
[2019-08-08] MEDS: Insulin LISPRO* 1 UNITS UNIT SUBCUT SCH ×6 (01:13→20:55)
[2019-08-08] MEDS: Meropenem 1 GM PREMIX(*) 1 GM/50 ML BAG IV SCH ×2 (01:14→13:57)
[2019-08-08] MEDS ORDERED: Carbidopa/Levodop 25/250MG TAB(*) PO SCH (03:00)
[2019-08-08] MEDS: CMCS: Carbidopa/Levodopa ODT (NF) 25/100 ODT PO SCH ×6 (03:32→17:38)
[2019-08-08] MEDS: Heparin VIAL(*) 5000 UNITS/ML VIAL (FIVE THOUSAND) SUBCUT SCH ×3 (05:41→22:41)
[2019-08-08 06:07] LABS: ABS Basophils 0.1 10^3/ul (0-0.2); ABS Eosinophils 0.1 10^3/ul (0-0.6); ABS Lymphocytes 0.7 10^3/ul (1.0-4.8); ABS Monocytes 1.1 10^3/ul (0-0.8); ABS Neutrophils 15.5 10^3/ul (1.5-7.7); Eosinophil % 0.5 %; Hematocrit 24 % (35-47); Hemoglobin 7.7 g/dL (12.0-16.0); Lymphocyte % 4.1 %; Mean Corpuscular HGB Conc 33 g/dL (31-36); Mean Corpuscular Hemoglobin 40 pg (27-31); Mean Corpuscular Volume 123 fL (80-97); Mean Platelet Volume 9.3 fL (7.4-10.4); Nucleated Red Blood Cells % 0.1; Platelet Count 449 10^3/uL (150-450); Red Blood Count 1.91 10^6 /uL (3.70-4.87); Red Cell Distribution Width 14 % (10-15); White Blood Count 17.5 10^3/uL (3.5-10.8)
[2019-08-08 06:19] LABS: BUN/Creatinine Ratio 102.4 (8-20); Blood Urea Nitrogen 42 mg/dL (6-24); CO2 Carbon Dioxide 31 mmol/L (22-32); Calcium 8.5 mg/dL (8.6-10.3); EGFR African American 181.5 (>60); Glucose 117 mg/dL (70-100); Potassium 4.2 mmol/L (3.5-5.0)
[2019-08-08 06:21] LABS: Chloride 118 mmol/L (101-111); Sodium 149 mmol/L (135-145)
[2019-08-08] MEDS: Levothyroxine INJ* 100 MCG/5 ML VIAL IV SCH (06:30)
--- NOTE | 2019-08-08 07:15 | PN ---
Subjective Date of Service: 08/08/19 Interval History: HD 13 on 08/07 79F history of diabetes, hypertension, Von Willenbrand disorder, Parkinson disease, who initially presented with AMS, sepsis, found to have Klebsiella UTI and SBO.Failed medical management, s/p ex lap(08/01), found ischemic bowel with closed loop obstruction, s/p cecum resection 08/01 and ileocolonic anastomosis , extubated 08/04, now POD 4. transferred from ICU on 08/06 No acute overnight events Patient seen and examined at bedside. Patient sleepy early in the morning but more awake and alert later. Patient able to tell her name. Low output from NG tube but still dark green. Had 2 loose BM overnight. Castellon in place Objective Active Medications: Acetaminophen (Tylenol 650 Mg Supp) 650 mg SD Q6H PRN PRN Reason: MILD PAIN or TEMP > 100.4 Carbidopa/Levodopa (Carbidopa/Levodopa 25/100 Odt (Nf)) 1 tab PO 0600,0900, 1200 [facility] Last Admin: 08/08/19 05:36 Dose: 1 tab Carbidopa/Levodopa (Carbidopa/Levodopa 25/100 Odt (Nf)) 1 tab PO 0300,1500, 1800 [facility] Last Admin: 08/08/19 03:32 Dose: 1 tab Dextrose (D50w Syringe 50 Ml*) 12.5 gm IV PUSH .FOR FS < 60 - SS PRN PRN Reason: FS < 60 Fentanyl Citrate (Fentanyl*) 25 mcg IV SLOW PU Q1H PRN PRN Reason: PAIN - SEVERE Last Admin: 08/07/19 19:57 Dose: 25 mcg Heparin Sodium (Porcine) (Heparin Vial(*)) 5,000 units SUBCUT Q8HR [facility] Last Admin: 08/08/19 05:41 Dose: 5,000 units Heparin Sodium (Porcine) (Heparin Flush Picc/Ml/Cvc(*)) 1 - 3 ml FLUSH 0600, 1800 [facility]; Protocol Last Admin: 08/08/19 06:01 Dose: 1 ml Meropenem (Merrem 1 Gm Premix(*)) 1 gm in 50 mls @ 100 mls/hr IV Q12H [facility]; Protocol Stop: 08/08/19 13:30 Last Admin: 08/08/19 01:14 Dose: 100 mls/hr Dextrose 500 ml/ Amino Acids 850 ml/ Sterile Water 150 ml/Fat Emulsion Intravenous 250 ml/ Potassium Chloride 40 meq/Potassium Phosphate 15 mmole/ Calcium Gluconate 15 meq/Magnesium Sulfate 10 meq/Multivitamins 10 ml/ Trace Metals 1 ml/ Nutrition ( Parenteral) 1,820.721 mls @ 75.863 mls/hr CENTR 1700 [facility]; Protocol Last Admin: 08/07/19 18:13 Dose: 75.863 mls/hr Insulin Glargine (Lantus(*)) 10 units SUBCUT Q24H [facility] Last Admin: 08/07/19 08:25 Dose: 10 units Insulin Human Lispro (Humalog*) 0 units SUBCUT FS Q4 ICU [facility]; Protocol Last Admin: 08/08/19 04:11 Dose: 1 units Levothyroxine Sodium (Synthroid Inj*) 25 mcg IV 0600 [facility] Last Admin: 08/08/19 06:30 Dose: 25 mcg Ondansetron HCl (Zofran Inj*) 4 mg IV Q4H PRN PRN Reason: NAUSEA/VOMITING Last Admin: 07/27/19 17:55 Dose: 4 mg Pantoprazole Sodium (Protonix Iv*) 40 mg IV Q24H [facility] Last Admin: 08/07/19 18:15 Dose: 40 mg Vital Signs - 8 hr 08/08/19 08/08/19 08/08/19 00:16 03:40 03:44 Temperature 98.7 F 99.6 F Pulse Rate 84 91 Respiratory 18 18 Rate Blood Pressure 106/33 128/72 (mmHg) O2 Sat by Pulse 100 99 Oximetry 08/08/19 04:48 Temperature Pulse Rate Respiratory 16 Rate Blood Pressure (mmHg) O2 Sat by Pulse Oximetry Oxygen Devices in Use Now: Nasal Cannula Exam: Constitutional: sleeping. No distress, no diaphoresis, frail appearing Head: normocephalic, atraumatic Eyes: no pallor, no icterus ENT: moist mucous membranes Neck: soft, supple CVS: regular, regular, no murmur Chest/Resp: bilateral diminished air entry, no rales, no wheeze, no rhonchi, no acc muscle use Abdomen/GI: soft, midline incision is stapled and without drainage or erythema, nontender, nondistended, BS hypoactive Ext/Msk: warm, pulses+, BUE 2+ edema, LL 1+ edema Skin: stage 1 bedsore on the back. erythema on inner thigh Neuro: sleeping. Line: right IJ central line, castellon in situ. Result Diagrams: 08/08/19 05:37 08/08/19 05:37 Microbiology and Other Data: Microbiology 07/31/19 09:00 Urine Culture - Final Urine Daisy Albicans 07/31/19 09:27 Aerobic Blood Culture - Preliminary Blood Venous No Growth Day 1 Anaerobic Blood Culture - Preliminary No Growth Day 1 07/27/19 08:23 Aerobic Blood Culture - Final Blood Venous Not Reportable Anaerobic Blood Culture - Final Not Reportable Blood Culture - Final No Growth Day 5 07/27/19 08:08 Aerobic Blood Culture - Final Blood Venous No Growth Day 5 Anaerobic Blood Culture - Final No Growth Day 5 07/27/19 09:36 Urine Culture - Final Urine Klebsiella Pneumoniae 07/27/19 11:45 Nasal Screen MRSA (PCR) - Final Nasal Mrsa Not Detected Assess/Plan/Problems-Billing Assessment: 79F PMH HTN, VWD, Parkinson's with motor impairment and MCI at baseline presented with septic shock 2/2 to Klebsiella UTI, VIVIANA. Hospital course by sig deconditioning from decompensation from parkinsons along with PNA, hyPERNa and complete SBO. s/p exp laparotomy with cecum resection on 08/01 and ileocolonic anastomosis 08/03. Transferred from ICU on 08/06 - Patient Problems (1) Sepsis Current Visit: Yes Status: Acute Comment: -resolved -septic shock secondary to ischemic bowel, UTI, PNA -s/p exploratory laparotomy -UTI treated; still on castellon; urine showing daisy-likley colonization -PNA treated -on IV meropenem (2) Small bowel obstruction Current Visit: Yes Status: Acute Code(s): K56.609 - UNSP INTESTNL OBST, UNSP TO PARTIAL VERSUS COMPLETE OBST SNOMED Code(s): 875333782 Comment: -failed management; now s/p cecum resection with ileocolic anastomosis(08/03) -POD 4 -Currently NPO; will need swallow eval before giving PO as pt has baseline parkinson -had 2 loose BM overnight -on meropenem- started from 07/30- plan was to stop today but there is increasing leucocytosis but pt is afebrile -will watch if continues to worsens then will need source check-Urine CXR. -Surgery following -low output from NG- will defer decision regarding NG to surgery. (3) On total parenteral nutrition (TPN) Current Visit: Yes Status: Acute Code(s): Z78.9 - OTHER SPECIFIED HEALTH STATUS SNOMED Code(s): 46723355 Comment: -Given GI issues -continue TPN- off sodium given hypernatremia (4) Diabetes Current Visit: Yes Status: Acute Code(s): E11.9 - TYPE 2 DIABETES MELLITUS WITHOUT COMPLICATIONS SNOMED Code(s): 82967114 Comment: - Currently on insulin lantus 10 U and lispro ss -glucose controlled -was not on meds before; started on this visit. (5) Parkinson disease Current Visit: Yes Status: Acute Code(s): G20 - PARKINSON'S DISEASE SNOMED Code(s): 22144672 Comment: -deconditioning progressively - continue levodopa/carbidopa sublingual and ER tablet-increased the dose -High risk for delirium (6) Pressure ulcer Current Visit: Yes Status: Acute Code(s): L89.90 - PRESSURE ULCER OF UNSPECIFIED SITE, UNSPECIFIED STAGE SNOMED Code(s): 152281059 Comment: -stage 1 ulcer on back -frequent positioning -encourage PT -barrier cream (7) DVT prophylaxis Current Visit: Yes Status: Acute Code(s): Z29.9 - ENCOUNTER FOR PROPHYLACTIC MEASURES, UNSPECIFIED SNOMED Code(s): 230916420 Comment: -on heparin (8) Full code status Current Visit: Yes Status: Acute Code(s): Z78.9 - OTHER SPECIFIED HEALTH STATUS SNOMED Code(s): 497780075 Comment: -was DNR/DNI- temporarily changed to full code for surgery -family like to keep full code now -will need goal of care discussion with family Status and Disposition: inpatient Medicine. Surgery following PT ordered Attending: Sloane Krueger Attestation Documenting Resident: Josee Supervising Physician: Pati Attending/Supervising Physician Comment: More alert during our rounds this morning, able to interact and answer simple questions. She has no rigidity and is able to follow simple commands. Improving from a parkinsonism standpoint on the SL carbidoba/levodopa. + return of bowel function last night. Continue meropenem for now for bowel ischemia. Plan to DC NGT today (discussed with Dr. Griffin), continue TPN, swallow eval, OOB today. Attestation: This service has been performed in part by a resident under the direction of a teaching physician.IPati, performed the service, or was physically present during the critical, or estrella portions of the service, furnished by the resident. I participated in the management of the patient.
[2019-08-08] MEDS: Insulin GLARGINE(*) 1 UNITS UNIT SUBCUT SCH (09:11)
[2019-08-08] MEDS ORDERED: Vancomycin Trough Check NOTE FOLLOW UP ONE (10:30)
--- NOTE | 2019-08-08 11:13 | PN ---
Progress Note - Progress Note Date of Service: 08/08/19 Note: Surgery Progress Note S: Patient was transferred from ICU yesterday to floor. She had liquid bowel movement yesterday. NGT output has been minimal. Her daughter is at bedside. No other significant overnight events. She is sitting up in a chair. O: Vital Signs - 24 hr 08/07/19 08/07/19 08/07/19 11:15 11:30 11:45 Temperature Pulse Rate 90 93 92 Respiratory Rate Blood Pressure 149/59 (mmHg) O2 Sat by Pulse 100 100 100 Oximetry 08/07/19 08/07/19 08/07/19 11:52 12:00 12:15 Temperature 99.5 F Pulse Rate 93 91 Respiratory 18 Rate Blood Pressure 142/51 (mmHg) O2 Sat by Pulse 100 100 Oximetry 08/07/19 08/07/19 08/07/19 12:30 12:45 13:00 Temperature Pulse Rate 88 84 83 Respiratory 20 Rate Blood Pressure 127/45 122/37 (mmHg) O2 Sat by Pulse 100 100 100 Oximetry 08/07/19 08/07/19 08/07/19 13:15 13:30 13:45 Temperature Pulse Rate 88 86 83 Respiratory Rate Blood Pressure 120/42 (mmHg) O2 Sat by Pulse 100 100 100 Oximetry 08/07/19 08/07/19 08/07/19 14:00 14:15 14:25 Temperature Pulse Rate 91 92 Respiratory 19 Rate Blood Pressure 131/43 (mmHg) O2 Sat by Pulse 100 100 Oximetry 08/07/19 08/07/19 08/07/19 14:30 14:45 15:00 Temperature Pulse Rate 92 94 92 Respiratory 15 Rate Blood Pressure 135/46 (mmHg) O2 Sat by Pulse 100 99 100 Oximetry 08/07/19 08/07/19 08/07/19 15:01 15:15 15:30 Temperature Pulse Rate 93 95 95 Respiratory Rate Blood Pressure 136/49 127/65 (mmHg) O2 Sat by Pulse 100 99 99 Oximetry 08/07/19 08/07/19 08/07/19 15:45 16:00 16:15 Temperature Pulse Rate 99 96 94 Respiratory Rate Blood Pressure 140/52 (mmHg) O2 Sat by Pulse 100 100 99 Oximetry 08/07/19 08/07/19 08/07/19 16:30 17:10 19:00 Temperature 98 F Pulse Rate 92 94 Respiratory 20 16 Rate Blood Pressure 139/51 128/52 (mmHg) O2 Sat by Pulse 99 99 Oximetry 08/07/19 08/07/19 08/07/19 19:57 20:00 20:37 Temperature 99.5 F Pulse Rate 90 Respiratory 24 16 18 Rate Blood Pressure 118/58 (mmHg) O2 Sat by Pulse 100 Oximetry 08/07/19 08/08/19 08/08/19 22:04 00:16 03:40 Temperature 98.7 F Pulse Rate 84 Respiratory 16 18 Rate Blood Pressure 106/33 128/72 (mmHg) O2 Sat by Pulse 100 Oximetry 08/08/19 08/08/19 08/08/19 03:44 04:48 08:10 Temperature 99.6 F Pulse Rate 91 89 Respiratory 18 16 28 Rate Blood Pressure 116/35 (mmHg) O2 Sat by Pulse 99 99 Oximetry 08/08/19 08:53 Temperature 99.6 F Pulse Rate Respiratory Rate Blood Pressure (mmHg) O2 Sat by Pulse Oximetry Laboratory Results - last 24 hr 08/07/19 08/07/19 08/07/19 08:19 13:27 19:02 WBC RBC Hgb Hct MCV MCH MCHC RDW Plt Count MPV Neut % (Auto) Lymph % (Auto) [place] % (Auto) Eos % (Auto) Baso % (Auto) Absolute Neuts (auto) Absolute Lymphs (auto) Absolute Monos (auto) Absolute Eos (auto) Absolute Basos (auto) Absolute Nucleated RBC Nucleated RBC % Sodium Potassium Chloride Carbon Dioxide Anion Gap BUN Creatinine Est GFR ( Amer) Est GFR (Non-Af Amer) BUN/Creatinine Ratio Glucose POC Glucose (mg/dL) 205 H 192 H 122 H Calcium 08/07/19 08/08/19 08/08/19 20:47 00:52 04:05 WBC RBC Hgb Hct MCV MCH MCHC RDW Plt Count MPV Neut % (Auto) Lymph % (Auto) [place] % (Auto) Eos % (Auto) Baso % (Auto) Absolute Neuts (auto) Absolute Lymphs (auto) Absolute Monos (auto) Absolute Eos (auto) Absolute Basos (auto) Absolute Nucleated RBC Nucleated RBC % Sodium Potassium Chloride Carbon Dioxide Anion Gap BUN Creatinine Est GFR ( Amer) Est GFR (Non-Af Amer) BUN/Creatinine Ratio Glucose POC Glucose (mg/dL) 161 H 188 H 189 H Calcium 08/08/19 08/08/19 08/08/19 05:37 05:37 08:13 WBC 17.5 H RBC 1.91 L Hgb 7.7 L Hct 24 L MCV 123 H MCH 40 H MCHC 33 RDW 14 Plt Count 449 MPV 9.3 Neut % (Auto) 88.6 Lymph % (Auto) 4.1 [place] % (Auto) 6.5 Eos % (Auto) 0.5 Baso % (Auto) 0.3 Absolute Neuts (auto) 15.5 H Absolute Lymphs (auto) 0.7 L Absolute Monos (auto) 1.1 H Absolute Eos (auto) 0.1 Absolute Basos (auto) 0.1 Absolute Nucleated RBC 0.0 Nucleated RBC % 0.1 Sodium 149 H Potassium 4.2 Chloride 118 H Carbon Dioxide 31 Anion Gap Not Reportable BUN 42 H Creatinine 0.41 L Est GFR ( Amer) 181.5 Est GFR (Non-Af Amer) 150.0 BUN/Creatinine Ratio 102.4 H Glucose 117 H POC Glucose (mg/dL) 171 H Calcium 8.5 L Intake & Output 08/07/19 08/08/19 08/08/19 22:59 06:59 14:59 Intake Total 1873 55 Output Total 750 252 200 Balance 1123 -197 -200 Weight 127 lb 6.4 oz Intake: IV Fluids 55 Meropenem 55 TPN/PPN 1873 Oral 0 0 Output: NG Tube Drainage Amount 50 2 Urine 200 Castellon 700 250 Other: Date of Last Bowel 08/08/2019 Movement # Bowel Movements 1 Estimated Stool Amount Medium Physical exam: HEENT: LIJ in place, clean dressing, TPN running Abdomen- nontender, non distended, midline incision with vicenta c/d/i, occasional bowel sound : castellon catheter in place Ext: mild edema A/P: 79 F with Parkinson's disease POD 6/4 from ileocolic resection for closed SBO and takeback for abdominal wall closure, stable. - Will DC NGT today as output was low, around 50cc. She has also been demonstrating some bowel function with liquid stool. - Swallow evaluation ordered. Speech therapy is not available over the weekend and will perform formal eval on Saturday. However, I discussed with her nurse, Talha, and she will initate eval to see if patient can safely take sips. If not , she will remain NPO - Continue OOB, PT - WBC slightly up today to 17.5, but patient remains afebrile. If it continues to rise or she becomes febrile must look for source including indwelling FC or central line, less likely intraadbominal - Continue TPN - Ppx: Protonix, HSQ - Abx: patient remains on meropenem - Discussed plan with Dr. Krueger
[2019-08-08] MEDS: fentaNYL* 50 MCG/ML 2 ML VIAL (100 MCG VIAL) IV SLOW PU PRN ×2 (12:01→16:06)
[2019-08-08] MEDS: Nystatin TOP POWDER* 15 GM BTL TOPICAL PRN (12:09)
[2019-08-08 17:28] LABS: Urine Appearance Cloudy; Urine Bilirubin Negative (Negative); Urine Blood 2+ (Negative); Urine Color Yellow; Urine Glucose 1+(50 mg/dL) (Negative); Urine Ketones Negative (Negative); Urine Nitrite Negative (Negative); Urine Protein Negative (Negative); Urine Specific Gravity 1.016 (1.010-1.030); Urine Urobilinogen Negative (Negative)
[2019-08-08] MEDS: Pantoprazole IV* 40 MG IV SCH (17:33)
[2019-08-08 17:34] LABS: Urine Bacteria 3+ (Absent); Urine Red Blood Cell 3+(>10/hpf) (Absent); Urine White Blood Cell 3+(>20/hpf) (Absent)
[2019-08-08] MEDS: TPN* 24 HR with Dextrose 50% Water* 500 ML, Amino Acid Infusion 10%* 850 ML, Sterile Wa... CENTR SCH ×11 (17:36)
[2019-08-09] MEDS: Insulin LISPRO* 1 UNITS UNIT SUBCUT SCH ×6 (00:47→21:01)
[2019-08-09] MEDS: CMCS: Carbidopa/Levodopa ODT (NF) 25/100 ODT PO SCH ×5 (04:21→17:53)
[2019-08-09] MEDS: Heparin VIAL(*) 5000 UNITS/ML VIAL (FIVE THOUSAND) SUBCUT SCH ×3 (06:32→21:40)
[2019-08-09] MEDS: Levothyroxine INJ* 100 MCG/5 ML VIAL IV SCH (06:33)
[2019-08-09 06:57] LABS: ABS Eosinophils 0.1 10^3/ul (0-0.6); ABS Lymphocytes 0.8 10^3/ul (1.0-4.8); Eosinophil % 0.4 %; Hematocrit 22 % (35-47); Hemoglobin 7.3 g/dL (12.0-16.0); Lymphocyte % 5.2 %; Mean Corpuscular HGB Conc 33 g/dL (31-36); Mean Corpuscular Hemoglobin 40 pg (27-31); Mean Corpuscular Volume 123 fL (80-97); Mean Platelet Volume 9.6 fL (7.4-10.4); Platelet Count 454 10^3/uL (150-450); Red Blood Count 1.81 10^6 /uL (3.70-4.87); Red Cell Distribution Width 14 % (10-15); White Blood Count 15.9 10^3/uL (3.5-10.8)
[2019-08-09 07:18] LABS: Albumin 1.8 g/dL (3.2-5.2); Albumin/Globulin Ratio 0.8 (1-3); BUN/Creatinine Ratio 104.9 (8-20); Calcium 8.2 mg/dL (8.6-10.3); EGFR African American 181.5 (>60); Globulin 2.3 g/dL (2-4); Phosphorus 2.8 mg/dL (2.5-5.0); Total Bilirubin 0.3 mg/dL (0.2-1.0); Total Protein 4.1 g/dL (6.4-8.9)
[2019-08-09] MEDS: Nystatin TOP POWDER* 15 GM BTL TOPICAL PRN (08:19)
[2019-08-09] MEDS: Insulin GLARGINE(*) 1 UNITS UNIT SUBCUT SCH (08:37)
--- NOTE | 2019-08-09 11:02 | PN ---
Subjective Date of Service: 08/09/19 Interval History: No overnight events. I talked with her daughter and her , who feel she is not having as good of day as she did yesterday, but that it is common for her to have good and bad days from a Parkinson standpoint. Marisol is having some discomfort at the surgical site, and on further questioning admits to some shortness of breath. Her nurse reports profuse diarrhea, and a flexiseal is being used. Objective Active Medications: Acetaminophen (Tylenol 650 Mg Supp) 650 mg RI Q6H PRN PRN Reason: MILD PAIN or TEMP > 100.4 Carbidopa/Levodopa (Carbidopa/Levodopa 25/100 Odt (Nf)) 1 tab PO 0600,0900, 1200 [facility] Last Admin: 08/09/19 08:37 Dose: 1 tab Carbidopa/Levodopa (Carbidopa/Levodopa 25/100 Odt (Nf)) 1 tab PO 0300,1500, 1800 [facility] Last Admin: 08/09/19 04:21 Dose: 1 tab Dextrose (D50w Syringe 50 Ml*) 12.5 gm IV PUSH .FOR FS < 60 - SS PRN PRN Reason: FS < 60 Fentanyl Citrate (Fentanyl*) 25 mcg IV SLOW PU Q1H PRN PRN Reason: PAIN - SEVERE Last Admin: 08/08/19 16:06 Dose: 25 mcg Heparin Sodium (Porcine) (Heparin Vial(*)) 5,000 units SUBCUT Q8HR [facility] Last Admin: 08/09/19 06:32 Dose: 5,000 units Heparin Sodium (Porcine) (Heparin Flush Picc/Ml/Cvc(*)) 1 - 3 ml FLUSH 0600, 1800 [facility]; Protocol Last Admin: 08/09/19 06:40 Dose: 2 ml Dextrose 500 ml/ Amino Acids 850 ml/ Sterile Water 150 ml/Fat Emulsion Intravenous 250 ml/ Potassium Chloride 40 meq/Potassium Phosphate 15 mmole/ Calcium Gluconate 15 meq/Magnesium Sulfate 10 meq/Multivitamins 10 ml/ Trace Metals 1 ml/ Nutrition ( Parenteral) 1,820.721 mls @ 75.863 mls/hr [facility]ENTR 1700 [facility]; Protocol Last Admin: 08/08/19 17:36 Dose: 75.863 mls/hr Insulin Glargine (Lantus(*)) 10 units SUBCUT Q24H [facility] Last Admin: 08/09/19 08:37 Dose: 10 units Insulin Human Lispro (Humalog*) 0 units SUBCUT FS Q4 ICU [facility]; Protocol Last Admin: 08/09/19 08:36 Dose: 1 units Levothyroxine Sodium (Synthroid Inj*) 25 mcg IV 0600 [facility] Last Admin: 08/09/19 06:33 Dose: 25 mcg Nystatin (Nystatin Top Powder*) 1 applic TOPICAL BID PRN PRN Reason: DRY SKIN Last Admin: 08/09/19 08:19 Dose: 1 applic Ondansetron HCl (Zofran Inj*) 4 mg IV Q4H PRN PRN Reason: NAUSEA/VOMITING Last Admin: 07/27/19 17:55 Dose: 4 mg Pantoprazole Sodium (Protonix Iv*) 40 mg IV Q24H [facility] Last Admin: 08/08/19 17:33 Dose: 40 mg Vital Signs - 8 hr 08/09/19 08/09/19 03:02 08:02 Temperature 98.1 F 98.4 F Pulse Rate 85 90 Respiratory 17 24 Rate Blood Pressure 139/43 146/46 (mmHg) O2 Sat by Pulse 94 95 Oximetry Oxygen Devices in Use Now: Nasal Cannula Appearance: alert, masked face, mildly tachypneic, no distress Ears/Nose/Mouth/Throat: - - dry mucosa Respiratory: - - few crackles anteriorly Cardiovascular: NL Sounds; No Murmurs; No JVD, RRR Abdominal: - - midline incision stapled, no drainage or erythema, bowel sounds are active Skin: No Rash or Ulcers Neurological: - - no rigidity, moves all extremities on command Result Diagrams: 08/09/19 06:40 08/09/19 06:40 Microbiology and Other Data: Microbiology 07/31/19 09:00 Urine Culture - Final Urine Chery Albicans 07/31/19 09:27 Aerobic Blood Culture - Preliminary Blood Venous No Growth Day 1 Anaerobic Blood Culture - Preliminary No Growth Day 1 07/27/19 08:23 Aerobic Blood Culture - Final Blood Venous Not Reportable Anaerobic Blood Culture - Final Not Reportable Blood Culture - Final No Growth Day 5 07/27/19 08:08 Aerobic Blood Culture - Final Blood Venous No Growth Day 5 Anaerobic Blood Culture - Final No Growth Day 5 07/27/19 09:36 Urine Culture - Final Urine Klebsiella Pneumoniae 07/27/19 11:45 Nasal Screen MRSA (PCR) - Final Nasal Mrsa Not Detected Assess/Plan/Problems-Billing Assessment: 79F PMH HTN, VWD, Parkinson's with motor impairment and MCI at baseline presented with septic shock 2/2 to Klebsiella UTI, VIVIANA. Hospital course complicated by sig deconditioning from decompensation from parkinsons along with PNA, hyPERNa and complete SBO. s/p exp laparotomy with cecum resection on and ileocolonic anastomosis 08/03. Transferred from ICU on 08/06 - Patient Problems (1) Sepsis Current Visit: Yes Status: Acute Comment: Resolved Multiple sources: UTI, ?pneumonia, ischemic bowel DC meropenem today; has received 8 days and source control achieved with surgery (2) Small bowel obstruction Current Visit: Yes Status: Acute Code(s): K56.609 - UNSP INTESTNL OBST, UNSP TO PARTIAL VERSUS COMPLETE OBST SNOMED Code(s): 916064079 Comment: Now s/p cecum resection with ileocolic anastomosis(08/03) after failing medical management POD 5 Passed nursing swallow eval rile Surgery following NG tube removed 08/07 (3) On total parenteral nutrition (TPN) Current Visit: Yes Status: Acute Code(s): Z78.9 - OTHER SPECIFIED HEALTH STATUS SNOMED Code(s): 98554888 (4) Diabetes Current Visit: Yes Status: Acute Code(s): E11.9 - TYPE 2 DIABETES MELLITUS WITHOUT COMPLICATIONS SNOMED Code(s): 78581094 Comment: requiring insulin while on TPN, will check a1c for discharge planning. unclear if this is a chronic diagnosis or hyperglyemia is just related to TPN/critical illness (5) Parkinson disease Current Visit: Yes Status: Acute Code(s): G20 - PARKINSON'S DISEASE SNOMED Code(s): 12717856 Comment: continue levodopa/carbidoba (6) Pressure ulcer Current Visit: Yes Status: Acute Code(s): L89.90 - PRESSURE ULCER OF UNSPECIFIED SITE, UNSPECIFIED STAGE SNOMED Code(s): 065193717 Comment: stage 1 ulcer on back frequent positioning encourage PT barrier cream (7) DVT prophylaxis Current Visit: Yes Status: Acute Code(s): Z29.9 - ENCOUNTER FOR PROPHYLACTIC MEASURES, UNSPECIFIED SNOMED Code(s): 729731614 Comment: on heparin (8) Full code status Current Visit: Yes Status: Acute Code(s): Z78.9 - OTHER SPECIFIED HEALTH STATUS SNOMED Code(s): 420136904 Comment: -was DNR/DNI- temporarily changed to full code for surgery -family like to keep full code now -will need goal of care discussion with family (9) Pulmonary edema Current Visit: Yes Status: Acute Code(s): J81.1 - CHRONIC PULMONARY EDEMA SNOMED Code(s): 64591163 Comment: likely related to TPN, abx, IVF will need D5W, so will give one small dose of lasix now (10) Hypernatremia Current Visit: Yes Status: Acute Code(s): E87.0 - HYPEROSMOLALITY AND HYPERNATREMIA SNOMED Code(s): 584000371 Comment: Start D5 today, follow up sugars, may need more insulin Status and Disposition: inpatient Medicine. Surgery following PT ordered
--- NOTE | 2019-08-09 11:05 | PN ---
Progress Note - Progress Note Date of Service: 08/09/19 Note: Surgery Progress Note S: Patient passed first step of her swallow study yesterday and was able to take some assisted ice chips/sips water after removal of NGT. She has been having multiple liquid bowel movements. Her daughter is at bedside. Had a low grade fever yesterday afternoon and some tachypnea. No other significant overnight events. O: Vital Signs - 24 hr 08/08/19 08/08/19 08/08/19 11:41 12:01 14:01 Temperature 100.1 F Pulse Rate 93 Respiratory 20 28 28 Rate Blood Pressure 146/47 (mmHg) O2 Sat by Pulse 95 Oximetry 08/08/19 08/08/19 08/08/19 16:06 16:22 17:41 Temperature 99.9 F Pulse Rate 91 Respiratory 32 22 30 Rate Blood Pressure 141/48 (mmHg) O2 Sat by Pulse 92 Oximetry 08/08/19 08/08/19 08/08/19 20:05 20:15 23:40 Temperature 97.7 F 98.7 F Pulse Rate 94 90 Respiratory 24 17 17 Rate Blood Pressure 155/42 151/48 (mmHg) O2 Sat by Pulse 98 95 Oximetry 08/09/19 08/09/19 03:02 08:02 Temperature 98.1 F 98.4 F Pulse Rate 85 90 Respiratory 17 24 Rate Blood Pressure 139/43 146/46 (mmHg) O2 Sat by Pulse 94 95 Oximetry Laboratory Results - last 24 hr 08/07/19 08/08/19 08/08/19 16:08 11:46 16:16 WBC RBC Hgb Hct MCV MCH MCHC RDW Plt Count MPV Neut % (Auto) Lymph % (Auto) [place] % (Auto) Eos % (Auto) Baso % (Auto) Absolute Neuts (auto) Absolute Lymphs (auto) Absolute Monos (auto) Absolute Eos (auto) Absolute Basos (auto) Absolute Nucleated RBC Nucleated RBC % Sodium Potassium Chloride Carbon Dioxide Anion Gap BUN Creatinine Est GFR ( Amer) Est GFR (Non-Af Amer) BUN/Creatinine Ratio Glucose POC Glucose (mg/dL) 161 H 183 H 164 H Calcium Phosphorus Magnesium Total Bilirubin AST ALT Alkaline Phosphatase Total Protein Albumin Globulin Albumin/Globulin Ratio Prealbumin Triglycerides Cholesterol Urine Color Urine Appearance Urine pH Ur Specific Chancellor Urine Protein Urine Ketones Urine Blood Urine Nitrate Urine Bilirubin Urine Urobilinogen Ur Leukocyte Esterase Urine WBC (Auto) Urine RBC (Auto) Urine Bacteria Urine Yeast Urine Glucose 08/08/19 08/08/19 08/09/19 17:19 20:43 00:41 WBC RBC Hgb Hct MCV MCH MCHC RDW Plt Count MPV Neut % (Auto) Lymph % (Auto) [place] % (Auto) Eos % (Auto) Baso % (Auto) Absolute Neuts (auto) Absolute Lymphs (auto) Absolute Monos (auto) Absolute Eos (auto) Absolute Basos (auto) Absolute Nucleated RBC Nucleated RBC % Sodium Potassium Chloride Carbon Dioxide Anion Gap BUN Creatinine Est GFR ( Amer) Est GFR (Non-Af Amer) BUN/Creatinine Ratio Glucose POC Glucose (mg/dL) 174 H 168 H Calcium Phosphorus Magnesium Total Bilirubin AST ALT Alkaline Phosphatase Total Protein Albumin Globulin Albumin/Globulin Ratio Prealbumin Triglycerides Cholesterol Urine Color Yellow Urine Appearance Cloudy Urine pH 7.0 Ur Specific Chancellor 1.016 Urine Protein Negative Urine Ketones Negative Urine Blood 2+ A Urine Nitrate Negative Urine Bilirubin Negative Urine Urobilinogen Negative Ur Leukocyte Esterase 2+ A Urine WBC (Auto) 3+(>20/hpf) A Urine RBC (Auto) 3+(>10/hpf) A Urine Bacteria 3+ A Urine Yeast Present A Urine Glucose 1+(50 mg/dl) A 08/09/19 08/09/19 08/09/19 04:12 06:40 06:40 WBC 15.9 H RBC 1.81 L Hgb 7.3 L Hct 22 L MCV 123 H MCH 40 H MCHC 33 RDW 14 Plt Count 454 H MPV 9.6 Neut % (Auto) 87.6 Lymph % (Auto) 5.2 [place] % (Auto) 6.5 Eos % (Auto) 0.4 Baso % (Auto) 0.3 Absolute Neuts (auto) 14.0 H Absolute Lymphs (auto) 0.8 L Absolute Monos (auto) 1.0 H Absolute Eos (auto) 0.1 Absolute Basos (auto) 0.0 Absolute Nucleated RBC 0.0 Nucleated RBC % 0.0 Sodium 149 H Potassium 4.0 Chloride 117 H Carbon Dioxide 30 Anion Gap 2 BUN 43 H Creatinine 0.41 L Est GFR ( Amer) 181.5 Est GFR (Non-Af Amer) 150.0 BUN/Creatinine Ratio 104.9 H Glucose 138 H POC Glucose (mg/dL) 202 H Calcium 8.2 L Phosphorus 2.8 Magnesium 2.0 Total Bilirubin 0.30 AST 33 ALT 10 Alkaline Phosphatase 120 H Total Protein 4.1 L Albumin 1.8 L Globulin 2.3 Albumin/Globulin Ratio 0.8 L Prealbumin 10 L Triglycerides 71 Cholesterol 74 Urine Color Urine Appearance Urine pH Ur Specific Chancellor Urine Protein Urine Ketones Urine Blood Urine Nitrate Urine Bilirubin Urine Urobilinogen Ur Leukocyte Esterase Urine WBC (Auto) Urine RBC (Auto) Urine Bacteria Urine Yeast Urine Glucose 08/09/19 07:59 WBC RBC Hgb Hct MCV MCH MCHC RDW Plt Count MPV Neut % (Auto) Lymph % (Auto) [place] % (Auto) Eos % (Auto) Baso % (Auto) Absolute Neuts (auto) Absolute Lymphs (auto) Absolute Monos (auto) Absolute Eos (auto) Absolute Basos (auto) Absolute Nucleated RBC Nucleated RBC % Sodium Potassium Chloride Carbon Dioxide Anion Gap BUN Creatinine Est GFR ( Amer) Est GFR (Non-Af Amer) BUN/Creatinine Ratio Glucose POC Glucose (mg/dL) 186 H Calcium Phosphorus Magnesium Total Bilirubin AST ALT Alkaline Phosphatase Total Protein Albumin Globulin Albumin/Globulin Ratio Prealbumin Triglycerides Cholesterol Urine Color Urine Appearance Urine pH Ur Specific Chancellor Urine Protein Urine Ketones Urine Blood Urine Nitrate Urine Bilirubin Urine Urobilinogen Ur Leukocyte Esterase Urine WBC (Auto) Urine RBC (Auto) Urine Bacteria Urine Yeast Urine Glucose Intake & Output 08/08/19 08/09/19 08/09/19 22:59 06:59 14:59 Intake Total 2051 0 0 Output Total 350 400 Balance 1701 -400 0 Weight 137 lb 12.8 oz Intake: IV Fluids 95 Meropenem 55 NS (0.9%) 40 TPN/PPN 1776 Oral 180 0 0 Output: Vieira 350 400 Other: # Bowel Movements 1 Estimated Stool Amount Medium Physical exam: Abdomen- soft, NTND, incision c/d/i with vicenta, minimal tympany Ext- mild edemain hands and lower extremities A/P: 79 F with Parkinson's disease POD 7/5 from ileocolic resection for closed SBO and takeback for abdominal wall closure, stable. - Speech evaluation tomorrow and hopefully her diet can be advanced - Continue OOB, PT - WBC decreased today. Her last day of meropenem was yesterday. She had only a very low grade fever yesterday. Discussed with Dr. Krueger-- will keep abx off and evaluate clinical condition. She will have a fever work up as needed. - Continue TPN - Ppx: Protonix, HSQ
[2019-08-09] MEDS ORDERED: Furosemide IV* 10 MG/ML 2 ML VIAL (20 MG) IV ONE (11:17)
[2019-08-09] MEDS: CMCS:Carbidopa/Levodopa ODT (NF) 25/100 ODT PO SCH (12:21)
[2019-08-09] MEDS: D5W 1000 ML BAG* 1,000 ML IV SCH ×2 (13:56→23:54)
[2019-08-09] MEDS: fentaNYL* 50 MCG/ML 2 ML VIAL (100 MCG VIAL) IV SLOW PU PRN (14:03)
[2019-08-09] MEDS: TPN* 24 HR with Dextrose 50% Water* 500 ML, Amino Acid Infusion 10%* 850 ML, Sterile Wa... CENTR SCH ×11 (16:54)
[2019-08-09] MEDS: Pantoprazole IV* 40 MG IV SCH (17:47)
[2019-08-09] MEDS ORDERED: fentaNYL* 50 MCG/ML 2 ML VIAL (100 MCG VIAL) IV SLOW PU PRN (21:15)
[2019-08-10] MEDS: Insulin LISPRO* 1 UNITS UNIT SUBCUT SCH ×6 (00:31→20:21)
[2019-08-10] MEDS: CMCS: Carbidopa/Levodopa ODT (NF) 25/100 ODT PO SCH ×4 (03:42→17:51)
[2019-08-10 05:24] LABS: ABS Eosinophils 0.1 10^3/ul (0-0.6); ABS Lymphocytes 0.7 10^3/ul (1.0-4.8); ABS Monocytes 0.7 10^3/ul (0-0.8); ABS Neutrophils 12.1 10^3/ul (1.5-7.7); Eosinophil % 0.5 %; Hematocrit 20 % (35-47); Hemoglobin 6.6 g/dL (12.0-16.0); Lymphocyte % 5.2 %; Mean Corpuscular HGB Conc 33 g/dL (31-36); Mean Corpuscular Hemoglobin 40 pg (27-31); Mean Corpuscular Volume 122 fL (80-97); Mean Platelet Volume 9.7 fL (7.4-10.4); Platelet Count 415 10^3/uL (150-450); Red Blood Count 1.63 10^6 /uL (3.70-4.87); Red Cell Distribution Width 13 % (10-15); White Blood Count 13.6 10^3/uL (3.5-10.8)
[2019-08-10 05:36] LABS: Albumin 1.7 g/dL (3.2-5.2); Albumin/Globulin Ratio 0.7 (1-3); BUN/Creatinine Ratio 102.7 (8-20); Calcium 7.9 mg/dL (8.6-10.3); EGFR African American 204.4 (>60); EGFR Non-African American 168.9 (>60); Globulin 2.3 g/dL (2-4); Magnesium 1.8 mg/dL (1.9-2.7); Potassium 3.7 mmol/L (3.5-5.0); Total Bilirubin 0.3 mg/dL (0.2-1.0)
[2019-08-10] MEDS: CMCS:Carbidopa/Levodopa ODT (NF) 25/100 ODT PO SCH ×3 (05:43→12:42)
[2019-08-10] MEDS: Heparin VIAL(*) 5000 UNITS/ML VIAL (FIVE THOUSAND) SUBCUT SCH ×3 (05:44→22:44)
[2019-08-10] MEDS: Levothyroxine INJ* 100 MCG/5 ML VIAL IV SCH (06:22)
[2019-08-10] MEDS: Insulin GLARGINE(*) 1 UNITS UNIT SUBCUT SCH (08:53)
--- NOTE | 2019-08-10 09:43 | PN ---
Progress Note - Progress Note Date of Service: 08/10/19 SOAP: Subjective:NAD [] Objective: Vital Signs Temp 98.5 F 08/10/19 08:31 Pulse 85 08/10/19 08:09 Resp 28 08/10/19 08:33 BP 113/36 08/10/19 08:09 Pulse Ox 97 08/10/19 08:09 Intake & Output 08/09/19 08/10/19 08/10/19 18:59 06:59 18:59 Intake Total 1784 1005 Output Total 1150 950 Balance 634 55 Weight 141 lb 12.8 oz Intake: IV Fluids 985 D5W 985 TPN/PPN 1724 Oral 60 20 Output: Vieira 1150 950 Other: # Bowel Movements 1 Estimated Stool Amount Small Laboratory Tests 08/08/19 08/09/19 08/10/19 05:37 06:40 05:00 WBC 17.5 H 15.9 H 13.6 H Hgb 7.7 L 7.3 L 6.6 L Magnesium 08/10/19 05:00 WBC Hgb Magnesium 1.8 L PEX Gen: Awake and alert, NAD Chest: CTA, small inspiratory wheeeze heard on left side CVS: RRR Abd: Midline incision with vicenta in place, C/D/I, minimal erythema at staple sites + Tender RLQ, hypo BS's, Flexiseal with maroon tinged liquid stool Ext: + Edema, calves soft, non tender Assessment: 79 yo female parkisons disease, POD 8/6 S/P ileocolic resection for closed SBO and Takeback for abdominal closure. Needs Swallow eval to start diet , continues with TPN, is off ABX, Meropenum completed x 2 days ago. WBC improved @ 13.6 (15.9), Hgb down @ 6.6 (7.3), [] Plan: Swallow study today, PT, PPI, Guiac liquid stool from flexiseal was negative, OOB, PT, DVT prophylaxis heparin, SCD's, will discuss transfusion with Dr Delacruz and Dr Krueger. Mag replacement and TPN were D/W Pharmacy, continue same until tolerating PO
[2019-08-10] MEDS: D5W 1000 ML BAG* 1,000 ML IV SCH (10:02)
[2019-08-10] MEDS ORDERED: Magnesium Sulfate 1 GM IV* 1 GM/100 ML BAG IV ONE (12:00)
--- NOTE | 2019-08-10 15:27 | PN ---
Subjective Date of Service: 08/10/19 Interval History: HD 15 on 08/09 79F history of diabetes, hypertension, Von Willenbrand disorder, Parkinson disease, who initially presented with AMS, sepsis, found to have Klebsiella UTI and SBO.Failed medical management, s/p ex lap(08/01), found ischemic bowel with closed loop obstruction, s/p cecum resection 08/01 and ileocolonic anastomosis , extubated 08/04, now POD 4. transferred from ICU on 08/06 No acute overnight events Patient seen and examined at bedside. She looks lethargic. Able to tell her name. Answers question by yes or no. She says she she is feeling short of breath and uncomfortable but denies any pain at present. Family at bedside. Discussed about HB drop and need of transfusion. Consent done and family also informed about need of discussing goals of care when they are ready. Still having diarrhea. Objective Active Medications: Acetaminophen (Tylenol 650 Mg Supp) 650 mg OK Q6H PRN PRN Reason: MILD PAIN or TEMP > 100.4 Carbidopa/Levodopa (Carbidopa/Levodopa 25/100 Odt (Nf)) 1 tab PO 0300,1500, 1800 [facility] Last Admin: 08/10/19 03:42 Dose: 1 tab Carbidopa/Levodopa (Carbidopa/Levodopa 25/100 Odt (Nf)) 1 tab PO 0600,0900, 1200 [facility] Last Admin: 08/10/19 12:42 Dose: 1 tab Dextrose (D50w Syringe 50 Ml*) 12.5 gm IV PUSH .FOR FS < 60 - SS PRN PRN Reason: FS < 60 Heparin Sodium (Porcine) (Heparin Vial(*)) 5,000 units SUBCUT Q8HR [facility] Last Admin: 08/10/19 14:03 Dose: 5,000 units Heparin Sodium (Porcine) (Heparin Flush Picc/Ml/Cvc(*)) 1 - 3 ml FLUSH 0600, 1800 [facility]; Protocol Last Admin: 08/10/19 05:43 Dose: 1 ml Dextrose 500 ml/ Amino Acids 850 ml/ Sterile Water 150 ml/Fat Emulsion Intravenous 250 ml/ Potassium Chloride 40 meq/Potassium Phosphate 15 mmole/ Calcium Gluconate 15 meq/Magnesium Sulfate 10 meq/Multivitamins 10 ml/ Trace Metals 1 ml/ Nutrition ( Parenteral) 1,820.721 mls @ 75.863 mls/hr [facility] 1700 [facility]; Protocol Last Admin: 08/09/19 16:54 Dose: 75.863 mls/hr Insulin Glargine (Lantus(*)) 10 units SUBCUT Q24H [facility] Last Admin: 08/10/19 08:53 Dose: 10 units Insulin Human Lispro (Humalog*) 0 units SUBCUT FS Q4 ICU [facility]; Protocol Last Admin: 08/10/19 12:41 Dose: 2 units Levothyroxine Sodium (Synthroid Inj*) 25 mcg IV 0600 [facility] Last Admin: 08/10/19 06:22 Dose: 25 mcg Nystatin (Nystatin Top Powder*) 1 applic TOPICAL BID PRN PRN Reason: DRY SKIN Last Admin: 08/09/19 08:19 Dose: 1 applic Ondansetron HCl (Zofran Inj*) 4 mg IV Q4H PRN PRN Reason: NAUSEA/VOMITING Last Admin: 07/27/19 17:55 Dose: 4 mg Pantoprazole Sodium (Protonix Iv*) 40 mg IV Q24H [facility] Last Admin: 08/09/19 17:47 Dose: 40 mg Vital Signs - 8 hr 08/10/19 08/10/19 08/10/19 08:09 08:31 08:33 Temperature 98.5 F Pulse Rate 85 Respiratory 28 28 Rate Blood Pressure 113/36 (mmHg) O2 Sat by Pulse 97 Oximetry 08/10/19 08/10/19 08/10/19 12:10 12:25 14:47 Temperature 98.8 F 98.9 F 99.1 F Pulse Rate 85 85 82 Respiratory 24 28 24 Rate Blood Pressure 126/40 129/43 122/45 (mmHg) O2 Sat by Pulse 95 95 98 Oximetry Oxygen Devices in Use Now: Nasal Cannula Exam: Oxygen Devices in Use Now: Nasal Cannula Appearance: alert, masked face, mildly tachypneic, no distress Ears/Nose/Mouth/Throat: - - dry mucosa Respiratory: - - Crackles heard on bilateral lung bases Cardiovascular: NL Sounds; No Murmurs; No JVD, RRR Abdominal: - - midline incision stapled, no drainage or erythema, bowel sounds are active Skin: No Rash or Ulcers Neurological: - - no rigidity, moves all extremities on command Result Diagrams: 08/10/19 05:00 08/10/19 05:00 Microbiology and Other Data: Microbiology 07/31/19 09:00 Urine Culture - Final Urine Chery Albicans 07/31/19 09:27 Aerobic Blood Culture - Preliminary Blood Venous No Growth Day 1 Anaerobic Blood Culture - Preliminary No Growth Day 1 07/27/19 08:23 Aerobic Blood Culture - Final Blood Venous Not Reportable Anaerobic Blood Culture - Final Not Reportable Blood Culture - Final No Growth Day 5 07/27/19 08:08 Aerobic Blood Culture - Final Blood Venous No Growth Day 5 Anaerobic Blood Culture - Final No Growth Day 5 07/27/19 09:36 Urine Culture - Final Urine Klebsiella Pneumoniae 07/27/19 11:45 Nasal Screen MRSA (PCR) - Final Nasal Mrsa Not Detected Assess/Plan/Problems-Billing Assessment: 79F PMH HTN, VWD, Parkinson's with motor impairment and MCI at baseline presented with septic shock 2/2 to Klebsiella UTI, VIVINAA. Hospital course complicated by sig deconditioning from decompensation from parkinsons along with PNA, hyPERNa and complete SBO. s/p exp laparotomy with cecum resection on and ileocolonic anastomosis 08/03. Transferred from ICU on 08/06 - Patient Problems (1) Sepsis Current Visit: Yes Status: Acute Comment: -Resolved Multiple sources: UTI, ?pneumonia, ischemic bowel DC meropenem om 08/09(received full course) and source control achieved with surgery (2) Small bowel obstruction Current Visit: Yes Status: Acute Code(s): K56.609 - UNSP INTESTNL OBST, UNSP TO PARTIAL VERSUS COMPLETE OBST SNOMED Code(s): 496064490 Comment: -Now s/p cecum resection with ileocolic anastomosis(08/03) after failing medical management -POD 6 -Surgery following -NG tube removed 08/07 -On nectar thickened diet- ST to evaluate tomorrow again. (3) Anemia Current Visit: Yes Status: Acute Code(s): D64.9 - ANEMIA, UNSPECIFIED SNOMED Code(s): 809164866 Comment: -New dx -surgically induced -stool OBT negative -Hb dropped to 6.6- transfuse 1u of PRBC -will watch closely for blood loss (4) Shortness of breath Current Visit: Yes Status: Acute Code(s): R06.02 - SHORTNESS OF BREATH SNOMED Code(s): 940433997 Comment: -feels SOB; but spo2 normal on room air. -CXR showing pulm edema- no opacification; no e/o infection -looks volume overloaded -will give lasix (5) On total parenteral nutrition (TPN) Current Visit: Yes Status: Acute Code(s): Z78.9 - OTHER SPECIFIED HEALTH STATUS SNOMED Code(s): 03501374 Comment: -will continue for now as her PO intake is not enough (6) Diabetes Current Visit: Yes Status: Acute Code(s): E11.9 - TYPE 2 DIABETES MELLITUS WITHOUT COMPLICATIONS SNOMED Code(s): 81049940 Comment: -requiring insulin while on TPN -A1C- 5.8 on 08/09/19; BG still on high 100's to low 200's -will de-escalate as able (7) Parkinson disease Current Visit: Yes Status: Acute Code(s): G20 - PARKINSON'S DISEASE SNOMED Code(s): 86368803 Comment: -continue levodopa/carbidoba (8) Pressure ulcer Current Visit: Yes Status: Acute Code(s): L89.90 - PRESSURE ULCER OF UNSPECIFIED SITE, UNSPECIFIED STAGE SNOMED Code(s): 249971679 Comment: -stage 1 ulcer on back frequent positioning encourage PT barrier cream (9) DVT prophylaxis Current Visit: Yes Status: Acute Code(s): Z29.9 - ENCOUNTER FOR PROPHYLACTIC MEASURES, UNSPECIFIED SNOMED Code(s): 314936315 Comment: on heparin (10) Full code status Current Visit: Yes Status: Acute Code(s): Z78.9 - OTHER SPECIFIED HEALTH STATUS SNOMED Code(s): 259171909 Comment: -was DNR/DNI- temporarily changed to full code for surgery -family like to keep full code now -will need goal of care discussion with family- family not ready yet Status and Disposition: inpatient Medicine. Surgery following PT ordered will likely need MAYTE Attending: Sloane Krueger Attestation Documenting Resident: Josee Supervising Physician: Pati Attending/Supervising Physician Comment: Anemia likely post-op, FOBT negative; abd is soft if not responding appropriately, need to CT abdomen to eval for blood loss SBO s/p resection of necrotic portion of cecum return of bowel function as evidenced by profuse diarrhea, still unable to take much po due to impaired swallow function Parkinson Disease slow to recover after missing several doses of carbidopa/levodopa Hypernatremia resolved after d5 yesterday goals of care currently full code, with guarded prognosis of full recovery, will continue this conversation with her family Attestation: This service has been performed in part by a resident under the direction of a teaching physician.IPati, performed the service, or was physically present during the critical, or estrella portions of the service, furnished by the resident. I participated in the management of the patient.
[2019-08-10] MEDS: TPN* 24 HR with Dextrose 50% Water* 500 ML, Amino Acid Infusion 10%* 850 ML, Sterile Wa... CENTR SCH ×11 (17:12)
[2019-08-10] MEDS: Pantoprazole IV* 40 MG IV SCH (17:35)
[2019-08-10] MEDS ORDERED: Furosemide IV* 10 MG/ML 2 ML VIAL (20 MG) IV ONE (18:05)
[2019-08-10 18:14] LABS: Hematocrit 25 % (35-47); Hemoglobin 8.4 g/dL (12.0-16.0); Mean Corpuscular HGB Conc 33 g/dL (31-36); Mean Corpuscular Hemoglobin 37 pg (27-31); Mean Corpuscular Volume 112 fL (80-97); Mean Platelet Volume 9.6 fL (7.4-10.4); Platelet Count 431 10^3/uL (150-450); Red Blood Count 2.26 10^6 /uL (3.70-4.87); Red Cell Distribution Width 24 % (10-15); White Blood Count 13.9 10^3/uL (3.5-10.8)
[2019-08-11] MEDS: Insulin LISPRO* 1 UNITS UNIT SUBCUT SCH ×6 (00:52→20:14)
[2019-08-11] MEDS: CMCS: Carbidopa/Levodopa ODT (NF) 25/100 ODT PO SCH ×3 (03:50→18:14)
[2019-08-11] MEDS: Nystatin TOP POWDER* 15 GM BTL TOPICAL PRN (05:10)
[2019-08-11] MEDS: CMCS:Carbidopa/Levodopa ODT (NF) 25/100 ODT PO SCH ×3 (05:11→12:15)
[2019-08-11] MEDS: Heparin VIAL(*) 5000 UNITS/ML VIAL (FIVE THOUSAND) SUBCUT SCH ×3 (05:11→21:54)
[2019-08-11] MEDS: Levothyroxine INJ* 100 MCG/5 ML VIAL IV SCH (05:12)
[2019-08-11 05:49] LABS: Albumin 1.9 g/dL (3.2-5.2); Albumin/Globulin Ratio 0.7 (1-3); BUN/Creatinine Ratio 89.7 (8-20); Calcium 8.1 mg/dL (8.6-10.3); EGFR African American 192.3 (>60); Globulin 2.6 g/dL (2-4); Magnesium 1.9 mg/dL (1.9-2.7); Phosphorus 3.6 mg/dL (2.5-5.0); Potassium 3.9 mmol/L (3.5-5.0); Total Bilirubin 0.4 mg/dL (0.2-1.0); Total Protein 4.5 g/dL (6.4-8.9)
[2019-08-11] MEDS: Insulin GLARGINE(*) 1 UNITS UNIT SUBCUT SCH (08:42)
[2019-08-11 08:52] LABS: Calcium 7.4 mg/dL (8.6-10.3); Potassium 4.1 mmol/L (3.5-5.0)
[2019-08-11 08:58] LABS: EGFR African American 186.8 (>60); EGFR Non-African American 154.4 (>60)
[2019-08-11 10:04] LABS: ABS Eosinophils 0.1 10^3/ul (0-0.6); ABS Lymphocytes 0.5 10^3/ul (1.0-4.8); ABS Monocytes 0.8 10^3/ul (0-0.8); ABS Neutrophils 10.3 10^3/ul (1.5-7.7); Eosinophil % 0.6 %; Hematocrit 27 % (35-47); Hemoglobin 8.9 g/dL (12.0-16.0); Lymphocyte % 4.5 %; Mean Corpuscular HGB Conc 33 g/dL (31-36); Mean Corpuscular Hemoglobin 37 pg (27-31); Mean Corpuscular Volume 112 fL (80-97); Mean Platelet Volume 9.4 fL (7.4-10.4); Platelet Count 406 10^3/uL (150-450); Red Blood Count 2.42 10^6 /uL (3.70-4.87); Red Cell Distribution Width 23 % (10-15); White Blood Count 11.7 10^3/uL (3.5-10.8)
[2019-08-11] MEDS ORDERED: Acetaminophen TAB* 325 MG PO PRN (10:13)
[2019-08-11] MEDS ORDERED: traMADol TAB* 50 MG PO PRN (10:13)
--- NOTE | 2019-08-11 10:57 | PN ---
Progress Note - Progress Note Date of Service: 08/11/19 SOAP: Subjective: Nad, awake, Alert, responsive reports no pain. on TPN has castellon and flexie seal [] Objective: Vital Signs Temp 97.3 F 08/11/19 07:45 Pulse 82 08/11/19 07:45 Resp 28 08/11/19 07:45 BP 128/37 08/11/19 07:45 Pulse Ox 95 08/11/19 07:45 Intake & Output 08/10/19 08/11/19 08/11/19 18:59 06:59 18:59 Intake Total 3378 Output Total 575 700 Balance 2803 -700 Weight 131 lb 6.4 oz Intake: IV Fluids 1126 D5W 1096 NS (0.9%) 30 IVPB 110 Magnesium 110 TPN/PPN 1807 Packed Cells 335 Output: Castellon 500 650 Liquid Stool 75 50 Other: Estimated Void Large Estimated Stool Amount Large # Voids 2 [] Laboratory Tests 08/10/19 08/10/19 08/11/19 05:00 17:15 09:45 WBC 13.9 H 11.7 H Hgb 6.6 L 8.4 L 8.9 L Transfused 1 unit PRBC's 08/09 PEX: GEN:NAD Chest:CTAB CVS:RRR Abd:soft, midline incision C/D/I vicenta in place, mild erythema non tender to palp . Castellon with clear urine, flexi with liquid stool Ext:calves soft non tender Assessment:79 yo female parkisons disease, POD 9/7 S/P ileocolic resection for closed SBO and Takeback for abdominal closure. Swallow study showed claude for nectar thickened liquids. Continues with TPN, is off ABX, Meropenum completed x 3 days ago. WBC improved @ 11.7, (13.9) Hgb improved after 1 unit PRBC's, 8.9 (8.4, 6.6) . Stool guiac was negative 08/09 Plan: Added ensure to each meal tray with thickener, if can consume 2 - 3 per day would D/C TPN and Central Line. if unable to maintain oral intake must consider feeding tube. SCD's, Heparin, OOB if possible, PT. Above was D/W Dr' s Keyshawn, Pati, and Nubia Added PO Tylenol and Tramadol for pain
[2019-08-11] MEDS ORDERED: LORazepam TAB(*) 1 MG PO SCH (11:00)
--- NOTE | 2019-08-11 14:32 | PN ---
Subjective Date of Service: 08/11/19 Interval History: HD 16 on 08/10 79F history of diabetes, hypertension, Von Willenbrand disorder, Parkinson disease, who initially presented with AMS, sepsis, found to have Klebsiella UTI and SBO.Failed medical management, s/p ex lap(08/01), found ischemic bowel with closed loop obstruction, s/p cecum resection 08/01 and ileocolonic anastomosis , extubated 08/04, now POD 4. transferred from ICU on 08/06 No acute overnight events Patient seen and examined at bedside. Patient sitting on a recliner and looks better today. She is able to tell her name and place. SHe denies any symptoms at present- no SOB, pain. Objective Active Medications: Acetaminophen (Tylenol 650 Mg Supp) 650 mg MI Q6H PRN PRN Reason: MILD PAIN or TEMP > 100.4 Acetaminophen (Tylenol Tab*) 650 mg PO Q6H PRN PRN Reason: PAIN - MILD Last Admin: 08/11/19 11:09 Dose: 650 mg Carbidopa/Levodopa (Carbidopa/Levodopa 25/100 Odt (Nf)) 1 tab PO 0300,1500, 1800 [facility] Last Admin: 08/11/19 03:50 Dose: 1 tab Carbidopa/Levodopa (Carbidopa/Levodopa 25/100 Odt (Nf)) 1 tab PO 0600,0900, 1200 [facility] Last Admin: 08/11/19 12:15 Dose: 1 tab Dextrose (D50w Syringe 50 Ml*) 12.5 gm IV PUSH .FOR FS < 60 - SS PRN PRN Reason: FS < 60 Heparin Sodium (Porcine) (Heparin Vial(*)) 5,000 units SUBCUT Q8HR [facility] Last Admin: 08/11/19 05:11 Dose: 5,000 units Heparin Sodium (Porcine) (Heparin Flush Picc/Ml/Cvc(*)) 1 - 3 ml FLUSH 0600, 1800 [facility]; Protocol Last Admin: 08/11/19 05:26 Dose: 3 ml Dextrose 500 ml/ Amino Acids 850 ml/ Sterile Water 150 ml/Fat Emulsion Intravenous 250 ml/ Potassium Chloride 40 meq/Potassium Phosphate 15 mmole/ Calcium Gluconate 15 meq/Magnesium Sulfate 10 meq/Multivitamins 10 ml/ Trace Metals 1 ml/ Nutrition ( Parenteral) 1,820.721 mls @ 75.863 mls/hr CEN[facility] 1700 [facility]; Protocol Last Admin: 08/10/19 17:12 Dose: 75.863 mls/hr Insulin Glargine (Lantus(*)) 10 units SUBCUT Q24H [facility] Last Admin: 08/11/19 08:42 Dose: 10 units Insulin Human Lispro (Humalog*) 0 units SUBCUT FS Q4 ICU [facility]; Protocol Last Admin: 08/11/19 12:33 Dose: 1 units Levothyroxine Sodium (Synthroid Inj*) 25 mcg IV 0600 [facility] Last Admin: 08/11/19 05:12 Dose: 25 mcg Nystatin (Nystatin Top Powder*) 1 applic TOPICAL BID PRN PRN Reason: DRY SKIN Last Admin: 08/11/19 05:10 Dose: 1 applic Ondansetron HCl (Zofran Inj*) 4 mg IV Q4H PRN PRN Reason: NAUSEA/VOMITING Last Admin: 07/27/19 17:55 Dose: 4 mg Pantoprazole Sodium (Protonix Iv*) 40 mg IV Q24H [facility] Last Admin: 08/10/19 17:35 Dose: 40 mg Tramadol HCl (Ultram*) 50 mg PO Q6H PRN PRN Reason: PAIN - MODERATE Vital Signs - 8 hr 08/11/19 08/11/19 07:45 11:38 Temperature 97.3 F 98.0 F Pulse Rate 82 87 Respiratory 20 28 Rate Blood Pressure 128/37 130/48 (mmHg) O2 Sat by Pulse 95 95 Oximetry Oxygen Devices in Use Now: Nasal Cannula Exam: Oxygen Devices in Use Now: Nasal Cannula Appearance: alert, masked face, mildly tachypneic, no distress Ears/Nose/Mouth/Throat: - - dry mucosa Respiratory: - - Mild crackles Cardiovascular: NL Sounds; No Murmurs; No JVD, RRR Abdominal: - - midline incision stapled, no drainage or erythema, bowel sounds are active Skin: redness on inner thigh Neurological: - - no rigidity, moves all extremities on command; alert, oriented and coperative Result Diagrams: 08/11/19 09:45 08/11/19 08:19 Microbiology and Other Data: Microbiology 07/31/19 09:00 Urine Culture - Final Urine Chery Albicans 07/31/19 09:27 Aerobic Blood Culture - Preliminary Blood Venous No Growth Day 1 Anaerobic Blood Culture - Preliminary No Growth Day 1 07/27/19 08:23 Aerobic Blood Culture - Final Blood Venous Not Reportable Anaerobic Blood Culture - Final Not Reportable Blood Culture - Final No Growth Day 5 07/27/19 08:08 Aerobic Blood Culture - Final Blood Venous No Growth Day 5 Anaerobic Blood Culture - Final No Growth Day 5 07/27/19 09:36 Urine Culture - Final Urine Klebsiella Pneumoniae 07/27/19 11:45 Nasal Screen MRSA (PCR) - Final Nasal Mrsa Not Detected Assess/Plan/Problems-Billing Assessment: 79F PMH HTN, VWD, Parkinson's with motor impairment and MCI at baseline presented with septic shock 2/ to Klebsiella UTI, VIVIANA. Hospital course complicated by sig deconditioning from decompensation from parkinsons along with PNA, hyPERNa and complete SBO. s/p exp laparotomy with cecum resection on and ileocolonic anastomosis 08/03. Transferred from ICU on 08/06 - Patient Problems (1) Sepsis Current Visit: Yes Status: Acute Comment: -Resolved Multiple sources: UTI, ?pneumonia, ischemic bowel DC meropenem om 08/09(received full course) and source control achieved with surgery (2) Small bowel obstruction Current Visit: Yes Status: Acute Code(s): K56.609 - UNSP INTESTNL OBST, UNSP TO PARTIAL VERSUS COMPLETE OBST SNOMED Code(s): 015474871 Comment: -Now s/p cecum resection with ileocolic anastomosis(08/03) after failing medical management -POD 7 -Surgery following -NG tube removed 08/07 -On nectar thickened diet- ST to evaluate everyday -there was discussion about need of PEG tube but patient and her family does not want it. (3) Anemia Current Visit: Yes Status: Acute Code(s): D64.9 - ANEMIA, UNSPECIFIED SNOMED Code(s): 949119438 Comment: -New dx -surgically induced -stool OBT negative -Hb dropped to 6.6- transfused 1u of PRBC on 08/10- Hb 8.6 now- no e/o blood loss -will watch closely for blood loss (4) Shortness of breath Current Visit: Yes Status: Acute Code(s): R06.02 - SHORTNESS OF BREATH SNOMED Code(s): 702321407 Comment: -feeling better today -CXR showing pulm edema- no opacification; no e/o infection -received lasix yesterday (5) On total parenteral nutrition (TPN) Current Visit: Yes Status: Acute Code(s): Z78.9 - OTHER SPECIFIED HEALTH STATUS SNOMED Code(s): 59260816 Comment: -will continue for now as her PO intake is not enough (6) Diabetes Current Visit: Yes Status: Acute Code(s): E11.9 - TYPE 2 DIABETES MELLITUS WITHOUT COMPLICATIONS SNOMED Code(s): 68974212 Comment: -requiring insulin while on TPN -A1C- 5.8 on 08/09/19; BG still on high 100's to low 200's -will de-escalate as able (7) Parkinson disease Current Visit: Yes Status: Acute Code(s): G20 - PARKINSON'S DISEASE SNOMED Code(s): 33427557 Comment: -continue levodopa/carbidoba (8) Pressure ulcer Current Visit: Yes Status: Acute Code(s): L89.90 - PRESSURE ULCER OF UNSPECIFIED SITE, UNSPECIFIED STAGE SNOMED Code(s): 330936178 Comment: -stage 1 ulcer on back frequent positioning encourage PT barrier cream (9) DVT prophylaxis Current Visit: Yes Status: Acute Code(s): Z29.9 - ENCOUNTER FOR PROPHYLACTIC MEASURES, UNSPECIFIED SNOMED Code(s): 153870175 Comment: on heparin (10) DNR (do not resuscitate) Current Visit: Yes Status: Acute Comment: MOLST form filled out discussed with patient and family Status and Disposition: inpatient Medicine. Surgery following PT ordered will likely need MAYTE Attending: Sloane Krueger Attestation Documenting Resident: Josee Supervising Physician: Pati Attestation: This service has been performed in part by a resident under the direction of a teaching physician.IPati, performed the service, or was physically present during the critical, or estrella portions of the service, furnished by the resident. I participated in the management of the patient.
--- NOTE | 2019-08-11 14:46 | PN ---
Progress Note - Progress Note Date of Service: 08/11/19 Note: Goals of Care Discussion The primary team, myself met with patient and patient was more alert and oriented today. I discussed about her care plan and goals of care. Patient was clear DNR/DNI but her code status was changed to full code temporarily for Surgery. Patient is clear about not wanting chest compression, intubation and feeding tube and wants to be DNR/DNI. I also spoke with her who is her HCP and her daughter(on phone) who also agrees with this. They stated that her mom was always clear about her code status and specifically never wanted feeding tube. Dr. Krueger was with me while having discussion with family. Molst form is updated and is in the file.
--- NOTE | 2019-08-11 16:55 | CONSULT ---
Subjective Date of Service: 08/11/19 Interval History: Ms. Mcnally is a 79 yo female with PMH significant for von Willebrand disorder, HTN, Parkinson's disease, DM2, anxiety, and depression; who presented to the hospital with AMS. She was admitted to the hospital for a small bowel obstruction, dehydration, and lactic acidosis. She presented to the hospital with slightly blanchable erythema to the coccyx and a scab to the right ankle. The coccyx wound has worsened during her stay. She has also been noted to have erythema to the right scapula. NSG staff have been treating the buttocks with barrier cream and turning and repositioning. Patient seen and examined at bedside. Verbal consent for wound consultation and photographs obtained from daughter at bedside. Family History: Unchanged from Admission Social History: Unchanged from Admission Past Medical History: Unchanged from Admission Review of Systems - Measurements Intake and Output: Intake and Output Last 24 Hours 08/09/19 08/10/19 08/11/19 08/12/19 06:59 06:59 06:59 06:59 Intake Total 2051 2849 3378 30 Output Total 1650 2100 1275 550 Balance 418 478 2013 -520 Weight 137 lb 12.8 oz 141 lb 12.8 oz 131 lb 6.4 oz Intake: IV Fluids 95 985 1126 D5W 985 1096 Meropenem 55 NS (0.9%) 40 30 IVPB 110 Magnesium 110 TPN/PPN 1776 1724 1807 Oral 180 140 30 Packed Cells 335 Output: NG Tube Drainage Amount 75 Urine 200 Vieira 1375 2100 1150 500 Liquid Stool 125 50 Other: Estimated Void Large Date of Last Bowel 08/08/19 Movement # Bowel Movements 1 Estimated Stool Amount Small Small Large # Voids 2 - Review of Systems General Comments: Unable to perform ROS at this time, Pt is lethargic. Dermatology: Positive: Other - Wound to buttocks Objective Active Medications: Acetaminophen (Tylenol 650 Mg Supp) [address] Q6H PRN Reason: MILD PAIN or TEMP > 100.4 Acetaminophen (Tylenol Tab*) 650 mg PO Q6H PRN Reason: PAIN - MILD Carbidopa/Levodopa (Carbidopa/Levodopa 25/100 Odt (Nf)) 1 tab PO 0300,1500, 1800 [facility] Carbidopa/Levodopa (Carbidopa/Levodopa 25/100 Odt (Nf)) 1 tab PO 0600,0900, 1200 [facility] Dextrose (D50w Syringe 50 Ml*) 12.5 gm IV PUSH PRN Reason: FS < 60 Heparin Sodium (Porcine) (Heparin Vial(*)) 5,000 units SUBCUT Q8HR [facility] Heparin Sodium (Porcine) (Heparin Flush Picc/Ml/Cvc(*)) 1 - 3 ml FLUSH 0600, 1800 [facility]; Protocol Dextrose 500 ml/ Amino Acids 850 ml/ Sterile Water 150 ml/Fat Emulsion Intravenous 250 ml/ Potassium Chloride 40 meq/Potassium Phosphate 15 mmole/ Calcium Gluconate 15 meq/Magnesium Sulfate 10 meq/Multivitamins 10 ml/ Trace Metals 1 ml/ Nutrition ( Parenteral) 1,820.721 mls @ 37.932 mls/hr CENTR 1700 [facility]; Protocol Insulin Glargine (Lantus(*)) 10 units SUBCUT Q24H [facility] Insulin Human Lispro (Humalog*) 0 units SUBCUT FS Q4 ICU [facility]; Protocol Levothyroxine Sodium (Synthroid Inj*) 25 mcg IV 0600 [facility] Nystatin (Nystatin Top Powder*) 1 applic TOPICAL BID PRN Reason: DRY SKIN Ondansetron HCl (Zofran Inj*) 4 mg IV Q4H PRN Reason: NAUSEA/VOMITING Pantoprazole Sodium (Protonix Iv*) 40 mg IV Q24H [facility] Tramadol HCl (Ultram*) 50 mg PO Q6H PRN Reason: PAIN - MODERATE Vital Signs - 8 hr 08/11/19 08/11/19 11:38 15:27 Temperature 98.0 F 99.4 F Pulse Rate 87 88 Respiratory 28 24 Rate Blood Pressure 130/48 137/45 (mmHg) O2 Sat by Pulse 95 97 Oximetry Oxygen Devices in Use Now: Nasal Cannula Appearance: NAD, laying in bed Respiratory: Symmetrical Chest Expansion and Respiratory Effort Skin: - - See skin note below Neurological: - - Lethargic and unable to determine orientation Nutrition: Taking PO's Result Diagrams: 08/13/19 05:40 08/13/19 05:40 Additional Lab and Data: Above labs were pulled into the note, when the note was edited prior to signing. See below for labs from the day of consultation. Laboratory Tests 08/09/19 08/11/19 08/11/19 06:40 05:20 08:19 Sodium 139 Potassium 4.1 Chloride 110 Carbon Dioxide 23 BUN 34 H Creatinine 0.40 L Glucose 137 H Hemoglobin A1c 5.8 H Total Protein 4.5 L Albumin 1.9 L 08/11/19 09:45 WBC 11.7 H Hgb 8.9 L Hct 27 L Plt Count 406 Skin Deviation Note - Skin Deviation Findings Buttocks - There are 2 open areas to the sacrum. The left side open area measures, 2.5 cm x 3 cm x 0.1 cm. The wound base is 90 % red granulation tissue and 10 % dark purplish discolored tissue. There is scant serous drainage. The surrounding skin is intact. The right side open area measures, 0.4 cm x 0.4 cm x 0.1 cm. The wound base is 100% red granulation tissue. There is scant serous drainage. The surrounding skin is intact. The entire sacrum with pink blanchable tissue. The buttocks and right thigh with dermatitis. Right scapula - There are 2 areas of slightly blanchable erythema. The superior area measures 1.5 cm x 2 cm and the inferior area measures 2 cm x 7 cm. There are no open areas, no drainage. The surrounding skin is intact. Right lateral ankle - There is a small area of necrotic tissue, measures .6 cm x 0.6 cm. The wound base is 100% dry necrotic tissue. No drainage. The surrounding skin with dark erythema. Wound Problem/Plan Assessment: Ms. Mcnally is a 79 yo female with PMH significant for von Willebrand disorder, HTN, Parkinson's disease, DM2, anxiety, and depression; who presented to the hospital with AMS. She was admitted to the hospital for a small bowel obstruction, dehydration, and lactic acidosis. She presented to the hospital with slightly blanchable erythema to the coccyx and a scab to the right ankle. The coccyx wound has worsened during her stay. She has also been noted to have erythema to the right scapula. 1. Sacrum, buttocks, and right posterior thigh. This is mulitfactorial - Pressure, stage 2; friction; deep tissue injury; moisture associated dermatitis. She presented to the hospital with blanchable erythema to the coccyx , this has developed into a deep tissue injury and open area. Apply barrier cream (orange top). Frequent turn and reposition. Will add a pre-albumin to the last labs. Use a friction reduction device to move in bed. 2. Pressure injury to the lateral right LE, unstageable. Keep pressure off the area. Leave open to air for now. 3. Right scapula, non wound with area of erythema. Frequent turning and repositioning. Apply barrier cream (blue top) to the area. 4. DM2. HgA1C is 5.8. Maintain glycemic control to assist with wound healing. 5. Small bowel obstruction. S/P exp lap, KEVIN, small bowel resection, cecal resection on 08/01. On PPN. 6. Nutrition. At risk nutrition, Protein is 4.5 and Albumin 1.9. Recommend meeting minimal nutrition requirements to assist with wound healing (Protein 1.3 -1.5 grams/kg per day and Calories 30-35 kcal/kg per day). Full liquid, nectar thick, and PPN. 7. Code Status. Full Code Status. 8. Disposition. Inpatient, disposition per primary medicine team. TIME SPENT: Time for this wound consultation was 25 minutes and 15 minutes was spent with the patient and daughter discussing past medical history; assessing, measuring, and photographing the wounds; and repositioning the patient. Is Patient a Wound Clinic Patient: No Attending: Gay Zhao
[2019-08-11] MEDS: TPN* 24 HR with Dextrose 50% Water* 500 ML, Amino Acid Infusion 10%* 850 ML, Sterile Wa... CENTR SCH ×11 (17:10)
[2019-08-11] MEDS: Pantoprazole IV* 40 MG IV SCH (18:05)
[2019-08-12] MEDS: Insulin LISPRO* 1 UNITS UNIT SUBCUT SCH ×6 (00:14→20:18)
[2019-08-12] MEDS: CMCS: Carbidopa/Levodopa ODT (NF) 25/100 ODT PO SCH ×4 (02:31→18:27)
[2019-08-12] MEDS: CMCS:Carbidopa/Levodopa ODT (NF) 25/100 ODT PO SCH ×3 (06:37→12:14)
[2019-08-12] MEDS: Heparin VIAL(*) 5000 UNITS/ML VIAL (FIVE THOUSAND) SUBCUT SCH ×3 (06:38→22:15)
[2019-08-12] MEDS: Levothyroxine INJ* 100 MCG/5 ML VIAL IV SCH (06:43)
[2019-08-12 07:14] LABS: ABS Eosinophils 0.1 10^3/ul (0-0.6); ABS Lymphocytes 0.4 10^3/ul (1.0-4.8); ABS Monocytes 0.9 10^3/ul (0-0.8); ABS Neutrophils 8.7 10^3/ul (1.5-7.7); Eosinophil % 0.6 %; Hematocrit 28 % (35-47); Hemoglobin 9.2 g/dL (12.0-16.0); Lymphocyte % 4.1 %; Mean Corpuscular HGB Conc 33 g/dL (31-36); Mean Corpuscular Hemoglobin 38 pg (27-31); Mean Corpuscular Volume 115 fL (80-97); Mean Platelet Volume 9.7 fL (7.4-10.4); Platelet Count 397 10^3/uL (150-450); Red Blood Count 2.41 10^6 /uL (3.70-4.87); Red Cell Distribution Width 22 % (10-15); White Blood Count 10.1 10^3/uL (3.5-10.8)
[2019-08-12 07:27] LABS: BUN/Creatinine Ratio 91.9 (8-20); Calcium 7.9 mg/dL (8.6-10.3); EGFR African American 204.4 (>60); EGFR Non-African American 168.9 (>60); Potassium 4.2 mmol/L (3.5-5.0)
[2019-08-12 07:45] LABS: Polychromasia 1+
[2019-08-12] MEDS: Insulin GLARGINE(*) 1 UNITS UNIT SUBCUT SCH (08:39)
--- NOTE | 2019-08-12 12:12 | PN ---
Progress Note - Progress Note Date of Service: 08/12/19 SOAP: Subjective: NAD Awake and responds well to questions Continues on TPN and has flexiseal [] Objective: Vital Signs Temp 98.1 F 08/12/19 11:21 Pulse 94 08/12/19 11:21 Resp 20 08/12/19 11:21 BP 146/46 08/12/19 11:21 Pulse Ox 93 08/12/19 11:21 Intake & Output 08/11/19 08/12/19 08/12/19 18:59 06:59 18:59 Intake Total 30 280 240 Output Total 550 800 Balance -520 -520 240 Weight 140 lb 3.2 oz Intake: Oral 30 280 240 Output: [place] 500 800 Liquid Stool 50 Laboratory Tests 08/11/19 08/12/19 09:45 06:50 WBC 11.7 H 10.1 Hgb 8.9 L 9.2 L PEX Gen: Awake and Alert Chest:course BS's B/L CVS: RRR Abd: tender to Left of the midline incision, tympanic, vicenta in place castellon with clear, flexiseal with large liquid output Ext: calves soft non tender Assessment:79 yo female parkisons disease, POD 10/8 S/P ileocolic resection for closed SBO and Takeback for abdominal closure. Swallow study showed need for nectar thickened liquids. Continues with TPN, Rate dropped by 1/2 in the PM of 08/10. She Is off ABX. WBC today 10.1 , Hgb 9.2 Stool guiac was negative 08/09. Plan: Need to consume 2-3 ensures daily. Continue TPN at 1/2 rate again tonight , if consumes the ensure, could D/C TPN tomorrow 08/12 along with Central line. Continue OOB if possible. After Meeting with family it was reported that a Feeding tube was not desired, and that the patient has returned to DNR status.
[2019-08-12] MEDS ORDERED: Furosemide IV* 10 MG/ML 2 ML VIAL (20 MG) IV ONE (12:40)
--- NOTE | 2019-08-12 16:50 | PN ---
Subjective Date of Service: 08/12/19 Interval History: HD 17 on 08/11 79F history of diabetes, hypertension, Von Willenbrand disorder, Parkinson disease, who initially presented with AMS, sepsis, found to have Klebsiella UTI and SBO.Failed medical management, s/p ex lap(08/01), found ischemic bowel with closed loop obstruction, s/p cecum resection 08/01 and ileocolonic anastomosis , extubated 08/04, now POD 4. transferred from ICU on 08/06 No acute overnight events Patient seen and examined at bedside. Patient denies active complaint. Patient sitting in recliner and working with speech therapy; tolerated pureed and thin liquids. Making progress daily Objective Active Medications: Acetaminophen (Tylenol 650 Mg Supp) 650 mg SD Q6H PRN PRN Reason: MILD PAIN or TEMP > 100.4 Acetaminophen (Tylenol Tab*) 650 mg PO Q6H PRN PRN Reason: PAIN - MILD Last Admin: 08/11/19 11:09 Dose: 650 mg Carbidopa/Levodopa (Carbidopa/Levodopa 25/100 Odt (Nf)) 1 tab PO 0300,1500, 1800 [facility] Last Admin: 08/12/19 15:35 Dose: Not Given Carbidopa/Levodopa (Carbidopa/Levodopa 25/100 Odt (Nf)) 1 tab PO 0600,0900, 1200 [facility] Last Admin: 08/12/19 12:14 Dose: 1 tab Dextrose (D50w Syringe 50 Ml*) 12.5 gm IV PUSH .FOR FS < 60 - SS PRN PRN Reason: FS < 60 Heparin Sodium (Porcine) (Heparin Vial(*)) 5,000 units SUBCUT Q8HR [facility] Last Admin: 08/12/19 15:22 Dose: 5,000 units Heparin Sodium (Porcine) (Heparin Flush Picc/Ml/Cvc(*)) 1 - 3 ml FLUSH 0600, 1800 [facility]; Protocol Last Admin: 08/12/19 06:38 Dose: 2 ml Dextrose 500 ml/ Amino Acids 850 ml/ Sterile Water 150 ml/Fat Emulsion Intravenous 250 ml/ Potassium Chloride 40 meq/Potassium Phosphate 15 mmole/ Calcium Gluconate 15 meq/Magnesium Sulfate 10 meq/Multivitamins 10 ml/ Trace Metals 1 ml/ Nutrition ( Parenteral) 1,820.721 mls @ 37.932 mls/hr [facility] 1700 [facility]; Protocol Last Admin: 08/11/19 17:10 Dose: 37.932 mls/hr Insulin Glargine (Lantus(*)) 10 units SUBCUT Q24H [facility] Last Admin: 08/12/19 08:39 Dose: 10 units Insulin Human Lispro (Humalog*) 0 units SUBCUT FS Q4 ICU [facility]; Protocol Last Admin: 08/12/19 16:24 Dose: Not Given Levothyroxine Sodium (Synthroid Inj*) 25 mcg IV 0600 [facility] Last Admin: 08/12/19 06:43 Dose: 25 mcg Nystatin (Nystatin Top Powder*) 1 applic TOPICAL BID PRN PRN Reason: DRY SKIN Last Admin: 08/11/19 05:10 Dose: 1 applic Ondansetron HCl (Zofran Inj*) 4 mg IV Q4H PRN PRN Reason: NAUSEA/VOMITING Last Admin: 07/27/19 17:55 Dose: 4 mg Pantoprazole Sodium (Protonix Iv*) 40 mg IV Q24H [facility] Last Admin: 08/11/19 18:05 Dose: 40 mg Tramadol HCl (Ultram*) 50 mg PO Q6H PRN PRN Reason: PAIN - MODERATE Last Admin: 08/12/19 10:27 Dose: 50 mg Vital Signs - 8 hr 08/12/19 08/12/19 08/12/19 10:27 11:21 12:28 Temperature 98.1 F Pulse Rate 94 Respiratory 22 20 22 Rate Blood Pressure 146/46 (mmHg) O2 Sat by Pulse 93 Oximetry 08/12/19 15:48 Temperature 99.7 F Pulse Rate 90 Respiratory 22 Rate Blood Pressure 148/69 (mmHg) O2 Sat by Pulse 93 Oximetry Oxygen Devices in Use Now: Nasal Cannula Exam: Oxygen Devices in Use Now: None Appearance: alert, masked face, mildly tachypneic, no distress Ears/Nose/Mouth/Throat: - - dry mucosa Respiratory: - - Mild crackles Cardiovascular: NL Sounds; No Murmurs; No JVD, RRR Abdominal: - - midline incision stapled, no drainage or erythema, bowel sounds are active Skin: redness on inner thigh Neurological: - - no rigidity, moves all extremities on command; alert, oriented and coperative Result Diagrams: 08/12/19 06:50 08/12/19 06:50 Microbiology and Other Data: Microbiology 07/31/19 09:00 Urine Culture - Final Urine Chery Albicans 07/31/19 09:27 Aerobic Blood Culture - Preliminary Blood Venous No Growth Day 1 Anaerobic Blood Culture - Preliminary No Growth Day 1 07/27/19 08:23 Aerobic Blood Culture - Final Blood Venous Not Reportable Anaerobic Blood Culture - Final Not Reportable Blood Culture - Final No Growth Day 5 07/27/19 08:08 Aerobic Blood Culture - Final Blood Venous No Growth Day 5 Anaerobic Blood Culture - Final No Growth Day 5 07/27/19 09:36 Urine Culture - Final Urine Klebsiella Pneumoniae 07/27/19 11:45 Nasal Screen MRSA (PCR) - Final Nasal Mrsa Not Detected Assess/Plan/Problems-Billing Assessment: 79F PMH HTN, VWD, Parkinson's with motor impairment and MCI at baseline presented with septic shock 2/ to Klebsiella UTI, VIVIANA. Hospital course complicated by sig deconditioning from decompensation from parkinsons along with PNA, hyPERNa and complete SBO. s/p exp laparotomy with cecum resection on and ileocolonic anastomosis 08/03. Transferred from ICU on 08/06 - Patient Problems (1) Sepsis Current Visit: Yes Status: Acute Comment: -Resolved Multiple sources: UTI, ?pneumonia, ischemic bowel s/p 9 days of meropenem and source control achieved with surgery (2) Small bowel obstruction Current Visit: Yes Status: Acute Code(s): K56.609 - UNSP INTESTNL OBST, UNSP TO PARTIAL VERSUS COMPLETE OBST SNOMED Code(s): 979553250 Comment: -Now s/p cecum resection with ileocolic anastomosis(08/03) after failing medical management -POD 8 -Surgery following -NG tube removed 08/07 -On pureed and thin liquids- evaluation everyday- advance as able -there was discussion about need of PEG tube but patient and her family does not want it. (3) Anemia Current Visit: Yes Status: Acute Code(s): D64.9 - ANEMIA, UNSPECIFIED SNOMED Code(s): 623552321 Comment: -New dx -surgically induced -stool OBT negative -Hb dropped to 6.6- transfused 1u of PRBC on 08/10- no e/o blood loss -will watch closely for blood loss -Hb low but stable (4) Shortness of breath Current Visit: Yes Status: Acute Code(s): R06.02 - SHORTNESS OF BREATH SNOMED Code(s): 468270657 Comment: -feeling better; but has shallow breathing -CXR showing pulm edema- no opacification; no e/o infection -gentle diuresis today (5) On total parenteral nutrition (TPN) Current Visit: Yes Status: Acute Code(s): Z78.9 - OTHER SPECIFIED HEALTH STATUS SNOMED Code(s): 42083247 Comment: -will continue for now as her PO intake is not enough -reduced to half on 08/10 -will de-escalate as able -Nutrition consult placed (6) Diabetes Current Visit: Yes Status: Acute Code(s): E11.9 - TYPE 2 DIABETES MELLITUS WITHOUT COMPLICATIONS SNOMED Code(s): 11982574 Comment: -requiring insulin while on TPN -A1C- 5.8 on 08/09/19; BG controlled -will de-escalate as able (7) Parkinson disease Current Visit: Yes Status: Acute Code(s): G20 - PARKINSON'S DISEASE SNOMED Code(s): 53947752 Comment: -continue levodopa/carbidoba (8) Pressure ulcer Current Visit: Yes Status: Acute Code(s): L89.90 - PRESSURE ULCER OF UNSPECIFIED SITE, UNSPECIFIED STAGE SNOMED Code(s): 340240807 Comment: -stage 1 ulcer on back frequent positioning encourage PT barrier cream (9) DVT prophylaxis Current Visit: Yes Status: Acute Code(s): Z29.9 - ENCOUNTER FOR PROPHYLACTIC MEASURES, UNSPECIFIED SNOMED Code(s): 913004827 Comment: on heparin (10) DNR (do not resuscitate) Current Visit: Yes Status: Acute Comment: MOLST form filled out discussed with patient and family Status and Disposition: inpatient Medicine. Surgery following PT ordered will likely need MAYTE castellon; on luis f blevins Attending: Sloane Krueger Attestation Documenting Resident: Cecile Supervising Physician: Pati Attending/Supervising Physician Comment: Prognosis still remains guarded, but she is improving every day. Nutrition consult today for recommendations on daily calorie goal with hopes to DC TPN CELESTINA. Once TPN is stopped, she will be a rehab candidate. DC cande today, advance diet with speech therapy's recommendation, OOB as able. Attestation: This service has been performed in part by a resident under the direction of a teaching physician.IPati, performed the service, or was physically present during the critical, or estrella portions of the service, furnished by the resident. I participated in the management of the patient.
[2019-08-12] MEDS: TPN* 24 HR with Dextrose 50% Water* 500 ML, Amino Acid Infusion 10%* 850 ML, Sterile Wa... CENTR SCH ×11 (16:56)
[2019-08-12] MEDS: Pantoprazole IV* 40 MG IV SCH (18:14)
[2019-08-12] MEDS: Loperamide LIQ* 2 MG/10 ML UDC PO SCH (18:26)
[2019-08-13] MEDS: Insulin LISPRO* 1 UNITS UNIT SUBCUT SCH ×4 (00:44→12:51)
[2019-08-13] MEDS: CMCS: Carbidopa/Levodopa ODT (NF) 25/100 ODT PO SCH ×3 (03:38→18:43)
[2019-08-13] MEDS: CMCS:Carbidopa/Levodopa ODT (NF) 25/100 ODT PO SCH ×3 (05:49→12:51)
[2019-08-13] MEDS: Heparin VIAL(*) 5000 UNITS/ML VIAL (FIVE THOUSAND) SUBCUT SCH (05:50)
[2019-08-13] MEDS: Levothyroxine INJ* 100 MCG/5 ML VIAL IV SCH (05:50)
[2019-08-13 06:00] LABS: Hematocrit 27 % (35-47); Hemoglobin 8.7 g/dL (12.0-16.0); Mean Corpuscular HGB Conc 32 g/dL (31-36); Mean Corpuscular Hemoglobin 37 pg (27-31); Mean Corpuscular Volume 116 fL (80-97); Mean Platelet Volume 9.6 fL (7.4-10.4); Platelet Count 422 10^3/uL (150-450); Red Blood Count 2.35 10^6 /uL (3.70-4.87); Red Cell Distribution Width 21 % (10-15); White Blood Count 10.7 10^3/uL (3.5-10.8)
[2019-08-13 06:10] LABS: BUN/Creatinine Ratio 77.4 (8-20); Calcium 8.4 mg/dL (8.6-10.3); EGFR Non-African American 111.6 (>60); Potassium 4.5 mmol/L (3.5-5.0)
--- NOTE | 2019-08-13 09:59 | PN ---
Subjective Date of Service: 08/13/19 Interval History: HD 18 on 08/12 79F history of diabetes, hypertension, Von Willenbrand disorder, Parkinson disease, who initially presented with AMS, sepsis, found to have Klebsiella UTI and SBO.Failed medical management, s/p ex lap(08/01), found ischemic bowel with closed loop obstruction, s/p cecum resection 08/01 and ileocolonic anastomosis , extubated 08/04, now POD 4. transferred from ICU on 08/06 Overnight: Patient confused and required 2L of oxygen. Patient seen and examined at bedside. Patient is not alert; and not following commands. But she took the morning meds with nurse. SHe had missed her levodopa dose yesterday which could explain this but also could mean other ENAMEL SHADER events/ infection; her prognosis was guarded. I spoke to the family-Shannan who is also her HCP and discussed the possibility of comfort measures. later had conference call with all the family members along with Dr. Mascorro and discussed the goals of care and family opts for comfort measures only. Objective Active Medications: Acetaminophen (Tylenol 650 Mg Supp) 650 mg MD Q6H PRN PRN Reason: MILD PAIN or TEMP > 100.4 Acetaminophen (Tylenol Tab*) 650 mg PO Q6H PRN PRN Reason: PAIN - MILD Last Admin: 08/11/19 11:09 Dose: 650 mg Carbidopa/Levodopa (Carbidopa/Levodopa 25/100 Odt (Nf)) 1 tab PO 0300,1500, 1800 [facility] Last Admin: 08/13/19 03:38 Dose: 1 tab Carbidopa/Levodopa (Carbidopa/Levodopa 25/100 Odt (Nf)) 1 tab PO 0600,0900, 1200 [facility] Last Admin: 08/13/19 08:40 Dose: 1 tab Dextrose (D50w Syringe 50 Ml*) 12.5 gm IV PUSH .FOR FS < 60 - SS PRN PRN Reason: FS < 60 Heparin Sodium (Porcine) (Heparin Vial(*)) 5,000 units SUBCUT Q8HR [facility] Last Admin: 08/13/19 05:50 Dose: 5,000 units Heparin Sodium (Porcine) (Heparin Flush Picc/Ml/Cvc(*)) 1 - 3 ml FLUSH 0600, 1800 [facility]; Protocol Last Admin: 08/13/19 05:50 Dose: 2 ml Dextrose 500 ml/ Amino Acids 850 ml/ Sterile Water 150 ml/Fat Emulsion Intravenous 250 ml/ Potassium Chloride 40 meq/Potassium Phosphate 15 mmole/ Calcium Gluconate 15 meq/Magnesium Sulfate 10 meq/Multivitamins 10 ml/ Trace Metals 1 ml/ Nutrition ( Parenteral) 1,820.721 mls @ 37.932 mls/hr [facility]; Protocol Last Admin: 08/12/19 16:56 Dose: 37.932 mls/hr Insulin Glargine (Lantus(*)) 10 units SUBCUT Q24H [facility] Last Admin: 08/12/19 08:39 Dose: 10 units Insulin Human Lispro (Humalog*) 0 units SUBCUT FS Q4 ICU [facility]; Protocol Last Admin: 08/13/19 04:15 Dose: 1 units Levothyroxine Sodium (Synthroid Inj*) 25 mcg IV 0600 [facility] Last Admin: 08/13/19 05:50 Dose: 25 mcg Loperamide HCl (Imodium Liq*) 2 mg PO BID [facility] Last Admin: 08/12/19 18:26 Dose: 2 mg Nystatin (Nystatin Top Powder*) 1 applic TOPICAL BID PRN PRN Reason: DRY SKIN Last Admin: 08/11/19 05:10 Dose: 1 applic Ondansetron HCl (Zofran Inj*) 4 mg IV Q4H PRN PRN Reason: NAUSEA/VOMITING Last Admin: 07/27/19 17:55 Dose: 4 mg Pantoprazole Sodium (Protonix Iv*) 40 mg IV Q24H [facility] Last Admin: 08/12/19 18:14 Dose: 40 mg Tramadol HCl (Ultram*) 50 mg PO Q6H PRN PRN Reason: PAIN - MODERATE Last Admin: 08/12/19 10:27 Dose: 50 mg Vital Signs - 8 hr 08/13/19 08/13/19 03:35 07:46 Temperature 99.5 F 99.0 F Pulse Rate 94 92 Respiratory 20 27 Rate Blood Pressure 154/46 137/50 (mmHg) O2 Sat by Pulse 99 100 Oximetry Oxygen Devices in Use Now: Nasal Cannula Exam: Appearance: Not arousable Ears/Nose/Mouth/Throat: - - dry mucosa Respiratory: - - Mild crackles Cardiovascular: NL Sounds; No Murmurs; No JVD, RRR Abdominal: - - midline incision stapled, no drainage or erythema, bowel sounds are active Skin: redness on inner thigh; dry and warm Neurological: - - no rigidity, moves all extremities on command Result Diagrams: 08/13/19 05:40 08/13/19 05:40 Microbiology and Other Data: Microbiology 07/31/19 09:00 Urine Culture - Final Urine Chery Albicans 07/31/19 09:27 Aerobic Blood Culture - Preliminary Blood Venous No Growth Day 1 Anaerobic Blood Culture - Preliminary No Growth Day 1 07/27/19 08:23 Aerobic Blood Culture - Final Blood Venous Not Reportable Anaerobic Blood Culture - Final Not Reportable Blood Culture - Final No Growth Day 5 07/27/19 08:08 Aerobic Blood Culture - Final Blood Venous No Growth Day 5 Anaerobic Blood Culture - Final No Growth Day 5 07/27/19 09:36 Urine Culture - Final Urine Klebsiella Pneumoniae 07/27/19 11:45 Nasal Screen MRSA (PCR) - Final Nasal Mrsa Not Detected Assess/Plan/Problems-Billing Assessment: 79F PMH HTN, VWD, Parkinson's with motor impairment and MCI at baseline presented with septic shock 2/2 to Klebsiella UTI, VIVIANA. Hospital course complicated by sig deconditioning from decompensation from parkinsons along with PNA, hyPERNa and complete SBO. s/p exp laparotomy with cecum resection on and ileocolonic anastomosis 08/03. Transferred from ICU on 08/06. Now on comfort measures. - Patient Problems (1) Need for comfort care Current Visit: Yes Status: Acute Code(s): AMI5065 - SNOMED Code(s): 819232872 (2) Sepsis Current Visit: Yes Status: Acute Comment: -Resolved Multiple sources: UTI, ?pneumonia, ischemic bowel s/p 9 days of meropenem and source control achieved with surgery (3) Small bowel obstruction Current Visit: Yes Status: Acute Code(s): K56.609 - UNSP INTESTNL OBST, UNSP TO PARTIAL VERSUS COMPLETE OBST SNOMED Code(s): 230041228 Comment: -Now s/p cecum resection with ileocolic anastomosis(08/03) after failing medical management -POD 9 -Surgery following -NG tube removed 08/07 -On pureed and thin liquids- evaluation everyday- advance as able -there was discussion about need of PEG tube but patient and her family does not want it. -patient is now on comfort measures only (4) Anemia Current Visit: Yes Status: Acute Code(s): D64.9 - ANEMIA, UNSPECIFIED SNOMED Code(s): 881929282 Comment: -New dx -surgically induced -stool OBT negative -Hb dropped to 6.6- transfused 1u of PRBC on 08/10- no e/o blood loss -Hb low but stable (5) Shortness of breath Current Visit: Yes Status: Acute Code(s): R06.02 - SHORTNESS OF BREATH SNOMED Code(s): 920904052 Comment: -CXR showing pulm edema- no opacification; no e/o infection -If in distress then morphine (6) On total parenteral nutrition (TPN) Current Visit: Yes Status: Acute Code(s): Z78.9 - OTHER SPECIFIED HEALTH STATUS SNOMED Code(s): 38167805 Comment: -discontinue TPN and central line. (7) Diabetes Current Visit: Yes Status: Acute Code(s): E11.9 - TYPE 2 DIABETES MELLITUS WITHOUT COMPLICATIONS SNOMED Code(s): 50744999 Comment: -dc tpn and insulin -pt on comfort measures (8) Parkinson disease Current Visit: Yes Status: Acute Code(s): G20 - PARKINSON'S DISEASE SNOMED Code(s): 58041914 Comment: -continue levodopa/carbidoba (9) Pressure ulcer Current Visit: Yes Status: Acute Code(s): L89.90 - PRESSURE ULCER OF UNSPECIFIED SITE, UNSPECIFIED STAGE SNOMED Code(s): 171735312 Comment: -stage 1 ulcer on back frequent positioning encourage PT barrier cream (10) DVT prophylaxis Current Visit: Yes Status: Acute Code(s): Z29.9 - ENCOUNTER FOR PROPHYLACTIC MEASURES, UNSPECIFIED SNOMED Code(s): 402720181 Comment: -None (11) DNR (do not resuscitate) Current Visit: Yes Status: Acute Comment: MOLST form filled out discussed with patient and family Status and Disposition: inpatient Medicine. comfort measures Family want hospice residence; if disapproved then SNF with hospice Attending: Sloane Krueger
--- NOTE | 2019-08-13 10:01 | PN ---
Hospitalist Progress Note Date of Service: 08/13/19 We went to see Marisol this morning, she is not arousable. Vitals remain stable , labs continue to improve. Overall, however, she is declining, unable to meet nutritional requirements, unable to actively participate in therapies, unable to engage in conversations with us about her goals of care. She did miss one dose of carbidopa/levodopa yesterday, but has received doses since then. In addition to usual waxing/waning and parkinsonism, she may have sustained a neurologic event vs. seizure vs. infection; however pursuing these diagnoses will not likely improve the outcome. Dr. Tripp called Shannan to update her on Marisol's declining condition and suggested that we shift focus to comfort measures, and Shannan agrees to discuss this with her father and sister. Regardless of this morning's events, TPN risks outweigh benefits at this time, and it is appropriate to DC. Marisol appears comfortable at this time.
[2019-08-13] MEDS: Insulin GLARGINE(*) 1 UNITS UNIT SUBCUT SCH (10:44)
[2019-08-13] MEDS: Loperamide LIQ* 2 MG/10 ML UDC PO SCH ×2 (10:44→23:36)
--- NOTE | 2019-08-13 17:04 | PN ---
Progress Note - Progress Note Date of Service: 08/13/19 Note: Went to see Marisol this afternoon, she is comfortable, in NAD but not arousable. The Left IJ Triple lumen has been removed and TPN has been discontinued per previous notes and discussion with Dr Krueger, patient will be going to comfort care measures.
[2019-08-13] MEDS: Pantoprazole IV* 40 MG IV SCH (18:43)
[2019-08-14] MEDS: CMCS: Carbidopa/Levodopa ODT (NF) 25/100 ODT PO SCH ×3 (03:43→17:23)
[2019-08-14] MEDS: CMCS:Carbidopa/Levodopa ODT (NF) 25/100 ODT PO SCH ×3 (06:17→13:06)
[2019-08-14] MEDS: Loperamide LIQ* 2 MG/10 ML UDC PO SCH ×2 (10:25→21:03)
--- NOTE | 2019-08-14 11:37 | PN ---
Progress Note - Progress Note Date of Service: 08/14/19 Note: S: She is non arousable, but appears comfortable and in no acute distress. TPN has been discontinued and family agreed with comfort care measures. Temp Pulse Resp BP Pulse Ox 98.7 F 94 28 120/40 100 08/14/19 11:30 08/14/19 11:30 08/14/19 11:30 08/14/19 11:30 08/14/19 11:30 Intake and Output Last 24 Hours 08/12/19 08/13/19 08/14/19 08/15/19 06:59 06:59 06:59 06:59 Intake Total 310 600 0 Output Total 1350 2475 1300 Balance -1040 -1875 -1300 Weight 140 lb 3.2 oz 134 lb 1.6 oz Intake: Oral 310 600 0 Output: Urine 1000 650 [place] 1300 475 350 Liquid Stool 50 1000 300 Other: Estimated Void Medium # Voids 2 PEX General: NAD Heart: Tachycardic, regular rhythm, no MRG Lungs: CTAB ABD: Midline incision with vicenta, C/D/I. Assessment and plan: 79 yo F s/p Opening of recent laparotomy, abdominal washout , ileocolonic anastomosis POD 10 days, continue comfort care measures. [place] may be removed in near future.
--- NOTE | 2019-08-14 14:52 | PN ---
Subjective Date of Service: 08/14/19 Interval History: HD 19 on 08/13 79F history of diabetes, hypertension, Von Willenbrand disorder, Parkinson disease, who initially presented with AMS, sepsis, found to have Klebsiella UTI and SBO.Failed medical management, s/p ex lap(08/01), found ischemic bowel with closed loop obstruction, s/p cecum resection 08/01 and ileocolonic anastomosis , extubated 08/04, now POD 4. transferred from ICU on 08/06 Overnight: requiring 2L oxygen Patient seen and examined at bedside. Patient has spontaneous eye opening but does not follow command. Looks comfortable. Objective Active Medications: Acetaminophen (Tylenol 650 Mg Supp) 650 mg MI Q6H PRN PRN Reason: MILD PAIN or TEMP > 100.4 Acetaminophen (Tylenol Tab*) 650 mg PO Q6H PRN PRN Reason: PAIN - MILD Last Admin: 08/11/19 11:09 Dose: 650 mg Carbidopa/Levodopa (Carbidopa/Levodopa 25/100 Odt (Nf)) 1 tab PO 0300,1500, 1800 [facility] Last Admin: 08/14/19 03:43 Dose: Not Given Carbidopa/Levodopa (Carbidopa/Levodopa 25/100 Odt (Nf)) 1 tab PO 0600,0900, 1200 [facility] Last Admin: 08/14/19 13:06 Dose: Not Given Loperamide HCl (Imodium Liq*) 2 mg PO BID [facility] Last Admin: 08/14/19 10:25 Dose: Not Given Nystatin (Nystatin Top Powder*) 1 applic TOPICAL BID PRN PRN Reason: DRY SKIN Last Admin: 08/11/19 05:10 Dose: 1 applic Pantoprazole Sodium (Protonix Iv*) 40 mg IV Q24H [facility] Last Admin: 08/13/19 18:43 Dose: Not Given Tramadol HCl (Ultram*) 50 mg PO Q6H PRN PRN Reason: PAIN - MODERATE Last Admin: 08/12/19 10:27 Dose: 50 mg Vital Signs - 8 hr 08/14/19 08/14/19 07:35 11:30 Temperature 98.7 F Pulse Rate 94 Respiratory 26 28 Rate Blood Pressure 120/40 (mmHg) O2 Sat by Pulse 100 Oximetry Oxygen Devices in Use Now: Nasal Cannula Exam: Appearance: Not arousable Ears/Nose/Mouth/Throat: - - dry mucosa Respiratory: - - Mild crackles Cardiovascular: NL Sounds; No Murmurs; No JVD, RRR Abdominal: - - midline incision stapled, no drainage or erythema, bowel sounds are active Skin: redness on inner thigh; dry and warm Neurological: - - no rigidity, moves all extremities on command Result Diagrams: 08/13/19 05:40 08/13/19 05:40 Microbiology and Other Data: Microbiology 07/31/19 09:00 Urine Culture - Final Urine Chery Albicans 07/31/19 09:27 Aerobic Blood Culture - Preliminary Blood Venous No Growth Day 1 Anaerobic Blood Culture - Preliminary No Growth Day 1 07/27/19 08:23 Aerobic Blood Culture - Final Blood Venous Not Reportable Anaerobic Blood Culture - Final Not Reportable Blood Culture - Final No Growth Day 5 07/27/19 08:08 Aerobic Blood Culture - Final Blood Venous No Growth Day 5 Anaerobic Blood Culture - Final No Growth Day 5 07/27/19 09:36 Urine Culture - Final Urine Klebsiella Pneumoniae 07/27/19 11:45 Nasal Screen MRSA (PCR) - Final Nasal Mrsa Not Detected Assess/Plan/Problems-Billing Assessment: 79F H HTN, VWD, Parkinson's with motor impairment and MCI at baseline presented with septic shock 2/2 to Klebsiella UTI, VIVIANA. Hospital course complicated by sig deconditioning from decompensation from parkinsons along with PNA, hyPERNa and complete SBO. s/p exp laparotomy with cecum resection on and ileocolonic anastomosis 08/03. Transferred from ICU on 08/06. Now on comfort measures. - Patient Problems (1) Need for comfort care Current Visit: Yes Status: Acute Code(s): GQN7027 - SNOMED Code(s): 315788615 Comment: no pain at this time no dyspnea awaiting hospice bed (2) Sepsis Current Visit: Yes Status: Acute Comment: -Resolved -Multiple sources: UTI, ?pneumonia, ischemic bowel -s/p 9 days of meropenem and source control achieved with surgery (3) Small bowel obstruction Current Visit: Yes Status: Acute Code(s): K56.609 - UNSP INTESTNL OBST, UNSP TO PARTIAL VERSUS COMPLETE OBST SNOMED Code(s): 737647080 Comment: -Now s/p caecum resection with ileocolic anastomosis(08/03) after failing medical management -POD 10 -NG tube removed 08/07 -Comfort diet -patient is now on comfort measures only (4) Anemia Current Visit: Yes Status: Acute Code(s): D64.9 - ANEMIA, UNSPECIFIED SNOMED Code(s): 170820134 Comment: -New dx -surgically induced -stool OBT negative -Hb dropped to 6.6- transfused 1u of PRBC on 08/10- no e/o blood loss -Hb low but stable (5) Shortness of breath Current Visit: Yes Status: Acute Code(s): R06.02 - SHORTNESS OF BREATH SNOMED Code(s): 282041016 Comment: -CXR showing pulm edema- no opacification; no e/o infection -If in distress then morphine (6) Diabetes Current Visit: Yes Status: Acute Code(s): E11.9 - TYPE 2 DIABETES MELLITUS WITHOUT COMPLICATIONS SNOMED Code(s): 06675842 Comment: -dc tpn and insulin -pt on comfort measures (7) Parkinson disease Current Visit: Yes Status: Acute Code(s): G20 - PARKINSON'S DISEASE SNOMED Code(s): 76692488 Comment: -continue levodopa/carbidoba (8) Pressure ulcer Current Visit: Yes Status: Acute Code(s): L89.90 - PRESSURE ULCER OF UNSPECIFIED SITE, UNSPECIFIED STAGE SNOMED Code(s): 842497886 Comment: -stage 1 ulcer on back frequent positioning encourage PT barrier cream (9) DVT prophylaxis Current Visit: Yes Status: Acute Code(s): Z29.9 - ENCOUNTER FOR PROPHYLACTIC MEASURES, UNSPECIFIED SNOMED Code(s): 600286581 Comment: -None (10) DNR (do not resuscitate) Current Visit: Yes Status: Acute Comment: MOLST form filled out discussed with patient and family Status and Disposition: inpatient Medicine. comfort measures Family want hospice residence; if disapproved then SNF with hospice Attending: Sloane Krueger Attestation Documenting Resident: Josee Supervising Physician: Pati Attending/Supervising Physician Comment: Comfort measures Awaiting bed availability at Hospice Residence Attestation: This service has been performed in part by a resident under the direction of a teaching physician.I, Pati, performed the service, or was physically present during the critical, or estrella portions of the service, furnished by the resident. I participated in the management of the patient.
[2019-08-14] MEDS: Pantoprazole IV* 40 MG IV SCH (17:23)
[2019-08-15] MEDS: CMCS: Carbidopa/Levodopa ODT (NF) 25/100 ODT PO SCH ×3 (03:17→17:24)
[2019-08-15] MEDS: CMCS:Carbidopa/Levodopa ODT (NF) 25/100 ODT PO SCH ×4 (05:53→11:38)
[2019-08-15] MEDS: Loperamide LIQ* 2 MG/10 ML UDC PO SCH (11:15)
--- NOTE | 2019-08-15 13:14 | PN ---
Subjective Date of Service: 08/15/19 Interval History: Patient resting comfortably, family at bedside. Family has no concerns. Family History: Unchanged from Admission Social History: Unchanged from Admission Past Medical History: Unchanged from Admission Objective Active Medications: Acetaminophen (Tylenol 650 Mg Supp) 650 mg NV Q6H PRN Acetaminophen (Tylenol Tab*) 650 mg PO Q6H PRN Carbidopa/Levodopa (Carbidopa/Levodopa 25/100 Odt (Nf)) 1 tab PO 0300,1500, 1800 CHRISTY Carbidopa/Levodopa (Carbidopa/Levodopa 25/100 Odt (Nf)) 1 tab PO 0600,0900, 1200 CHRISTY Loperamide HCl (Imodium Liq*) 2 mg PO BID CHRISTY Nystatin (Nystatin Top Powder*) 1 applic TOPICAL BID PRN Pantoprazole Sodium (Protonix Iv*) 40 mg IV Q24H CHRISTY Tramadol HCl (Ultram*) 50 mg PO Q6H PRN Vital Signs: Temp Pulse Resp BP Pulse Ox 97.9 F 90 26 136/49 98 08/15/19 08:34 08/15/19 08:34 08/15/19 08:34 08/15/19 08:34 08/15/19 08:34 Oxygen Devices in Use Now: Nasal Cannula Appearance: Lying in bed in NAD Respiratory: Symmetrical Chest Expansion and Respiratory Effort Neurological: - - Alert Result Diagrams: 08/13/19 05:40 08/13/19 05:40 Microbiology and Other Data: . Assess/Plan/Problems-Billing Assessment: Ms. Mcnally is a 79F PMH HTN, VWD, Parkinson's presented with small bowel obstruction and UTI with septic shock and VIVIANA, no s/p exp laparotomy with cecum resection on 08/01 and ileocolonic anastomosis 08/03. Hospital course complicated by significant deconditioning from decompensation from parkinsons along with PNA , hyPERNa, now on comfort measures. - Patient Problems (1) Need for comfort care Comment: - no pain or dysnpea at this time - awaiting hospice bed vs SNF Status and Disposition: Inpatient, comfort measures, Family want hospice residence; if not available then SNF with hospice.
[2019-08-15] MEDS: Pantoprazole IV* 40 MG IV SCH (17:24)
[2019-08-16] MEDS: Loperamide LIQ* 2 MG/10 ML UDC PO SCH (00:42)
[2019-08-16] MEDS: CMCS:Carbidopa/Levodopa ODT (NF) 25/100 ODT PO SCH ×3 (06:42→13:40)
[2019-08-16] MEDS: CMCS: Carbidopa/Levodopa ODT (NF) 25/100 ODT PO SCH ×3 (06:42→17:25)
[2019-08-16] MEDS ORDERED: Famotidine TAB* 20 MG PO PRN (08:32)
--- NOTE | 2019-08-16 08:36 | PN ---
Subjective Date of Service: 08/16/19 Interval History: No acute events overnight. Pt sleeping peacefully on exam this AM. Objective Active Medications: Acetaminophen (Tylenol Tab*) 650 mg PO Q6H PRN PRN Reason: PAIN - MILD Last Admin: 08/11/19 11:09 Dose: 650 mg Carbidopa/Levodopa (Carbidopa/Levodopa 25/100 Odt (Nf)) 1 tab PO 0300,1500, 1800 CHRISTY Last Admin: 08/16/19 06:42 Dose: Not Given Carbidopa/Levodopa (Carbidopa/Levodopa 25/100 Odt (Nf)) 1 tab PO 0600,0900, 1200 CHRISTY Last Admin: 08/16/19 06:42 Dose: Not Given Famotidine (Pepcid Tab*) 20 mg PO BID PRN PRN Reason: HEARTBURN Morphine Sulfate (Morphine Oral Concentrate*) 5 mg SL Q2H PRN PRN Reason: pain or dyspnea Nystatin (Nystatin Top Powder*) 1 applic TOPICAL BID PRN PRN Reason: DRY SKIN Last Admin: 08/11/19 05:10 Dose: 1 applic Tramadol HCl (Ultram*) 50 mg PO Q6H PRN PRN Reason: PAIN - MODERATE Last Admin: 08/12/19 10:27 Dose: 50 mg Vital Signs - 8 hr 08/16/19 08:00 Respiratory 26 Rate Oxygen Devices in Use Now: Nasal Cannula Appearance: chronically ill frail-appearing woman Neurological: - - not alert to loud voice Result Diagrams: 08/13/19 05:40 08/13/19 05:40 Microbiology and Other Data: . Assess/Plan/Problems-Billing Assessment: 79W with HTN, VWD, Parkinson's presented with SBO and UTI with septic shock and VIVIANA, no s/p exp laparotomy with cecum resection on 08/01 and ileocolonic anastomosis 08/03. Hospital course complicated by significant deconditioning from decompensation from parkinsons along with PNA, hyPERNa, now on comfort measures. - Patient Problems (1) Need for comfort care Comment: Will stop IV medication. - start morphine SL prn pain or dyspnea - awaiting hospice bed vs SNF Status and Disposition: Inpatient, comfort measures, Family want hospice residence; if not available then SNF with hospice.
[2019-08-17] MEDS: CMCS: Carbidopa/Levodopa ODT (NF) 25/100 ODT PO SCH ×3 (03:28→17:23)
[2019-08-17] MEDS: CMCS:Carbidopa/Levodopa ODT (NF) 25/100 ODT PO SCH ×3 (05:57→11:25)
--- NOTE | 2019-08-17 09:31 | PN ---
Subjective Date of Service: 08/17/19 Interval History: No acute events overnight. Has not needed oral morphine. Patient alert and tracks with eyes this morning but does not speak or follow commands. Objective Active Medications: Acetaminophen (Tylenol Tab*) 650 mg PO Q6H PRN PRN Reason: PAIN - MILD Last Admin: 08/11/19 11:09 Dose: 650 mg Carbidopa/Levodopa (Carbidopa/Levodopa 25/100 Odt (Nf)) 1 tab PO 0300,1500, 1800 CHRISTY Last Admin: 08/17/19 03:28 Dose: Not Given Carbidopa/Levodopa (Carbidopa/Levodopa 25/100 Odt (Nf)) 1 tab PO 0600,0900, 1200 CHRISTY Last Admin: 08/17/19 05:57 Dose: Not Given Famotidine (Pepcid Tab*) 20 mg PO BID PRN PRN Reason: HEARTBURN Morphine Sulfate (Morphine Oral Concentrate*) 5 mg SL Q2H PRN PRN Reason: pain or dyspnea Nystatin (Nystatin Top Powder*) 1 applic TOPICAL BID PRN PRN Reason: DRY SKIN Last Admin: 08/11/19 05:10 Dose: 1 applic Tramadol HCl (Ultram*) 50 mg PO Q6H PRN PRN Reason: PAIN - MODERATE Last Admin: 08/12/19 10:27 Dose: 50 mg Vital Signs - 8 hr 08/17/19 08/17/19 04:18 07:58 Temperature 100.9 F 99.2 F Pulse Rate 94 96 Respiratory 20 25 Rate Blood Pressure 136/44 135/53 (mmHg) O2 Sat by Pulse 98 97 Oximetry Oxygen Devices in Use Now: Nasal Cannula Appearance: ill-appearing frail woman in NAD Respiratory: Symmetrical Chest Expansion and Respiratory Effort Abdominal: - - midline surgical incision with vicenta c/d/i Neurological: - - tracks with eyes, does not response to questions or follow commands Result Diagrams: 08/13/19 05:40 08/13/19 05:40 Additional Lab and Data: Above labs were pulled into the note, when the note was edited prior to signing. See below for labs from the day of consultation. Laboratory Tests 08/09/19 08/11/19 08/11/19 06:40 05:20 08:19 Sodium 139 Potassium 4.1 Chloride 110 Carbon Dioxide 23 BUN 34 H Creatinine 0.40 L Glucose 137 H Hemoglobin A1c 5.8 H Total Protein 4.5 L Albumin 1.9 L 08/11/19 09:45 WBC 11.7 H Hgb 8.9 L Hct 27 L Plt Count 406 Microbiology and Other Data: . Assess/Plan/Problems-Billing Assessment: 79W with HTN, VWD, Parkinson's presented with SBO and UTI with septic shock and VIVIANA, no s/p exp laparotomy with cecum resection on 08/01 and ileocolonic anastomosis 08/03. Hospital course complicated by significant deconditioning from decompensation from parkinsons along with PNA, hyPERNa, now on comfort measures. - Patient Problems (1) Need for comfort care Comment: Will stop IV medication. - start morphine SL prn pain or dyspnea - awaiting hospice bed vs SNF Status and Disposition: Inpatient, comfort measures, Family want hospice residence; if not available then SNF with hospice.
[2019-08-17] MEDS: Morphine ORAL CONCENTRATE* 5 MG/0.25 ML ORAL.SYRIN SL PRN (19:41)
[2019-08-18] MEDS: CMCS: Carbidopa/Levodopa ODT (NF) 25/100 ODT PO SCH (03:52)
[2019-08-18] MEDS: CMCS:Carbidopa/Levodopa ODT (NF) 25/100 ODT PO SCH ×3 (05:12→10:46)
[2019-08-18 08:49] VITALS: BP 148/53
[2019-08-18] MEDS: Morphine ORAL CONCENTRATE* 5 MG/0.25 ML ORAL.SYRIN SL PRN ×2 (09:23→12:35)
--- NOTE | 2019-08-18 18:13 | DS ---
CC: Dr. Berkley Diaz* DISCHARGE SUMMARY: DATE OF ADMISSION: 07/27/19 DATE OF DISCHARGE: 08/18/19 PRIMARY CARE PHYSICIAN: Dr. Berkley Diaz. PRIMARY DIAGNOSES: 1. Septic shock from urinary tract infection. 2. Pneumonia. 3. Renal failure. 4. Bowel obstruction. SECONDARY DIAGNOSES: 1. Parkinson disease. 2. Von Willebrand disorder. 3. Hypertension. 4. Diabetes. 5. Anxiety. 6. Depression. CONSULTATIONS: Dr. Elizabeth Delacruz of Surgery, Dr. Libby Mascorro of Palliative Care. PROCEDURES: 1. Exploratory laparotomy, lysis of adhesions, small bowel resection, cecal resection, and closure of abdomen on 08/02/19. 2. Opening of recent laparotomy, abdominal washout, ileocolic anastomosis on . DISCHARGE MEDICATIONS: 1. Carbidopa/levodopa at 2 p.m., 6 p.m., and bedtime. 2. Oral morphine concentrate 5 mg sublingual every 2 hours as needed for pain or dyspnea. 3. Famotidine 20 mg twice a day as needed for heartburn. HISTORY OF PRESENT ILLNESS: Ms. Mcnally is a 79-year-old woman with Parkinson disease, hypertension, diabetes, and anxiety, who presents with altered mental status. It appears she was having abdominal pain in the right lower quadrant, with the last bowel movement 2 days prior to presentation. The patient denied chest pain, shortness of breath, nausea, vomiting. The patient reports history of an abdominal surgery. HOSPITAL COURSE: The patient was given IV hydration in the emergency room and had slight improvement in her mental status. An abdomen and pelvis CT was performed and showed distal small bowel obstruction versus ileus, nonspecific lesion visualized. The patient was admitted to the ICU for further care in the setting of bowel obstruction and lactic acidosis, and she was seen and evaluated by General Surgery as well. She was initiated on empiric antibiotics with resuscitation and her lactic acid decreased from 4.3 to 0.5. General Surgery saw and evaluated the patient. As the patient was not actively vomiting , they held off on NG tube placement and recommended conservative management initially. The patient's urine culture eventually resulted with klebsiella over 100,000 CFUs, which was thought to be the source of her septic shock and VIVIANA. The patient remained considerably altered throughout her hospitalization. Given that the patient was not improving from conservative management for SBO , she was eventually brought to the OR for ex lap with lysis of adhesions, small bowel resection, and cecal resection. She needed to return to the OR 2 days later for a washout. Before initial surgical procedure, Dr. Libby Mascorro of Palliative Care was consulted and saw the patient and had extensive conversation with the patient's family and her care providers. While family did want to pursue surgery, they were prepared to pursue hospice measures if the patient did not improve. After the patient's abdominal surgery, she was monitored in the ICU and eventually transferred to the floor. She was cachectic , lethargic, and required 2 units of packed red blood cells over the following days. As the patient's progress was not improving, her DNR/DNI was reinstated which was temporarily held for the OR. Providers had a discussion with the patient's healthcare proxy, who is her , and they stated that their mom was always clear about her code status and never wanted a feeding tube. Given the patient's grave prognosis, she was considered for hospice, and once she was accepted for [facility] bed, she was transported without further issues. PHYSICAL EXAMINATION: Afebrile, heart rate 94, blood pressure 145/53, respirations 28, oxygen saturation 97% on 1 L. A frail, cachectic-appearing woman, in no acute distress. Neck: Supple. No JVD. Lungs: Clear to auscultation anteriorly, but tachypneic. Heart: Regular rate and rhythm. No murmurs, gallops, or rubs. Abdomen: Soft. No grimace to palpation. Midline incision stapled without drainage. Neuro: Occasionally will track with eyes, but no response to questions and does not follow commands. PERTINENT DIAGNOSTIC STUDIES: Labs not checked for remaining days of hospitalization given comfort measures only. Abdomen and pelvis CT on admission with distal small bowel obstruction versus ileus without specific lesion visualized. Repeat abdomen and pelvis CT with persistent distal gross complete small bowel obstruction, anasarca, unchanged small volume of non-loculated ascites, interval increase in bilateral small dependent pleural effusions, new mild right hydronephrosis of uncertain etiology. DISCHARGE PLAN: The patient is discharged to [facility] for comfort measures only. She can continue her Parkinson's medications as well as Pepcid for heartburn and she can take these as tolerated. She was also given morphine to take as needed for pain or dyspnea. Her other home medications have been discontinued. DIET: Comfort foods. ACTIVITY: As tolerated. DISPOSITION: [facility]. CONDITION: Grave. TIME SPENT: Approximately 60 minutes was spent on discharge of this patient, more than half of which was spent with care coordination at bedside for interview and exam. [id number]/[facility] #: [id number] MTDD
== END 2019-08-18 13:20 | disposition hospice, inpatient (51) | DRG 853 ==
LOC: ED 07:17 → ICU 10:58 → SSU 23:20 → ICU 08-02 15:38 → SSU 08-07 14:50
PROVIDERS: ADMIT Internal Medicine Critical Care Medicine; ATTEND Internal Medicine
PROC: 0DB80ZZ Excision of Small Intestine, Open Approach (ICD-10-PCS; 2019-08-02)
PROC: 30233N1 Transfusion of Nonautologous Red Blood Cells into Peripheral Vein, Percutaneous Approach (ICD-10-PCS; 2019-08-02)
PROC: 0BH17EZ Insertion of Endotracheal Airway into Trachea, Via Natural or Artificial Opening (ICD-10-PCS; 2019-08-02)
PROC: 5A1945Z Respiratory Ventilation, 24-96 Consecutive Hours (ICD-10-PCS; 2019-08-02)
PROC: 0DBH0ZZ Excision of Cecum, Open Approach (ICD-10-PCS; principal; 2019-08-02 11:17)
PROC: 0DBB0ZZ Excision of Ileum, Open Approach (ICD-10-PCS; 2019-08-04)
DX: A41.51 Sepsis due to Escherichia coli [E. coli] (principal); R65.21 Severe sepsis with septic shock; J18.9 Pneumonia, unspecified organism; K55.029 Acute infarction of small intestine, extent unspecified; N17.9 Acute kidney failure, unspecified; I24.8 Other forms of acute ischemic heart disease; D68.0 Von Willebrand disease; E46 Unspecified protein-calorie malnutrition; N13.6 Pyonephrosis; J81.1 Chronic pulmonary edema; E87.0 Hyperosmolality and hypernatremia; K56.50 Intestinal adhesions [bands], unspecified as to partial versus complete obstruction; A41.59 Other Gram-negative sepsis; E03.9 Hypothyroidism, unspecified; E11.9 Type 2 diabetes mellitus without complications; I10 Essential (primary) hypertension; G20 Parkinson's disease; F41.9 Anxiety disorder, unspecified; E78.5 Hyperlipidemia, unspecified; E86.0 Dehydration; L89.152 Pressure ulcer of sacral region, stage 2; L89.322 Pressure ulcer of left buttock, stage 2; L89.312 Pressure ulcer of right buttock, stage 2; B96.1 Klebsiella pneumoniae [K. pneumoniae] as the cause of diseases classified elsewhere; L89.212 Pressure ulcer of right hip, stage 2; L30.8 Other specified dermatitis; F32.9 Major depressive disorder, single episode, unspecified; D64.9 Anemia, unspecified; Z51.5 Encounter for palliative care; Z66 Do not resuscitate; Z88.0 Allergy status to penicillin; Z88.5 Allergy status to narcotic agent; Z88.2 Allergy status to sulfonamides; Z88.8 Allergy status to other drugs, medicaments and biological substances; Z88.1 Allergy status to other antibiotic agents; Z85.3 Personal history of malignant neoplasm of breast; Z85.828 Personal history of other malignant neoplasm of skin; Z92.21 Personal history of antineoplastic chemotherapy; Z98.42 Cataract extraction status, left eye; Z98.41 Cataract extraction status, right eye; Z90.12 Acquired absence of left breast and nipple; Z68.23 Body mass index [BMI] 23.0-23.9, adult; Z79.890 Hormone replacement therapy; Z79.899 Other long term (current) drug therapy
CPT/HCPCS: 36415; 71045; 71046; 74176; 80048; 80053; 80202; 81003; 81015; 82270; 82465; 82550; 82803; 83036; 83605; 83690; 83735; 84100; 84134; 84478; 84484; 85025; 85027; 85610; 85730; 86140; 86850; 86900; 86901; 86922; 86965; 87040; 87077; 87086; 87106; 87186; 87641; 88307; 93005; 93306; 94002; 94003; 96374; 96375; 99284; A9270-GY; C1776; J0461; J0610; J0692; J0696; J1644; J1940; J2185; J2250; J2270; J2405; J2597; J2997; J3010; J3370; J3475; J3480; J3490; P9012; P9040